=== PATIENT | female | born 1990 | race Caucasian/White ===

== ENCOUNTER 2017-01-06 08:20 | Day surgery (SDC) | payer BC, OTHER ==
[2017-01-02 10:58] VITALS: BMI 19.7
[~2017-01-06 08:20] MED LIST: LACTATED RINGERS 1,000 ML IV SCH
[2017-01-06] MEDS ORDERED: LACTATED RINGERS 1,000 ML IV ONE (08:42)
[2017-01-06 08:43] VITALS: TEMP 98
[2017-01-06 08:57] LABS: Glucose,Whole Blood 106 mg/dL (75-99)
[2017-01-06] MEDS ORDERED: LIDOCAINE 1% 20 ML VIAL (10MG/ML) FOR IV START INTRADERMA ONE (09:03)
[2017-01-06] MEDS ORDERED: LIDOCAINE 1% INJ 10MG/ML (20 ML MDV) ONE (09:39)
[2017-01-06] MEDS ORDERED: PROPOFOL 10 MG/ML 20 ML VIAL IV ONE (09:39)
--- NOTE | 2017-01-06 10:28 | P.PCN ---
Date of Procedure: 01/06/17 Procedure(s) Performed: Procedure: Colonoscopy and biopsy. Preoperative diagnosis: Diarrhea and suspected colitis. Postoperative diagnosis: 1. Nonspecific proctitis, otherwise, exam of the colon and terminal ileum within normal limits. 2. Biopsies obtained from the terminal ileum, random colon and rectum. Preparation: HalfLytely prep. Sedation: Was provided by anesthesia. Brief clinical history: The patient is a 26-year-old female who is referred for this evaluation for suspected colitis. The patient has been in her usual state of health until around 1 month ago when she was treated for pneumonia with antibiotics and started to have diarrhea. There is family history of irritable bowel syndrome and Crohn's disease on her father's side of the family. The patient herself may have had issues with stomach upset and bowel issues over the years but was not diagnosed with inflammatory bowel disease. She has been having some joint complaints but no other extraintestinal manifestations of IBD. Stool studies were negative for C. difficile. She has not responded to antibiotics for her diarrhea and is currently on steroids. This evaluation was requested to assess for inflammatory bowel disease or other pathology. Procedure: With the patient on her left lateral decubitus position and after informed consent and adequate sedation, the perianal area was inspected and it did not show any fissures or fistulas. There were no masses felt on digital rectal examination. The Olympus CFQ 160L videocolonoscope was used and was inserted in the rectum in the usual fashion and advanced to the cecum. I intubated the ileocecal valve and examined the terminal ileum. Terminal ileum appeared healthy with no obvious erosions or ulcers. The mucosa in the colon also appeared healthy with the occasional friability noted with areas of endoscope trauma. There was spontaneous erythema and few submucosal hemorrhages in the rectum noted upon first inserting the endoscope. There was no evidence of typical changes of inflammatory bowel disease or pseudomembranous colitis in any of the areas examined. I obtained biopsies from the terminal ileum, random colon and rectum before the endoscope was withdrawn. The patient tolerated the procedure well. Plan: The patient was reassured. Will await biopsy results and make additional recommendations based on her course and biopsy results.
[2017-01-06 10:41] VITALS: PULSE 100; RESP 16
[2017-01-06 11:04] VITALS: BP 124/83
== END 2017-01-06 11:22 | disposition home or self-care (01) ==
LOC: ORWHC2ENDO 08:20
DX: K62.89 Other specified diseases of anus and rectum (principal); K52.9 Noninfective gastroenteritis and colitis, unspecified; J45.909 Unspecified asthma, uncomplicated; Z79.52 Long term (current) use of systemic steroids; Z79.891 Long term (current) use of opiate analgesic; Z79.899 Other long term (current) drug therapy; Z88.1 Allergy status to other antibiotic agents; Z91.012 Allergy to eggs
CPT/HCPCS: 81025; 88305; 45380; J2001; J2704

== ENCOUNTER 2017-01-09 16:09 | Inpatient (IN) | payer BC, OTHER ==
[2017-01-09] MEDS ORDERED: SODIUM CHLORIDE 0.9% 1,000 ML IV STA ×2 (16:30)
[2017-01-09] MEDS ORDERED: SODIUM CHLORIDE 0.9% 500 ML IV STA ×2 (16:30→18:12)
[2017-01-09] MEDS ORDERED: PANTOPRAZOLE 40 MG/10 ML VIAL IVP STA (16:34)
[2017-01-09 16:41] LABS: Anisocytosis Slight; CH 30.8; CHCM 32.6; HCT 21.3 % (34.0-46.0); HDW 2.57; MCH 31.3 pg (25.0-35.0); MCHC 33.1 g/dL (31.0-37.0); MCV 94.7 fL (80.0-100.0); RBC 2.25 m/uL (3.80-5.40); RDW 16.2 % (11.5-15.5); WBC (Perox) 12.59
--- NOTE | 2017-01-09 16:42 | ED ---
General Adult HPI - General Source: patient, RN notes reviewed Mode of arrival: EMS Limitations: no limitations <Jonathon Gould - Last Filed: 01/09/17 19:25> <Doug Vaughn - Last Filed: 01/09/17 20:03> - General Chief complaint: Syncope Stated complaint: NEAR SYNCOPE, VOMITING BLOOD Time Seen by Provider: 01/09/17 16:25 - History of Present Illness Initial comments: Patient is a 26-year-old female with significant past medical history for ulcerative colitis, who presents emergency room today with chief complaint of lightheadedness dizziness with bloody stool. Patient does admit that she was at work. She states that she was walking down [place] she began to feel little lightheaded and dizzy. She states she felt she is going pass out. She states she made her way to the bathroom. She states she had a bowel movement that was bloody. Patient does admit that she is currently having a flareup of her colitis. Been on steroids which seems to be improving her symptoms. Does admit to abdominal pain in the abdomen that is been consistent with her colitis. She states she felt lightheaded earlier but EMS did start IV giving her IV fluids which has improved her symptoms. Patient denies any other complaints. Patient denies any recent fever, chills, shortness of breath, chest pain, back pain, nausea or vomiting, numbness or tingling, dysuria or hematuria , constipation, headaches or visual changes, or any other complaints. (Jonathon Gould) - Related Data Home Medications Medication Instructions Recorded Confirmed Albuterol Inhaler [Ventolin Hfa 1 puff INHALATION RT-Q6H PRN 01/02/17 01/09/17 Inhaler] Dextroamphetamine/Amphetamine 20 mg PO TID 01/02/17 01/09/17 [Adderall] Ergocalciferol (Vitamin D2) 50,000 unit PO Q30D 01/02/17 01/09/17 [Vitamin D2] HYDROcodone/APAP 5-325MG [[place] 1 tab PO Q8H PRN 01/02/17 01/09/17 5-325] Medroxyprogesterone Acetate 150 mg IM DIRECTED 01/02/17 01/09/17 [Depo-Provera] predniSONE 20 mg PO TID 01/02/17 01/09/17 Albuterol Nebulized [Ventolin 2.5 mg INHALATION RT-Q6H PRN 01/09/17 01/09/17 Nebulized] Beclomethasone Dipropionate [Qvar 1 puff INHALATION RT-BID 01/09/17 01/09/17 80 mcg] Clotrimazole Urmila [Mycelex 10 mg PO QID 01/09/17 01/09/17 Urmila] EPINEPHrine (Auto Inject) [Epipen] 0.3 mg IM ONCE PRN 01/09/17 01/09/17 Fluconazole [Diflucan] 150 mg PO Q3D 01/09/17 01/09/17 Furosemide [Lasix] 20 mg PO DAILY 01/09/17 01/09/17 Hydrocortisone Cream 1 applic TOPICAL QID PRN 01/09/17 01/09/17 [Hydrocortisone 2.5% Cream] Nystatin 100,000 Unit/ml Susp 1 ml PO QID PRN 01/09/17 01/09/17 [Mycostatin Oral Susp] Sennosides [Senna] 8.6 mg PO DAILY PRN 01/09/17 01/09/17 Tamsulosin HCl [Flomax] 0.4 mg PO DAILY 01/09/17 01/09/17 Allergies Allergy/AdvReac Type Severity Reaction Status Date / Time adhesive tape Allergy skin Verified 01/09/17 17:27 irritation animal dander Allergy Unknown Verified 01/09/17 17:27 ciprofloxacin [From Cipro] Allergy Itching Verified 01/09/17 17:27 clarithromycin [From Biaxin] Allergy Unknown Verified 01/09/17 17:27 Influenza Virus Vaccines Allergy Unknown Verified 01/09/17 17:27 metronidazole [From Flagyl] Allergy Itching Verified 01/09/17 17:27 wheat Allergy Unknown Verified 01/09/17 17:27 nuts,eggs, Allergy Unknown Uncoded 01/02/17 10:38 Review of Systems ROS Other: All systems not noted in ROS Statement are negative. <Jonathon Gould - Last Filed: 01/09/17 19:25> ROS Other: All systems not noted in ROS Statement are negative. <Doug Vaughn - Last Filed: 01/09/17 20:03> ROS Statement: Those systems with pertinent positive or pertinent negative responses have been documented in the HPI. Past Medical History Past Medical History: Asthma, Pneumonia Additional Past Medical History / Comment(s): insomnia, hernia, stomach problems with recent antibiotic use, has diarrhea and abdominal pain, had blood in stool and wt loss of 15 lbs, colitis, kidney stones History of Any Multi-Drug Resistant Organisms: None Reported Past Surgical History: Adenoidectomy, Hernia Repair, Tonsillectomy Additional Past Surgical History / Comment(s): left inguinal hernia Past Anesthesia/Blood Transfusion Reactions: Motion Sickness Additional Past Anesthesia/Blood Transfusion Reaction / Comment(s): "high tolerance, I sometimes need more" Past Psychological History: No Psychological Hx Reported Smoking Status: Never smoker Past Alcohol Use History: None Reported Past Drug Use History: None Reported - Past Family History Mother Family Medical History: No Reported History <Jonathon Gould - Last Filed: 01/09/17 19:25> General Exam Limitations: no limitations <Jonathon Gould - Last Filed: 01/09/17 19:25> <Doug Vaughn - Last Filed: 01/09/17 20:03> - General Exam Comments Initial Comments: General: The patient is awake and alert, in no distress, and does not appear acutely ill. Eye: Pupils are equal, round and reactive to light, extra-ocular movements are intact. No nystagmus. There is normal conjunctiva bilaterally. No signs of icterus. Ears, nose, mouth and throat: There are moist mucous membranes and no oral lesions. Neck: The neck is supple, there is no tenderness or JVD. Cardiovascular: Tachycardic. No murmur, rub or gallop is appreciated. Respiratory: Lungs are clear to auscultation, respirations are non-labored, breath sounds are equal. No wheezes, stridor, rales, or rhonchi. Gastrointestinal: Normal appearance abdomen. Normal bowel sounds. Abdomen soft on palpation. Patient does have tenderness diffusely throughout the abdomen. No rebound tenderness. No CVA tenderness. Musculoskeletal: Normal ROM, no tenderness. Strength 5/5. Sensation intact. Pulses equal bilaterally 2+. Neurological: A&O x 3. CN II-XII intact, There are no obvious motor or sensory deficits. Coordination appears grossly intact. Speech is normal. Skin: Skin is warm and dry and no rashes or lesions are noted. Pale. Psychiatric: Cooperative, appropriate mood & affect, normal judgment. (Jonathon Gould) Course <Jonathon Gould - Last Filed: 01/09/17 19:25> <Doug Vaughn - Last Filed: 01/09/17 20:03> Vital Signs 01/09/17 01/09/17 01/09/17 16:13 16:49 16:54 Temperature 99.1 F Pulse Rate 145 H 140 H 137 H Respiratory 16 16 20 Rate Blood Pressure 96/51 91/44 94/51 O2 Sat by Pulse 100 100 Oximetry 01/09/17 01/09/17 01/09/17 17:05 17:35 17:50 Temperature Pulse Rate 150 H 126 H 126 H Respiratory 18 Rate Blood Pressure 92/48 95/55 97/52 O2 Sat by Pulse 100 100 100 Oximetry 01/09/17 01/09/17 01/09/17 18:01 18:15 18:35 Temperature Pulse Rate 136 H 129 H 128 H Respiratory 16 18 Rate Blood Pressure 102/56 106/58 95/48 O2 Sat by Pulse 100 100 97 Oximetry 01/09/17 01/09/17 01/09/17 18:45 19:00 19:35 Temperature 99.2 F Pulse Rate 126 H 122 H 125 H Respiratory 16 16 16 Rate Blood Pressure 90/44 90/47 87/44 O2 Sat by Pulse 100 98 Oximetry 01/09/17 19:45 Temperature 99.5 F Pulse Rate 120 H Respiratory 18 Rate Blood Pressure 87/45 O2 Sat by Pulse 100 Oximetry - Reevaluation(s) Reevaluation #1: 01/09/17 17:15 Patient reexamined at this time shows no signs of distress resting comfortably in the stretcher. Heart rate consistently in the 130s patient's hemoglobin reviewed and does show hemoglobin 7.0. 2 units of packed red blood cells has been ordered. Patient's CT of the abdomen currently pending. She will be continued monitored closely. 01/09/17 18:09 Patient reexamined at this time did have a bloody bowel movement here the emergency room. Lewis is still resting comfortably in the stretcher. Heart rate down to 128 at this time. Patient admits to abdominal pain currently. Patient given over from of due to blood pressure being 90s over 50s. Patient currently on her way to CT for abdomen pelvis. 2 units of packed red blood cells has been ordered currently still pending. 01/09/17 18:16 Patient seen at this time by attending physician . Still awaiting crossmatch. Patient will be typed and crossed for 2 more units. 01/09/17 19:15 Patient developed increased chest pain. EKG was performed. Shows sinus tachycardia 123 bpm. Shows some EKG changes from previous. Cardiac enzymes have been added. Cardiology will also be consulted. Patient's CT is reviewed showing evidence of the right ear stone with inflammatory changes in the lower pelvis. Case been discussed and managed along with attending physician who has spoken to surgeon communication center coordinator Dr. Mendoza along with ICU Dr Pruitt at this time. We'll also discuss case with GI.Please use medication as discussed. Please follow-up with family doctor in the next 2 days of symptoms have not improved. Please return to emergency room if the symptoms increase or worsen or for any other concerns. Blood transfusion uncrossed was started here in the emergency room. (Jonathon Gould) EKG Findings - EKG Comments: EKG Findings:: Patient's EKG performed at 1622: Shows sinus tachycardia 140 beats per minute. UT interval 100. QRS and 74. QT/QTC 276/421. No acute ST changes. EKG performed at 1902: Shows sinus tachycardia 123 bpm. UT interval 126. QRS 82. QT/QTC 302/432. Does show EKG changes in leads V4, V5, V6. <Jonathon Gould - Last Filed: 01/09/17 19:25> Medical Decision Making - Lab Data Result diagrams: 01/09/17 16:15 01/09/17 16:15 <Jonathon Gould - Last Filed: 01/09/17 19:25> - Lab Data Result diagrams: 01/09/17 16:15 01/09/17 16:15 <Doug Vaughn - Last Filed: 01/09/17 20:03> - Medical Decision Making Patient's CT reviewed does show calculus in the proximal right ureter with obstruction of the right upper collecting system appears relatively acute. Colonic fluid levels consistent with nonspecific colitis. Mild left inguinal increased density measures approximately 2.5 cm could relate to edema or inflammatory adenopathy. Patient been admitted to the ICU for GI bleed. (Jonathon Gould) The patient was seen and examined. All diagnostics were reviewed. It is felt as though she does have a significant GI bleed. She is tachycardic and hypotensive. Blood was ordered but it is taking a very long time to crossmatch her. Is felt that she needs it emergently. 4 units were ordered of uncrossed matched blood to be given immediately as her heart rate was approximately 150 and her blood pressure systolic was approximately 90. The case is discussed with Dr. Chappell, Dr. Fuchs, Dr. Maynard, and Dr. Lopez. It is felt that she is critically ill currently. Patient and family are updated. She is admitted to the intensive care unit. The patient's repeat EKG did show some changes. This may be rate related. Cardiac enzymes are ordered. A cardiology consult will also be placed. In addition, she has a right ureteral stone with partial obstruction and a urology consult will be placed. Approximately 45 minutes critical care time was utilized and the treatment of the patient. The case also was discussed with the PA and agree with the findings as documented. ( Doug Vaughn) - Lab Data Lab Results 01/09/17 01/09/17 01/09/17 Range/Units 16:15 16:15 16:15 WBC 13.0 H (3.8-10.6) k/uL RBC 2.25 L (3.80-5.40) m/uL Hgb 7.0 L* (11.4-16.0) gm/dL Hct 21.3 L (34.0-46.0) % MCV 94.7 (80.0-100.0) fL MCH 31.3 (25.0-35.0) pg MCHC 33.1 (31.0-37.0) g/dL RDW 16.2 H (11.5-15.5) % Plt Count 41 L* (150-450) k/uL Neutrophils % (Manual) 79.5 % Band Neutrophils % 16.5 % Lymphocytes % (Manual) 1.5 % Monocytes % (Manual) 2.5 % Neutrophils # (Manual) 12.5 H (1.3-7.7) k/uL Lymphocytes # (Manual) 0.2 L (1.0-4.8) k/uL Monocytes # (Manual) 0.3 (0-1.0) k/uL Nucleated RBCs 0 (0-0) /100 WBC Manual Slide Review Performed Toxic Granulation Present Toxic Vacuolation Present Polychromasia Present Anisocytosis Slight PT 12.2 H (9.0-12.0) sec INR 1.2 (<1.1) APTT 23.3 (22.0-30.0) sec Sodium 133 L (137-145) mmol/L Potassium 3.7 (3.5-5.1) mmol/L Chloride 97 L (98-107) mmol/L Carbon Dioxide 26 (22-30) mmol/L Anion Gap 10 mmol/L BUN 25 H (7-17) mg/dL Creatinine 0.86 (0.52-1.04) mg/dL Est GFR (MDRD) Af Amer >60 (>60 ml/min/1.73 sqM) Est GFR (MDRD) Non-Af >60 (>60 ml/min/1.73 sqM) Glucose 119 H (74-99) mg/dL Calcium 7.4 L (8.4-10.2) mg/dL Total Bilirubin 0.8 (0.2-1.3) mg/dL AST 15 (14-36) U/L ALT 31 (9-52) U/L Alkaline Phosphatase 81 (38-126) U/L Total Creatine Kinase (30-135) U/L Total Protein 4.3 L (6.3-8.2) g/dL Albumin 1.9 L (3.5-5.0) g/dL Amylase <30 L (30-110) U/L Lipase 10 L (23-300) U/L Urine Color Urine Appearance (Clear) Urine pH (5.0-8.0) Ur Specific [place] (1.001-1.035) Urine Protein (Negative) Urine Glucose (UA) (Negative) Urine Ketones (Negative) Urine Blood (Negative) Urine Nitrite (Negative) Urine Bilirubin (Negative) Urine Urobilinogen (<2.0) mg/dL Ur Leukocyte Esterase (Negative) Urine RBC (0-5) /hpf Urine WBC (0-5) /hpf Urine Bacteria (None) /hpf Urine Mucus (None) /hpf Urine HCG, Qual (Not Detectd) Stool Occult Blood (Negative) 01/09/17 01/09/17 01/09/17 Range/Units 16:15 17:00 17:00 WBC (3.8-10.6) k/uL RBC (3.80-5.40) m/uL Hgb (11.4-16.0) gm/dL Hct (34.0-46.0) % MCV (80.0-100.0) fL MCH (25.0-35.0) pg MCHC (31.0-37.0) g/dL RDW (11.5-15.5) % Plt Count (150-450) k/uL Neutrophils % (Manual) % Band Neutrophils % % Lymphocytes % (Manual) % Monocytes % (Manual) % Neutrophils # (Manual) (1.3-7.7) k/uL Lymphocytes # (Manual) (1.0-4.8) k/uL Monocytes # (Manual) (0-1.0) k/uL Nucleated RBCs (0-0) /100 WBC Manual Slide Review Toxic Granulation Toxic Vacuolation Polychromasia Anisocytosis PT (9.0-12.0) sec INR (<1.1) APTT (22.0-30.0) sec Sodium (137-145) mmol/L Potassium (3.5-5.1) mmol/L Chloride (98-107) mmol/L Carbon Dioxide (22-30) mmol/L Anion Gap mmol/L BUN (7-17) mg/dL Creatinine (0.52-1.04) mg/dL Est GFR (MDRD) Af Amer (>60 ml/min/1.73 sqM) Est GFR (MDRD) Non-Af (>60 ml/min/1.73 sqM) Glucose (74-99) mg/dL Calcium (8.4-10.2) mg/dL Total Bilirubin (0.2-1.3) mg/dL AST (14-36) U/L ALT (9-52) U/L Alkaline Phosphatase (38-126) U/L Total Creatine Kinase 24 L (30-135) U/L Total Protein (6.3-8.2) g/dL Albumin (3.5-5.0) g/dL Amylase (30-110) U/L Lipase (23-300) U/L Urine Color Yellow Urine Appearance Clear (Clear) Urine pH 6.0 (5.0-8.0) Ur Specific [place] 1.012 (1.001-1.035) Urine Protein Trace H (Negative) Urine Glucose (UA) Negative (Negative) Urine Ketones Trace H (Negative) Urine Blood Trace H (Negative) Urine Nitrite Negative (Negative) Urine Bilirubin Negative (Negative) Urine Urobilinogen <2.0 (<2.0) mg/dL Ur Leukocyte Esterase Negative (Negative) Urine RBC 2 (0-5) /hpf Urine WBC 8 H (0-5) /hpf Urine Bacteria Occasional H (None) /hpf Urine Mucus Rare H (None) /hpf Urine HCG, Qual Not Detected (Not Detectd) Stool Occult Blood (Negative) 01/09/17 Range/Units 17:50 WBC (3.8-10.6) k/uL RBC (3.80-5.40) m/uL Hgb (11.4-16.0) gm/dL Hct (34.0-46.0) % MCV (80.0-100.0) fL MCH (25.0-35.0) pg MCHC (31.0-37.0) g/dL RDW (11.5-15.5) % Plt Count (150-450) k/uL Neutrophils % (Manual) % Band Neutrophils % % Lymphocytes % (Manual) % Monocytes % (Manual) % Neutrophils # (Manual) (1.3-7.7) k/uL Lymphocytes # (Manual) (1.0-4.8) k/uL Monocytes # (Manual) (0-1.0) k/uL Nucleated RBCs (0-0) /100 WBC Manual Slide Review Toxic Granulation Toxic Vacuolation Polychromasia Anisocytosis PT (9.0-12.0) sec INR (<1.1) APTT (22.0-30.0) sec Sodium (137-145) mmol/L Potassium (3.5-5.1) mmol/L Chloride (98-107) mmol/L Carbon Dioxide (22-30) mmol/L Anion Gap mmol/L BUN (7-17) mg/dL Creatinine (0.52-1.04) mg/dL Est GFR (MDRD) Af Amer (>60 ml/min/1.73 sqM) Est GFR (MDRD) Non-Af (>60 ml/min/1.73 sqM) Glucose (74-99) mg/dL Calcium (8.4-10.2) mg/dL Total Bilirubin (0.2-1.3) mg/dL AST (14-36) U/L ALT (9-52) U/L Alkaline Phosphatase (38-126) U/L Total Creatine Kinase (30-135) U/L Total Protein (6.3-8.2) g/dL Albumin (3.5-5.0) g/dL Amylase (30-110) U/L Lipase (23-300) U/L Urine Color Urine Appearance (Clear) Urine pH (5.0-8.0) Ur Specific [place] (1.001-1.035) Urine Protein (Negative) Urine Glucose (UA) (Negative) Urine Ketones (Negative) Urine Blood (Negative) Urine Nitrite (Negative) Urine Bilirubin (Negative) Urine Urobilinogen (<2.0) mg/dL Ur Leukocyte Esterase (Negative) Urine RBC (0-5) /hpf Urine WBC (0-5) /hpf Urine Bacteria (None) /hpf Urine Mucus (None) /hpf Urine HCG, Qual (Not Detectd) Stool Occult Blood Positive H (Negative) Disposition Time of Disposition: 19:03 <Jonathon Gould - Last Filed: 01/09/17 19:25> <Doug Vaughn - Last Filed: 01/09/17 20:03> Clinical Impression: GI bleed, Kidney stone Disposition: ADMITTED IP TO THIS HOSP Condition: Critical
[2017-01-09] MEDS ORDERED: RX INFO: IV CONTRAST WAS GIVEN 1 EACH MISC MISCELLANE PRN (16:51)
[2017-01-09 16:53] LABS: ALT 31 U/L (9-52); AST 15 U/L (14-36); Alkaline Phosphatase 81 U/L (38-126); Amylase <30 U/L (30-110); Anion Gap 10 mmol/L; Blood Urea Nitrogen 25 mg/dL (7-17); Calcium 7.4 mg/dL (8.4-10.2); Carbon Dioxide 26 mmol/L (22-30); Chloride 97 mmol/L (98-107); Glucose 119 mg/dL (74-99); Non-African American GFR(MDRD) >60 (>60 ml/min/1.73 sqM); Potassium 3.7 mmol/L (3.5-5.1); Sodium 133 mmol/L (137-145); Total Bilirubin 0.8 mg/dL (0.2-1.3); Total Protein 4.3 g/dL (6.3-8.2)
[2017-01-09 17:10] LABS: Add Differential Manual Differential
[2017-01-09 17:16] LABS: Band Neutrophils % 16.5 %; Manual Review Performed; Nucleated Red Blood Cells 0 /100 WBC (0-0); Polychromasia Present; Total Cells Counted 200; Toxic Granulation Present; Toxic Vacuolation Present
[2017-01-09 17:23] LABS: INR 1.2 (<1.1); Partial Thromboplastin Time 23.3 sec (22.0-30.0); Prothrombin Time 12.2 sec (9.0-12.0)
[2017-01-09 17:28] LABS: Appearance,Urine Clear (Clear); Bacteria,Urine Occasional /hpf; Bilirubin,Urine Negative (Negative); Glucose,Urine (UA) Negative (Negative); Ketones,Urine Trace (Negative); Leukocyte Esterase,Urine Negative (Negative); Mucus,Urine Rare /hpf; Nitrite,Urine Negative (Negative); Particle Count 10771; Protein,Urine Trace (Negative); RBC,Urine 2 /hpf (0-5); Specific Gravity,Urine 1.012 (1.001-1.035); UA Billing (MACRO vs. MICRO) MICRO; Urobilinogen,Urine <2.0 mg/dL (<2.0); WBC,Urine 8 /hpf (0-5)
[2017-01-09] MEDS ORDERED: ACETAMINOPHEN IV (For NPO) 1,000 MG in SALINE 100 100ML.BAG IVPB STA (17:28)
[2017-01-09] MEDS ORDERED: SODIUM CHLORIDE 0.9% 1,000 ML IV ONE (18:58)
[2017-01-09] MEDS ORDERED: NALOXONE 0.4 MG/ML 1 ML VIAL IV PRN (18:58)
--- NOTE | 2017-01-09 19:03 | CT ---
EXAMINATION TYPE: CT abdomen pelvis w con DATE OF EXAM: 01/09/2017 6:40 PM COMPARISON: NONE HISTORY: Colitis with rectal bleeding. CT DLP: 1041.00 mGycm Automated exposure control for dose reduction was used. TECHNIQUE: Helical acquisition of images was performed from the lung bases through the pelvis. CONTRAST: Performed without Oral Contrast and with IV Contrast, patient injected with 100 mL of Omnipaque 300. FINDINGS: Lung bases are clear. There is no pleural effusion. Liver spleen pancreas gallbladder appear normal. Bile ducts are not dilated. There is right-sided hydronephrosis. There appears to be a 5 mm obstructing calculus in the proximal right ureter. There is decreased cortical contrast opacification of the right kidney compared to the left. Left kidney shows no hydronephrosis. There is no retroperitoneal adenopathy. There is no ascites. I see no intestinal wall thickening. The re are no dilated loops. Appendix appears normal. I see no bony destructive process. Lumbar spine debbie ears normal. The bladder distends smoothly. There is no sign of a pelvic mass. There is mild subcutaneous density in the left inguinal region. No hernia sac is seen. There are colonic air-fluid levels. IMPRESSION: THERE IS A CALCULUS IN THE PROXIMAL RIGHT URETER WITH OBSTRUCTION OF THE RIGHT UPPER COLLECTING SYSTE M THAT APPEARS RELATIVELY ACUTE. COLONIC FLUID LEVELS CONSISTENT WITH NONSPECIFIC COLITIS. MILD LEFT INGUINAL INCREASED DENSITY MEASURES APPROXIMATELY 2.5 CM COULD RELATE TO EDEMA OR INFLAMMAT ORY ADENOPATHY. CLINICAL CORRELATION IS RECOMMENDED. NORMAL APPENDIX.
[2017-01-09 19:46] LABS: Creatine Kinase 24 U/L (30-135)
[2017-01-09 19:59] LABS: Creatine Kinase MB 0.4 ng/mL (0.0-2.4); Troponin I <0.012 ng/mL (0.000-0.034)
[2017-01-09 21:41] LABS: Glucose,Whole Blood 119 mg/dL (75-99)
[2017-01-09 22:36] LABS: CH 29.9; CHCM 32.6; HCT 22.6 % (34.0-46.0); HDW 2.81; HGB 7.8 gm/dL (11.4-16.0); MCH 31.7 pg (25.0-35.0); MCHC 34.4 g/dL (31.0-37.0); MCV 92.2 fL (80.0-100.0); RBC 2.45 m/uL (3.80-5.40); RDW 15.2 % (11.5-15.5); WBC 6.7 k/uL (3.8-10.6)
[2017-01-09 22:59] LABS: Magnesium 1.6 mg/dL (1.6-2.3)
[2017-01-09] MEDS ORDERED: Potassium Replacement Protocol 1 EACH MISC MISCELLANE PRN (23:05)
[2017-01-09 23:11] LABS: Creatine Kinase <20 U/L (30-135)
[2017-01-09] MEDS ORDERED: Magnesium Replacement Protocol 1 EACH MISC MISCELLANE PRN (23:19)
[2017-01-09 23:25] LABS: Creatine Kinase MB 0.4 ng/mL (0.0-2.4); Troponin I <0.012 ng/mL (0.000-0.034)
[2017-01-10] MEDS ORDERED: POTASSIUM CHLORIDE ER 20 MEQ TAB.ER PO SCH
[2017-01-10] MEDS: HYDROmorphone 1 MG/ML 1 ML SYRINGE IVP PRN ×3 (00:15→20:41)
[2017-01-10] MEDS: PIPERACILLIN-TAZOBACTAM 3.375 GM in DEXTROSE/WATER 1 50ML.BAG IVPB SCH ×3 (00:17→16:08)
[2017-01-10] MEDS: DEXAMETHASONE SOD PHOSPHATE 4 MG/ML 1 ML VIAL IV SCH ×2 (00:21→06:36)
[2017-01-10] MEDS: MAGNESIUM SULFATE-D5W PMX 1 GM in DEXTROSE/WATER 1 100ML.BAG IVPB SCH ×2 (01:18→02:16)
[2017-01-10 02:04] LABS: CH 30.8; CHCM 33.6; HCT 27.1 % (34.0-46.0); HDW 2.97; HGB 8.9 gm/dL (11.4-16.0); MCH 30.4 pg (25.0-35.0); MCV 92.2 fL (80.0-100.0); Mean Platelet Volume 9.3; RBC 2.94 m/uL (3.80-5.40); RDW 15.5 % (11.5-15.5)
[2017-01-10] MEDS ORDERED: ACETAMINOPHEN IV (For NPO) 1,000 MG in EMPTY BAG 1 BAG IVPB PRN (03:49)
[2017-01-10 04:44] LABS: Basophils % (A) 0 %; CHCM 33.9; Eosinophils % (A) 0 %; HCT 27.8 % (34.0-46.0); HDW 2.98; HGB 9.2 gm/dL (11.4-16.0); Luc # (Auto) 0.05; Luc % (Auto) 1; Lymphocytes # (A) 0.2 k/uL (1.0-4.8); Lymphocytes % (A) 4 %; MCH 30.6 pg (25.0-35.0); MCHC 33.2 g/dL (31.0-37.0); MCV 92.1 fL (80.0-100.0); Mean Platelet Volume 9.3; Monocytes # (A) 0.3 k/uL (0-1.0); Monocytes % (A) 5 %; Neutrophils # (A) 4.9 k/uL (1.3-7.7); Neutrophils % (A) 90 %; RBC 3.02 m/uL (3.80-5.40); RDW 15.6 % (11.5-15.5); WBC 5.4 k/uL (3.8-10.6); WBC (Perox) 6.29
[2017-01-10 04:55] LABS: ALT 31 U/L (9-52); AST 19 U/L (14-36); Alkaline Phosphatase 119 U/L (38-126); Anion Gap 8 mmol/L; Blood Urea Nitrogen 21 mg/dL (7-17); Carbon Dioxide 23 mmol/L (22-30); Chloride 102 mmol/L (98-107); Cholesterol <50 mg/dL (<200); Glucose 115 mg/dL (74-99); HDL Cholesterol 12 mg/dL (40-60); Non-African American GFR(MDRD) >60 (>60 ml/min/1.73 sqM); Potassium 3.6 mmol/L (3.5-5.1); Sodium 133 mmol/L (137-145); Total Bilirubin 3.4 mg/dL (0.2-1.3); Total Protein 3.9 g/dL (6.3-8.2); Triglycerides 99 mg/dL (<150)
[2017-01-10 05:01] LABS: Calcium 6.3 mg/dL (8.4-10.2)
[2017-01-10 05:24] LABS: Magnesium 2.5 mg/dL (1.6-2.3); Phosphorous 3.2 mg/dL (2.5-4.5)
[2017-01-10 05:36] LABS: Creatine Kinase MB 0.8 ng/mL (0.0-2.4)
[2017-01-10 06:19] LABS: Troponin I 0.148 ng/mL (0.000-0.034)
[2017-01-10] MEDS ORDERED: CALCIUM GLUCONATE 1,000 MG in SODIUM CHLORIDE 0.9% 100 ML IVPB ONE (07:00)
[2017-01-10] MEDS ORDERED: Potassium Replacement Protocol 1 EACH MISC MISCELLANE PRN (08:51)
--- NOTE | 2017-01-10 08:56 | P.CONS ---
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 Admitted with reports of lightheadedness, dizziness, near- syncope, fever T-max 101.8, with large voluminous bright red blood BM x 1 yesterday followed by 2 more last night. Recently evaluated for suspected inflammatory colitis possible infectious with fever diarrhea a few weeks ago at [facility]. She had previously received antibiotics a month prior for suspected pneumonia. She has a familial history of Crohn's disease and IBS. She underwent colonoscopy Friday01/06/2017 for evaluation of diarrhea suspected colitis. According to Dr. Harris endoscopic findings were not overly suggestive of obvious IBD; nonspecific proctitis otherwise examine of the colon and terminal ileum within normal limits. Random colon/rectal biopsies reported acute colitis/proctitis with features suggestive of chronicity. Based on these findings inflammatory bowel disease could not be excluded. She has been experiencing right sided abdominal pain for quite some time with exacerbation a few days that quickly resolved within 24 hours. Denies hematuria. Prior to admission she had been receiving oral steroids (Prednisone 20 mg daily ) which was helping her colitis type symptoms. Denies gross hematemesis or melena. Vital signs on admission reported a heart rate greater than 120, systolic blood pressures 70s-90s. White count 13 currently 5.4. Hemoglobin 7. MCV 94. Platelets 41. INR 1.2. 16% bandemia. Troponin 0.148. BUN 25. Creatinine 0.8. HCG not detected. Stool occult blood positive. Received 4 units of blood 3 units of platelets. Current hemoglobin 9.2. Platelet 30. CT abdomen and pelvis with IV contrast only; right-sided hydronephrosis with 5 mm obstructing calculus in the proximal right ureter. No ascites. No intestinal wall thickening. No dilated loops. Appendix normal. Colonic air- fluid levels consistent with nonspecific colitis. Mild subcutaneous density in the left inguinal region 2.5 cm could relate to edema or inflammatory adenopathy. Review of Systems Constitutional: Denies fever, chills, sweats, weight gain, or loss. HEENT: Negative for migraines, blurred vision or loss, earaches, drainage, tinnitus, oral mucosal lesions, dysphagia, or odynophagia. CARDIAC: Negative for chest pain, arrhythmias, or palpitation. RESPIRATORY: Asthma. Pneumonia. Marijuana usage. Negative for shortness of breath, hemoptysis, cough, or sputum production. GI: See HPI for pertinent findings. : Nephrolithiasis. Negative for hematuria, urgency, frequency, polyuria, or dysuria. GYNc: Denies possibility of . Negative vaginal discharge. MUSCULOSKELETAL: Negative for muscle aches, swelling, arthritis, and arthralgias. NEUROLOGIC: Negative for stroke or TIA. ENDOCRINE: Negative for thyroid problems. SKIN: Negative for rash or itching. PSYCHIATRIC: Negative history for depression and anxiety. ADHD. Past Medical History Past Medical History: Asthma, Pneumonia Additional Past Medical History / Comment(s): insomnia, hernia, pt mother states "she had bowel wipeout related to her antibiotics" colitis, kidney stones to right kidney History of Any Multi-Drug Resistant Organisms: None Reported Past Surgical History: Adenoidectomy, Hernia Repair, Tonsillectomy Additional Past Surgical History / Comment(s): left inguinal hernia Past Anesthesia/Blood Transfusion Reactions: Motion Sickness Additional Past Anesthesia/Blood Transfusion Reaction / Comm: "high tolerance, I sometimes need more" Past Psychological History: No Psychological Hx Reported Smoking Status: Never smoker Past Alcohol Use History: None Reported Past Drug Use History: Marijuana Additional Drug Use History / Comment(s): edible marijuana - Past Family History Mother Family Medical History: No Reported History Father Additional Family Medical History / Comment(s): Father has history of either Crohn's or irritable bowel syndrome. Medications and Allergies Home Medications Medication Instructions Recorded Confirmed Type Albuterol Inhaler [Ventolin Hfa 1 puff INHALATION RT-Q6H PRN 01/02/17 01/09/17 History Inhaler] Dextroamphetamine/Amphetamine 20 mg PO TID 01/02/17 01/09/17 History [Adderall] Ergocalciferol (Vitamin D2) 50,000 unit PO Q30D 01/02/17 01/09/17 History [Vitamin D2] HYDROcodone/APAP 5-325MG [[place] 1 tab PO Q8H PRN 01/02/17 01/09/17 History 5-325] Medroxyprogesterone Acetate 150 mg IM DIRECTED 01/02/17 01/09/17 History [Depo-Provera] predniSONE 20 mg PO TID 01/02/17 01/09/17 History Albuterol Nebulized [Ventolin 2.5 mg INHALATION RT-Q6H PRN 01/09/17 01/09/17 History Nebulized] Beclomethasone Dipropionate [Qvar 1 puff INHALATION RT-BID 01/09/17 01/09/17 History 80 mcg] Clotrimazole Urmila [Mycelex 10 mg PO QID 01/09/17 01/09/17 History Urmila] EPINEPHrine (Auto Inject) [Epipen] 0.3 mg IM ONCE PRN 01/09/17 01/09/17 History Fluconazole [Diflucan] 150 mg PO Q3D 01/09/17 01/09/17 History Furosemide [Lasix] 20 mg PO DAILY 01/09/17 01/09/17 History Hydrocortisone Cream 1 applic TOPICAL QID PRN 01/09/17 01/09/17 History [Hydrocortisone 2.5% Cream] Nystatin 100,000 Unit/ml Susp 1 ml PO QID PRN 01/09/17 01/09/17 History [Mycostatin Oral Susp] Sennosides [Senna] 8.6 mg PO DAILY PRN 01/09/17 01/09/17 History Tamsulosin HCl [Flomax] 0.4 mg PO DAILY 01/09/17 01/09/17 History Allergies Allergy/AdvReac Type Severity Reaction Status Date / Time adhesive tape Allergy skin Verified 01/09/17 17:27 irritation animal dander Allergy Unknown Verified 01/09/17 17:27 ciprofloxacin [From Cipro] Allergy Itching Verified 01/09/17 17:27 clarithromycin [From Biaxin] Allergy Unknown Verified 01/09/17 17:27 Influenza Virus Vaccines Allergy Unknown Verified 01/09/17 17:27 metronidazole [From Flagyl] Allergy Itching Verified 01/09/17 17:27 wheat Allergy Unknown Verified 01/09/17 17:27 Guthrie And Derivatives AdvReac Itching Verified 01/10/17 00:51 [Guthrie] nuts,eggs, Allergy Unknown Uncoded 01/02/17 10:38 Physical Exam Vitals: Vital Signs Temp Pulse Resp BP Pulse Ox 01/10/17 07:00 115 H 20 83/46 100 01/10/17 06:30 116 H 18 99/46 96 01/10/17 06:00 121 H 18 83/45 100 01/10/17 05:30 122 H 20 83/46 100 01/10/17 05:00 133 H 18 85/45 97 01/10/17 04:30 99.9 F H 130 H 23 105/56 98 01/10/17 04:00 100.8 F H 134 H 21 105/56 98 01/10/17 03:35 101.8 F H 01/10/17 03:00 125 H 22 93/44 97 01/10/17 02:30 131 H 23 95/43 99 01/10/17 02:00 134 H 22 94/48 97 01/10/17 01:30 136 H 22 107/59 94 L 01/10/17 01:16 98.2 F 124 H 20 105/60 01/10/17 01:00 144 H 19 91/40 89 L 01/10/17 00:51 98.4 F 140 H 18 91/56 98 01/10/17 00:30 130 H 17 92/51 94 L 01/10/17 00:21 98.6 F 136 H 18 91/40 01/10/17 00:11 99.8 F H 136 H 17 96/45 97 01/10/17 00:00 99.1 F 131 H 20 93/44 99 01/09/17 23:58 99.8 F H 135 H 18 93/44 98 01/09/17 23:41 99.2 F 132 H 20 81/37 01/09/17 23:40 99.1 F 129 H 19 79/40 01/09/17 23:34 98.9 F 129 H 18 78/43 01/09/17 23:31 99.3 F 138 H 20 81/39 97 01/09/17 23:30 131 H 18 81/39 97 01/09/17 23:24 99.4 F 127 H 19 80/39 98 01/09/17 23:00 135 H 18 81/46 96 01/09/17 22:51 99.3 F 135 H 20 81/45 98 01/09/17 22:30 132 H 20 81/32 98 01/09/17 22:21 99.3 F 133 H 18 81/34 100 01/09/17 22:11 100.3 F H 135 H 18 79/42 97 01/09/17 22:00 99.9 F H 131 H 25 H 93/39 97 01/09/17 21:38 99.5 F 136 H 20 85/46 98 01/09/17 21:15 98.8 F 119 H 18 89/42 100 01/09/17 20:50 99.0 F 124 H 18 88/46 100 01/09/17 20:35 98.9 F 121 H 18 89/46 100 01/09/17 20:15 99.3 F 121 H 18 91/50 01/09/17 19:45 99.5 F 120 H 18 87/45 100 01/09/17 19:35 99.2 F 125 H 16 87/44 Intake and Output 01/09/17 01/10/17 01/10/17 22:59 06:59 14:59 Intake Total 720 2800.0 150 Output Total 800 Balance 720 2000.0 150 Intake: Intake, IV Titration 100 1500.0 150 Amount ACETAMINOPHEN IV (For NPO 100 ) 1,000 mg In Saline 100 100ml.bag @ 400 mls/hr IVPB ONCE STA Rx#: [id number] Magnesium Sulfate-D5w Pmx 200 1 gm In Dextrose/Water 1 100ml.bag @ 100 mls/hr IVPB Q1H [facility] Rx#: [id number] Piperacillin-Tazobactam 3 50.0 .375 gm In Dextrose/Water 1 50ml.bag @ 12.5 mls/hr IVPB Q8HR [facility] Rx#: [id number] Sodium Chloride 0.9% 1, 100 1150 150 000 ml @ 150 mls/hr IV . Q6H40M [facility] Rx#:[id number] Blood Product 620 1300 Platelet Pheresis Acda 188 Unit [id number] Platelet Pheresis Acda1 203 Unit [id number] Platelet Pheresis Acda2 289 Unit [id number] Rc As-1 Unit 310 [id number] Rc As-1 Unit 310 [id number] Rc As-1 Unit 310 [id number] Rc As-3 Unit 0 310 [id number] Output: Urine 800 Other: Voiding Method Bedpan # Voids 1 # Bowel Movements 1 Weight 61.2 kg General appearance: The patient is alert, oriented, in no acute distress. HET: Head is normocephalic and atraumatic. Pupils are equal and reactive. Oropharynx is clear without lesions. Neck: Supple without lymphadenopathy. Trachea midline. Heart: S1 S2. Regular rate and rhythm. Lungs: No crackles or wheezes are heard. Abdomen: Soft, distended with bowel sounds. Diffuse abdominal tenderness across mid abdomen. No palpable organomegaly or masses. Extremities: Normal skin color and turgor. No cyanosis, rash, ulceration, clubbing, or edema. Radial and pedal pulses are 2/4 bilaterally. Neurological: No focal deficits. Strength and sensation are grossly intact. Results CBC & Chem 7: 01/10/17 04:24 01/10/17 04:24 Labs: Abnormal Lab Results - Last 24 Hours (Table) 01/09/17 01/09/17 01/09/17 Range/Units 21:39 22:00 22:31 RBC 2.45 L (3.80-5.40) m/uL Hgb 7.8 L (11.4-16.0) gm/dL Hct 22.6 L (34.0-46.0) % RDW (11.5-15.5) % Plt Count 24 L* (150-450) k/uL Lymphocytes # (1.0-4.8) k/uL Sodium (137-145) mmol/L BUN (7-17) mg/dL Glucose (74-99) mg/dL POC Glucose (mg/dL) 119 H (75-99) mg/dL Calcium (8.4-10.2) mg/dL Ionized Calcium [place] (4.5-5.3) mg/dL Magnesium (1.6-2.3) mg/dL Total Bilirubin (0.2-1.3) mg/dL Total Creatine Kinase <20 L (30-135) U/L Troponin I (0.000-0.034) ng/mL Total Protein (6.3-8.2) g/dL Albumin (3.5-5.0) g/dL HDL Cholesterol (40-60) mg/dL 01/10/17 01/10/17 01/10/17 Range/Units 01:49 04:24 04:24 RBC 2.94 L 3.02 L (3.80-5.40) m/uL Hgb 8.9 L 9.2 L (11.4-16.0) gm/dL Hct 27.1 L 27.8 L (34.0-46.0) % RDW 15.6 H (11.5-15.5) % Plt Count 35 L* 30 L* (150-450) k/uL Lymphocytes # 0.2 L (1.0-4.8) k/uL Sodium 133 L (137-145) mmol/L BUN 21 H (7-17) mg/dL Glucose 115 H (74-99) mg/dL POC Glucose (mg/dL) (75-99) mg/dL Calcium 6.3 L* (8.4-10.2) mg/dL Ionized Calcium [place] (4.5-5.3) mg/dL Magnesium (1.6-2.3) mg/dL Total Bilirubin 3.4 H (0.2-1.3) mg/dL Total Creatine Kinase (30-135) U/L Troponin I (0.000-0.034) ng/mL Total Protein 3.9 L (6.3-8.2) g/dL Albumin 1.8 L (3.5-5.0) g/dL HDL Cholesterol 12 L (40-60) mg/dL 01/10/17 01/10/17 01/10/17 Range/Units 04:24 04:24 04:24 RBC (3.80-5.40) m/uL Hgb (11.4-16.0) gm/dL Hct (34.0-46.0) % RDW (11.5-15.5) % Plt Count (150-450) k/uL Lymphocytes # (1.0-4.8) k/uL Sodium (137-145) mmol/L BUN (7-17) mg/dL Glucose (74-99) mg/dL POC Glucose (mg/dL) (75-99) mg/dL Calcium (8.4-10.2) mg/dL Ionized Calcium [place] 4.1 L (4.5-5.3) mg/dL Magnesium 2.5 H (1.6-2.3) mg/dL Total Bilirubin (0.2-1.3) mg/dL Total Creatine Kinase (30-135) U/L Troponin I 0.148 H* (0.000-0.034) ng/mL Total Protein (6.3-8.2) g/dL Albumin (3.5-5.0) g/dL HDL Cholesterol (40-60) mg/dL CT scan - abdomen: report reviewed (reviewed by Dr. Harris) CT scan - pelvis: report reviewed (reviewed by Dr. Harris) Assessment and Plan (1) Sepsis Narrative/Plan: Possible urologic source. Other considerations is DIC. Status: Acute (2) Colitis Narrative/Plan: acute on chronic colitis s/p colonoscopy 01/06/17 biopsies suggest chronicity IBD cannot be excluded. No evidence to suggest at this time presentation is a complication from recent colonoscopy. Status: Acute (3) Fever Status: Acute (4) GI bleed Status: Acute (5) Acute blood loss anemia Status: Acute (6) Thrombocytopenia Status: Acute (7) Hydronephrosis, right Status: Acute (8) Right nephrolithiasis Status: Acute (9) IgG deficiency Narrative/Plan: possible childhood history of IgG deficiency Status: Acute Plan: 1. Nothing by mouth except medications. Stool studies. Sed rate CRP. Blood cultures pending. Recommend high-dose steroids IV Solu-Medrol 60mg every 6 hours to cover for colitis type features as well as current stress conditions. 2. IV antibiotics. 2. Multiple consultations including general surgery, hematology, infectious disease, and urology. 4. Monitor CBC/platelet every 6 hours with transfusions accordingly. 5. GI prophylaxis Protonix 40 mg IV daily. Thank you for this kind referral and the opportunity to participate in the care of your patient. This consultation was discussed with Dr. Harris. The impression and plan of care have been directed as dictated.
--- NOTE | 2017-01-10 09:28 | XR ---
EXAMINATION TYPE: XR chest 1V portable DATE OF EXAM: 01/10/2017 9:21 AM CLINICAL HISTORY: Shortness of breath. TECHNIQUE: Single AP portable frontal upright view of the chest is obtained. COMPARISON: Chest x-ray January 12, 2015. FINDINGS: Diminished inspiration is seen on current study. There is faint right basilar opacity. Some interstitial markings are more prominent particularly in right lung. No large pleural effusion or pn eumothorax is seen bilaterally. The cardiac silhouette size is within normal limits. The osseous s tructures are intact. IMPRESSION: Diminished inspiration with possible developing right basilar atelectasis and/or infiltra te and mild interstitial edema noted. Consider progress two-view chest x-ray.
[2017-01-10] MEDS: POTASSIUM CHLORIDE 10 MEQ, LIDOCAINE 2% INJ 10 MG in SODIUM CHLORIDE 0.9% 100 ML IV SCH ×2 (09:56→12:50)
[2017-01-10] MEDS: PANTOPRAZOLE 40 MG/10 ML VIAL IV SCH (09:56)
[2017-01-10 11:18] LABS: INR 1.3 (<1.1); Partial Thromboplastin Time 25.6 sec (22.0-30.0); Prothrombin Time 12.6 sec (9.0-12.0)
[2017-01-10] MEDS: SODIUM CHLORIDE 0.9% 1,000 ML IV SCH ×2 (11:21→18:18)
--- NOTE | 2017-01-10 12:06 | CONS ---
DATE OF CONSULTATION: This is a 26-year-old lady with multiple medical problems. Apparently, she had some respiratory type infections, received antibiotics, developed severe colitis and lost a lot of weight and became quite malnourished. This is the background story. She came to the hospital yesterday and had a GI bleeding with a very low hemoglobin, received blood transfusion, platelet transfusion and then developed some fevers with chills through the night. I was asked to see her mainly for elevated troponin. She has a gram-negative bacillary growing in the blood. She also has renal stones. She has colitis, GI bleeding. However, the troponin elevation was the third set of 0.14. This is not considered anything significant or something that we should do any intervention with. This certainly does not represent acute myocardial ischemia or injury. There may be an issue of oxygen mismatch or a borderline abnormality. No intervention is necessary for this. PAST MEDICAL HISTORY: 1. This lady has developed ulcerative colitis and developed malnourishment, and is quite dehydrated. 2. Recent history of gastrointestinal bleed. 3. History of some weight loss of more than 15 pounds. 4. She has had history of pneumonia in the past requiring antibiotics. She is status post hernia repair and tonsillectomy. Medications at home include albuterol inhaler. She takes medroxyprogesterone. Lasix at 20 mg daily, Flomax, nystatin suspension and also Adderall. ALLERGIES: She is allergic to FLAGYL, BIAXIN, CIPRO. On examination, blood pressure is 108/60, pulse rate is about 96 per minute. HEENT: Unremarkable. Fundus was not examined by me. Neck is supple. No JVD. I do not hear a carotid bruit. Heart exam reveals S1 and S2 heard normally without any significant rub, murmur or gallop. Lungs reveal diminished air entry. Abdomen is soft. Lower extremities reveal trace edema. EKG revealed sinus tachycardia. No acute changes. Laboratory data reveals borderline troponin level of 0.14, which is a third value. The first 2 tropes were normal. IMPRESSION: 1. Ulcerative colitis with weight loss and some malnourishment with weight loss. 2. Recent pneumonia, status post usage of antibiotics details unclear. 3. History of gastrointestinal bleed, received blood transfusion. RECOMMENDATIONS: Patient's platelet count is low at 30. Her hemoglobin is back up to 9.2. Troponin elevation does not suggest any myocardial injury, no intervention necessary in this regard. I am recommending an echocardiogram to assess LV function. From a cardiac standpoint, I would not recommend any intervention. Her bacteremia issues and other critical care issues are being addressed by other physicians. If echo is normal, no further intervention will be necessary. I will see her as needed. Thank you very much for the consult.
--- NOTE | 2017-01-10 12:19 | P.HPIM ---
History of Present Illness H&P Date: 01/10/17 26-year-old male being seen in the intensive care unit with the attending. Patient's initial presentation to the emergency room on January 09 with a chief complaint of feeling dizzy lightheaded as if she was going to pass out. Patient stated that she had a bowel movement was noted to have blood in it. Patient has had a total of 2 moderate sized room Burgundy stools since being admitted to the intensive care unit. Patient states her abdominal bloating slightly improved Patient felt that she was having a flareup of her colitis. Patient reportedly had been on steroids oral. For treatment of her colitis 20 mg daily which cording to the patient she felt like it was helping colitis symptoms. Patient stated that she had had 2 bowel movements since being admitted. Additionally the patient reports that she has been seen at [facility] several weeks ago. Apparently the patient underwent a colonoscopy on Friday, January 06 for part of a workup for her loose stools suspect diverticulitis this was done by Dr. Dorsey. The findings were not overly suggestive of obvious irritable bowel disease, nonspecific proctitis otherwise the exam of the colon and terminal ileum were within normal limits per report currently the patient's being followed by GI service as well as pulmonary and infectious disease. It is noted hemoglobin on admission 7 stool for occult blood positive. Patient has received 4 units of blood 3 units of platelets . Current hemoglobin 9.2. The CAT scan of the abdomen pelvis with IV contrast did show right-sided hydronephrosis with 5 mm obstructing calculus in the proximal right ureter. No ascites. 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 Additionally patient was treated for pneumonia proximally a month ago and has a family history of Crohn's disease and irritable bowel disease currently being seen in the intensive care unit sitting up in bed pleasant appears in no acute distress Review of Systems Essentially unremarkable except as mentioned in the present illness Past Medical History Past Medical History: Asthma, Pneumonia Additional Past Medical History / Comment(s): insomnia, hernia, pt mother states "she had bowel wipeout related to her antibiotics" colitis, kidney stones to right kidney History of Any Multi-Drug Resistant Organisms: None Reported Past Surgical History: Adenoidectomy, Hernia Repair, Tonsillectomy Additional Past Surgical History / Comment(s): left inguinal hernia Past Anesthesia/Blood Transfusion Reactions: Motion Sickness Additional Past Anesthesia/Blood Transfusion Reaction / Comment(s): "high tolerance, I sometimes need more" Past Psychological History: No Psychological Hx Reported Smoking Status: Never smoker Past Alcohol Use History: None Reported Past Drug Use History: Marijuana Additional Drug Use History / Comment(s): edible marijuana - Past Family History Mother Family Medical History: No Reported History Medications and Allergies Home Medications Medication Instructions Recorded Confirmed Type Albuterol Inhaler [Ventolin Hfa 1 puff INHALATION RT-Q6H PRN 01/02/17 01/09/17 History Inhaler] Dextroamphetamine/Amphetamine 20 mg PO TID 01/02/17 01/09/17 History [Adderall] Ergocalciferol (Vitamin D2) 50,000 unit PO Q30D 01/02/17 01/09/17 History [Vitamin D2] HYDROcodone/APAP 5-325MG [[place] 1 tab PO Q8H PRN 01/02/17 01/09/17 History 5-325] Medroxyprogesterone Acetate 150 mg IM DIRECTED 01/02/17 01/09/17 History [Depo-Provera] predniSONE 20 mg PO TID 01/02/17 01/09/17 History Albuterol Nebulized [Ventolin 2.5 mg INHALATION RT-Q6H PRN 01/09/17 01/09/17 History Nebulized] Beclomethasone Dipropionate [Qvar 1 puff INHALATION RT-BID 01/09/17 01/09/17 History 80 mcg] Clotrimazole Urmila [Mycelex 10 mg PO QID 01/09/17 01/09/17 History Urmila] EPINEPHrine (Auto Inject) [Epipen] 0.3 mg IM ONCE PRN 01/09/17 01/09/17 History Fluconazole [Diflucan] 150 mg PO Q3D 01/09/17 01/09/17 History Furosemide [Lasix] 20 mg PO DAILY 01/09/17 01/09/17 History Hydrocortisone Cream 1 applic TOPICAL QID PRN 01/09/17 01/09/17 History [Hydrocortisone 2.5% Cream] Nystatin 100,000 Unit/ml Susp 1 ml PO QID PRN 01/09/17 01/09/17 History [Mycostatin Oral Susp] Sennosides [Senna] 8.6 mg PO DAILY PRN 01/09/17 01/09/17 History Tamsulosin HCl [Flomax] 0.4 mg PO DAILY 01/09/17 01/09/17 History Allergies Allergy/AdvReac Type Severity Reaction Status Date / Time adhesive tape Allergy skin Verified 01/09/17 17:27 irritation animal dander Allergy Unknown Verified 01/09/17 17:27 ciprofloxacin [From Cipro] Allergy Itching Verified 01/09/17 17:27 clarithromycin [From Biaxin] Allergy Unknown Verified 01/09/17 17:27 Influenza Virus Vaccines Allergy Unknown Verified 01/09/17 17:27 metronidazole [From Flagyl] Allergy Itching Verified 01/09/17 17:27 wheat Allergy Unknown Verified 01/09/17 17:27 Cameron And Derivatives AdvReac Itching Verified 01/10/17 00:51 [Cameron] nuts,eggs, Allergy Unknown Uncoded 01/02/17 10:38 Physical Exam Vitals: Vital Signs Temp Pulse Resp BP Pulse Ox 01/10/17 10:23 98.1 F 116 H 20 108/61 94 L 01/10/17 10:13 98.1 F 120 H 20 98/58 95 01/10/17 10:00 115 H 24 96/59 97 01/10/17 09:30 111 H 28 H 99/60 100 01/10/17 09:00 122 H 32 H 97/59 92 L 01/10/17 08:30 112 H 15 86/53 94 L 01/10/17 08:00 98.1 F 127 H 22 91/55 91 L 01/10/17 07:30 117 H 29 H 99/48 98 01/10/17 07:00 115 H 20 83/46 100 01/10/17 06:30 116 H 18 99/46 96 01/10/17 06:00 121 H 18 83/45 100 01/10/17 05:30 122 H 20 83/46 100 01/10/17 05:00 133 H 18 85/45 97 01/10/17 04:30 99.9 F H 130 H 23 105/56 98 01/10/17 04:00 100.8 F H 134 H 21 105/56 98 01/10/17 03:35 101.8 F H 01/10/17 03:00 125 H 22 93/44 97 01/10/17 02:30 131 H 23 95/43 99 01/10/17 02:00 134 H 22 94/48 97 01/10/17 01:30 136 H 22 107/59 94 L 01/10/17 01:16 98.2 F 124 H 20 105/60 01/10/17 01:00 144 H 19 91/40 89 L 01/10/17 00:51 98.4 F 140 H 18 91/56 98 01/10/17 00:30 130 H 17 92/51 94 L 01/10/17 00:21 98.6 F 136 H 18 91/40 01/10/17 00:11 99.8 F H 136 H 17 96/45 97 01/10/17 00:00 99.1 F 131 H 20 93/44 99 01/09/17 23:58 99.8 F H 135 H 18 93/44 98 01/09/17 23:41 99.2 F 132 H 20 81/37 01/09/17 23:40 99.1 F 129 H 19 79/40 01/09/17 23:34 98.9 F 129 H 18 78/43 01/09/17 23:31 99.3 F 138 H 20 81/39 97 01/09/17 23:30 131 H 18 81/39 97 01/09/17 23:24 99.4 F 127 H 19 80/39 98 01/09/17 23:00 135 H 18 81/46 96 01/09/17 22:51 99.3 F 135 H 20 81/45 98 01/09/17 22:30 132 H 20 81/32 98 01/09/17 22:21 99.3 F 133 H 18 81/34 100 01/09/17 22:11 100.3 F H 135 H 18 79/42 97 01/09/17 22:00 99.9 F H 131 H 25 H 93/39 97 01/09/17 21:38 99.5 F 136 H 20 85/46 98 01/09/17 21:15 98.8 F 119 H 18 89/42 100 01/09/17 20:50 99.0 F 124 H 18 88/46 100 01/09/17 20:35 98.9 F 121 H 18 89/46 100 01/09/17 20:15 99.3 F 121 H 18 91/50 04/06/17 19:45 99.5 F 120 H 18 87/45 100 01/09/17 19:35 99.2 F 125 H 16 87/44 Intake and Output 01/09/17 01/10/17 01/10/17 22:59 06:59 14:59 Intake Total 720 2800.0 1006 Output Total 800 475 Balance 720 2000.0 531 Intake: IV 450 0.9 NACL 450 Intake, IV Titration 100 1500.0 350 Amount ACETAMINOPHEN IV (For NPO 100 ) 1,000 mg In Saline 100 100ml.bag @ 400 mls/hr IVPB ONCE STA Rx#: [id number] Calcium Gluconate 1,000 100 mg In Sodium Chloride 0.9 % 100 ml @ 100 mls/hr IVPB ONCE ONE Rx#: [id number] Magnesium Sulfate-D5w Pmx 200 1 gm In Dextrose/Water 1 100ml.bag @ 100 mls/hr IVPB Q1H [facility] Rx#: [id number] Piperacillin-Tazobactam 3 50.0 .375 gm In Dextrose/Water 1 50ml.bag @ 12.5 mls/hr IVPB Q8HR [facility] Rx#: [id number] Potassium Chloride 10 meq 100 Lidocaine 2% Inj 10 mg In Sodium Chloride 0.9% 100 ml @ 100 mls/hr IV Q1HR [facility] Rx#:[id number] Sodium Chloride 0.9% 1, 100 1150 150 000 ml @ 150 mls/hr IV . Q6H40M ONE Rx#:[id number] Blood Product 620 1300 206 Platelet Pheresis Acda 188 Unit [id number] Platelet Pheresis Acda1 203 Unit [id number] Platelet Pheresis Acda2 289 Unit [id number] Platelet Pheresis Acda2 0 Unit [id number] Rc As-1 Unit 310 [id number] Rc As-1 Unit 310 [id number] Rc As-1 Unit 310 [id number] Rc As-3 Unit 0 310 [id number] Output: Urine 800 475 Other: Voiding Method Bedpan Indwelling Catheter # Voids 1 # Bowel Movements 1 Weight 61.2 kg GENERAL APPEARANCE: 26-year-old female patient is alert, oriented, 3 in no acute distress. Currently denying any dizziness lightheadedness chest pain shortness of breath VITAL SIGNS: Reviewed HEENT: Head is normocephalic and atraumatic. Pupils are equal and reactive. The nares are patent. Oropharynx is clear without lesions. NECK: Supple without lymphadenopathy. Traches midline. HEART: S1, S2. Regular rate and rhythm. Sinus rhythm noted on the monitor no murmur noted LUNGS: No crackles or wheezes are heard. Adequate air movement bilaterally on room air ABDOMEN: Soft, diffuse tenderness, slight distended with good bowel sounds. No peritoneal signs. No palpable organomegaly or masses. Patient reportedly has had 2 maroon-colored stools since admission EXTREMITIES: Normal skin color and turgor. No cyanosis, rash, ulceration, clubbing or edema. Radial pedal pulses are 2/4 bilaterally. NEUROLOGICAL: No focal deficits. Strength and sensation are grossly intact. Results CBC & Chem 7: 01/10/17 04:24 01/10/17 04:24 Labs: Abnormal Lab Results - Last 24 Hours (Table) 01/09/17 01/09/17 01/09/17 Range/Units 21:39 22:00 22:31 RBC 2.45 L (3.80-5.40) m/uL Hgb 7.8 L (11.4-16.0) gm/dL Hct 22.6 L (34.0-46.0) % RDW (11.5-15.5) % Plt Count 24 L* (150-450) k/uL Lymphocytes # (1.0-4.8) k/uL Sodium (137-145) mmol/L BUN (7-17) mg/dL Glucose (74-99) mg/dL POC Glucose (mg/dL) 119 H (75-99) mg/dL Calcium (8.4-10.2) mg/dL Ionized Calcium Ronan (4.5-5.3) mg/dL Magnesium (1.6-2.3) mg/dL Total Bilirubin (0.2-1.3) mg/dL Total Creatine Kinase <20 L (30-135) U/L Troponin I (0.000-0.034) ng/mL Total Protein (6.3-8.2) g/dL Albumin (3.5-5.0) g/dL HDL Cholesterol (40-60) mg/dL 01/10/17 01/10/1717 Range/Units 01:49 04:24 04:24 RBC 2.94 L 3.02 L (3.80-5.40) m/uL Hgb 8.9 L 9.2 L (11.4-16.0) gm/dL Hct 27.1 L 27.8 L (34.0-46.0) % RDW 15.6 H (11.5-15.5) % Plt Count 35 L* 30 L* (150-450) k/uL Lymphocytes # 0.2 L (1.0-4.8) k/uL Sodium 133 L (137-145) mmol/L BUN 21 H (7-17) mg/dL Glucose 115 H (74-99) mg/dL POC Glucose (mg/dL) (75-99) mg/dL Calcium 6.3 L* (8.4-10.2) mg/dL Ionized Calcium Ronan (4.5-5.3) mg/dL Magnesium (1.6-2.3) mg/dL Total Bilirubin 3.4 H (0.2-1.3) mg/dL Total Creatine Kinase (30-135) U/L Troponin I (0.000-0.034) ng/mL Total Protein 3.9 L (6.3-8.2) g/dL Albumin 1.8 L (3.5-5.0) g/dL HDL Cholesterol 12 L (40-60) mg/dL 01/10/17 01/10/17 01/10/17 Range/Units 04:24 04:24 04:24 RBC (3.80-5.40) m/uL Hgb (11.4-16.0) gm/dL Hct (34.0-46.0) % RDW (11.5-15.5) % Plt Count (150-450) k/uL Lymphocytes # (1.0-4.8) k/uL Sodium (137-145) mmol/L BUN (7-17) mg/dL Glucose (74-99) mg/dL POC Glucose (mg/dL) (75-99) mg/dL Calcium (8.4-10.2) mg/dL Ionized Calcium Ronan 4.1 L (4.5-5.3) mg/dL Magnesium 2.5 H (1.6-2.3) mg/dL Total Bilirubin (0.2-1.3) mg/dL Total Creatine Kinase (30-135) U/L Troponin I 0.148 H* (0.000-0.034) ng/mL Total Protein (6.3-8.2) g/dL Albumin (3.5-5.0) g/dL HDL Cholesterol (40-60) mg/dL Thrombosis Risk Factor Assmnt - Choose All That Apply Any of the Below Risk Factors Present?: Yes Each Factor Represents 1 point: Swollen legs (current) Other Risk Factors: No Thrombosis Risk Factor Assessment Total Risk Factor Score: 1 Thrombosis Risk Factor Assessment Level: Low Risk Assessment and Plan Plan: Impression Present on admission tachycardic febrile hypotensive secondary to sepsis unclear etiology Present on admission acute blood loss anemia suspect due to GI bleed Thrombocytopenia acute on chronic colitis s/p colonoscopy 01/06/17 biopsies suggest chronicity. No evidence to suggest at this time presentation is a complication from recent colonoscopy. Present on admission right sided abdominal pain unclear etiology possible inflammatory bowel disease Plan Multiple consulting physicians participating in the plan of care recommendations noted appreciated and reviewed Continue with recommendations by consultants Monitor hemoglobin attempt keep greater than 7.5 IV Solu-Medrol 60 IV every 8 as ordered Zosyn as ordered await infectious diseases recommendations DVT and GI prophylaxis The above dictated assessment and findings were discussed with Dr. Chappell Impression and the plan of care have been dictated as directed. Shari Cabrera nurse practitioner acting as a scribe for Dr. Chappell
--- NOTE | 2017-01-10 12:34 | US ---
EXAMINATION TYPE: US venous doppler duplex LE DATE OF EXAM: 01/10/2017 11:26 AM COMPARISON: NONE CLINICAL HISTORY: possible DVT. septic bilateral leg swelling. SIDE PERFORMED: bilateral TECHNIQUE: The bilateral lower extremity deep venous system is examined utilizing real time linear a rray sonography with graded compression, doppler sonography and color-flow sonography. VESSELS IMAGED: External Iliac Vein (EIV) Common Femoral Vein Deep Femoral Vein Greater Saphenous Vein * Femoral Vein Popliteal Vein Small Saphenous Vein * Proximal Calf Veins (* superficial vessels) Right Leg: Appears negative for DVT Left Leg: Appears negative for DVT Grayscale, color doppler, spectral doppler imaging performed of the deep veins of the lower extremiti es. There is normal flow, compressibility, vascular waveforms bilaterally. IMPRESSION: No ultrasound evidence for acute DVT in either lower extremity.
--- NOTE | 2017-01-10 12:43 | P.CONS ---
History of Present Illness - Reason for Consult Consult date: 01/10/17 anemia, thrombocytopenia Requesting physician: Parminder Chappell - Chief Complaint GI bleed - History of Present Illness Pt is a very pleasant 26 year old female who is admitted for GI bleeding, she states she was at work at [employer] when she felt dizzy and weak, she had a large loose BM that was maroon/bloody. She denies that she vomited at any time. Pt denies nose bleeding, hemoptysis, blood blisters in the mouth, hemoptysis, her chest hurts, mid chest, denies radiation, diaphoresis or nausea , no SOB, her chest makes it hard for her to take a deep breath, her abd is tender, bloated, this has been going on since she was treated for pneumonia about 1-2 months ago, her mother states that the abx ordered made her daughter lose all of her bacteria in her gut. Pt denies dysuria, menorrhaiga or hematuria. Her legs have been swollen for over a week. Pt has thrush and sore mouth, joint pains and swellings occasionally. Pt states some difficulty concentration but she has ADD. Review of Systems All systems: negative Constitutional: Reports as per HPI Past Medical History Past Medical History: Asthma, Pneumonia Additional Past Medical History / Comment(s): insomnia, hernia, pt mother states "she had bowel wipeout related to her antibiotics" colitis, kidney stones to right kidney History of Any Multi-Drug Resistant Organisms: None Reported Past Surgical History: Adenoidectomy, Hernia Repair, Tonsillectomy Additional Past Surgical History / Comment(s): left inguinal hernia Past Anesthesia/Blood Transfusion Reactions: Motion Sickness Additional Past Anesthesia/Blood Transfusion Reaction / Comm: "high tolerance, I sometimes need more" Past Psychological History: No Psychological Hx Reported Smoking Status: Never smoker Past Alcohol Use History: None Reported Past Drug Use History: Marijuana Additional Drug Use History / Comment(s): edible marijuana - Past Family History Mother Family Medical History: No Reported History Father Additional Family Medical History / Comment(s): Father has history of either Crohn's or irritable bowel syndrome. Medications and Allergies Home Medications Medication Instructions Recorded Confirmed Type Albuterol Inhaler [Ventolin Hfa 1 puff INHALATION RT-Q6H PRN 01/02/17 01/09/17 History Inhaler] Dextroamphetamine/Amphetamine 20 mg PO TID 01/02/17 01/09/17 History [Adderall] Ergocalciferol (Vitamin D2) 50,000 unit PO Q30D 01/02/17 01/09/17 History [Vitamin D2] HYDROcodone/APAP 5-325MG [[place] 1 tab PO Q8H PRN 01/02/17 01/09/17 History 5-325] Medroxyprogesterone Acetate 150 mg IM DIRECTED 01/02/17 01/09/17 History [Depo-Provera] predniSONE 20 mg PO TID 01/02/17 01/09/17 History Albuterol Nebulized [Ventolin 2.5 mg INHALATION RT-Q6H PRN 01/09/17 01/09/17 History Nebulized] Beclomethasone Dipropionate [Qvar 1 puff INHALATION RT-BID 01/09/17 01/09/17 History 80 mcg] Clotrimazole Urmila [Mycelex 10 mg PO QID 01/09/17 01/09/17 History Urmila] EPINEPHrine (Auto Inject) [Epipen] 0.3 mg IM ONCE PRN 01/09/17 01/09/17 History Fluconazole [Diflucan] 150 mg PO Q3D 01/09/17 01/09/17 History Furosemide [Lasix] 20 mg PO DAILY 01/09/17 01/09/17 History Hydrocortisone Cream 1 applic TOPICAL QID PRN 01/09/17 01/09/17 History [Hydrocortisone 2.5% Cream] Nystatin 100,000 Unit/ml Susp 1 ml PO QID PRN 01/09/17 01/09/17 History [Mycostatin Oral Susp] Sennosides [Senna] 8.6 mg PO DAILY PRN 01/09/17 01/09/17 History Tamsulosin HCl [Flomax] 0.4 mg PO DAILY 01/09/17 01/09/17 History Allergies Allergy/AdvReac Type Severity Reaction Status Date / Time adhesive tape Allergy skin Verified 01/09/17 17:27 irritation animal dander Allergy Unknown Verified 01/09/17 17:27 ciprofloxacin [From Cipro] Allergy Itching Verified 01/09/17 17:27 clarithromycin [From Biaxin] Allergy Unknown Verified 01/09/17 17:27 Influenza Virus Vaccines Allergy Unknown Verified 01/09/17 17:27 metronidazole [From Flagyl] Allergy Itching Verified 01/09/17 17:27 wheat Allergy Unknown Verified 01/09/17 17:27 [place] And Derivatives AdvReac Itching Verified 01/10/17 00:51 [[place]] nuts,eggs, Allergy Unknown Uncoded 01/02/17 10:38 Physical Exam Vitals: Vital Signs Temp Pulse Resp BP Pulse Ox 01/10/17 11:57 98.3 F 99 20 101/61 94 L 01/10/17 11:00 106 H 20 91/71 95 01/10/17 10:53 98.0 F 108 H 20 91/71 95 01/10/17 10:30 116 H 24 108/61 85 L 01/10/17 10:23 98.1 F 116 H 20 108/61 94 L 01/10/17 10:13 98.1 F 120 H 20 98/58 95 01/10/17 10:00 115 H 24 96/59 97 01/10/17 09:30 111 H 28 H 99/60 100 01/10/17 09:00 122 H 32 H 97/59 92 L 01/10/17 08:30 112 H 15 86/53 94 L 01/10/17 08:00 98.1 F 127 H 22 91/55 91 L 01/10/17 07:30 117 H 29 H 99/48 98 01/10/17 07:00 115 H 20 83/46 100 01/10/17 06:30 116 H 18 99/46 96 01/10/17 06:00 121 H 18 83/45 100 01/10/17 05:30 122 H 20 83/46 100 01/10/17 05:00 133 H 18 85/45 97 01/10/17 04:30 99.9 F H 130 H 23 105/56 98 01/10/17 04:00 100.8 F H 134 H 21 105/56 98 01/10/17 03:35 101.8 F H 01/10/17 03:00 125 H 22 93/44 97 01/10/17 02:30 131 H 23 95/43 99 01/10/17 02:00 134 H 22 94/48 97 01/10/17 01:30 136 H 22 107/59 94 L 01/10/17 01:16 98.2 F 124 H 20 105/60 01/10/17 01:00 144 H 19 91/40 89 L 01/10/17 00:51 98.4 F 140 H 18 91/56 98 01/10/17 00:30 130 H 17 92/51 94 L 01/10/17 00:21 98.6 F 136 H 18 91/40 01/10/17 00:11 99.8 F H 136 H 17 96/45 97 01/10/17 00:00 99.1 F 131 H 20 93/44 99 01/09/17 23:58 99.8 F H 135 H 18 93/44 98 01/09/17 23:41 99.2 F 132 H 20 81/37 01/09/17 23:40 99.1 F 129 H 19 79/40 01/09/17 23:34 98.9 F 129 H 18 78/43 01/09/17 23:31 99.3 F 138 H 20 81/39 97 01/09/17 23:30 131 H 18 81/39 97 01/09/17 23:24 99.4 F 127 H 19 80/39 98 01/09/17 23:00 135 H 18 81/46 96 01/09/17 22:51 99.3 F 135 H 20 81/45 98 01/09/17 22:30 132 H 20 81/32 98 01/09/17 22:21 99.3 F 133 H 18 81/34 100 01/09/17 22:11 100.3 F H 135 H 18 79/42 97 01/09/17 22:00 99.9 F H 131 H 25 H 93/39 97 01/09/17 21:38 99.5 F 136 H 20 85/46 98 01/09/17 21:15 98.8 F 119 H 18 89/42 100 01/09/17 20:50 99.0 F 124 H 18 88/46 100 01/09/17 20:35 98.9 F 121 H 18 89/46 100 01/09/17 20:15 99.3 F 121 H 18 91/50 01/09/17 19:45 99.5 F 120 H 18 87/45 100 01/09/17 19:35 99.2 F 125 H 16 87/44 Intake and Output 01/09/17 01/10/17 01/10/17 22:59 06:59 14:59 Intake Total 720 2800.0 1362 Output Total 800 550 Balance 720 2000.0 812 Intake: IV 600 0.9 NACL 600 Intake, IV Titration 100 1500.0 350 Amount ACETAMINOPHEN IV (For NPO 100 ) 1,000 mg In Saline 100 100ml.bag @ 400 mls/hr IVPB ONCE STA Rx#: [id number] Calcium Gluconate 1,000 100 mg In Sodium Chloride 0.9 % 100 ml @ 100 mls/hr IVPB ONCE ONE Rx#: [id number] Magnesium Sulfate-D5w Pmx 200 1 gm In Dextrose/Water 1 100ml.bag @ 100 mls/hr IVPB Q1H [facility] Rx#: [id number] Piperacillin-Tazobactam 3 50.0 .375 gm In Dextrose/Water 1 50ml.bag @ 12.5 mls/hr IVPB Q8HR [facility] Rx#: [id number] Potassium Chloride 10 meq 100 Lidocaine 2% Inj 10 mg In Sodium Chloride 0.9% 100 ml @ 100 mls/hr IV Q1HR [facility] Rx#:[id number] Sodium Chloride 0.9% 1, 100 1150 150 000 ml @ 150 mls/hr IV . Q6H40M ONE Rx#:[id number] Blood Product 620 1300 412 Platelet Pheresis Acda 188 Unit [id number] Platelet Pheresis Acda1 203 Unit [id number] Platelet Pheresis Acda2 289 Unit [id number] Platelet Pheresis Acda2 206 Unit [id number] Rc As-1 Unit 310 [id number] Rc As-1 Unit 310 [id number] Rc As-1 Unit 310 [id number] Rc As-3 Unit 0 310 [id number] Output: Urine 800 550 Other: Voiding Method Bedpan Indwelling Catheter # Voids 1 # Bowel Movements 1 Weight 61.2 kg - Constitutional General appearance: average body habitus, cooperative, mild distress - EENT no wet purpura or blood blisters in mouth, left lateral tongue ulcer notes, scant thrush Eyes: anicteric sclerae, EOMI, PERRLA, normal appearance ENT: other, thrush - Neck Neck: no lymphadenopathy - Respiratory Respiratory: bilateral: CTA - Cardiovascular Heart sounds: normal: S1, S2 leg Peripheral Edema: right: 1+, left: Trace - Gastrointestinal General gastrointestinal: no absent bowel sounds, no decreased bowel sounds, distended, no hepatomegaly, no hyperactive bowel sounds, normal bowel sounds, no organomegaly, no rigid, no scaphoid, no soft, no splenomegaly, tenderness, no umbilical hernia, no ventral hernia - Integumentary scattered bruises on upper extremities, no oozing from invasive lines, no petechiae Integumentary: pale - Neurologic Neurologic: CNII-XII intact - Musculoskeletal Musculoskeletal: generalized weakness, strength equal bilaterally - Psychiatric Psychiatric: A&O x's 3, appropriate affect, intact judgment & insight Results CBC & Chem 7: 01/10/17 04:24 01/10/17 04:24 Labs: Abnormal Lab Results - Last 24 Hours (Table) 01/09/17 01/09/17 01/09/17 Range/Units 21:39 22:00 22:31 RBC 2.45 L (3.80-5.40) m/uL Hgb 7.8 L (11.4-16.0) gm/dL Hct 22.6 L (34.0-46.0) % RDW (11.5-15.5) % Plt Count 24 L* (150-450) k/uL Lymphocytes # (1.0-4.8) k/uL ESR (0-20) mm/hr PT (9.0-12.0) sec Fibrinogen (200-500) mg/dL D-Dimer (<0.60) mg/L FEU Sodium (137-145) mmol/L BUN (7-17) mg/dL Glucose (74-99) mg/dL POC Glucose (mg/dL) 119 H (75-99) mg/dL Calcium (8.4-10.2) mg/dL Ionized Calcium [place] (4.5-5.3) mg/dL Magnesium (1.6-2.3) mg/dL Total Bilirubin (0.2-1.3) mg/dL Total Creatine Kinase <20 L (30-135) U/L Troponin I (0.000-0.034) ng/mL C-Reactive Protein (<10.0) mg/L Total Protein (6.3-8.2) g/dL Albumin (3.5-5.0) g/dL HDL Cholesterol (40-60) mg/dL 01/10/17 01/10/17 01/10/17 Range/Units 01:49 04:24 04:24 RBC 2.94 L 3.02 L (3.80-5.40) m/uL Hgb 8.9 L 9.2 L (11.4-16.0) gm/dL Hct 27.1 L 27.8 L (34.0-46.0) % RDW 15.6 H (11.5-15.5) % Plt Count 35 L* 30 L* (150-450) k/uL Lymphocytes # 0.2 L (1.0-4.8) k/uL ESR (0-20) mm/hr PT (9.0-12.0) sec Fibrinogen (200-500) mg/dL D-Dimer (<0.60) mg/L FEU Sodium 133 L (137-145) mmol/L BUN 21 H (7-17) mg/dL Glucose 115 H (74-99) mg/dL POC Glucose (mg/dL) (75-99) mg/dL Calcium 6.3 L* (8.4-10.2) mg/dL Ionized Calcium [place] (4.5-5.3) mg/dL Magnesium (1.6-2.3) mg/dL Total Bilirubin 3.4 H (0.2-1.3) mg/dL Total Creatine Kinase (30-135) U/L Troponin I (0.000-0.034) ng/mL C-Reactive Protein (<10.0) mg/L Total Protein 3.9 L (6.3-8.2) g/dL Albumin 1.8 L (3.5-5.0) g/dL HDL Cholesterol 12 L (40-60) mg/dL 01/10/17 01/10/17 01/10/17 Range/Units 04:24 04:24 04:24 RBC (3.80-5.40) m/uL Hgb (11.4-16.0) gm/dL Hct (34.0-46.0) % RDW (11.5-15.5) % Plt Count (150-450) k/uL Lymphocytes # (1.0-4.8) k/uL ESR (0-20) mm/hr PT (9.0-12.0) sec Fibrinogen (200-500) mg/dL D-Dimer (<0.60) mg/L FEU Sodium (137-145) mmol/L BUN (7-17) mg/dL Glucose (74-99) mg/dL POC Glucose (mg/dL) (75-99) mg/dL Calcium (8.4-10.2) mg/dL Ionized Calcium [place] 4.1 L (4.5-5.3) mg/dL Magnesium 2.5 H (1.6-2.3) mg/dL Total Bilirubin (0.2-1.3) mg/dL Total Creatine Kinase (30-135) U/L Troponin I 0.148 H* (0.000-0.034) ng/mL C-Reactive Protein (<10.0) mg/L Total Protein (6.3-8.2) g/dL Albumin (3.5-5.0) g/dL HDL Cholesterol (40-60) mg/dL 01/10/17 01/10/17 01/10/17 Range/Units 04:24 04:24 10:36 RBC (3.80-5.40) m/uL Hgb (11.4-16.0) gm/dL Hct (34.0-46.0) % RDW (11.5-15.5) % Plt Count (150-450) k/uL Lymphocytes # (1.0-4.8) k/uL ESR 31 H (0-20) mm/hr PT 12.6 H (9.0-12.0) sec Fibrinogen 552 H (200-500) mg/dL D-Dimer 1.59 H (<0.60) mg/L FEU Sodium (137-145) mmol/L BUN (7-17) mg/dL Glucose (74-99) mg/dL POC Glucose (mg/dL) (75-99) mg/dL Calcium (8.4-10.2) mg/dL Ionized Calcium [place] (4.5-5.3) mg/dL Magnesium (1.6-2.3) mg/dL Total Bilirubin (0.2-1.3) mg/dL Total Creatine Kinase (30-135) U/L Troponin I (0.000-0.034) ng/mL C-Reactive Protein 301.4 H (<10.0) mg/L Total Protein (6.3-8.2) g/dL Albumin (3.5-5.0) g/dL HDL Cholesterol (40-60) mg/dL Microbiology - Last 24 Hours (Table) 01/09/17 22:00 Blood Culture Gram Stain - Preliminary Blood Chest x-ray: report reviewed CT scan - abdomen: report reviewed CT scan - pelvis: report reviewed Assessment and Plan (1) Acute blood loss anemia Narrative/Plan: GI consulted, pt has not had a BM since admission. Hgb was 7 on admit, she has been transfused with 4 units of PRBCs, most recent Hgb is 9.2, hold any further transfusions closely monitor CBC. Status: Acute (2) Sepsis Narrative/Plan: Blood cultures returned positive for gram negative bacilli. Pt is on abx, ID consulted. Status: Acute (3) Thrombocytopenia Narrative/Plan: Pt platelet counts have not changed despite 3 units of platelets transfused. Hold transfusions for now, close monitoring for bleeding, CBC daily and PRN Case was discussed extensively with Dr. Espino. Differential includes DIC, HUS or consumption or destruction related to sepsis. Peripheral blood smear reviewed with lab, no schistocytes seen Multiple labs ordered stat Close monitoring of patient Treatment of underlying cause, pt is being followed by Critical Care team and multiple specialties We will follow closely and recommendations will be communicated directly to Critical care team Status: Acute
[2017-01-10] MEDS: methylPREDNISolone SOD SUCCI 125 MG/2 ML VIAL IV SCH ×2 (12:51→18:19)
--- NOTE | 2017-01-10 12:57 | HP ---
DATE OF ADMISSION: CHIEF COMPLAINT: Hematochezia and near syncope. HISTORY OF PRESENT ILLNESS: This is another recent admission for this 26-year-old white female who likely has a history of ulcerative colitis. She has a strong family history. She was recently in the hospital with abdominal pain and it was determined that this was due to inflammatory bowel disease. She started on steroids and immediately she improved. She went home and was doing reasonably well on prednisone 20 mg 4 times a day. She has developed some other problems such as varied locations of dermatitis, joint pains in the ankles and knees as well as resistant problems with abdominal pain. She was in the office several days ago and got prednisone down to twice a day. She had been slated to see Rheumatology in a few days. She was at work when she suddenly became lightheaded, dizzy and started to pass a lot of bright red blood and was brought to the emergency room. In the emergency room, her vital signs were stable until she developed tachycardia and her blood pressure started to drop. She has had no fever, chills, hematemesis, jaundice, urinary complaints, etc. The last CBC in the office revealed a low white count, platelet count as well as hemoglobin. There is a strong family history of inflammatory bowel disease. REVIEW OF SYSTEMS: She has had no headaches, neurologic deficits, confusion, difficulty in vision or hearing, shortness of breath, cough, hemoptysis, pleuritic chest pain, hypertension, murmurs, rheumatic fever, orthopnea, PND, irregular rate or rhythm, ulcer disease, dysphagia, hematemesis, melena, jaundice, hepatitis, etc. She has had no urinary complaints, including vaginal discharge or bleeding, etc. She is not diabetic. Past medical history, family history and personal and social histories are all essentially unremarkable and unchanged otherwise. She is allergic to FLAGYL, BIAXIN, CIPRO and EGGS. She has been on prednisone 20 mg twice a day for the last 24 hours. She was also on clotrimazole for stomatitis. She is using 10 mg 4 times a day. It is felt that the stomatitis and glossitis are related to disease, not the steroid. She has also been on Adderall 20 mg t.i.d. vitamin D 50,000 units a month, Depo-Provera and Vicodin. She has never smoked and she drinks only rarely. PHYSICAL EXAMINATION: 81/35 with a pulse of 145 regular, respirations 38 and she is afebrile. GENERAL: She appeared to be pale. Head, ears, eyes, nose, mouth, and throat were normal except for some acne-like lesions on the forehead. NECK: Supple. Neck veins not distended. Carotids are normal. CHEST: Clear. There are no rubs. Cardiac exam demonstrates normal sinus rhythm with tachycardia. The abdomen is slightly protuberant and bowel sounds are diminished. She has generalized abdominal pain and tenderness. She had no definite masses. Flanks are nontender. EXTREMITIES: Normal. Neurologically, she is intact. She is admitted to the hospital with diagnoses: 1. Acute exacerbation of inflammatory bowel disease, probably ulcerative colitis. 2. Secondary arthritis of the knees and ankles. 3. Secondary pancytopenia. 4. Rule out sepsis. 5. Attention deficit disorder/attention deficit hyperactivity disorder. 6. Rule out impending toxic megacolon. PLAN: 1. Bed rest. 2. IV fluids. 3. N.p.o. 4. IV steroids 5. Blood cultures. 6. Consults with Intensive Medicine, Rheumatology, GI, Hematology and Infectious Disease.
--- NOTE | 2017-01-10 14:03 | P.CNPUL ---
History of Present Illness Consult date: 01/10/17 Chief complaint: Hypotension History of present illness: This is a pleasant 26-year-old female patient who came into the emergency department yesterday with GI bleeding, diarrhea, hypotension, tachycardia, profound anemia and thrombocytopenia. The patient has been sick for the past 3 months. 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 This is also present in her twin sister. Nevertheless, the patient has not had any major septic complications and as such she has not received any hemoglobin replacement therapy over the years. The patient was in a good state of health until around November 2016 when she developed symptoms of pneumonia. At that point she presented to her primary care physician and she was diagnosed having a pneumonia. She was initially given a course of Biaxin for a total of 10 days and following that Cipro was added to the regimen. The patient ultimately recovered from the breathing difficulty however she developed significant gastrointestinal upset that manifest itself as bloody diarrhea and it's been going on on and off for the past 1-1/2-2 months. She was suspected to have colitis/antibiotic induced and the patient had stool for C. diff checked on several occasions including a recent evaluation that was done at [facility] and the results were apparently negative. At one point the patient was given oral vancomycin however she did not end up taking the medication. During this course of treatment, the patient developed oropharyngeal thrush and ulceration and she was given nystatin and Mycelex and a course of Diflucan which she did not take. She was seen by gastroenterology on outpatient basis and the patient had a colonoscopy done on 01/06/2017 that showed nonspecific proctitis otherwise the rest of the colon and the terminal ileum was within normal limits. Biopsies of the terminal ileum and random biopsies of the colon and the rectum was done and the pathology showed mature small bowel mucosa, acute colitis with some underlying features to suggest chronicity and acute proctitis on top of chronic changes. The patient was still started on systemic steroids and at one point she was taken prednisone 20 mg 4 times a day. The dose was subsequently tapered them prior to this current hospitalization the patient was taken 20 mg twice a day. Despite some limited improvement, the patient was not having full recovered and she was still having diarrhea and bloody mucoid bowel movement that continue to occur on a daily basis. She lost weight and order of 10-12 pounds. No reported fever or chills. There is development of arthritis and some swelling in ankles bilaterally. The patient has also developed some lower extremity edema. No changes consistent with erythema nodosum or pyoderma gangrenosum yet there is some no other lesions/papules over the face and upper and lower extremities bilaterally. No open wounds or sores or ulcerations. Over the past 24 hours, the patient's condition deteriorated. The patient started developing crampy abdominal pain along with her diarrhea and for that reason she presented to the hospital. In the ED, the patient a CAT scan of the abdomen that showed evidence of colitis. At the same time there was a calculus in the proximal right ureter with obstruction of the right collecting system and the right-sided hydronephrosis. No free air within the abdomen. The urinalysis showed no evidence of pyuria. There was some minimal bacteria seen. The patient is not known to have nephrolithiasis although breath sounds in her family and has twin sisters has kidney stones. Over the past 12 hours, the patient was suspected aggressively knowing that she was quite tachycardic and hypotensive. She was given more than 3 L of IV fluid. She received a total of 3 units of packed RBC. This was a nonmatched blood transfusion and she developed a low-grade fever which ultimately resolved with IV Tylenol. She also received 2 units of platelets knowing that the patient is considerably low and the patient was bleeding. Her hemoglobin was 7.0 on admission and subsequently improved and came up to 9.2. Platelet counts were low as 24,000. PT PT/INR was within normal limits. Lactic acid level was not elevated. No metabolic acidosis. She had mild hypo-calcemic which got replaced. The LDH and bilirubin are both elevated yet the peripheral smear did not show any evidence of schistocytes. Blood cultures were sent and later on during the day we learned the patient has gram-negative bacilli in his blood. I've already started the patient on IV Zosyn as an empiric antibiotic coverage and this was given to her yesterday. No pressors was utilized during this current ICU stay. Mental status is preserved and the patient is awake and alert and following commands and answering questions. Chest x-ray from today shows no evidence of any pneumonia. The patient is requiring oxygen somewhere between 3-5 L nasal cannula. No cough. No sputum production. No chest tightness. No wheezing. Review of Systems Full review of system was done and the positive findings are almost above in history of present illness Past Medical History Past Medical History: Asthma Additional Past Medical History / Comment(s): Immunoglobulin deficiency, selective congenital IgG deficiency, chronic insomnia, kidney stones History of Any Multi-Drug Resistant Organisms: None Reported Past Surgical History: Adenoidectomy, Hernia Repair, Tonsillectomy Additional Past Surgical History / Comment(s): left inguinal hernia Past Anesthesia/Blood Transfusion Reactions: Motion Sickness Additional Past Anesthesia/Blood Transfusion Reaction / Comment(s): "high tolerance, I sometimes need more" Past Psychological History: No Psychological Hx Reported Smoking Status: Never smoker Past Alcohol Use History: None Reported Past Drug Use History: Marijuana Additional Drug Use History / Comment(s): edible marijuana - Past Family History Mother Family Medical History: No Reported History Medications and Allergies Home Medications and Allergies Comment(s): Head exam was generally normal. There was no scleral icterus or corneal arcus. Mucous membranes were moist.Neck was supple and without jugular venous distension, thyromegaly, or carotid bruits. Carotids were easily palpable bilaterally. There was no adenopathy. Lung sounds are diminished bilaterally otherwise clear. There is no wheezes or rhonchi or any crackles.Cardiac exam revealed the PMI to be normally situated and sized. The rhythm was regular and no extrasystoles were noted during several minutes of auscultation. The first and second heart sounds were normal and physiologic splitting of the second heart sound was noted. There were no murmurs, rubs, clicks, or gallops. Abdomen is slightly distended. There is some direct tenderness that is diffuse throughout the abdomen. No rebound tenderness. No guarding. Bowel sounds are hypoactive at the present. No CVA angle tenderness.Examination of the extremities revealed easily palpable radial, femoral and pedal pulses. There was no cyanosis, clubbing or edema. Neurologically the patient's exam is nonfocal. Skin there are some very tiny, less than 1 cm lesions scattered throughout the forehead and face and upper and lower extremities without any ulceration or open wounds or sores. Home Medications Medication Instructions Recorded Confirmed Type Albuterol Inhaler [Ventolin Hfa 1 puff INHALATION RT-Q6H PRN 01/02/17 01/09/17 History Inhaler] Dextroamphetamine/Amphetamine 20 mg PO TID 01/02/17 01/09/17 History [Adderall] Ergocalciferol (Vitamin D2) 50,000 unit PO Q30D 01/02/17 01/09/17 History [Vitamin D2] HYDROcodone/APAP 5-325MG [[place] 1 tab PO Q8H PRN 01/02/17 01/09/17 History 5-325] Medroxyprogesterone Acetate 150 mg IM DIRECTED 01/02/17 01/09/17 History [Depo-Provera] predniSONE 20 mg PO TID 01/02/17 01/09/17 History Albuterol Nebulized [Ventolin 2.5 mg INHALATION RT-Q6H PRN 01/09/17 01/09/17 History Nebulized] Beclomethasone Dipropionate [Qvar 1 puff INHALATION RT-BID 01/09/17 01/09/17 History 80 mcg] Clotrimazole Urmila [Mycelex 10 mg PO QID 01/09/17 01/09/17 History Urmila] EPINEPHrine (Auto Inject) [Epipen] 0.3 mg IM ONCE PRN 01/09/17 01/09/17 History Fluconazole [Diflucan] 150 mg PO Q3D 01/09/17 01/09/17 History Furosemide [Lasix] 20 mg PO DAILY 01/09/17 01/09/17 History Hydrocortisone Cream 1 applic TOPICAL QID PRN 01/09/17 01/09/17 History [Hydrocortisone 2.5% Cream] Nystatin 100,000 Unit/ml Susp 1 ml PO QID PRN 01/09/17 01/09/17 History [Mycostatin Oral Susp] Sennosides [Senna] 8.6 mg PO DAILY PRN 01/09/17 01/09/17 History Tamsulosin HCl [Flomax] 0.4 mg PO DAILY 01/09/17 01/09/17 History Allergies Allergy/AdvReac Type Severity Reaction Status Date / Time adhesive tape Allergy skin Verified 01/09/17 17:27 irritation animal dander Allergy Unknown Verified 01/09/17 17:27 ciprofloxacin [From Cipro] Allergy Itching Verified 01/09/17 17:27 clarithromycin [From Biaxin] Allergy Unknown Verified 01/09/17 17:27 Influenza Virus Vaccines Allergy Unknown Verified 01/09/17 17:27 metronidazole [From Flagyl] Allergy Itching Verified 01/09/17 17:27 wheat Allergy Unknown Verified 01/09/17 17:27 Mckean And Derivatives AdvReac Itching Verified 01/10/17 00:51 [Mckean] nuts,eggs, Allergy Unknown Uncoded 01/02/17 10:38 Physical Exam Vitals: Vital Signs Temp Pulse Resp BP Pulse Ox 01/10/17 13:33 97.7 F 100 20 110/60 95 01/10/17 13:24 97.5 F L 97 20 112/62 94 L 01/10/17 13:00 97.4 F L 114 H 20 107/64 94 L 01/10/17 12:30 108 H 27 H 103/67 95 01/10/17 12:00 98.4 F 99 20 101/61 95 01/10/17 11:57 98.3 F 99 20 101/61 94 L 01/10/17 11:30 101 H 18 103/68 92 L 01/10/17 11:00 106 H 20 91/71 95 01/10/17 10:53 98.0 F 108 H 20 91/71 95 01/10/17 10:30 116 H 24 108/61 85 L 01/10/17 10:23 98.1 F 116 H 20 108/61 94 L 01/10/17 10:13 98.1 F 120 H 20 98/58 95 01/10/17 10:00 115 H 24 96/59 97 01/10/17 09:30 111 H 28 H 99/60 100 01/10/17 09:00 122 H 32 H 97/59 92 L 01/10/17 08:30 112 H 15 86/53 94 L 01/10/17 08:00 98.1 F 127 H 22 91/55 91 L 01/10/17 07:30 117 H 29 H 99/48 98 01/10/17 07:00 115 H 20 83/46 100 01/10/17 06:30 116 H 18 99/46 96 01/10/17 06:00 121 H 18 83/45 100 01/10/17 05:30 122 H 20 83/46 100 01/10/17 05:00 133 H 18 85/45 97 01/10/17 04:30 99.9 F H 130 H 23 105/56 98 01/10/17 04:00 100.8 F H 134 H 21 105/56 98 01/10/17 03:35 101.8 F H 01/10/17 03:00 125 H 22 93/44 97 01/10/17 02:30 131 H 23 95/43 99 01/10/17 02:00 134 H 22 94/48 97 01/10/17 01:30 136 H 22 107/59 94 L 01/10/17 01:16 98.2 F 124 H 20 105/60 01/10/17 01:00 144 H 19 91/40 89 L 01/10/17 00:51 98.4 F 140 H 18 91/56 98 01/10/17 00:30 130 H 17 92/51 94 L 01/10/17 00:21 98.6 F 136 H 18 91/40 01/10/17 00:11 99.8 F H 136 H 17 96/45 97 01/10/17 00:00 99.1 F 131 H 20 93/44 99 01/09/17 23:58 99.8 F H 135 H 18 93/44 98 01/09/17 23:41 99.2 F 132 H 20 81/37 01/09/17 23:40 99.1 F 129 H 19 79/40 01/09/17 23:34 98.9 F 129 H 18 78/43 01/09/17 23:31 99.3 F 138 H 20 81/39 97 01/09/17 23:30 131 H 18 81/39 97 01/09/17 23:24 99.4 F 127 H 19 80/39 98 01/09/17 23:00 135 H 18 81/46 96 01/09/17 22:51 99.3 F 135 H 20 81/45 98 01/09/17 22:30 132 H 20 81/32 98 01/09/17 22:21 99.3 F 133 H 18 81/34 100 01/09/17 22:11 100.3 F H 135 H 18 79/42 97 01/09/17 22:00 99.9 F H 131 H 25 H 93/39 97 01/09/17 21:38 99.5 F 136 H 20 85/46 98 01/09/17 21:15 98.8 F 119 H 18 89/42 100 01/09/17 20:50 99.0 F 124 H 18 88/46 100 01/09/17 20:35 98.9 F 121 H 18 89/46 100 01/09/17 20:15 99.3 F 121 H 18 91/50 01/09/17 19:45 99.5 F 120 H 18 87/45 100 01/09/17 19:35 99.2 F 125 H 16 87/44 Intake and Output 01/09/17 01/10/17 01/10/17 22:59 06:59 14:59 Intake Total 720 2800.0 1762 Output Total 800 875 Balance 720 2000.0 887 Intake: IV 900 0.9 NACL 900 Intake, IV Titration 100 1500.0 450 Amount ACETAMINOPHEN IV (For NPO 100 ) 1,000 mg In Saline 100 100ml.bag @ 400 mls/hr IVPB ONCE STA Rx#: [id number] Calcium Gluconate 1,000 100 mg In Sodium Chloride 0.9 % 100 ml @ 100 mls/hr IVPB ONCE ONE Rx#: [id number] Magnesium Sulfate-D5w Pmx 200 1 gm In Dextrose/Water 1 100ml.bag @ 100 mls/hr IVPB Q1H [facility] Rx#: [id number] Piperacillin-Tazobactam 3 50.0 .375 gm In Dextrose/Water 1 50ml.bag @ 12.5 mls/hr IVPB Q8HR [facility] Rx#: [id number] Potassium Chloride 10 meq 200 Lidocaine 2% Inj 10 mg In Sodium Chloride 0.9% 100 ml @ 100 mls/hr IV Q1HR [facility] Rx#:[id number] Sodium Chloride 0.9% 1, 100 1150 150 000 ml @ 150 mls/hr IV . Q6H40M [facility] Rx#:[id number] Blood Product 620 1300 412 Platelet Pheresis Acda 188 Unit [id number] Platelet Pheresis Acda1 203 Unit [id number] Platelet Pheresis Acda2 0 Unit [id number] Platelet Pheresis Acda2 289 Unit [id number] Platelet Pheresis Acda2 206 Unit [id number] Rc As-1 Unit 310 [id number] Rc As-1 Unit 310 [id number] Rc As-1 Unit 310 [id number] Rc As-3 Unit 0 310 [id number] Output: Urine 800 875 Other: Voiding Method Bedpan Indwelling Catheter # Voids 1 # Bowel Movements 1 Weight 61.2 kg Head exam was generally normal. There was no scleral icterus or corneal arcus. Mucous membranes were moist.Neck was supple and without jugular venous distension, thyromegaly, or carotid bruits. Carotids were easily palpable bilaterally. There was no adenopathy. Lung sounds are diminished bilaterally. No wheezes or rhonchi early crackles.Cardiac exam revealed the PMI to be normally situated and sized. The rhythm was regular and no extrasystoles were noted during several minutes of auscultation. The first and second heart sounds were normal and physiologic splitting of the second heart sound was noted. There were no murmurs, rubs, clicks, or gallops. Abdomen is slightly distended and there is direct tenderness throughout the anterior abdominal wall. No rebound tenderness. No guarding. Bowel sounds are hypoactive at the present.Examination of the extremities revealed easily palpable radial, femoral and pedal pulses. There was no cyanosis, clubbing or edema. Examination of the skin sows very tiny approximately 5 mm a 6 mm lesion scattered throughout the forehead upper and lower extremities. Minimally erythematous. No ulceration. No drainage. Neurologically the patient is awake and alert. Results - Laboratory Findings CBC and BMP: 01/10/17 04:24 01/10/17 04:24 PT/INR, D-dimer PT 12.6 sec (9.0-12.0) H 01/10/17 10:36 INR 1.3 (<1.1) 01/10/17 10:36 D-Dimer 1.59 mg/L FEU (<0.60) H 01/10/17 10:36 Abnormal lab findings: Abnormal Labs 01/09/17 01/09/17 01/09/17 19:30 21:39 22:00 RBC 2.45 L Hgb 7.8 L Hct 22.6 L RDW Plt Count 24 L* Lymphocytes # ESR PT Fibrinogen D-Dimer Sodium BUN Glucose POC Glucose (mg/dL) 119 H Calcium Ionized Calcium Ronan Magnesium Total Bilirubin Total Creatine Kinase Troponin I C-Reactive Protein Total Protein Albumin HDL Cholesterol Crossmatch See Detail 01/09/17 01/10/17 01/10/17 22:31 01:49 04:24 RBC 2.94 L 3.02 L Hgb 8.9 L 9.2 L Hct 27.1 L 27.8 L RDW 15.6 H Plt Count 35 L* 30 L* Lymphocytes # 0.2 L ESR PT Fibrinogen D-Dimer Sodium BUN Glucose POC Glucose (mg/dL) Calcium Ionized Calcium Ronan Magnesium Total Bilirubin Total Creatine Kinase <20 L Troponin I C-Reactive Protein Total Protein Albumin HDL Cholesterol Crossmatch 01/10/17 01/10/17 01/10/17 04:24 04:24 04:24 RBC Hgb Hct RDW Plt Count Lymphocytes # ESR PT Fibrinogen D-Dimer Sodium 133 L BUN 21 H Glucose 115 H POC Glucose (mg/dL) Calcium 6.3 L* Ionized Calcium Ronan Magnesium 2.5 H Total Bilirubin 3.4 H Total Creatine Kinase Troponin I 0.148 H* C-Reactive Protein Total Protein 3.9 L Albumin 1.8 L HDL Cholesterol 12 L Crossmatch 01/10/17 01/10/17 01/10/17 04:24 04:24 04:24 RBC Hgb Hct RDW Plt Count Lymphocytes # ESR 31 H PT Fibrinogen D-Dimer Sodium BUN Glucose POC Glucose (mg/dL) Calcium Ionized Calcium Ronan 4.1 L Magnesium Total Bilirubin Total Creatine Kinase Troponin I C-Reactive Protein 301.4 H Total Protein Albumin HDL Cholesterol Crossmatch 01/10/17 10:36 RBC Hgb Hct RDW Plt Count Lymphocytes # ESR PT 12.6 H Fibrinogen 552 H D-Dimer 1.59 H Sodium BUN Glucose POC Glucose (mg/dL) Calcium Ionized Calcium Ronan Magnesium Total Bilirubin Total Creatine Kinase Troponin I C-Reactive Protein Total Protein Albumin HDL Cholesterol Crossmatch - Diagnostic Findings Chest x-ray: image reviewed Assessment and Plan Plan: Assessment 1 acute gram-negative septicemia. Rule out a gastrointestinal source knowing that the patient has proctitis/colitis and she could've easily translocated bacteria into her bloodstream. Other alternative source of infection include urinary tract system nontender the patient has an obstructive calculus in the right ureter and significant hydronephrosis. The patient is currently on IV Zosyn. Hemodynamically improved. On no pressors. 2 acute/subacute proctocolitis, rule out inflammatory bowel disease, rule out enterohemorrhagic E. coli infection with subsequent manifestations of thrombocytopenia and possible intravascular hemolysis. Note that no schistocytes were seen in the bloodstream and the patient is being further investigated by hematology oncology and the final serotype on the gram-negative infection and the blood is pending. Meanwhile the stool be sent for E. coli and Shigella infections. This will be also sent for C. diff evaluation. Possibility of inflammatory bowel disease cannot be completely excluded. I do favor however that this may be a post antibiotic colitis knowing that the patient was completely asymptomatic prior to this antibiotic treatment was given to approximately 2-3 months ago. 3 right hydronephrosis with an obstructive calculus involving the ureter 4 thrombocytopenia, currently under investigation. Rule out consumptive thrombocytopenia secondary to sepsis and bacteremia. Rule out hemolytic uremic syndrome although this is a less likely possibility 5 anemia, status post transfusion with 3 units of packed RBCs 6 acute hypoxemia, sepsis induced and the patient has a normal chest x-ray. 7 IgG deficiency, congenital, currently on replacement 8 oral ulcers/thrush, recovering 9 reactive arthralgias Plan Continue with fluid resuscitation. Continue with IV Zosyn. Discussed the case with urology and is a priority to relieve the obstruction from the right ureter and for that reason the patient will be undergoing a ureteral stent insertion today to relieve the right-sided hydronephrosis. Meanwhile, we'll treat the septicemia with antibiotics. Would offer this IV Solu-Medrol although there is no clear-cut indication for an underlying inflammatory bowel disease. We'll check the stool for Shigella, E. coli, and C. diff. We'll consult GI. Will consult general surgery. In terms of hematologic profile, we'll monitor the platelet counts and we'll look for any peripheral smear cystoscopy sites. We' ll check LDH, haptoglobin and look for any signs of any intravascular hemolysis. The patient's hemoglobin is nicely responded to packed RBC transfusion. No need for platelet transfusion for now and initially placed on hold. The patient will be kept in ICU. We'll continue to follow make further recommendations based on her progress. Time with Patient: Greater than 30
--- NOTE | 2017-01-10 14:23 | P.GSCN ---
History of Present Illness Consult date: 01/10/17 Reason for Consult: Hydronephrosis Requesting physician: Serina Lopez History of present illness: The patient is a 26-year-old white female with recently diagnosed colitis. She was admitted yesterday with bloody stool. She was hypotensive at that time, and found to have anemia and thrombocytopenia. A computed tomography scan showed evidence of moderate right hydronephrosis due to a 5 mm right proximal ureteral calculus. She denies any prior history of urolithiasis, though she has a twin sister with recurrent urolithiasis. The patient does report a several month history of right flank discomfort. Review of Systems - Constitutional Reports fever - Gastrointestinal Reports diarrhea, Reports melena - Genitourinary Genitourinary: Reports flank pain, Denies hematuria Past Medical History Past Medical History: Asthma, Pneumonia Additional Past Medical History / Comment(s): insomnia, hernia, pt mother states "she had bowel wipeout related to her antibiotics" colitis, kidney stones to right kidney History of Any Multi-Drug Resistant Organisms: None Reported Past Surgical History: Adenoidectomy, Hernia Repair, Tonsillectomy Additional Past Surgical History / Comment(s): left inguinal hernia Past Anesthesia/Blood Transfusion Reactions: Motion Sickness Additional Past Anesthesia/Blood Transfusion Reaction / Comm: "high tolerance, I sometimes need more" Past Psychological History: No Psychological Hx Reported Smoking Status: Never smoker Past Alcohol Use History: None Reported Past Drug Use History: Marijuana Additional Drug Use History / Comment(s): edible marijuana - Past Family History Mother Family Medical History: No Reported History Medications and Allergies Home Medications Medication Instructions Recorded Confirmed Type Albuterol Inhaler [Ventolin Hfa 1 puff INHALATION RT-Q6H PRN 01/02/17 01/09/17 History Inhaler] Dextroamphetamine/Amphetamine 20 mg PO TID 01/02/17 01/09/17 History [Adderall] Ergocalciferol (Vitamin D2) 50,000 unit PO Q30D 01/02/17 01/09/17 History [Vitamin D2] HYDROcodone/APAP 5-325MG [[place] 1 tab PO Q8H PRN 01/02/17 01/09/17 History 5-325] Medroxyprogesterone Acetate 150 mg IM DIRECTED 01/02/17 01/09/17 History [Depo-Provera] predniSONE 20 mg PO TID 01/02/17 01/09/17 History Albuterol Nebulized [Ventolin 2.5 mg INHALATION RT-Q6H PRN 01/09/17 01/09/17 History Nebulized] Beclomethasone Dipropionate [Qvar 1 puff INHALATION RT-BID 01/09/17 01/09/17 History 80 mcg] Clotrimazole Urmila [Mycelex 10 mg PO QID 01/09/17 01/09/17 History Urmila] EPINEPHrine (Auto Inject) [Epipen] 0.3 mg IM ONCE PRN 01/09/17 01/09/17 History Fluconazole [Diflucan] 150 mg PO Q3D 01/09/17 01/09/17 History Furosemide [Lasix] 20 mg PO DAILY 01/09/17 01/09/17 History Hydrocortisone Cream 1 applic TOPICAL QID PRN 01/09/17 01/09/17 History [Hydrocortisone 2.5% Cream] Nystatin 100,000 Unit/ml Susp 1 ml PO QID PRN 01/09/17 01/09/17 History [Mycostatin Oral Susp] Sennosides [Senna] 8.6 mg PO DAILY PRN 01/09/17 01/09/17 History Tamsulosin HCl [Flomax] 0.4 mg PO DAILY 01/09/17 01/09/17 History Allergies Allergy/AdvReac Type Severity Reaction Status Date / Time adhesive tape Allergy skin Verified 01/09/17 17:27 irritation animal dander Allergy Unknown Verified 01/09/17 17:27 ciprofloxacin [From Cipro] Allergy Itching Verified 01/09/17 17:27 clarithromycin [From Biaxin] Allergy Unknown Verified 01/09/17 17:27 Influenza Virus Vaccines Allergy Unknown Verified 01/09/17 17:27 metronidazole [From Flagyl] Allergy Itching Verified 01/09/17 17:27 wheat Allergy Unknown Verified 01/09/17 17:27 Gonzales And Derivatives AdvReac Itching Verified 01/10/17 00:51 [Gonzales] nuts,eggs, Allergy Unknown Uncoded 01/02/17 10:38 Surgical - Exam Vital Signs Temp Pulse Resp BP Pulse Ox 99.1 F 145 H 16 96/51 100 01/09/17 16:13 01/09/17 16:13 01/09/17 16:13 01/09/17 16:13 01/09/17 16:13 - General well developed, well nourished, no distress - Respiratory normal respiratory effort - Abdomen Abdomen: soft, tender (Diffuse tenderness, predominantly right sided), no guarding, no rebound, distended Results - Labs 01/10/17 04:24 01/10/17 04:24 Abnormal Lab Results - Last 24 Hours (Table) 01/09/17 01/09/17 01/09/17 Range/Units 21:39 22:00 22:31 RBC 2.45 L (3.80-5.40) m/uL Hgb 7.8 L (11.4-16.0) gm/dL Hct 22.6 L (34.0-46.0) % RDW (11.5-15.5) % Plt Count 24 L* (150-450) k/uL Lymphocytes # (1.0-4.8) k/uL ESR (0-20) mm/hr PT (9.0-12.0) sec Fibrinogen (200-500) mg/dL D-Dimer (<0.60) mg/L FEU Sodium (137-145) mmol/L BUN (7-17) mg/dL Glucose (74-99) mg/dL POC Glucose (mg/dL) 119 H (75-99) mg/dL Calcium (8.4-10.2) mg/dL Ionized Calcium [place] (4.5-5.3) mg/dL Magnesium (1.6-2.3) mg/dL Total Bilirubin (0.2-1.3) mg/dL Total Creatine Kinase <20 L (30-135) U/L Troponin I (0.000-0.034) ng/mL C-Reactive Protein (<10.0) mg/L Total Protein (6.3-8.2) g/dL Albumin (3.5-5.0) g/dL HDL Cholesterol (40-60) mg/dL 01/10/17 01/10/17 01/10/17 Range/Units 01:49 04:24 04:24 RBC 2.94 L 3.02 L (3.80-5.40) m/uL Hgb 8.9 L 9.2 L (11.4-16.0) gm/dL Hct 27.1 L 27.8 L (34.0-46.0) % RDW 15.6 H (11.5-15.5) % Plt Count 35 L* 30 L* (150-450) k/uL Lymphocytes # 0.2 L (1.0-4.8) k/uL ESR (0-20) mm/hr PT (9.0-12.0) sec Fibrinogen (200-500) mg/dL D-Dimer (<0.60) mg/L FEU Sodium 133 L (137-145) mmol/L BUN 21 H (7-17) mg/dL Glucose 115 H (74-99) mg/dL POC Glucose (mg/dL) (75-99) mg/dL Calcium 6.3 L* (8.4-10.2) mg/dL Ionized Calcium [place] (4.5-5.3) mg/dL Magnesium (1.6-2.3) mg/dL Total Bilirubin 3.4 H (0.2-1.3) mg/dL Total Creatine Kinase (30-135) U/L Troponin I (0.000-0.034) ng/mL C-Reactive Protein (<10.0) mg/L Total Protein 3.9 L (6.3-8.2) g/dL Albumin 1.8 L (3.5-5.0) g/dL HDL Cholesterol 12 L (40-60) mg/dL 01/10/17 01/10/17 01/10/17 Range/Units 04:24 04:24 04:24 RBC (3.80-5.40) m/uL Hgb (11.4-16.0) gm/dL Hct (34.0-46.0) % RDW (11.5-15.5) % Plt Count (150-450) k/uL Lymphocytes # (1.0-4.8) k/uL ESR (0-20) mm/hr PT (9.0-12.0) sec Fibrinogen (200-500) mg/dL D-Dimer (<0.60) mg/L FEU Sodium (137-145) mmol/L BUN (7-17) mg/dL Glucose (74-99) mg/dL POC Glucose (mg/dL) (75-99) mg/dL Calcium (8.4-10.2) mg/dL Ionized Calcium [place] 4.1 L (4.5-5.3) mg/dL Magnesium 2.5 H (1.6-2.3) mg/dL Total Bilirubin (0.2-1.3) mg/dL Total Creatine Kinase (30-135) U/L Troponin I 0.148 H* (0.000-0.034) ng/mL C-Reactive Protein (<10.0) mg/L Total Protein (6.3-8.2) g/dL Albumin (3.5-5.0) g/dL HDL Cholesterol (40-60) mg/dL 01/10/17 01/10/17 01/10/17 Range/Units 04:24 04:24 10:36 RBC (3.80-5.40) m/uL Hgb (11.4-16.0) gm/dL Hct (34.0-46.0) % RDW (11.5-15.5) % Plt Count (150-450) k/uL Lymphocytes # (1.0-4.8) k/uL ESR 31 H (0-20) mm/hr PT 12.6 H (9.0-12.0) sec Fibrinogen 552 H (200-500) mg/dL D-Dimer 1.59 H (<0.60) mg/L FEU Sodium (137-145) mmol/L BUN (7-17) mg/dL Glucose (74-99) mg/dL POC Glucose (mg/dL) (75-99) mg/dL Calcium (8.4-10.2) mg/dL Ionized Calcium [place] (4.5-5.3) mg/dL Magnesium (1.6-2.3) mg/dL Total Bilirubin (0.2-1.3) mg/dL Total Creatine Kinase (30-135) U/L Troponin I (0.000-0.034) ng/mL C-Reactive Protein 301.4 H (<10.0) mg/L Total Protein (6.3-8.2) g/dL Albumin (3.5-5.0) g/dL HDL Cholesterol (40-60) mg/dL Microbiology - Last 24 Hours (Table) 01/09/17 22:00 Blood Culture Gram Stain - Preliminary Blood Diabetes panel 01/10/17 Range/Units 04:24 Sodium 133 L (137-145) mmol/L Potassium 3.6 (3.5-5.1) mmol/L Chloride 102 (98-107) mmol/L Carbon Dioxide 23 (22-30) mmol/L BUN 21 H (7-17) mg/dL Creatinine 0.80 (0.52-1.04) mg/dL Glucose 115 H (74-99) mg/dL Calcium 6.3 L* (8.4-10.2) mg/dL AST 19 (14-36) U/L ALT 31 (9-52) U/L Alkaline Phosphatase 119 (38-126) U/L Total Protein 3.9 L (6.3-8.2) g/dL Albumin 1.8 L (3.5-5.0) g/dL Triglycerides 99 (<150) mg/dL HDL Cholesterol 12 L (40-60) mg/dL Calcium panel 01/10/17 01/10/17 01/10/17 Range/Units 04:24 04:24 04:24 Calcium 6.3 L* (8.4-10.2) mg/dL Ionized Calcium [place] 4.1 L (4.5-5.3) mg/dL Phosphorus 3.2 (2.5-4.5) mg/dL Albumin 1.8 L (3.5-5.0) g/dL Pituitary panel 01/10/17 Range/Units 04:24 Sodium 133 L (137-145) mmol/L Potassium 3.6 (3.5-5.1) mmol/L Chloride 102 (98-107) mmol/L Carbon Dioxide 23 (22-30) mmol/L BUN 21 H (7-17) mg/dL Creatinine 0.80 (0.52-1.04) mg/dL Glucose 115 H (74-99) mg/dL Calcium 6.3 L* (8.4-10.2) mg/dL Adrenal panel 01/10/17 Range/Units 04:24 Sodium 133 L (137-145) mmol/L Potassium 3.6 (3.5-5.1) mmol/L Chloride 102 (98-107) mmol/L Carbon Dioxide 23 (22-30) mmol/L BUN 21 H (7-17) mg/dL Creatinine 0.80 (0.52-1.04) mg/dL Glucose 115 H (74-99) mg/dL Calcium 6.3 L* (8.4-10.2) mg/dL Total Bilirubin 3.4 H (0.2-1.3) mg/dL AST 19 (14-36) U/L ALT 31 (9-52) U/L Alkaline Phosphatase 119 (38-126) U/L Total Protein 3.9 L (6.3-8.2) g/dL Albumin 1.8 L (3.5-5.0) g/dL - Imaging CT scan - abdomen: report reviewed, image reviewed Assessment and Plan (1) Calculus of ureter Status: Acute (2) Hydronephrosis with urinary obstruction due to ureteral calculus Status: Acute Plan: The patient is a 26-year-old white female with right hydronephrosis due to a 5 mm right proximal ureteral calculus. She is symptomatic, and there is also concern of underlying sepsis of unknown origin. Blood cultures have shown gram- negative bacilli. In view of this, she will undergo cystoscopy with right ureteral stent insertion. The procedure was reviewed in detail with the patient and her family. They are familiar with stent placement, as the patient' s father also has a history of urolithiasis. Potential risks associated with stent insertion include anesthesia, inability to place the stent, and ureteral injury. I intend to perform this procedure later today. Time with Patient: Greater than 30
--- NOTE | 2017-01-10 14:49 | P.CONS ---
History of Present Illness - Reason for Consult Consult date: 01/10/17 Possible infection, low platelet count - History of Present Illness This is a 26-year-old female that gives a history of 3 months ago having a cold symptoms that lasted for 2 weeks. Her twin sister was diagnosed with pneumonia by Dr. Chappell and the patient went to Dr. Chappell and was also diagnosed with pneumonia. She completed 2 courses of antibiotics. She then developed diarrhea which was liquid, mucousy and bloody. She was having large amounts 10 times per day. She states that she lost 13 pounds over 2 weeks. She also has pain with defecation. She then was seen by Dr. Maynard and underwent colonoscopy on January 06. Pathology reports terminal ileum biopsy reveals mature small bowel mucosa without histopathologic changes.: Random biopsy shows acute colitis with features suggestive chronicity. Rectum biopsy shows acute proctitis with the stretcher suggestive of chronicity. Possibility of inflammatory bowel disease cannot be excluded. Prior to the endoscopy, patient was started on prednisone which she states helped her diarrhea. She was on 20 mg 4 times daily and yesterday was decreased to 20 mg 3 times daily. She also relates that she has been at [facility] for ER visits and admissions and has had multipl stool samples tested for C. difficile toxin which is been negative but she did complete a course of Flagyl at some point. Yesterday patient had a near syncopal episode. She was feeling lightheaded and dizzy and like she was going to pass out. She went to the bathroom and had a bloody bowel movement. She then came into [facility] emergency center. CAT scan of the abdomen and pelvis shows a calculus in the right ureter with obstruction appears to be acute. Nonspecific colitis. Mild left inguinal density 2.5 cm representing possible edema or adenopathy. Her white count was initially 1303 p.m. 5. Her platelet count was 24 currently at 30. She was febrile at 101.8, tachycardic, hypotensive. Initial to troponins were negative with the third one being at 0.148. Urinalysis was clear, nitrite trace, leukocytes negative. Occasional bacteria. Urine culture is in progress. Blood culture is showing gram-negative bacilli. Patient was started on Zosyn and admitted into intensive care unit. She has multiple consults in place including cardiology, pulmonary medicine, Gen. surgery, gastroenterology, urology, oncology, rheumatology. She has undergone transfusion of packed RBCs and platelets. 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 She also is complaining of a skin issues particularly on her face and ankles and feet. She complains of joint pain most severe in the ankles and knees. She has not required vasopressors. Review of Systems All systems: negative Constitutional: Reports anorexia, Reports fatigue, Reports fever, Reports poor appetite, Reports weakness, Reports weight loss, Denies chills Eyes: denies blurred vision, denies pain Ears, nose, mouth and throat: Reports mouth pain, Denies headache, Denies sore throat Cardiovascular: Reports lightheadedness, Reports syncope, Denies chest pain, Denies shortness of breath Respiratory: Reports cough Gastrointestinal: Reports bloating, Reports change in bowel habits, Reports diarrhea, Reports loss of appetite, Reports melena, Reports nausea, Reports vomiting, Denies abdominal pain Genitourinary: Denies dysuria, Denies hematuria Musculoskeletal: Denies myalgias Integumentary: Denies pruritus, Denies rash Neurological: Denies numbness, Denies weakness Psychiatric: Denies anxiety, Denies depression Endocrine: Denies fatigue, Denies weight change Past Medical History Past Medical History: Asthma, Pneumonia Additional Past Medical History / Comment(s): insomnia, hernia, colitis, kidney stones to right kidney History of Any Multi-Drug Resistant Organisms: None Reported Past Surgical History: Adenoidectomy, Hernia Repair, Tonsillectomy Additional Past Surgical History / Comment(s): left inguinal hernia, colonoscopy Past Anesthesia/Blood Transfusion Reactions: Motion Sickness Additional Past Anesthesia/Blood Transfusion Reaction / Comm: "high tolerance, I sometimes need more" Past Psychological History: No Psychological Hx Reported Smoking Status: Never smoker Past Alcohol Use History: None Reported Additional Past Alcohol Use History / Comment(s): Patient has been a lifelong nonsmoker. She uses alcohol occasionally. She denies any medical marijuana, marijuana, street drug use. She works at [employer]. Past Drug Use History: Marijuana Additional Drug Use History / Comment(s): edible marijuana - Past Family History Mother Family Medical History: No Reported History Additional Family Medical History / Comment(s): Mom is healthy with no major medical problems. Father Additional Family Medical History / Comment(s): Father has history of either Crohn's or irritable bowel syndrome. Medications and Allergies Home Medications Medication Instructions Recorded Confirmed Type Albuterol Inhaler [Ventolin Hfa 1 puff INHALATION RT-Q6H PRN 01/02/17 01/09/17 History Inhaler] Dextroamphetamine/Amphetamine 20 mg PO TID 01/02/17 01/09/17 History [Adderall] Ergocalciferol (Vitamin D2) 50,000 unit PO Q30D 01/02/17 01/09/17 History [Vitamin D2] HYDROcodone/APAP 5-325MG [[place] 1 tab PO Q8H PRN 01/02/17 01/09/17 History 5-325] Medroxyprogesterone Acetate 150 mg IM DIRECTED 01/02/17 01/09/17 History [Depo-Provera] predniSONE 20 mg PO TID 01/02/17 01/09/17 History Albuterol Nebulized [Ventolin 2.5 mg INHALATION RT-Q6H PRN 01/09/17 01/09/17 History Nebulized] Beclomethasone Dipropionate [Qvar 1 puff INHALATION RT-BID 01/09/17 01/09/17 History 80 mcg] Clotrimazole Urmila [Mycelex 10 mg PO QID 01/09/17 01/09/17 History Urmila] EPINEPHrine (Auto Inject) [Epipen] 0.3 mg IM ONCE PRN 01/09/17 01/09/17 History Fluconazole [Diflucan] 150 mg PO Q3D 01/09/17 01/09/17 History Furosemide [Lasix] 20 mg PO DAILY 01/09/17 01/09/17 History Hydrocortisone Cream 1 applic TOPICAL QID PRN 01/09/17 01/09/17 History [Hydrocortisone 2.5% Cream] Nystatin 100,000 Unit/ml Susp 1 ml PO QID PRN 01/09/17 01/09/17 History [Mycostatin Oral Susp] Sennosides [Senna] 8.6 mg PO DAILY PRN 01/09/17 01/09/17 History Tamsulosin HCl [Flomax] 0.4 mg PO DAILY 01/09/17 01/09/17 History Allergies Allergy/AdvReac Type Severity Reaction Status Date / Time adhesive tape Allergy skin Verified 01/09/17 17:27 irritation animal dander Allergy Unknown Verified 01/09/17 17:27 ciprofloxacin [From Cipro] Allergy Itching Verified 01/09/17 17:27 clarithromycin [From Biaxin] Allergy Unknown Verified 01/09/17 17:27 Influenza Virus Vaccines Allergy Unknown Verified 01/09/17 17:27 metronidazole [From Flagyl] Allergy Itching Verified 01/09/17 17:27 wheat Allergy Unknown Verified 01/09/17 17:27 [place] And Derivatives AdvReac Itching Verified 01/10/17 00:51 [[place]] nuts,eggs, Allergy Unknown Uncoded 01/02/17 10:38 Physical Exam Vitals: Vital Signs Temp Pulse Resp BP Pulse Ox 01/10/17 09:00 122 H 32 H 97/59 92 L 01/10/17 08:30 112 H 15 86/53 94 L 01/10/17 08:00 98.1 F 127 H 22 91/55 91 L 01/10/17 07:30 117 H 29 H 99/48 98 01/10/17 07:00 115 H 20 83/46 100 01/10/17 06:30 116 H 18 99/46 96 01/10/17 06:00 121 H 18 83/45 100 01/10/17 05:30 122 H 20 83/46 100 01/10/17 05:00 133 H 18 85/45 97 01/10/17 04:30 99.9 F H 130 H 23 105/56 98 01/10/17 04:00 100.8 F H 134 H 21 105/56 98 01/10/17 03:35 101.8 F H 01/10/17 03:00 125 H 22 93/44 97 01/10/17 02:30 131 H 23 95/43 99 01/10/17 02:00 134 H 22 94/48 97 01/10/17 01:30 136 H 22 107/59 94 L 01/10/17 01:16 98.2 F 124 H 20 105/60 01/10/17 01:00 144 H 19 91/40 89 L 01/10/17 00:51 98.4 F 140 H 18 91/56 98 01/10/17 00:30 130 H 17 92/51 94 L 01/10/17 00:21 98.6 F 136 H 18 91/40 01/10/17 00:11 99.8 F H 136 H 17 96/45 97 01/10/17 00:00 99.1 F 131 H 20 93/44 99 01/09/17 23:58 99.8 F H 135 H 18 93/44 98 01/09/17 23:41 99.2 F 132 H 20 81/37 01/09/17 23:40 99.1 F 129 H 19 79/40 01/09/17 23:34 98.9 F 129 H 18 78/43 01/09/17 23:31 99.3 F 138 H 20 81/39 97 01/09/17 23:30 131 H 18 81/39 97 01/09/17 23:24 99.4 F 127 H 19 80/39 98 01/09/17 23:00 135 H 18 81/46 96 01/09/17 22:51 99.3 F 135 H 20 81/45 98 01/09/17 22:30 132 H 20 81/32 98 01/09/17 22:21 99.3 F 133 H 18 81/34 100 01/09/17 22:11 100.3 F H 135 H 18 79/42 97 01/09/17 22:00 99.9 F H 131 H 25 H 93/39 97 01/09/17 21:38 99.5 F 136 H 20 85/46 98 01/09/17 21:15 98.8 F 119 H 18 89/42 100 01/09/17 20:50 99.0 F 124 H 18 88/46 100 01/09/17 20:35 98.9 F 121 H 18 89/46 100 01/09/17 20:15 99.3 F 121 H 18 91/50 01/09/17 19:45 99.5 F 120 H 18 87/45 100 01/09/17 19:35 99.2 F 125 H 16 87/44 Intake and Output 01/09/17 01/10/17 01/10/17 22:59 06:59 14:59 Intake Total 720 2800.0 550 Output Total 800 350 Balance 720 2000.0 200 Intake: IV 300 0.9 NACL 300 Intake, IV Titration 100 1500.0 250 Amount ACETAMINOPHEN IV (For NPO 100 ) 1,000 mg In Saline 100 100ml.bag @ 400 mls/hr IVPB ONCE STA Rx#: [id number] Calcium Gluconate 1,000 100 mg In Sodium Chloride 0.9 % 100 ml @ 100 mls/hr IVPB ONCE ONE Rx#: [id number] Magnesium Sulfate-D5w Pmx 200 1 gm In Dextrose/Water 1 100ml.bag @ 100 mls/hr IVPB Q1H [facility] Rx#: [id number] Piperacillin-Tazobactam 3 50.0 .375 gm In Dextrose/Water 1 50ml.bag @ 12.5 mls/hr IVPB Q8HR [facility] Rx#: [id number] Sodium Chloride 0.9% 1, 100 1150 150 000 ml @ 150 mls/hr IV . Q6H40M ONE Rx#:[id number] Blood Product 620 1300 Platelet Pheresis Acda 188 Unit [id number] Platelet Pheresis Acda1 203 Unit [id number] Platelet Pheresis Acda2 289 Unit [id number] Rc As-1 Unit 310 [id number] Rc As-1 Unit 310 [id number] Rc As-1 Unit 310 [id number] Rc As-3 Unit 0 310 [id number] Output: Urine 800 350 Other: Voiding Method Bedpan Indwelling Catheter # Voids 1 # Bowel Movements 1 Weight 61.2 kg Gen: This is a thin 26-year-old female. HEENT: Head is atraumatic, normocephalic. Pupils equal, round. Sclerae is anicteric. NECK: Supple. No JVD. No lymphadenopathy. No thyromegaly. LUNGS: Clear to auscultation. No wheezes or rhonchi. No intercostal retractions. HEART: Regular rate and rhythm. No murmur. ABDOMEN: Slightly distended. Bowel sounds are present. No masses. Generalized tenderness. EXTREMITIES: No pedal edema. No calf tenderness. Dorsalis pedis +2 bilaterally. Small lesions scattered on the forehead and face as well as upper and lower extremities around the ankles. NEUROLOGICAL: Patient is awake, alert and oriented x3. Cranial nerves 2 through 12 are grossly intact. Results Results: Laboratory Results WBC 5.4 k/uL (3.8-10.6) 01/10/17 04:24 RBC 3.02 m/uL (3.80-5.40) L 01/10/17 04:24 Hgb 9.2 gm/dL (11.4-16.0) L 01/10/17 04:24 Hct 27.8 % (34.0-46.0) L 01/10/17 04:24 MCV 92.1 fL (80.0-100.0) 01/10/17 04:24 MCH 30.6 pg (25.0-35.0) 01/10/17 04:24 MCHC 33.2 g/dL (31.0-37.0) 01/10/17 04:24 RDW 15.6 % (11.5-15.5) H 01/10/17 04:24 Plt Count 30 k/uL (150-450) L* 01/10/17 04:24 Neutrophils % 90 % 01/10/17 04:24 Neutrophils % (Manual) 79.5 % 01/09/17 16:15 Band Neutrophils % 16.5 % 01/09/17 16:15 Lymphocytes % 4 % 01/10/17 04:24 Lymphocytes % (Manual) 1.5 % 01/09/17 16:15 Monocytes % 5 % 01/10/17 04:24 Monocytes % (Manual) 2.5 % 01/09/17 16:15 Eosinophils % 0 % 01/10/17 04:24 Basophils % 0 % 01/10/17 04:24 Neutrophils # 4.9 k/uL (1.3-7.7) 01/10/17 04:24 Neutrophils # (Manual) 12.5 k/uL (1.3-7.7) H 01/09/17 16:15 Lymphocytes # 0.2 k/uL (1.0-4.8) L 01/10/17 04:24 Lymphocytes # (Manual) 0.2 k/uL (1.0-4.8) L 01/09/17 16:15 Monocytes # 0.3 k/uL (0-1.0) 01/10/17 04:24 Monocytes # (Manual) 0.3 k/uL (0-1.0) 01/09/17 16:15 Eosinophils # 0.0 k/uL (0-0.7) 01/10/17 04:24 Basophils # 0.0 k/uL (0-0.2) 01/10/17 04:24 Nucleated RBCs 0 /100 WBC (0-0) 01/09/17 16:15 Manual Slide Review Performed 01/09/17 16:15 Toxic Granulation Present 01/09/17 16:15 Toxic Vacuolation Present 01/09/17 16:15 Polychromasia Present 01/09/17 16:15 Anisocytosis Slight 01/09/17 16:15 ESR 31 mm/hr (0-20) H 01/10/17 04:24 PT 12.6 sec (9.0-12.0) H 01/10/17 10:36 INR 1.3 (<1.1) 01/10/17 10:36 APTT 25.6 sec (22.0-30.0) 01/10/17 10:36 Fibrinogen 552 mg/dL (200-500) H 01/10/17 10:36 D-Dimer 1.59 mg/L FEU (<0.60) H 01/10/17 10:36 Sodium 133 mmol/L (137-145) L 01/10/17 04:24 Potassium 3.6 mmol/L (3.5-5.1) 01/10/17 04:24 Chloride 102 mmol/L (98-107) 01/10/17 04:24 Carbon Dioxide 23 mmol/L (22-30) 01/10/17 04:24 Anion Gap 8 mmol/L 01/10/17 04:24 BUN 21 mg/dL (7-17) H 01/10/17 04:24 Creatinine 0.80 mg/dL (0.52-1.04) 01/10/17 04:24 Est GFR (MDRD) Af Amer >60 (>60 ml/min/1.73 sqM) 01/10/17 04:24 Est GFR (MDRD) Non-Af >60 (>60 ml/min/1.73 sqM) 01/10/17 04:24 Glucose 115 mg/dL (74-99) H 01/10/17 04:24 POC Glucose (mg/dL) 119 mg/dL (75-99) H 01/09/17 21:39 POC Glu [employer] ID Dyan Preciado 01/09/17 21:39 Plasma Lactic Acid [place] 1.6 mmol/L (0.7-2.0) 01/09/17 22:00 Calcium 6.3 mg/dL (8.4-10.2) L* 01/10/17 04:24 Ionized Calcium [place] 4.1 mg/dL (4.5-5.3) L 01/10/17 04:24 Phosphorus 3.2 mg/dL (2.5-4.5) 01/10/17 04:24 Magnesium 2.5 mg/dL (1.6-2.3) H 01/10/17 04:24 Total Bilirubin 3.4 mg/dL (0.2-1.3) H 01/10/17 04:24 AST 19 U/L (14-36) 01/10/17 04:24 ALT 31 U/L (9-52) 01/10/17 04:24 Alkaline Phosphatase 119 U/L (38-126) 01/10/17 04:24 Lactate Dehydrogenase 556 U/L (313-618) 01/10/17 04:24 Total Creatine Kinase 31 U/L (30-135) 01/10/17 04:24 CK-MB (CK-2) 0.8 ng/mL (0.0-2.4) 01/10/17 04:24 CK-MB (CK-2) Rel Index 2.6 01/10/17 04:24 Troponin I 0.148 ng/mL (0.000-0.034) H* 01/10/17 04:24 C-Reactive Protein 301.4 mg/L (<10.0) H 01/10/17 04:24 Total Protein 3.9 g/dL (6.3-8.2) L 01/10/17 04:24 Albumin 1.8 g/dL (3.5-5.0) L 01/10/17 04:24 Triglycerides 99 mg/dL (<150) 01/10/17 04:24 Cholesterol <50 mg/dL (<200) 01/10/17 04:24 LDL Cholesterol, Calc 18 mg/dL (0-99) 01/10/17 04:24 HDL Cholesterol 12 mg/dL (40-60) L 01/10/17 04:24 Amylase <30 U/L (30-110) L 01/09/17 16:15 Lipase 10 U/L (23-300) L 01/09/17 16:15 Urine Color Yellow 01/09/17 17:00 Urine Appearance Clear (Clear) 01/09/17 17:00 Urine pH 6.0 (5.0-8.0) 01/09/17 17:00 Ur Specific [place] 1.012 (1.001-1.035) 01/09/17 17:00 Urine Protein Trace (Negative) H 01/09/17 17:00 Urine Glucose (UA) Negative (Negative) 01/09/17 17:00 Urine Ketones Trace (Negative) H 01/09/17 17:00 Urine Blood Trace (Negative) H 01/09/17 17:00 Urine Nitrite Negative (Negative) 01/09/17 17:00 Urine Bilirubin Negative (Negative) 01/09/17 17:00 Urine Urobilinogen <2.0 mg/dL (<2.0) 01/09/17 17:00 Ur Leukocyte Esterase Negative (Negative) 01/09/17 17:00 Urine RBC 2 /hpf (0-5) 01/09/17 17:00 Urine WBC 8 /hpf (0-5) H 01/09/17 17:00 Urine Bacteria Occasional /hpf (None) H 01/09/17 17:00 Urine Mucus Rare /hpf (None) H 01/09/17 17:00 Urine HCG, Qual Not Detected (Not Detectd) 01/09/17 17:00 Stool Occult Blood Positive (Negative) H 01/09/17 17:50 Blood Type B Positive 01/09/17 16:15 Blood Type Confirm B Positive 01/09/17 18:30 Blood Type Recheck B Pos 01/10/17 04:24 Antibody Screen POSITIVE 01/09/17 16:15 Antibody Identification Non-Specific Reaction 01/09/17 16:15 Direct Antiglob Test Negative 01/09/17 16:15 Crossmatch See Detail 01/09/17 19:30 Transfuse Platelets 01/09/2017 01/09/17 23:15 Tx Rx Implicated Unit 1 [id number] 01/10/17 04:24 Reaction Clerical Check Pass 01/10/17 04:24 Pre-Trans Blood Type B Positive 01/10/17 04:24 Pre-Trans Spec Appearnc Negative 01/10/17 04:24 Pre-Trans VIV IgG Negative 01/10/17 04:24 Pre-Trans VIV Poly Negative 01/10/17 04:24 Post-Trans Blood Type B Positive 01/10/17 04:24 Post-Trans Spec Appear Negative 01/10/17 04:24 Post-Trans VIV IgG Negative 01/10/17 04:24 Post-Trans VIV Poly Negative 01/10/17 04:24 Spec Expiration Date 01/12/2017232901/09/17 19:30 CBC & Chem 7: 01/10/17 04:24 01/10/17 04:24 Labs: Abnormal Lab Results - Last 24 Hours (Table) 01/09/17 01/09/17 01/09/17 Range/Units 21:39 22:00 22:31 RBC 2.45 L (3.80-5.40) m/uL Hgb 7.8 L (11.4-16.0) gm/dL Hct 22.6 L (34.0-46.0) % RDW (11.5-15.5) % Plt Count 24 L* (150-450) k/uL Lymphocytes # (1.0-4.8) k/uL Sodium (137-145) mmol/L BUN (7-17) mg/dL Glucose (74-99) mg/dL POC Glucose (mg/dL) 119 H (75-99) mg/dL Calcium (8.4-10.2) mg/dL Ionized Calcium [place] (4.5-5.3) mg/dL Magnesium (1.6-2.3) mg/dL Total Bilirubin (0.2-1.3) mg/dL Total Creatine Kinase <20 L (30-135) U/L Troponin I (0.000-0.034) ng/mL Total Protein (6.3-8.2) g/dL Albumin (3.5-5.0) g/dL HDL Cholesterol (40-60) mg/dL 01/10/17 01/10/17 01/10/17 Range/Units 01:49 04:24 04:24 RBC 2.94 L 3.02 L (3.80-5.40) m/uL Hgb 8.9 L 9.2 L (11.4-16.0) gm/dL Hct 27.1 L 27.8 L (34.0-46.0) % RDW 15.6 H (11.5-15.5) % Plt Count 35 L* 30 L* (150-450) k/uL Lymphocytes # 0.2 L (1.0-4.8) k/uL Sodium 133 L (137-145) mmol/L BUN 21 H (7-17) mg/dL Glucose 115 H (74-99) mg/dL POC Glucose (mg/dL) (75-99) mg/dL Calcium 6.3 L* (8.4-10.2) mg/dL Ionized Calcium [place] (4.5-5.3) mg/dL Magnesium (1.6-2.3) mg/dL Total Bilirubin 3.4 H (0.2-1.3) mg/dL Total Creatine Kinase (30-135) U/L Troponin I (0.000-0.034) ng/mL Total Protein 3.9 L (6.3-8.2) g/dL Albumin 1.8 L (3.5-5.0) g/dL HDL Cholesterol 12 L (40-60) mg/dL 01/10/17 01/10/17 01/10/17 Range/Units 04:24 04:24 04:24 RBC (3.80-5.40) m/uL Hgb (11.4-16.0) gm/dL Hct (34.0-46.0) % RDW (11.5-15.5) % Plt Count (150-450) k/uL Lymphocytes # (1.0-4.8) k/uL Sodium (137-145) mmol/L BUN (7-17) mg/dL Glucose (74-99) mg/dL POC Glucose (mg/dL) (75-99) mg/dL Calcium (8.4-10.2) mg/dL Ionized Calcium [place] 4.1 L (4.5-5.3) mg/dL Magnesium 2.5 H (1.6-2.3) mg/dL Total Bilirubin (0.2-1.3) mg/dL Total Creatine Kinase (30-135) U/L Troponin I 0.148 H* (0.000-0.034) ng/mL Total Protein (6.3-8.2) g/dL Albumin (3.5-5.0) g/dL HDL Cholesterol (40-60) mg/dL Assessment and Plan Plan: This is a 26-year-old female who presented to the hospital with gram- negative septicemia and bacteremia most likely 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 Stool studies are in process. She is currently on Zosyn which will be continued. Continue supportive care. Multiple consultants in place. Further recommendations as patient progresses. The above dictated assessment and findings were discussed with Dr. Gaspar. The impression and plan of care have been directed as dictated. Gina Carey nurse practitioner acting as scribe for Dr. Gaspar. Time with Patient: Greater than 30
--- NOTE | 2017-01-10 15:49 | P.CONS ---
History of Present Illness - Reason for Consult Consult date: 01/10/17 "GI bleed in patient with RA" Requesting physician: oJnathon Gould - Chief Complaint Multiple joint pain, rash, colitis - History of Present Illness Patient is a pleasant 26-year-old female with a past medical history significant for IgG deficiency, ADHD, colitis, and asthma who presented to the ER on 01/09 with the chief complaint of lightheadedness, dizziness, and bloody stool. Rheumatology services were consulted this morning for "GI bleed in a patient with RA." Patient's mother is present in the room with her today (in the ICU) and she does tell most of the history. After speaking with the patient and her mother this afternoon, they did clarify that the patient does not have a prior history of RA or additional autoimmune/connective tissue disease. Patient's mother mentions that the patient was extremely healthy up until 3 months ago. Patient's mother states that the patient was diagnosed with pneumonia at that time and she was tried on multiple antibiotics, a couple of which pt. does have allergies to. Patient's mother does state that the patient has multiple allergies and she does have to stay away from wheat and certain types of foods because of this. Patient does have a family history of Crohn's/colitis. She recently had a colonoscopy that revealed proctitis and acute colitis, with no findings that were extremely suggestive of obvious IBD. Patient has been treated with prednisone through her PCP due to her GI upset that began with ABX therapy for her pneumonia, and she mentions that after the prednisone was increased to 20 Milligrams four times a day, she started to experience diffuse joint pains, the worst of which were located in her knees and ankles. Patient also mentions that she started to experience swelling in her bilateral ankles this past Friday after work. In addition to this, patient admits that a rash did appear on her face and lower extremities approximately 3 days ago. She denies any history of psoriasis. Patient was also recently seen at [facility] a few weeks ago and was evaluated for suspected inflammatory colitis. Patient mentions that during imaging studies, she was found to have hydronephrosis and nephrolithiasis for which she will be receiving a stent at 4 PM today. Pt.'s mother adds that the pt. had a CT scan done with a citric acid base in the dye, which worsened pt.'s GI symptoms. Patient was also found to have thrombocytopenia and her blood culture revealed gram-negative bacilli. Patient has undergone blood transfusion of packed RBCs and platelets and she also has multiple consults and place. Upon speaking with patient today, the majority of her current symptoms are generalized arthralgias , right-sided flank pain, fatigue, and GI symptoms. Review of Systems All systems: negative Constitutional: Reports fatigue, Denies chills, Denies fever Eyes: denies blurred vision, denies pain Ears, nose, mouth and throat: Denies headache, Denies sore throat Cardiovascular: Denies chest pain, Denies shortness of breath Respiratory: Denies cough Gastrointestinal: Reports abdominal pain, Reports diarrhea, Denies nausea, Denies vomiting Genitourinary: Reports flank pain (Right-sided), Denies dysuria, Denies hematuria Musculoskeletal: Reports myalgias (Most prominent in bilateral knees and bilateral ankles) Musculoskeletal: bilateral: ankle stiffness, ankle swelling, knee pain Integumentary: Reports rash (On face and bilateral lower extremities), Denies pruritus Neurological: Reports weakness, Denies numbness Psychiatric: Denies anxiety, Denies depression Endocrine: Denies weight change Hematologic/Lymphatic: Reports easy bruising Allergic/Immunologic: Reports gluten intolerance Past Medical History Past Medical History: Asthma, Pneumonia Additional Past Medical History / Comment(s): insomnia, hernia, pt mother states "she had bowel wipeout related to her antibiotics" colitis, kidney stones to right kidney History of Any Multi-Drug Resistant Organisms: None Reported Past Surgical History: Adenoidectomy, Hernia Repair, Tonsillectomy Additional Past Surgical History / Comment(s): left inguinal hernia Past Anesthesia/Blood Transfusion Reactions: Motion Sickness Additional Past Anesthesia/Blood Transfusion Reaction / Comm: "high tolerance, I sometimes need more" Past Psychological History: No Psychological Hx Reported Smoking Status: Never smoker Past Alcohol Use History: None Reported Past Drug Use History: Marijuana Additional Drug Use History / Comment(s): edible marijuana - Past Family History Mother Family Medical History: No Reported History Medications and Allergies Home Medications Medication Instructions Recorded Confirmed Type Albuterol Inhaler [Ventolin Hfa 1 puff INHALATION RT-Q6H PRN 01/02/17 01/09/17 History Inhaler] Dextroamphetamine/Amphetamine 20 mg PO TID 01/02/17 01/09/17 History [Adderall] Ergocalciferol (Vitamin D2) 50,000 unit PO Q30D 01/02/17 01/09/17 History [Vitamin D2] HYDROcodone/APAP 5-325MG [[place] 1 tab PO Q8H PRN 01/02/17 01/09/17 History 5-325] Medroxyprogesterone Acetate 150 mg IM DIRECTED 01/02/17 01/09/17 History [Depo-Provera] predniSONE 20 mg PO TID 01/02/17 01/09/17 History Albuterol Nebulized [Ventolin 2.5 mg INHALATION RT-Q6H PRN 01/09/17 01/09/17 History Nebulized] Beclomethasone Dipropionate [Qvar 1 puff INHALATION RT-BID 01/09/17 01/09/17 History 80 mcg] Clotrimazole Urmila [Mycelex 10 mg PO QID 01/09/17 01/09/17 History Urmila] EPINEPHrine (Auto Inject) [Epipen] 0.3 mg IM ONCE PRN 01/09/17 01/09/17 History Fluconazole [Diflucan] 150 mg PO Q3D 01/09/17 01/09/17 History Furosemide [Lasix] 20 mg PO DAILY 01/09/17 01/09/17 History Hydrocortisone Cream 1 applic TOPICAL QID PRN 01/09/17 01/09/17 History [Hydrocortisone 2.5% Cream] Nystatin 100,000 Unit/ml Susp 1 ml PO QID PRN 01/09/17 01/09/17 History [Mycostatin Oral Susp] Sennosides [Senna] 8.6 mg PO DAILY PRN 01/09/17 01/09/17 History Tamsulosin HCl [Flomax] 0.4 mg PO DAILY 01/09/17 01/09/17 History Allergies Allergy/AdvReac Type Severity Reaction Status Date / Time adhesive tape Allergy skin Verified 01/09/17 17:27 irritation animal dander Allergy Unknown Verified 01/09/17 17:27 ciprofloxacin [From Cipro] Allergy Itching Verified 01/09/17 17:27 clarithromycin [From Biaxin] Allergy Unknown Verified 01/09/17 17:27 Influenza Virus Vaccines Allergy Unknown Verified 01/09/17 17:27 metronidazole [From Flagyl] Allergy Itching Verified 04/06/17 17:27 wheat Allergy Unknown Verified 01/09/17 17:27 Oblong And Derivatives AdvReac Itching Verified 01/10/17 00:51 [Oblong] nuts,eggs, Allergy Unknown Uncoded 01/02/17 10:38 Physical Exam Vitals: Vital Signs Temp Pulse Resp BP Pulse Ox 01/10/17 14:00 114 H 20 103/64 95 01/10/17 13:55 98.3 F 104 H 22 103/64 97 01/10/17 13:33 97.7 F 100 20 110/60 95 01/10/17 13:30 109 H 20 112/62 95 01/10/17 13:24 97.5 F L 97 20 112/62 94 L 01/10/17 13:00 97.4 F L 114 H 20 107/64 94 L 01/10/17 12:30 108 H 27 H 103/67 95 01/10/17 12:00 98.4 F 99 20 101/61 95 01/10/17 11:57 98.3 F 99 20 101/61 94 L 01/10/17 11:30 101 H 18 103/68 92 L 01/10/17 11:00 106 H 20 91/71 95 01/10/17 10:53 98.0 F 108 H 20 91/71 95 01/10/17 10:30 116 H 24 108/61 85 L 01/10/17 10:23 98.1 F 116 H 20 108/61 94 L 01/10/17 10:13 98.1 F 120 H 20 98/58 95 01/10/17 10:00 115 H 24 96/59 97 01/10/17 09:30 111 H 28 H 99/60 100 01/10/17 09:00 122 H 32 H 97/59 92 L 01/10/17 08:30 112 H 15 86/53 94 L 01/10/17 08:00 98.1 F 127 H 22 91/55 91 L 01/10/17 07:30 117 H 29 H 99/48 98 01/10/17 07:00 115 H 20 83/46 100 01/10/17 06:30 116 H 18 99/46 96 01/10/17 06:00 121 H 18 83/45 100 01/10/17 05:30 122 H 20 83/46 100 01/10/17 05:00 133 H 18 85/45 97 04/07/17 04:30 99.9 F H 130 H 23 105/56 98 01/10/17 04:00 100.8 F H 134 H 21 105/56 98 01/10/17 03:35 101.8 F H 01/10/17 03:00 125 H 22 93/44 97 01/10/17 02:30 131 H 23 95/43 99 01/10/17 02:00 134 H 22 94/48 97 01/10/17 01:30 136 H 22 107/59 94 L 01/10/17 01:16 98.2 F 124 H 20 105/60 01/10/17 01:00 144 H 19 91/40 89 L 01/10/17 00:51 98.4 F 140 H 18 91/56 98 01/10/17 00:30 130 H 17 92/51 94 L 01/10/17 00:21 98.6 F 136 H 18 91/40 01/10/17 00:11 99.8 F H 136 H 17 96/45 97 01/10/17 00:00 99.1 F 131 H 20 93/44 99 01/09/17 23:58 99.8 F H 135 H 18 93/44 98 01/09/17 23:41 99.2 F 132 H 20 81/37 01/09/17 23:40 99.1 F 129 H 19 79/40 01/09/17 23:34 98.9 F 129 H 18 78/43 01/09/17 23:31 99.3 F 138 H 20 81/39 97 01/09/17 23:30 131 H 18 81/39 97 01/09/17 23:24 99.4 F 127 H 19 80/39 98 01/09/17 23:00 135 H 18 81/46 96 01/09/17 22:51 99.3 F 135 H 20 81/45 98 01/09/17 22:30 132 H 20 81/32 98 01/09/17 22:21 99.3 F 133 H 18 81/34 100 01/09/17 22:11 100.3 F H 135 H 18 79/42 97 01/09/17 22:00 99.9 F H 131 H 25 H 93/39 97 01/09/17 21:38 99.5 F 136 H 20 85/46 98 01/09/17 21:15 98.8 F 119 H 18 89/42 100 01/09/17 20:50 99.0 F 124 H 18 88/46 100 01/09/17 20:35 98.9 F 121 H 18 89/46 100 01/09/17 20:15 99.3 F 121 H 18 91/50 01/09/17 19:45 99.5 F 120 H 18 87/45 100 01/09/17 19:35 99.2 F 125 H 16 44 Intake and Output 01/09/17 01/10/17 01/10/17 22:59 06:59 14:59 Intake Total 720 2800.0 2125 Output Total 800 1000 Balance 720 2000.0 1125 Intake: IV 1050 0.9 NACL 1050 Intake, IV Titration 100 1500.0 450 Amount ACETAMINOPHEN IV (For NPO 100 ) 1,000 mg In Saline 100 100ml.bag @ 400 mls/hr IVPB ONCE STA Rx#: [id number] Calcium Gluconate 1,000 100 mg In Sodium Chloride 0.9 % 100 ml @ 100 mls/hr IVPB ONCE ONE Rx#: [id number] Magnesium Sulfate-D5w Pmx 200 1 gm In Dextrose/Water 1 100ml.bag @ 100 mls/hr IVPB Q1H [facility] Rx#: [id number] Piperacillin-Tazobactam 3 50.0 .375 gm In Dextrose/Water 1 50ml.bag @ 12.5 mls/hr IVPB Q8HR [facility] Rx#: [id number] Potassium Chloride 10 meq 200 Lidocaine 2% Inj 10 mg In Sodium Chloride 0.9% 100 ml @ 100 mls/hr IV Q1HR [facility] Rx#:[id number] Sodium Chloride 0.9% 1, 100 1150 150 000 ml @ 150 mls/hr IV . Q6H40M ONE Rx#:[id number] Blood Product 620 1300 625 Platelet Pheresis Acda 188 Unit [id number] Platelet Pheresis Acda1 203 Unit [id number] Platelet Pheresis Acda2 0 Unit [id number] Platelet Pheresis Acda2 289 Unit [id number] Platelet Pheresis Acda2 206 Unit [id number] Rc As-1 Unit 310 [id number] Rc As-1 Unit 310 [id number] Rc As-1 Unit 310 [id number] As-3 Unit 0 310 [id number] Output: Urine 800 1000 Other: Voiding Method Bedpan Indwelling Catheter # Voids 1 # Bowel Movements 1 Weight 61.2 kg - Constitutional General appearance: no acute distress - EENT Eyes: EOMI - Neck Neck: no lymphadenopathy - Respiratory Respiratory: bilateral: diminished - Gastrointestinal General gastrointestinal: no organomegaly, soft, tenderness - Integumentary Integumentary: rash (Pinpoint erythematous lesions noted on patient's face and bilateral restrepo regions seemingly consistent with allergic dermatitis) - Neurologic Neurologic: CNII-XII intact - Musculoskeletal Edema noted in B/L ankles and pt. was tender to palpation of B/L ankles. No pain to palpation of B/L knees and pt. exhibited full ROM in B/L knees. No albertina evidence of synovitis was noted. - Psychiatric Psychiatric: A&O x's 3, appropriate affect, intact judgment & insight Results CBC & Chem 7: 01/10/17 04:24 01/10/17 04:24 Labs: Abnormal Lab Results - Last 24 Hours (Table) 01/09/17 01/09/17 01/09/17 Range/Units 19:30 21:39 22:00 RBC 2.45 L (3.80-5.40) m/uL Hgb 7.8 L (11.4-16.0) gm/dL Hct 22.6 L (34.0-46.0) % RDW (11.5-15.5) % Plt Count 24 L* (150-450) k/uL Lymphocytes # (1.0-4.8) k/uL ESR (0-20) mm/hr PT (9.0-12.0) sec Fibrinogen (200-500) mg/dL D-Dimer (<0.60) mg/L FEU Sodium (137-145) mmol/L BUN (7-17) mg/dL Glucose (74-99) mg/dL POC Glucose (mg/dL) 119 H (75-99) mg/dL Calcium (8.4-10.2) mg/dL Ionized Calcium Ronan (4.5-5.3) mg/dL Magnesium (1.6-2.3) mg/dL Total Bilirubin (0.2-1.3) mg/dL Total Creatine Kinase (30-135) U/L Troponin I (0.000-0.034) ng/mL C-Reactive Protein (<10.0) mg/L Total Protein (6.3-8.2) g/dL Albumin (3.5-5.0) g/dL HDL Cholesterol (40-60) mg/dL Crossmatch See Detail 01/09/17 01/10/17 01/10/17 Range/Units 22:31 01:49 04:24 RBC 2.94 L 3.02 L (3.80-5.40) m/uL Hgb 8.9 L 9.2 L (11.4-16.0) gm/dL Hct 27.1 L 27.8 L (34.0-46.0) % RDW 15.6 H (11.5-15.5) % Plt Count 35 L* 30 L* (150-450) k/uL Lymphocytes # 0.2 L (1.0-4.8) k/uL ESR (0-20) mm/hr PT (9.0-12.0) sec Fibrinogen (200-500) mg/dL D-Dimer (<0.60) mg/L FEU Sodium (137-145) mmol/L BUN (7-17) mg/dL Glucose (74-99) mg/dL POC Glucose (mg/dL) (75-99) mg/dL Calcium (8.4-10.2) mg/dL Ionized Calcium Ronan (4.5-5.3) mg/dL Magnesium (1.6-2.3) mg/dL Total Bilirubin (0.2-1.3) mg/dL Total Creatine Kinase <20 L (30-135) U/L Troponin I (0.000-0.034) ng/mL C-Reactive Protein (<10.0) mg/L Total Protein (6.3-8.2) g/dL Albumin (3.5-5.0) g/dL HDL Cholesterol (40-60) mg/dL Crossmatch 01/10/17 01/10/17 01/10/17 Range/Units 04:24 04:24 04:24 RBC (3.80-5.40) m/uL Hgb (11.4-16.0) gm/dL Hct (34.0-46.0) % RDW (11.5-15.5) % Plt Count (150-450) k/uL Lymphocytes # (1.0-4.8) k/uL ESR (0-20) mm/hr PT (9.0-12.0) sec Fibrinogen (200-500) mg/dL D-Dimer (<0.60) mg/L FEU Sodium 133 L (137-145) mmol/L BUN 21 H (7-17) mg/dL Glucose 115 H (74-99) mg/dL POC Glucose (mg/dL) (75-99) mg/dL Calcium 6.3 L* (8.4-10.2) mg/dL Ionized Calcium Ronan (4.5-5.3) mg/dL Magnesium 2.5 H (1.6-2.3) mg/dL Total Bilirubin 3.4 H (0.2-1.3) mg/dL Total Creatine Kinase (30-135) U/L Troponin I 0.148 H* (0.000-0.034) ng/mL C-Reactive Protein (<10.0) mg/L Total Protein 3.9 L (6.3-8.2) g/dL Albumin 1.8 L (3.5-5.0) g/dL HDL Cholesterol 12 L (40-60) mg/dL Crossmatch 01/10/17 01/10/17 01/10/17 Range/Units 04:24 04:24 04:24 RBC (3.80-5.40) m/uL Hgb (11.4-16.0) gm/dL Hct (34.0-46.0) % RDW (11.5-15.5) % Plt Count (150-450) k/uL Lymphocytes # (1.0-4.8) k/uL ESR 31 H (0-20) mm/hr PT (9.0-12.0) sec Fibrinogen (200-500) mg/dL D-Dimer (<0.60) mg/L FEU Sodium (137-145) mmol/L BUN (7-17) mg/dL Glucose (74-99) mg/dL POC Glucose (mg/dL) (75-99) mg/dL Calcium (8.4-10.2) mg/dL Ionized Calcium Ronan 4.1 L (4.5-5.3) mg/dL Magnesium (1.6-2.3) mg/dL Total Bilirubin (0.2-1.3) mg/dL Total Creatine Kinase (30-135) U/L Troponin I (0.000-0.034) ng/mL C-Reactive Protein 301.4 H (<10.0) mg/L Total Protein (6.3-8.2) g/dL Albumin (3.5-5.0) g/dL HDL Cholesterol (40-60) mg/dL Crossmatch 01/10/17 Range/Units 10:36 RBC (3.80-5.40) m/uL Hgb (11.4-16.0) gm/dL Hct (34.0-46.0) % RDW (11.5-15.5) % Plt Count (150-450) k/uL Lymphocytes # (1.0-4.8) k/uL ESR (0-20) mm/hr PT 12.6 H (9.0-12.0) sec Fibrinogen 552 H (200-500) mg/dL D-Dimer 1.59 H (<0.60) mg/L FEU Sodium (137-145) mmol/L BUN (7-17) mg/dL Glucose (74-99) mg/dL POC Glucose (mg/dL) (75-99) mg/dL Calcium (8.4-10.2) mg/dL Ionized Calcium Ronan (4.5-5.3) mg/dL Magnesium (1.6-2.3) mg/dL Total Bilirubin (0.2-1.3) mg/dL Total Creatine Kinase (30-135) U/L Troponin I (0.000-0.034) ng/mL C-Reactive Protein (<10.0) mg/L Total Protein (6.3-8.2) g/dL Albumin (3.5-5.0) g/dL HDL Cholesterol (40-60) mg/dL Crossmatch Microbiology - Last 24 Hours (Table) 01/09/17 22:00 Blood Culture Gram Stain - Preliminary Blood Assessment and Plan Plan: Based on patient's history and physical examination, it seems quite likely that her symptoms of arthralgias and nonspecific rash are most likely prednisone and/ or antibiotic induced and it also seems as though her additional symptoms are most likely due to infectious etiology. Although she does not have a confirmed diagnosis of IBD, autoimmune spondyloarthropathy is a possible differential. I did speak with Dr. Ga regarding patient's case since she is out of town this week. Patient originally had a new patient appointment scheduled with our office for this coming Friday, however Dr. Ga would like her to follow-up in the office 3 weeks after she is discharged to review lab results and to discuss further plan of care. At that time, a pelvis x-ray will most likely be done to rule out sacroiliitis. Patient did recently have a rheumatoid factor and MAKENZIE screening done which were both found to be negative, however a complete set of autoimmune serologies were ordered. Dr. Ga did recommend for patient to gradually taper off of the prednisone. 1. Sepsis: Currently on IV antibiotics for this and patient has improved hemodynamically 2. Anemia/thrombocytopenia: Patient has had hematology consult and is status post transfusion 3. Arthralgias: Autoimmune serologies were ordered and pt. will follow up in our office 3 weeks post-hospital discharge or sooner if serologies are found to be positive. A pelvis x-ray will be ordered at her follow up visit to rule out any sacroiliitis. 4. Nonspecific skin rash: Most likely due to prednisone. Recommend gradually tapering off of prednisone. 5. Hydronephrosis/nephrolithiasis: Patient has stent scheduled for 4 PM today This patient's case was reviewed with and agreed upon by Dr. Ga. Time with Patient: Greater than 30
--- NOTE | 2017-01-10 16:14 | P.GSCN ---
History of Present Illness Consult date: 01/10/17 Reason for Consult: GI bleed History of present illness: This a 18-year-old female admitted Dr. Chappell service. Patient was admitted through the emergency room with complaints of rectal bleeding. Apparently she is undergoing workup for rectal bleeding by Dr. Dorsey. She has a nonspecific proctitis. The patient also had a CAT scan performed which showed evidence of right hydronephrosis due to ureteral stone. Review of Systems - Constitutional Reports as per HPI Past Medical History Past Medical History: Asthma, Pneumonia Additional Past Medical History / Comment(s): insomnia, hernia, pt mother states "she had bowel wipeout related to her antibiotics" colitis, kidney stones to right kidney History of Any Multi-Drug Resistant Organisms: None Reported Past Surgical History: Adenoidectomy, Hernia Repair, Tonsillectomy Additional Past Surgical History / Comment(s): left inguinal hernia Past Anesthesia/Blood Transfusion Reactions: Motion Sickness Additional Past Anesthesia/Blood Transfusion Reaction / Comm: "high tolerance, I sometimes need more" Past Psychological History: No Psychological Hx Reported Smoking Status: Never smoker Past Alcohol Use History: None Reported Additional Past Alcohol Use History / Comment(s): Patient has been a lifelong nonsmoker. She uses alcohol occasionally. She denies any medical marijuana, marijuana, street drug use. She works at [employer]. Past Drug Use History: Marijuana Additional Drug Use History / Comment(s): edible marijuana - Past Family History Mother Family Medical History: No Reported History Additional Family Medical History / Comment(s): Mom is healthy with no major medical problems. Father Additional Family Medical History / Comment(s): Father has history of either Crohn's or irritable bowel syndrome. Medications and Allergies Home Medications Medication Instructions Recorded Confirmed Type Albuterol Inhaler [Ventolin Hfa 1 puff INHALATION RT-Q6H PRN 01/02/17 01/09/17 History Inhaler] Dextroamphetamine/Amphetamine 20 mg PO TID 01/02/17 01/09/17 History [Adderall] Ergocalciferol (Vitamin D2) 50,000 unit PO Q30D 01/02/17 01/09/17 History [Vitamin D2] HYDROcodone/APAP 5-325MG [Echo 1 tab PO Q8H PRN 01/02/17 01/09/17 History 5-325] Medroxyprogesterone Acetate 150 mg IM DIRECTED 01/02/17 01/09/17 History [Depo-Provera] predniSONE 20 mg PO TID 01/02/17 01/09/17 History Albuterol Nebulized [Ventolin 2.5 mg INHALATION RT-Q6H PRN 01/09/17 01/09/17 History Nebulized] Beclomethasone Dipropionate [Qvar 1 puff INHALATION RT-BID 01/09/17 01/09/17 History 80 mcg] Clotrimazole Urmila [Mycelex 10 mg PO QID 01/09/17 01/09/17 History Urmila] EPINEPHrine (Auto Inject) [Epipen] 0.3 mg IM ONCE PRN 01/09/17 01/09/17 History Fluconazole [Diflucan] 150 mg PO Q3D 01/09/17 01/09/17 History Furosemide [Lasix] 20 mg PO DAILY 01/09/17 01/09/17 History Hydrocortisone Cream 1 applic TOPICAL QID PRN 01/09/17 01/09/17 History [Hydrocortisone 2.5% Cream] Nystatin 100,000 Unit/ml Susp 1 ml PO QID PRN 01/09/17 01/09/17 History [Mycostatin Oral Susp] Sennosides [Senna] 8.6 mg PO DAILY PRN 01/09/17 01/09/17 History Tamsulosin HCl [Flomax] 0.4 mg PO DAILY 01/09/17 01/09/17 History Allergies Allergy/AdvReac Type Severity Reaction Status Date / Time adhesive tape Allergy skin Verified 01/09/17 17:27 irritation animal dander Allergy Unknown Verified 01/09/17 17:27 ciprofloxacin [From Cipro] Allergy Itching Verified 01/09/17 17:27 clarithromycin [From Biaxin] Allergy Unknown Verified 01/09/17 17:27 Influenza Virus Vaccines Allergy Unknown Verified 01/09/17 17:27 metronidazole [From Flagyl] Allergy Itching Verified 01/09/17 17:27 wheat Allergy Unknown Verified 01/09/17 17:27 [place] And Derivatives AdvReac Itching Verified 01/10/17 00:51 [[place]] nuts,eggs, Allergy Unknown Uncoded 01/02/17 10:38 Surgical - Exam Vital Signs Temp Pulse Resp BP Pulse Ox 99.1 F 145 H 16 96/51 100 01/09/17 16:13 01/09/17 16:13 01/09/17 16:13 01/09/17 16:13 01/09/17 16:13 - General well developed, no distress - Eyes PERRL - ENT normal pinna - Neck no masses - Respiratory normal expansion - Cardiovascular Rhythm: regular - Abdomen Abdomen soft, there is distention. She is mildly tender throughout. There is no rebound or guarding. Results - Labs 01/10/17 04:24 01/10/17 04:24 Abnormal Lab Results - Last 24 Hours (Table) 01/09/17 01/09/17 01/09/17 Range/Units 19:30 21:39 22:00 RBC 2.45 L (3.80-5.40) m/uL Hgb 7.8 L (11.4-16.0) gm/dL Hct 22.6 L (34.0-46.0) % RDW (11.5-15.5) % Plt Count 24 L* (150-450) k/uL Lymphocytes # (1.0-4.8) k/uL ESR (0-20) mm/hr PT (9.0-12.0) sec Fibrinogen (200-500) mg/dL D-Dimer (<0.60) mg/L FEU Sodium (137-145) mmol/L BUN (7-17) mg/dL Glucose (74-99) mg/dL POC Glucose (mg/dL) 119 H (75-99) mg/dL Calcium (8.4-10.2) mg/dL Ionized Calcium Ronan (4.5-5.3) mg/dL Magnesium (1.6-2.3) mg/dL Total Bilirubin (0.2-1.3) mg/dL Total Creatine Kinase (30-135) U/L Troponin I (0.000-0.034) ng/mL C-Reactive Protein (<10.0) mg/L Total Protein (6.3-8.2) g/dL Albumin (3.5-5.0) g/dL HDL Cholesterol (40-60) mg/dL Crossmatch See Detail 01/09/17 01/10/17 01/10/17 Range/Units 22:31 01:49 04:24 RBC 2.94 L 3.02 L (3.80-5.40) m/uL Hgb 8.9 L 9.2 L (11.4-16.0) gm/dL Hct 27.1 L 27.8 L (34.0-46.0) % RDW 15.6 H (11.5-15.5) % Plt Count 35 L* 30 L* (150-450) k/uL Lymphocytes # 0.2 L (1.0-4.8) k/uL ESR (0-20) mm/hr PT (9.0-12.0) sec Fibrinogen (200-500) mg/dL D-Dimer (<0.60) mg/L FEU Sodium (137-145) mmol/L BUN (7-17) mg/dL Glucose (74-99) mg/dL POC Glucose (mg/dL) (75-99) mg/dL Calcium (8.4-10.2) mg/dL Ionized Calcium Ronan (4.5-5.3) mg/dL Magnesium (1.6-2.3) mg/dL Total Bilirubin (0.2-1.3) mg/dL Total Creatine Kinase <20 L (30-135) U/L Troponin I (0.000-0.034) ng/mL C-Reactive Protein (<10.0) mg/L Total Protein (6.3-8.2) g/dL Albumin (3.5-5.0) g/dL HDL Cholesterol (40-60) mg/dL Crossmatch 01/10/17 01/10/17 01/10/17 Range/Units 04:24 04:24 04:24 RBC (3.80-5.40) m/uL Hgb (11.4-16.0) gm/dL Hct (34.0-46.0) % RDW (11.5-15.5) % Plt Count (150-450) k/uL Lymphocytes # (1.0-4.8) k/uL ESR (0-20) mm/hr PT (9.0-12.0) sec Fibrinogen (200-500) mg/dL D-Dimer (<0.60) mg/L FEU Sodium 133 L (137-145) mmol/L BUN 21 H (7-17) mg/dL Glucose 115 H (74-99) mg/dL POC Glucose (mg/dL) (75-99) mg/dL Calcium 6.3 L* (8.4-10.2) mg/dL Ionized Calcium Ronan (4.5-5.3) mg/dL Magnesium 2.5 H (1.6-2.3) mg/dL Total Bilirubin 3.4 H (0.2-1.3) mg/dL Total Creatine Kinase (30-135) U/L Troponin I 0.148 H* (0.000-0.034) ng/mL C-Reactive Protein (<10.0) mg/L Total Protein 3.9 L (6.3-8.2) g/dL Albumin 1.8 L (3.5-5.0) g/dL HDL Cholesterol 12 L (40-60) mg/dL Crossmatch 01/10/17 01/10/17 01/10/17 Range/Units 04:24 04:24 04:24 RBC (3.80-5.40) m/uL Hgb (11.4-16.0) gm/dL Hct (34.0-46.0) % RDW (11.5-15.5) % Plt Count (150-450) k/uL Lymphocytes # (1.0-4.8) k/uL ESR 31 H (0-20) mm/hr PT (9.0-12.0) sec Fibrinogen (200-500) mg/dL D-Dimer (<0.60) mg/L FEU Sodium (137-145) mmol/L BUN (7-17) mg/dL Glucose (74-99) mg/dL POC Glucose (mg/dL) (75-99) mg/dL Calcium (8.4-10.2) mg/dL Ionized Calcium Ronan 4.1 L (4.5-5.3) mg/dL Magnesium (1.6-2.3) mg/dL Total Bilirubin (0.2-1.3) mg/dL Total Creatine Kinase (30-135) U/L Troponin I (0.000-0.034) ng/mL C-Reactive Protein 301.4 H (<10.0) mg/L Total Protein (6.3-8.2) g/dL Albumin (3.5-5.0) g/dL HDL Cholesterol (40-60) mg/dL Crossmatch 01/10/17 Range/Units 10:36 RBC (3.80-5.40) m/uL Hgb (11.4-16.0) gm/dL Hct (34.0-46.0) % RDW (11.5-15.5) % Plt Count (150-450) k/uL Lymphocytes # (1.0-4.8) k/uL ESR (0-20) mm/hr PT 12.6 H (9.0-12.0) sec Fibrinogen 552 H (200-500) mg/dL D-Dimer 1.59 H (<0.60) mg/L FEU Sodium (137-145) mmol/L BUN (7-17) mg/dL Glucose (74-99) mg/dL POC Glucose (mg/dL) (75-99) mg/dL Calcium (8.4-10.2) mg/dL Ionized Calcium Ronan (4.5-5.3) mg/dL Magnesium (1.6-2.3) mg/dL Total Bilirubin (0.2-1.3) mg/dL Total Creatine Kinase (30-135) U/L Troponin I (0.000-0.034) ng/mL C-Reactive Protein (<10.0) mg/L Total Protein (6.3-8.2) g/dL Albumin (3.5-5.0) g/dL HDL Cholesterol (40-60) mg/dL Crossmatch Microbiology - Last 24 Hours (Table) 01/09/17 22:00 Blood Culture Gram Stain - Preliminary Blood 01/09/17 22:31 Blood Culture Gram Stain - Preliminary Blood Diabetes panel 01/10/17 Range/Units 04:24 Sodium 133 L (137-145) mmol/L Potassium 3.6 (3.5-5.1) mmol/L Chloride 102 (98-107) mmol/L Carbon Dioxide 23 (22-30) mmol/L BUN 21 H (7-17) mg/dL Creatinine 0.80 (0.52-1.04) mg/dL Glucose 115 H (74-99) mg/dL Calcium 6.3 L* (8.4-10.2) mg/dL AST 19 (14-36) U/L ALT 31 (9-52) U/L Alkaline Phosphatase 119 (38-126) U/L Total Protein 3.9 L (6.3-8.2) g/dL Albumin 1.8 L (3.5-5.0) g/dL Triglycerides 99 (<150) mg/dL HDL Cholesterol 12 L (40-60) mg/dL Calcium panel 01/10/17 01/10/17 01/10/17 Range/Units 04:24 04:24 04:24 Calcium 6.3 L* (8.4-10.2) mg/dL Ionized Calcium Ronan 4.1 L (4.5-5.3) mg/dL Phosphorus 3.2 (2.5-4.5) mg/dL Albumin 1.8 L (3.5-5.0) g/dL Pituitary panel 01/10/17 Range/Units 04:24 Sodium 133 L (137-145) mmol/L Potassium 3.6 (3.5-5.1) mmol/L Chloride 102 (98-107) mmol/L Carbon Dioxide 23 (22-30) mmol/L BUN 21 H (7-17) mg/dL Creatinine 0.80 (0.52-1.04) mg/dL Glucose 115 H (74-99) mg/dL Calcium 6.3 L* (8.4-10.2) mg/dL Adrenal panel 01/10/17 Range/Units 04:24 Sodium 133 L (137-145) mmol/L Potassium 3.6 (3.5-5.1) mmol/L Chloride 102 (98-107) mmol/L Carbon Dioxide 23 (22-30) mmol/L BUN 21 H (7-17) mg/dL Creatinine 0.80 (0.52-1.04) mg/dL Glucose 115 H (74-99) mg/dL Calcium 6.3 L* (8.4-10.2) mg/dL Total Bilirubin 3.4 H (0.2-1.3) mg/dL AST 19 (14-36) U/L ALT 31 (9-52) U/L Alkaline Phosphatase 119 (38-126) U/L Total Protein 3.9 L (6.3-8.2) g/dL Albumin 1.8 L (3.5-5.0) g/dL - Imaging CT scan - abdomen: report reviewed (Evidence of nonspecific colitis. There is a right ureteral stone.) Assessment and Plan Plan: Proctitis with GI bleed. Patient will be conservatively managed. She is receiving blood products. She is also receiving platelets. We will remain on surgical standby.
[2017-01-10] MEDS ORDERED: PROPOFOL 10 MG/ML 20 ML VIAL IV ONE (16:38)
[2017-01-10] MEDS ORDERED: KETAMINE 10 MG/ML 20 ML VIAL ONE (16:38)
[2017-01-10] MEDS ORDERED: MIDAZOLAM 2 MG/2 ML VIAL ONE (16:38)
[2017-01-10] MEDS ORDERED: SODIUM CHLORIDE 0.9% 400 ML IV ONE (16:38)
--- NOTE | 2017-01-10 17:19 | P.OP ---
Date of Procedure: 01/10/17 Preoperative Diagnosis: Right hydronephrosis secondary to right ureteral calculus Postoperative Diagnosis: Same Procedure(s) Performed: Cystoscopy, right ureteral stent insertion Anesthesia: MAC Surgeon: Landon Leblanc Estimated Blood Loss (ml): 0 IV fluids (ml): 250 Pathology: other Condition: stable Disposition: PACU Indications for Procedure: The patient is a 26-year-old white female with sepsis of indeterminate origin. A computed tomography scan shows evidence of moderate right hydronephrosis due to a 5 mm right proximal ureteral calculus. Urinalysis obtained at the time of admission showed no evidence of infection, but blood cultures have shown gram- negative bacilli. She reports right flank discomfort and now comes for stent insertion. Operative Findings: Cloudy urine drained from right renal pelvis. Description of Procedure: The patient was taken to the operating room and placed in the dorsolithotomy position, with legs supported in Salvador stirrups. The external genitalia was prepped and draped sterilely. The 30 lens was used to introduce the 19-Upper Sorbian Stortz cystoscopic sheath through the urethra and into the bladder under direct vision. The bladder was examined in its entirety. Both ureteral orifices were of normal anatomic location and configuration. There was evidence of catheter cystitis, but no tumors or foreign bodies were seen. A 0.035 inch Glidewire was passed through the cystoscope. The right ureteral orifice was cannulated, and the Glidewire was slowly advanced up to the calculus within the right proximal ureter. With minimal manipulation, the Glidewire passed beyond the calculus and coiled within the right renal pelvis. A 24 cm, 6-Upper Sorbian double-J ureteral stent was placed over the wire. Proper stent positioning was verified fluoroscopically and endoscopically. Cloudy urine drained through the stent, and there was evidence of a "hydronephrotic montgomery". With the beak of the cystoscope immediately adjacent to the distal end of the stent, a urine specimen was collected and sent for culture and sensitivity. The cystoscope was removed, and a Pelayo catheter was placed. The patient tolerated the procedure well was taken to the recovery room in stable condition.
[2017-01-10] MEDS ORDERED: HYDROmorphone 1 MG/ML 1 ML SYRINGE IVP ONE (17:38)
--- NOTE | 2017-01-10 18:20 | P.CON ---
Consult Note - . Consult date: 01/10/17 Assessment/Plan:: This is a 26-year-old female that gives a history of 3 months ago having a cold symptoms that lasted for 2 weeks. Her twin sister was diagnosed with pneumonia by Dr. Chappell and the patient went to Dr. Chappell and was also diagnosed with pneumonia. She completed 2 courses of antibiotics. She then developed diarrhea which was liquid, mucousy and bloody. She was having large amounts 10 times per day. She states that she lost 13 pounds over 2 weeks. She also has pain with defecation. She then was seen by Dr. Maynard and underwent colonoscopy on January 06. Pathology reports terminal ileum biopsy reveals mature small bowel mucosa without histopathologic changes.: Random biopsy shows acute colitis with features suggestive chronicity. Rectum biopsy shows acute proctitis with the stretcher suggestive of chronicity. Possibility of inflammatory bowel disease cannot be excluded. Prior to the endoscopy, patient was started on prednisone which she states helped her diarrhea. She was on 20 mg 4 times daily and yesterday was decreased to 20 mg 3 times daily. She also relates that she has been at [facility] for ER visits and admissions and has had multipl stool samples tested for C. difficile toxin which is been negative but she did complete a course of Flagyl at some point. Yesterday patient had a near syncopal episode. She was feeling lightheaded and dizzy and like she was going to pass out. She went to the bathroom and had a bloody bowel movement. She then came into [facility] emergency center. CAT scan of the abdomen and pelvis shows a calculus in the right ureter with obstruction appears to be acute. Nonspecific colitis. Mild left inguinal density 2.5 cm representing possible edema or adenopathy. Her white count was initially 1303 p.m. 5. Her platelet count was 24 currently at 30. She was febrile at 101.8, tachycardic, hypotensive. Initial to troponins were negative with the third one being at 0.148. Urinalysis was clear, nitrite trace, leukocytes negative. Occasional bacteria. Urine culture is in progress. Blood culture is showing gram-negative bacilli. Patient was started on Zosyn and admitted into intensive care unit. She has multiple consults in place including cardiology, pulmonary medicine, Gen. surgery, gastroenterology, urology, oncology, rheumatology. She has undergone transfusion of packed RBCs and platelets. 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 She also is complaining of a skin issues particularly on her face and ankles and feet. She complains of joint pain most severe in the ankles and knees. She has not required vasopressors. Please see the consult note is dictated by nurse practitioner Mrs. Gina Carey. Patient's mother is present. She relates that it was her insistence a blood transfusion last evening that allowed her daughter to recover. She relates that the: Toxic antibiotics erythromycin the cause of her colitis. Although there is a family history of Crohn's disease. 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 Upon questioning if this could be a selective IgA deficiency which is much more common she did not think this was the case and so far was an IgG deficiency. The patient over is not gone on to further difficulties with meningitis, pneumonia or other recurrent infections. However she is having difficulty with colitis. Was treated with high doses of steroids. She did agree to this therapy. The patient now has significant immunocompromise. 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 We will did not bring up today for the stenting. She is evidence of multiple possible causes gram-negative bacilli. This is likely coming from the urinary system from the obstructive uropathy. She's had some gastrointestinal symptoms. However E. coli 057:h7 is confined to the colon it does not cause bacteremia. Concern is that with the patient's significant thrombocytopenia that she could be having a significant hemolytic uremic syndrome. Patient however does not have acute renal failure. Stool studies have been requested. Antimicrobial therapy is in process for her gram-negative sepsis, concerns to E. coli and Pseudomonas and constantly Zosyn is being utilized. This is reasonable for now however she continues to have significant thrombocytopenia and ulceration of this to a carbapenem may be indicated unless we have further culture results patient is being monitored in the intensive care unit. Follow blood cultures are been requested for the morning. Ongoing supportive care. I agree with evaluation, assessment and plan as dictated by nurse practitioner Mrs. Gina Carey.
[2017-01-10 20:01] LABS: Uric Acid 2.4 mg/dL (3.7-7.4)
[2017-01-10 20:06] LABS: Rheumatoid Factor, Qnt 18 IU/mL (<12)
--- NOTE | 2017-01-10 20:32 | PN ---
CHIEF COMPLAINT: Lower GI bleed. HISTORY OF PRESENT ILLNESS: This lady is stabilized somewhat. She still has tachycardia. Her bleeding seems to have ceased or slowed down. She is afebrile. Urinary output has been adequate. PHYSICAL EXAMINATION: She is awake and alert. Blood pressure is 100 and her pulse is 140. Her chest is clear. CARDIAC: Tachycardia exam demonstrates tachycardia and the abdomen is soft protuberant and generally tender. Bowel sounds are not heard at this time. EXTREMITIES: Unremarkable. IMPRESSION: 1. Lower gastrointestinal bleed. 2. Ulcerative colitis. 3. Arthralgias of the knees and ankles. 4. Pancytopenia. 5. Rule out sepsis. PLAN: Continue with IV fluids, steroids, antibiotics and await further studies. She is also going to be seen by infectious disease, hematology and rheumatology.
[2017-01-10 22:16] LABS: C Reactive Protein 405.9 mg/L (<10.0)
[2017-01-10] MEDS: NYSTATIN 100,000 UNIT/ML SUSP 500,000 UNIT/5 ML CUP PO SCH (23:28)
[2017-01-11] MEDS: PIPERACILLIN-TAZOBACTAM 3.375 GM in DEXTROSE/WATER 1 50ML.BAG IVPB SCH ×3 (00:11→16:49)
[2017-01-11] MEDS: methylPREDNISolone SOD SUCCI 125 MG/2 ML VIAL IV SCH ×4 (00:11→18:58)
[2017-01-11 04:30] LABS: Hepatitis C Virus IgG Index 0.02
[2017-01-11 04:43] LABS: Hepatitis C Virus IgG Ab Negative (Negative)
[2017-01-11] MEDS: SODIUM CHLORIDE 0.9% 1,000 ML IV SCH ×4 (05:00→19:43)
[2017-01-11 05:02] LABS: Anisocytosis Slight; Basophils # (A) 0.1 k/uL (0-0.2); Basophils % (A) 0 %; CH 30.6; CHCM 32.1; Eosinophils % (A) 0 %; HCT 29.1 % (34.0-46.0); HDW 3.01; HGB 9.2 gm/dL (11.4-16.0); Luc # (Auto) 0.29; Luc % (Auto) 1; Lymphocytes # (A) 1.3 k/uL (1.0-4.8); Lymphocytes % (A) 6 %; MCH 30.4 pg (25.0-35.0); MCHC 31.7 g/dL (31.0-37.0); Macrocytosis Slight; Mean Platelet Volume 10.1; Monocytes # (A) 0.4 k/uL (0-1.0); Monocytes % (A) 2 %; Neutrophils # (A) 18.5 k/uL (1.3-7.7); Neutrophils % (A) 90 %; RBC 3.03 m/uL (3.80-5.40); RDW 16.2 % (11.5-15.5); WBC 20.4 k/uL (3.8-10.6); WBC (Perox) 21.15
[2017-01-11 05:08] LABS: Anion Gap 12 mmol/L; Blood Urea Nitrogen 34 mg/dL (7-17); Carbon Dioxide 21 mmol/L (22-30); Chloride 105 mmol/L (98-107); Glucose 119 mg/dL (74-99); Magnesium 2.9 mg/dL (1.6-2.3); Non-African American GFR(MDRD) >60 (>60 ml/min/1.73 sqM); Phosphorous 3.5 mg/dL (2.5-4.5); Potassium 3.8 mmol/L (3.5-5.1); Sodium 138 mmol/L (137-145)
--- NOTE | 2017-01-11 07:27 | FL ---
EXAMINATION TYPE: FL guidance operating room DATE OF EXAM: 01/10/2017 5:30 PM FLUOROSCOPY Fluoroscopy time of 13 seconds was used during urologic intervention, ureteral stent placement. 1 im age/s document/s the procedure.
--- NOTE | 2017-01-11 07:42 | P.PN ---
Progress Note - Text The patient has been admitted with GI bleeding due to colitis with proctitis. We will be available if anything changes with her condition that would require surgery.
[2017-01-11] MEDS: NYSTATIN 100,000 UNIT/ML SUSP 500,000 UNIT/5 ML CUP PO SCH ×4 (08:07→22:30)
[2017-01-11] MEDS: HYDROmorphone 1 MG/ML 1 ML SYRINGE IVP PRN ×2 (08:09→18:55)
[2017-01-11] MEDS: PANTOPRAZOLE 40 MG/10 ML VIAL IV SCH (08:10)
--- NOTE | 2017-01-11 09:43 | ECHOF ---
Referral Reason:tachycardia MEASUREMENTS -------- HEIGHT: 162.6 cm WEIGHT: 60.8 kg BP: 103/68 RVIDd: 2.1 cm (< 3.3) IVSd: 0.9 cm (0.6 - 1.1) LVIDd: 4.1 cm (3.9 - 5.3) LVPWd: 1.0 cm (0.6 - 1.1) IVSs: 1.3 cm LVIDs: 3.2 cm LVPWs: 1.3 cm LA Diam: 2.9 cm (2.7 - 3.8) Ao Diam: 2.5 cm (2.0 - 3.7) AV Cusp: 1.7 cm (1.5 - 2.6) LA Diam: 3.1 cm (2.7 - 3.8) MV EXCURSION: 21.866 mm (> 18.000) MV EF SLOPE: 110 mm/s (70 - 150) EPSS: 0.4 cm MV E Denis: 0.73 m/s MV DecT: 195 ms MV A Denis: 0.48 m/s MV E/A Ratio: 1.53 RAP: 5.00 mmHg RVSP: 32.41 mmHg FINDINGS -------- Sinus rhythm. This was a technically good study. LV size, wall thickness and systolic function are normal, with an EF greater than 55%. The right ventricle is normal in size. The left atrial size is normal. The right atrial size is normal. The aortic valve is trileaflet, and appears structurally normal. No aortic stenosis or regurgitation. Mild mitral regurgitation is present. Mild tricuspid regurgitation present. There is no evidence of pulmonary hypertension. The right ventricular systolic pressure, as measured by Doppler, is 32.41mmHg. There is no pulmonic regurgitation present. The aortic root size is normal. There is no pericardial effusion. CONCLUSIONS -------- 1. LV size, wall thickness and systolic function are normal, with an EF greater than 55%. 2. Mild mitral regurgitation is present. 3. Mild tricuspid regurgitation present. 4. There is no evidence of pulmonary hypertension. 5. The right ventricular systolic pressure, as measured by Doppler, is 32.41mmHg. OFFICIAL COURT REPORTER: Navya Neves RDCS
--- NOTE | 2017-01-11 10:31 | P.PN ---
Subjective This is a pleasant 26-year-old female patient who came into the emergency department yesterday with GI bleeding, diarrhea, hypotension, tachycardia, profound anemia and thrombocytopenia. The patient has been sick for the past 3 months. 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 This is also present in her twin sister. Nevertheless, the patient has not had any major septic complications and as such she has not received any hemoglobin replacement therapy over the years. The patient was in a good state of health until around November 2016 when she developed symptoms of pneumonia. At that point she presented to her primary care physician and she was diagnosed having a pneumonia. She was initially given a course of Biaxin for a total of 10 days and following that Cipro was added to the regimen. The patient ultimately recovered from the breathing difficulty however she developed significant gastrointestinal upset that manifest itself as bloody diarrhea and it's been going on on and off for the past 1-1/2-2 months. She was suspected to have colitis/antibiotic induced and the patient had stool for C. diff checked on several occasions including a recent evaluation that was done at [facility] and the results were apparently negative. At one point the patient was given oral vancomycin however she did not end up taking the medication. During this course of treatment, the patient developed oropharyngeal thrush and ulceration and she was given nystatin and Mycelex and a course of Diflucan which she did not take. She was seen by gastroenterology on outpatient basis and the patient had a colonoscopy done on 01/06/2017 that showed nonspecific proctitis otherwise the rest of the colon and the terminal ileum was within normal limits. Biopsies of the terminal ileum and random biopsies of the colon and the rectum was done and the pathology showed mature small bowel mucosa, acute colitis with some underlying features to suggest chronicity and acute proctitis on top of chronic changes. The patient was still started on systemic steroids and at one point she was taken prednisone 20 mg 4 times a day. The dose was subsequently tapered them prior to this current hospitalization the patient was taken 20 mg twice a day. Despite some limited improvement, the patient was not having full recovered and she was still having diarrhea and bloody mucoid bowel movement that continue to occur on a daily basis. She lost weight and order of 10-12 pounds. No reported fever or chills. There is development of arthritis and some swelling in ankles bilaterally. The patient has also developed some lower extremity edema. No changes consistent with erythema nodosum or pyoderma gangrenosum yet there is some no other lesions/papules over the face and upper and lower extremities bilaterally. No open wounds or sores or ulcerations. Over the past 24 hours, the patient's condition deteriorated. The patient started developing crampy abdominal pain along with her diarrhea and for that reason she presented to the hospital. In the ED, the patient a CAT scan of the abdomen that showed evidence of colitis. At the same time there was a calculus in the proximal right ureter with obstruction of the right collecting system and the right-sided hydronephrosis. No free air within the abdomen. The urinalysis showed no evidence of pyuria. There was some minimal bacteria seen. The patient is not known to have nephrolithiasis although breath sounds in her family and has twin sisters has kidney stones. Over the past 12 hours, the patient was suspected aggressively knowing that she was quite tachycardic and hypotensive. She was given more than 3 L of IV fluid. She received a total of 3 units of packed RBC. This was a nonmatched blood transfusion and she developed a low-grade fever which ultimately resolved with IV Tylenol. She also received 2 units of platelets knowing that the patient is considerably low and the patient was bleeding. Her hemoglobin was 7.0 on admission and subsequently improved and came up to 9.2. Platelet counts were low as 24,000. PT PT/INR was within normal limits. Lactic acid level was not elevated. No metabolic acidosis. She had mild hypo-calcemic which got replaced. The LDH and bilirubin are both elevated yet the peripheral smear did not show any evidence of schistocytes. Blood cultures were sent and later on during the day we learned the patient has gram-negative bacilli in his blood. I've already started the patient on IV Zosyn as an empiric antibiotic coverage and this was given to her yesterday. No pressors was utilized during this current ICU stay. Mental status is preserved and the patient is awake and alert and following commands and answering questions. Chest x-ray from today shows no evidence of any pneumonia. The patient is requiring oxygen somewhere between 3-5 L nasal cannula. No cough. No sputum production. No chest tightness. No wheezing. On 01/11/2017, the patient is being seen in follow-up. It has been significant improvement in her overall condition. She is less tachycardic. Blood pressure is normalized. She is producing adequate amount of urine output. She was taken to the operating room with a J stent was inserted into the right urinary system and the right hydronephrosis was released. The urine that was taken intraoperatively was cloudy and seemed to be infected. The samples were sent for cultures and results are still pending. Meanwhile the initial urine culture to be collected on this patient to not to be gram-negative bacilli positive and furthermore 3 sets of blood cultures were positive for gram- negative bacilli. The patient is on IV Zosyn. She is doing very well. She has no fever. Infectious disease saw the patient and the IV Zosyn was continued and no further antibiotic adjustments were done. Platelet counts are improving and it up to 39,000. The white cell count is up to 20,000 which is a appropriate reaction for sepsis. The patient's rest of the workup is still pending including the hemoglobin levels. Rheumatology also saw the patient and they've ordered a bunch of blood work as part of the routine. No change in mental status. The joint aches and pains are also improved. No active diarrhea at this point and the hemoglobin is stable. The abdominal discomfort has improved significantly with minimal amount of tenderness upon examination today. Objective - Vital Signs Vital signs: Vital Signs Temp 98.2 F 01/11/17 08:00 Pulse 92 01/11/17 08:00 Resp 23 01/11/17 08:00 BP 114/70 01/11/17 08:00 Pulse Ox 99 01/11/17 08:00 Intake & Output 01/10/17 01/11/17 01/11/17 18:59 06:59 18:59 Intake Total 3038 1400.0 350 Output Total 1360 805 110 Balance 1678 595.0 240 Weight 58.8 kg 58.8 kg Intake: IV 1750 1400.0 300 0.9 NACL 1500 150 Piperacillin-Tazobactam 3 50.0 .375 gm In Dextrose/Water 1 50ml.bag @ 12.5 mls/hr IVPB Q8HR [facility] Rx#: [id number] Sodium Chloride 0.9% 1, 600 000 ml @ 150 mls/hr IV . Q6H40M ONE Rx#:[id number] Sodium Chloride 0.9% 1, 600 300 000 ml @ 150 mls/hr IV . Q6H40M [facility] Rx#:[id number] Intake, IV Titration 450 50 Amount Calcium Gluconate 1,000 100 mg In Sodium Chloride 0.9 % 100 ml @ 100 mls/hr IVPB ONCE ONE Rx#: [id number] Piperacillin-Tazobactam 3 50 .375 gm In Dextrose/Water 1 50ml.bag @ 12.5 mls/hr IVPB Q8HR [facility] Rx#: [id number] Potassium Chloride 10 meq 200 Lidocaine 2% Inj 10 mg In Sodium Chloride 0.9% 100 ml @ 100 mls/hr IV Q1HR [facility] Rx#:[id number] Sodium Chloride 0.9% 1, 150 000 ml @ 150 mls/hr IV . Q6H40M ONE Rx#:[id number] Blood Product 838 Platelet Pheresis Acda2 213 Unit [id number] Platelet Pheresis Acda2 206 Unit [id number] Output: Urine 1360 805 110 Estimated Blood Loss 0 Other: Voiding Method Indwelling Catheter Indwelling Catheter Indwelling Catheter # Bowel Movements 1 - Exam Head exam was generally normal. There was no scleral icterus or corneal arcus. Mucous membranes were moist.Neck was supple and without jugular venous distension, thyromegaly, or carotid bruits. Carotids were easily palpable bilaterally. There was no adenopathy. Lung sounds are diminished bilaterally. No wheezes or rhonchi early crackles.Cardiac exam revealed the PMI to be normally situated and sized. The rhythm was regular and no extrasystoles were noted during several minutes of auscultation. The first and second heart sounds were normal and physiologic splitting of the second heart sound was noted. There were no murmurs, rubs, clicks, or gallops. Abdomen is less tender compared to yesterday. There is minimal direct tenderness. No rebound tenderness or guarding.. No rebound tenderness. No guarding. Bowel sounds are hypoactive at the present.Examination of the extremities revealed easily palpable radial, femoral and pedal pulses. There was no cyanosis, clubbing or edema. Examination of the skin sows very tiny approximately 5 mm a 6 mm lesion scattered throughout the forehead upper and lower extremities. Minimally erythematous. No ulceration. No drainage. Neurologically the patient is awake and alert. - Labs CBC & Chem 7: 01/11/17 04:11 04/08/17 04:11 Labs: Abnormal Lab Results - Last 24 Hours (Table) 01/09/17 01/10/17 01/10/17 Range/Units 19:30 04:24 04:24 WBC (3.8-10.6) k/uL RBC (3.80-5.40) m/uL Hgb (11.4-16.0) gm/dL Hct (34.0-46.0) % RDW (11.5-15.5) % Plt Count (150-450) k/uL Neutrophils # (1.3-7.7) k/uL ESR 31 H (0-20) mm/hr PT (9.0-12.0) sec Fibrinogen (200-500) mg/dL D-Dimer (<0.60) mg/L FEU Carbon Dioxide (22-30) mmol/L BUN (7-17) mg/dL Glucose (74-99) mg/dL Uric Acid (3.7-7.4) mg/dL Calcium (8.4-10.2) mg/dL Magnesium (1.6-2.3) mg/dL C-Reactive Protein 301.4 H (<10.0) mg/L Rheumatoid Factor (<12) IU/mL Complement C3 (88-165) mg/dL Complement C4 (14-44) mg/dL Crossmatch See Detail 01/10/17 01/10/17 01/10/17 Range/Units 10:36 19:26 19:26 WBC (3.8-10.6) k/uL RBC (3.80-5.40) m/uL Hgb (11.4-16.0) gm/dL Hct (34.0-46.0) % RDW (11.5-15.5) % Plt Count (150-450) k/uL Neutrophils # (1.3-7.7) k/uL ESR 71 H (0-20) mm/hr PT 12.6 H (9.0-12.0) sec Fibrinogen 552 H (200-500) mg/dL D-Dimer 1.59 H (<0.60) mg/L FEU Carbon Dioxide (22-30) mmol/L BUN (7-17) mg/dL Glucose (74-99) mg/dL Uric Acid 2.4 L (3.7-7.4) mg/dL Calcium (8.4-10.2) mg/dL Magnesium (1.6-2.3) mg/dL C-Reactive Protein 405.9 H (<10.0) mg/L Rheumatoid Factor 18 H (<12) IU/mL Complement C3 61 L (88-165) mg/dL Complement C4 10 L (14-44) mg/dL Crossmatch 01/11/17 01/11/17 Range/Units 04:11 04:11 WBC 20.4 H (3.8-10.6) k/uL RBC 3.03 L (3.80-5.40) m/uL Hgb 9.2 L (11.4-16.0) gm/dL Hct 29.1 L (34.0-46.0) % RDW 16.2 H (11.5-15.5) % Plt Count 39 L* (150-450) k/uL Neutrophils # 18.5 H (1.3-7.7) k/uL ESR (0-20) mm/hr PT (9.0-12.0) sec Fibrinogen (200-500) mg/dL D-Dimer (<0.60) mg/L FEU Carbon Dioxide 21 L (22-30) mmol/L BUN 34 H (7-17) mg/dL Glucose 119 H (74-99) mg/dL Uric Acid (3.7-7.4) mg/dL Calcium 7.0 L (8.4-10.2) mg/dL Magnesium 2.9 H (1.6-2.3) mg/dL C-Reactive Protein (<10.0) mg/L Rheumatoid Factor (<12) IU/mL Complement C3 (88-165) mg/dL Complement C4 (14-44) mg/dL Crossmatch Microbiology - Last 24 Hours (Table) 01/10/17 12:29 Stool for WBCs - Final Stool 01/09/17 22:31 Blood Culture - Preliminary Blood No Growth after 24 hours 01/09/17 22:00 Blood Culture - Preliminary Blood No Growth after 24 hours 01/10/17 17:15 Urine Culture - Preliminary Urine,Voided 01/09/17 22:31 Blood Culture Gram Stain - Preliminary Blood Blood Culture - Preliminary Gram Neg Bacilli 01/09/17 22:00 Blood Culture Gram Stain - Preliminary Blood Blood Culture - Preliminary Gram Neg Bacilli 01/10/17 12:29 Stool Culture - Preliminary Stool Assessment and Plan Plan: Assessment 1 acute gram-negative septicemia. The patient has gram-negative bacilli growing in her urine and the blood. The source of sepsis is most likely urinary in nature and the patient had a J stent inserted and the right-sided hydronephrosis was released. The patient remains on IV Zosyn. Hemodynamically stable. Afebrile. Tachycardia has recovered. 2 acute/subacute proctocolitis, rule out inflammatory bowel disease 3 right hydronephrosis with an obstructive calculus involving the ureter, status post J stent insertion with relieving of the hydronephrosis. 4 thrombocytopenia, currently under investigation, it is most likely secondary to consumptive thrombocytopenia secondary to sepsis and the platelet counts are improving. 5 anemia, status post transfusion with 3 units of packed RBCs 6 acute hypoxemia, sepsis induced and the patient has a normal chest x-ray, improving and the patient is currently down to 2 L 7 IgG deficiency, congenital, currently on replacement 8 oral ulcers/thrush, recovering 9 reactive arthralgias, improving Plan Continue with fluid resuscitation. Continue with IV Zosyn. Her vital patient soft diet. Monitor the cultures. Monitor the platelet count. Monitor hemoglobin. Continue Solu Medrol for another 24 hours. We'll continue to follow make further recommendations based on her progress. The input from the various other consultants was noted. No other intervention from my standpoint and the patient will be staying in ICU from the 24 hours for further monitoring.
[2017-01-11] MEDS: POTASSIUM CHLORIDE 10 MEQ, LIDOCAINE 2% INJ 10 MG in SODIUM CHLORIDE 0.9% 100 ML IV SCH ×2 (12:46→13:52)
--- NOTE | 2017-01-11 15:11 | P.PN ---
Progress Note - Text Sahra underwent insertion of a right ureteral stent yesterday. Cloudy urine draining from the right renal pelvis, and this was sent for urine culture. She remains afebrile. Her WBC count has increased to 20.4 this morning. She states that her right flank pain is much improved. Preliminary urine and blood cultures have shown gram-negative bacilli. She will continue to receive IV antibiotics, pending the final culture results. I do not anticipate any further urologic intervention during this hospitalization. I intend to perform elective right ureteroscopy with laser lithotripsy in several weeks to remove the obstructing ureteral calculus, and the stent will be removed at that time.
--- NOTE | 2017-01-11 15:12 | PN ---
Ms. Sidhu actually had a renal stent placed for hydronephrosis and renal stones. I was asked to see her because of a troponin elevation. Her troponin elevation does not represent a myocardial injury. Echo revealed normal LV systolic function. Vital signs are stable. Physical exam, there are new significant findings. I will see her as needed from a cardiac standpoint.
--- NOTE | 2017-01-11 18:18 | P.PN ---
Subjective Principal diagnosis: Gram-negative sepsis This is a 26-year-old female that gives a history of 3 months ago having a cold symptoms that lasted for 2 weeks. Her twin sister was diagnosed with pneumonia by Dr. Chappell and the patient went to Dr. Chappell and was also diagnosed with pneumonia. She completed 2 courses of antibiotics. She then developed diarrhea which was liquid, mucousy and bloody. She was having large amounts 10 times per day. She states that she lost 13 pounds over 2 weeks. She also has pain with defecation. She then was seen by Dr. Maynard and underwent colonoscopy on January 06. Pathology reports terminal ileum biopsy reveals mature small bowel mucosa without histopathologic changes.: Random biopsy shows acute colitis with features suggestive chronicity. Rectum biopsy shows acute proctitis with the stretcher suggestive of chronicity. Possibility of inflammatory bowel disease cannot be excluded. Prior to the endoscopy, patient was started on prednisone which she states helped her diarrhea. She was on 20 mg 4 times daily and yesterday was decreased to 20 mg 3 times daily. She also relates that she has been at [facility] for ER visits and admissions and has had multipl stool samples tested for C. difficile toxin which is been negative but she did complete a course of Flagyl at some point. Yesterday patient had a near syncopal episode. She was feeling lightheaded and dizzy and like she was going to pass out. She went to the bathroom and had a bloody bowel movement. She then came into [facility] emergency [facility]. CAT scan of the abdomen and pelvis shows a calculus in the right ureter with obstruction appears to be acute. Nonspecific colitis. Mild left inguinal density 2.5 cm representing possible edema or adenopathy. Her white count was initially 1303 p.m. 5. Her platelet count was 24 currently at 30. She was febrile at 101.8, tachycardic, hypotensive. Initial to troponins were negative with the third one being at 0.148. Urinalysis was clear, nitrite trace, leukocytes negative. Occasional bacteria. Urine culture is in progress. Blood culture is showing gram-negative bacilli. Patient was started on Zosyn and admitted into intensive care unit. She has multiple consults in place including cardiology, pulmonary medicine, Gen. surgery, gastroenterology, urology, oncology, rheumatology. She has undergone transfusion of packed RBCs and platelets. 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 His undergone the urologic procedure with double-J catheter placement. Surgical reveals evidence of a large amount of grossly purulent urine then evacuated the kidney has been cultured. Gram-negative bacilli have been found in the blood. Responding well to current antibiotic therapy. Objective - Vital Signs Vital signs: Vital Signs Temp 97.9 F 01/11/17 12:00 Pulse 84 01/11/17 17:00 Resp 23 01/11/17 17:00 BP 125/59 01/11/17 17:00 Pulse Ox 97 01/11/17 17:00 Intake & Output 01/10/17 01/11/17 01/11/17 18:59 06:59 18:59 Intake Total 3038 1400.0 1500 Output Total 1360 805 495 Balance 1678 595.0 1005 Weight 58.8 kg 58.8 kg Intake: IV 1750 1400.0 1450 0.9 NACL 1500 150 Piperacillin-Tazobactam 3 50.0 50 .375 gm In Dextrose/Water 1 50ml.bag @ 12.5 mls/hr IVPB Q8HR [facility] Rx#: [id number] Potassium Chloride 10 meq 200 Lidocaine 2% Inj 10 mg In Sodium Chloride 0.9% 100 ml @ 100 mls/hr IV Q1HR [facility] Rx#:[id number] Sodium Chloride 0.9% 1, 600 1200 000 ml @ 100 mls/hr IV . Q10H [facility] Rx#:[id number] Sodium Chloride 0.9% 1, 600 000 ml @ 150 mls/hr IV . Q6H40M [facility] Rx#:[id number] Intake, IV Titration 450 50 Amount Calcium Gluconate 1,000 100 mg In Sodium Chloride 0.9 % 100 ml @ 100 mls/hr IVPB [facility] Rx#: [id number] Piperacillin-Tazobactam 3 50 .375 gm In Dextrose/Water 1 50ml.bag @ 12.5 mls/hr IVPB Q8HR [facility] Rx#: [id number] Potassium Chloride 10 meq 200 Lidocaine 2% Inj 10 mg In Sodium Chloride 0.9% 100 ml @ 100 mls/hr IV Q1HR [facility] Rx#:[id number] Sodium Chloride 0.9% 1, 150 000 ml @ 150 mls/hr IV . Q6H40M [facility] Rx#:[id number] Blood Product 838 Platelet Pheresis Acda2 213 Unit [id number] Platelet Pheresis Acda2 206 Unit [id number] Output: Urine 1360 805 495 Estimated Blood Loss 0 Other: Voiding Method Indwelling Catheter Indwelling Catheter Toilet # Bowel Movements 1 1 - Exam Gen: This is a thin 26-year-old female. HEENT: Head is atraumatic, normocephalic. Pupils equal, round. Sclerae is anicteric. NECK: Supple. No JVD. No lymphadenopathy. No thyromegaly. LUNGS: Clear to auscultation. No wheezes or rhonchi. No intercostal retractions. HEART: Regular rate and rhythm. No murmur. ABDOMEN: Slightly distended. Bowel sounds are present. No masses. Generalized tenderness. EXTREMITIES: No pedal edema. No calf tenderness. Dorsalis pedis +2 bilaterally. Small lesions scattered on the forehead and face as well as upper and lower extremities around the ankles. Has some lower extremity edema WILDA hose and requested NEUROLOGICAL: Patient is awake, alert and oriented x3 - Labs CBC & Chem 7: 01/11/17 04:11 01/11/17 04:11 Labs: Abnormal Lab Results - Last 24 Hours (Table) 01/10/17 01/10/17 01/11/17 Range/Units 19:26 19:26 04:11 WBC (3.8-10.6) k/uL RBC (3.80-5.40) m/uL Hgb (11.4-16.0) gm/dL Hct (34.0-46.0) % RDW (11.5-15.5) % Plt Count (150-450) k/uL Neutrophils # (1.3-7.7) k/uL ESR 71 H (0-20) mm/hr Carbon Dioxide 21 L (22-30) mmol/L BUN 34 H (7-17) mg/dL Glucose 119 H (74-99) mg/dL Uric Acid 2.4 L (3.7-7.4) mg/dL Calcium 7.0 L (8.4-10.2) mg/dL Magnesium 2.9 H (1.6-2.3) mg/dL C-Reactive Protein 405.9 H (<10.0) mg/L Rheumatoid Factor 18 H (<12) IU/mL Complement C3 61 L (88-165) mg/dL Complement C4 10 L (14-44) mg/dL 01/11/17 Range/Units 04:11 WBC 20.4 H (3.8-10.6) k/uL RBC 3.03 L (3.80-5.40) m/uL Hgb 9.2 L (11.4-16.0) gm/dL Hct 29.1 L (34.0-46.0) % RDW 16.2 H (11.5-15.5) % Plt Count 39 L* (150-450) k/uL Neutrophils # 18.5 H (1.3-7.7) k/uL ESR (0-20) mm/hr Carbon Dioxide (22-30) mmol/L BUN (7-17) mg/dL Glucose (74-99) mg/dL Uric Acid (3.7-7.4) mg/dL Calcium (8.4-10.2) mg/dL Magnesium (1.6-2.3) mg/dL C-Reactive Protein (<10.0) mg/L Rheumatoid Factor (<12) IU/mL Complement C3 (88-165) mg/dL Complement C4 (14-44) mg/dL Microbiology - Last 24 Hours (Table) 01/11/17 04:11 Blood Culture Gram Stain - Preliminary Blood 01/11/17 05:00 Blood Culture Gram Stain - Preliminary Blood 01/11/17 05:00 Blood Culture - Preliminary Blood 01/11/17 04:11 Blood Culture - Preliminary Blood 01/10/17 12:29 Stool for WBCs - Final Stool 01/09/17 22:31 Blood Culture - Preliminary Blood No Growth after 24 hours 01/09/17 22:00 Blood Culture - Preliminary Blood No Growth after 24 hours 01/10/17 17:15 Urine Culture - Preliminary Urine,Voided 01/09/17 22:31 Blood Culture Gram Stain - Preliminary Blood Blood Culture - Preliminary Gram Neg Bacilli 01/09/17 22:00 Blood Culture Gram Stain - Preliminary Blood Blood Culture - Preliminary Gram Neg Bacilli 01/10/17 12:29 Stool Culture - Preliminary Stool Laboratory Results WBC 20.4 k/uL (3.8-10.6) H 01/11/17 04:11 RBC 3.03 m/uL (3.80-5.40) L 01/11/17 04:11 Hgb 9.2 gm/dL (11.4-16.0) L 01/11/17 04:11 Hct 29.1 % (34.0-46.0) L 01/11/17 04:11 MCV 96.0 fL (80.0-100.0) 01/11/17 04:11 MCH 30.4 pg (25.0-35.0) 01/11/17 04:11 MCHC 31.7 g/dL (31.0-37.0) 01/11/17 04:11 RDW 16.2 % (11.5-15.5) H 01/11/17 04:11 Plt Count 39 k/uL (150-450) L* 01/11/17 04:11 Neutrophils % 90 % 01/11/17 04:11 Neutrophils % (Manual) 79.5 % 01/09/17 16:15 Band Neutrophils % 16.5 % 01/09/17 16:15 Lymphocytes % 6 % 01/11/17 04:11 Lymphocytes % (Manual) 1.5 % 01/09/17 16:15 Monocytes % 2 % 01/11/17 04:11 Monocytes % (Manual) 2.5 % 01/09/17 16:15 Eosinophils % 0 % 01/11/17 04:11 Basophils % 0 % 01/11/17 04:11 Neutrophils # 18.5 k/uL (1.3-7.7) H 01/11/17 04:11 Neutrophils # (Manual) 12.5 k/uL (1.3-7.7) H 01/09/17 16:15 Lymphocytes # 1.3 k/uL (1.0-4.8) 01/11/17 04:11 Lymphocytes # (Manual) 0.2 k/uL (1.0-4.8) L 01/09/17 16:15 Monocytes # 0.4 k/uL (0-1.0) 01/11/17 04:11 Monocytes # (Manual) 0.3 k/uL (0-1.0) 01/09/17 16:15 Eosinophils # 0.0 k/uL (0-0.7) 01/11/17 04:11 Basophils # 0.1 k/uL (0-0.2) 01/11/17 04:11 Nucleated RBCs 0 /100 WBC (0-0) 01/09/17 16:15 Manual Slide Review Performed 01/09/17 16:15 Toxic Granulation Present 01/09/17 16:15 Toxic Vacuolation Present 01/09/17 16:15 Polychromasia Present 01/09/17 16:15 Anisocytosis Slight 01/11/17 04:11 Macrocytosis Slight 01/11/17 04:11 ESR 71 mm/hr (0-20) H 01/10/17 19:26 PT 12.6 sec (9.0-12.0) H 01/10/17 10:36 INR 1.3 (<1.1) 01/10/17 10:36 APTT 25.6 sec (22.0-30.0) 01/10/17 10:36 Fibrinogen 552 mg/dL (200-500) H 01/10/17 10:36 D-Dimer 1.59 mg/L FEU (<0.60) H 01/10/17 10:36 Sodium 138 mmol/L (137-145) 01/11/17 04:11 Potassium 3.8 mmol/L (3.5-5.1) 01/11/17 04:11 Chloride 105 mmol/L (98-107) 01/11/17 04:11 Carbon Dioxide 21 mmol/L (22-30) L 01/11/17 04:11 Anion Gap 12 mmol/L 01/11/17 04:11 BUN 34 mg/dL (7-17) H 01/11/17 04:11 Creatinine 0.60 mg/dL (0.52-1.04) 01/11/17 04:11 Est GFR (MDRD) Af Amer >60 (>60 ml/min/1.73 sqM) 01/11/17 04:11 Est GFR (MDRD) Non-Af >60 (>60 ml/min/1.73 sqM) 01/11/17 04:11 Glucose 119 mg/dL (74-99) H 01/11/17 04:11 POC Glucose (mg/dL) 119 mg/dL (75-99) H 01/09/17 21:39 POC Glu Concrete Boom Operator ID [email or web address], Dyan 01/09/17 21:39 Plasma Lactic Acid Gregg 1.6 mmol/L (0.7-2.0) 01/09/17 22:00 Uric Acid 2.4 mg/dL (3.7-7.4) L 01/10/17 19:26 Calcium 7.0 mg/dL (8.4-10.2) L 01/11/17 04:11 Ionized Calcium Ronan 4.1 mg/dL (4.5-5.3) L 01/10/17 04:24 Phosphorus 3.5 mg/dL (2.5-4.5) 01/11/17 04:11 Magnesium 2.9 mg/dL (1.6-2.3) H 01/11/17 04:11 Total Bilirubin 3.4 mg/dL (0.2-1.3) H 01/10/17 04:24 AST 19 U/L (14-36) 01/10/17 04:24 ALT 31 U/L (9-52) 01/10/17 04:24 Alkaline Phosphatase 119 U/L (38-126) 01/10/17 04:24 Lactate Dehydrogenase 556 U/L (313-618) 01/10/17 04:24 Total Creatine Kinase 31 U/L (30-135) 01/10/17 04:24 CK-MB (CK-2) 0.8 ng/mL (0.0-2.4) 01/10/17 04:24 CK-MB (CK-2) Rel Index 2.6 01/10/17 04:24 Troponin I 0.148 ng/mL (0.000-0.034) H* 01/10/17 04:24 C-Reactive Protein 405.9 mg/L (<10.0) H 01/10/17 19:26 Total Protein 3.9 g/dL (6.3-8.2) L 01/10/17 04:24 Albumin 1.8 g/dL (3.5-5.0) L 01/10/17 04:24 Triglycerides 99 mg/dL (<150) 01/10/17 04:24 Cholesterol <50 mg/dL (<200) 01/10/17 04:24 LDL Cholesterol, Calc 18 mg/dL (0-99) 01/10/17 04:24 HDL Cholesterol 12 mg/dL (40-60) L 01/10/17 04:24 Amylase <30 U/L (30-110) L 01/09/17 16:15 Lipase 10 U/L (23-300) L 01/09/17 16:15 Urine Color Yellow 01/09/17 17:00 Urine Appearance Clear (Clear) 01/09/17 17:00 Urine pH 6.0 (5.0-8.0) 01/09/17 17:00 Ur Specific [place] 1.012 (1.001-1.035) 01/09/17 17:00 Urine Protein Trace (Negative) H 01/09/17 17:00 Urine Glucose (UA) Negative (Negative) 01/09/17 17:00 Urine Ketones Trace (Negative) H 01/09/17 17:00 Urine Blood Trace (Negative) H 01/09/17 17:00 Urine Nitrite Negative (Negative) 01/09/17 17:00 Urine Bilirubin Negative (Negative) 01/09/17 17:00 Urine Urobilinogen <2.0 mg/dL (<2.0) 01/09/17 17:00 Ur Leukocyte Esterase Negative (Negative) 01/09/17 17:00 Urine RBC 2 /hpf (0-5) 01/09/17 17:00 Urine WBC 8 /hpf (0-5) H 01/09/17 17:00 Urine Bacteria Occasional /hpf (None) H 01/09/17 17:00 Urine Mucus Rare /hpf (None) H 01/09/17 17:00 Urine HCG, Qual Not Detected (Not Detectd) 01/09/17 17:00 Stool Occult Blood Positive (Negative) H 01/09/17 17:50 Rheumatoid Factor 18 IU/mL (<12) H 01/10/17 19:26 Complement C3 61 mg/dL (88-165) L 01/10/17 19:26 Complement C4 10 mg/dL (14-44) L 01/10/17 19:26 Hep Bs Antigen Negative 01/10/17 19:26 Hep C IgG Ab Negative (Negative) 01/10/17 19:26 Blood Type B Positive 01/09/17 16:15 Blood Type Confirm B Positive 01/09/17 18:30 Blood Type Recheck B Pos 01/10/17 04:24 Antibody Screen POSITIVE 01/09/17 16:15 Antibody Identification Non-Specific Reaction 01/09/17 16:15 Direct Antiglob Test Negative 01/09/17 16:15 Crossmatch See Detail 01/09/17 19:30 Transfuse Platelets 01/09/2017 01/09/17 23:15 Tx Rx Implicated Unit 1 [id number] 01/10/17 04:24 Reaction Clerical Check Pass 01/10/17 04:24 Pre-Trans Blood Type B Positive 01/10/17 04:24 Pre-Trans Spec Appearnc Negative 01/10/17 04:24 Pre-Trans VIV IgG Negative 01/10/17 04:24 Pre-Trans VIV Poly Negative 01/10/17 04:24 Post-Trans Blood Type B Positive 01/10/17 04:24 Post-Trans Spec Appear Negative 01/10/17 04:24 Post-Trans VIV IgG Negative 01/10/17 04:24 Post-Trans VIV Poly Negative 01/10/17 04:24 Reaction Pathol Review See result comment 01/10/17 04:24 Spec Expiration Date 01/12/2017 - 2330 01/09/17 19:30 Microbiology 01/11/17 04:11 Blood Blood Culture Gram Stain - Preliminary 01/11/17 05:00 Blood Blood Culture Gram Stain - Preliminary 01/11/17 05:00 Blood Blood Culture - Preliminary 01/11/17 04:11 Blood Blood Culture - Preliminary 01/10/17 12:29 Stool Stool for WBCs - Final 01/09/17 22:31 Blood Blood Culture - Preliminary No Growth after 24 hours 01/09/17 22:00 Blood Blood Culture - Preliminary No Growth after 24 hours 01/09/17 17:00 Urine,Voided Urine Culture - Preliminary Gram Neg Bacilli 01/10/17 17:15 Urine,Voided Urine Culture - Preliminary 01/09/17 22:31 Blood Blood Culture Gram Stain - Preliminary 01/09/17 22:31 Blood Blood Culture - Preliminary Gram Neg Bacilli 01/09/17 22:00 Blood Blood Culture Gram Stain - Preliminary 01/09/17 22:00 Blood Blood Culture - Preliminary Gram Neg Bacilli 01/10/17 12:29 Stool Stool Culture - Preliminary Assessment and Plan (1) Gram negative sepsis Narrative/Plan: 26-year-old female presents to Hospital from home with concerns over blood per rectum and clots. Recently has had endoscopy with evidence of some chronic colitis. Patient became quite ill and developed some generalized pain. Developed significant hypotension. Was concerns to gastric intestinal bleed and received packed red cells as well as platelets. Has now been found to have evidence of the gram-negative sepsis from the obstructive uropathy. She has had intervention and double-J catheters been placed the patient is now considerably improved. She however still is having some bacteremia at this time. Follow up blood culture requested. Hemoglobin is stable at 9.2. The intensive improved to 39. At this time the thrombocytopenia appears to be due to her underlying sepsis and should start to further improve as her sepsis is being treated. She is not hypotensive and not requiring vasopressors. Status: Acute (2) Hydronephrosis with urinary obstruction due to ureteral calculus Status: Acute (3) Thrombocytopenia Status: Acute
[2017-01-12] MEDS: PIPERACILLIN-TAZOBACTAM 3.375 GM in DEXTROSE/WATER 1 50ML.BAG IVPB SCH ×2 (00:12→08:03)
[2017-01-12] MEDS: methylPREDNISolone SOD SUCCI 125 MG/2 ML VIAL IV SCH ×4 (00:12→18:32)
[2017-01-12] MEDS: HYDROmorphone 1 MG/ML 1 ML SYRINGE IVP PRN ×3 (01:01→17:09)
[2017-01-12] MEDS: SODIUM CHLORIDE 0.9% 1,000 ML IV SCH ×4 (04:10→17:09)
[2017-01-12 05:15] LABS: ALT 28 U/L (9-52); AST 15 U/L (14-36); Alkaline Phosphatase 115 U/L (38-126); Anion Gap 9 mmol/L; Blood Urea Nitrogen 30 mg/dL (7-17); Calcium 7.5 mg/dL (8.4-10.2); Carbon Dioxide 18 mmol/L (22-30); Chloride 103 mmol/L (98-107); Glucose 174 mg/dL (74-99); Magnesium 2.5 mg/dL (1.6-2.3); Non-African American GFR(MDRD) >60 (>60 ml/min/1.73 sqM); Phosphorous 2.5 mg/dL (2.5-4.5); Potassium 4.5 mmol/L (3.5-5.1); Sodium 130 mmol/L (137-145); Total Bilirubin 0.7 mg/dL (0.2-1.3); Total Protein 4.7 g/dL (6.3-8.2)
[2017-01-12 05:37] LABS: Anisocytosis Slight; Basophils % (A) 0 %; CH 30.1; Eosinophils % (A) 0 %; HCT 31.2 % (34.0-46.0); HDW 2.83; HGB 9.8 gm/dL (11.4-16.0); Hypochromasia Slight; Luc # (Auto) 0.15; Luc % (Auto) 1; Lymphocytes % (A) 6 %; MCH 30.9 pg (25.0-35.0); MCHC 31.6 g/dL (31.0-37.0); MCV 97.8 fL (80.0-100.0); Macrocytosis Slight; Mean Platelet Volume 10.9; Monocytes # (A) 0.3 k/uL (0-1.0); Monocytes % (A) 2 %; Neutrophils # (A) 16.2 k/uL (1.3-7.7); Neutrophils % (A) 91 %; RBC 3.19 m/uL (3.80-5.40); RDW 16.1 % (11.5-15.5); WBC 17.7 k/uL (3.8-10.6); WBC (Perox) 16.84
[2017-01-12] MEDS: PANTOPRAZOLE 40 MG/10 ML VIAL IV SCH (08:02)
[2017-01-12] MEDS: NYSTATIN 100,000 UNIT/ML SUSP 500,000 UNIT/5 ML CUP PO SCH ×4 (08:02→21:31)
[2017-01-12 08:10] LABS: Glucose,Whole Blood 154 mg/dL (75-99)
[2017-01-12] MEDS: INSULIN LISPRO (humaLOG) 300 UNIT/3 ML VIAL SQ SCH ×4 (08:14→21:32)
[2017-01-12] MEDS ORDERED: FUROSEMIDE 10 MG/ML 4 ML VIAL IV STA (09:25)
[2017-01-12 12:18] LABS: Glucose,Whole Blood 149 mg/dL (75-99)
--- NOTE | 2017-01-12 12:45 | P.PN ---
Progress Note - Text Sahra continues to feel better. Her rectal bleeding has resolved. She remains afebrile. Her WBC count has decreased to 17.7. Urine and blood cultures show Klebsiella pneumoniae, sensitive to all antibiotics other than ampicillin. I do not anticipate the need for any further urologic intervention during this hospitalization. She will continue to receive antibiotics, and follow-up with me as an outpatient in 2 weeks. Once she has completely recovered, arrangements will be made for her to undergo cystoscopy, right ureteral stent removal, and ureteroscopic removal of the right ureteral calculus. Please notify me if I can be of any further assistance during this hospitalization.
--- NOTE | 2017-01-12 15:36 | P.PN ---
Subjective This is a pleasant 26-year-old female patient who came into the emergency department yesterday with GI bleeding, diarrhea, hypotension, tachycardia, profound anemia and thrombocytopenia. The patient has been sick for the past 3 months. 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 This is also present in her twin sister. Nevertheless, the patient has not had any major septic complications and as such she has not received any hemoglobin replacement therapy over the years. The patient was in a good state of health until around November 2016 when she developed symptoms of pneumonia. At that point she presented to her primary care physician and she was diagnosed having a pneumonia. She was initially given a course of Biaxin for a total of 10 days and following that Cipro was added to the regimen. The patient ultimately recovered from the breathing difficulty however she developed significant gastrointestinal upset that manifest itself as bloody diarrhea and it's been going on on and off for the past 1-1/2-2 months. She was suspected to have colitis/antibiotic induced and the patient had stool for C. diff checked on several occasions including a recent evaluation that was done at [facility] and the results were apparently negative. At one point the patient was given oral vancomycin however she did not end up taking the medication. During this course of treatment, the patient developed oropharyngeal thrush and ulceration and she was given nystatin and Mycelex and a course of Diflucan which she did not take. She was seen by gastroenterology on outpatient basis and the patient had a colonoscopy done on 01/06/2017 that showed nonspecific proctitis otherwise the rest of the colon and the terminal ileum was within normal limits. Biopsies of the terminal ileum and random biopsies of the colon and the rectum was done and the pathology showed mature small bowel mucosa, acute colitis with some underlying features to suggest chronicity and acute proctitis on top of chronic changes. The patient was still started on systemic steroids and at one point she was taken prednisone 20 mg 4 times a day. The dose was subsequently tapered them prior to this current hospitalization the patient was taken 20 mg twice a day. Despite some limited improvement, the patient was not having full recovered and she was still having diarrhea and bloody mucoid bowel movement that continue to occur on a daily basis. She lost weight and order of 10-12 pounds. No reported fever or chills. There is development of arthritis and some swelling in ankles bilaterally. The patient has also developed some lower extremity edema. No changes consistent with erythema nodosum or pyoderma gangrenosum yet there is some no other lesions/papules over the face and upper and lower extremities bilaterally. No open wounds or sores or ulcerations. Over the past 24 hours, the patient's condition deteriorated. The patient started developing crampy abdominal pain along with her diarrhea and for that reason she presented to the hospital. In the ED, the patient a CAT scan of the abdomen that showed evidence of colitis. At the same time there was a calculus in the proximal right ureter with obstruction of the right collecting system and the right-sided hydronephrosis. No free air within the abdomen. The urinalysis showed no evidence of pyuria. There was some minimal bacteria seen. The patient is not known to have nephrolithiasis although breath sounds in her family and has twin sisters has kidney stones. Over the past 12 hours, the patient was suspected aggressively knowing that she was quite tachycardic and hypotensive. She was given more than 3 L of IV fluid. She received a total of 3 units of packed RBC. This was a nonmatched blood transfusion and she developed a low-grade fever which ultimately resolved with IV Tylenol. She also received 2 units of platelets knowing that the patient is considerably low and the patient was bleeding. Her hemoglobin was 7.0 on admission and subsequently improved and came up to 9.2. Platelet counts were low as 24,000. PT PT/INR was within normal limits. Lactic acid level was not elevated. No metabolic acidosis. She had mild hypo-calcemic which got replaced. The LDH and bilirubin are both elevated yet the peripheral smear did not show any evidence of schistocytes. Blood cultures were sent and later on during the day we learned the patient has gram-negative bacilli in his blood. I've already started the patient on IV Zosyn as an empiric antibiotic coverage and this was given to her yesterday. No pressors was utilized during this current ICU stay. Mental status is preserved and the patient is awake and alert and following commands and answering questions. Chest x-ray from today shows no evidence of any pneumonia. The patient is requiring oxygen somewhere between 3-5 L nasal cannula. No cough. No sputum production. No chest tightness. No wheezing. On 01/11/2017, the patient is being seen in follow-up. It has been significant improvement in her overall condition. She is less tachycardic. Blood pressure is normalized. She is producing adequate amount of urine output. She was taken to the operating room with a J stent was inserted into the right urinary system and the right hydronephrosis was released. The urine that was taken intraoperatively was cloudy and seemed to be infected. The samples were sent for cultures and results are still pending. Meanwhile the initial urine culture to be collected on this patient to not to be gram-negative bacilli positive and furthermore 3 sets of blood cultures were positive for gram- negative bacilli. The patient is on IV Zosyn. She is doing very well. She has no fever. Infectious disease saw the patient and the IV Zosyn was continued and no further antibiotic adjustments were done. Platelet counts are improving and it up to 39,000. The white cell count is up to 20,000 which is a appropriate reaction for sepsis. The patient's rest of the workup is still pending including the hemoglobin levels. Rheumatology also saw the patient and they've ordered a bunch of blood work as part of the routine. No change in mental status. The joint aches and pains are also improved. No active diarrhea at this point and the hemoglobin is stable. The abdominal discomfort has improved significantly with minimal amount of tenderness upon examination today. On 01/12/2017, the patient is doing well. No hypotension. No tachycardia. No signs of septicemia. No fever. The blood cultures still showing gram-negative bacilli from 01/11/2017 and I discussed this with infectious disease specialist and this is quite expected. The anticipate the patient clearing of bacteremia over the next day or so. Meanwhile the antibiotic has been switched IV Rocephin. The urine or blood culture was positive for Klebsiella pneumoniae that was sensitive to various antibiotics. The patient is not having much of lower GI bleed. The patient had a loose watery bowel movement yesterday that was nonbloody. Abdominal tenderness is improving slowly. No nausea. No vomiting. She is getting some increased edema in lower extremities bilaterally and for that reason I kept on IV fluids to 20 mL an hour and give her a dose of Lasix. This will be a good start to keep this patient and negative fluid balance. Objective - Vital Signs Vital signs: Vital Signs Temp 97.5 F L 01/12/17 15:00 Pulse 88 04/09/17 15:00 Resp 16 01/12/17 15:00 BP 128/89 01/12/17 15:00 Pulse Ox 99 01/12/17 15:00 Intake & Output 01/11/17 01/12/17 01/12/17 18:59 06:59 18:59 Intake Total 1600 1862.5 510 Output Total 994 910 2042 Balance 1105 1262.5 -1890 Weight 58.8 kg 64.8 kg 64.8 kg Intake: IV 1550 1262.5 310 Piperacillin-Tazobactam 3 50 62.5 50 .375 gm In Dextrose/Water 1 50ml.bag @ 12.5 mls/hr IVPB Q8HR [facility] Rx#: [id number] Potassium Chloride 10 meq 200 Lidocaine 2% Inj 10 mg In Sodium Chloride 0.9% 100 ml @ 100 mls/hr IV Q1HR [facility] Rx#:[id number] Sodium Chloride 0.9% 1, 1300 1200 260 000 ml @ 20 mls/hr IV . Q24H [facility] Rx#:[id number] Intake, IV Titration 50 Amount Piperacillin-Tazobactam 3 50 .375 gm In Dextrose/Water 1 50ml.bag @ 12.5 mls/hr IVPB Q8HR [facility] Rx#: [id number] Oral 600 200 Output: Urine 159 [id number] Other: Voiding Method Toilet Toilet Toilet # Voids 1 # Bowel Movements 1 1 1 - Exam Head exam was generally normal. There was no scleral icterus or corneal arcus. Mucous membranes were moist.Neck was supple and without jugular venous distension, thyromegaly, or carotid bruits. Carotids were easily palpable bilaterally. There was no adenopathy. Lung sounds are diminished bilaterally. No wheezes or rhonchi early crackles.Cardiac exam revealed the PMI to be normally situated and sized. The rhythm was regular and no extrasystoles were noted during several minutes of auscultation. The first and second heart sounds were normal and physiologic splitting of the second heart sound was noted. There were no murmurs, rubs, clicks, or gallops. Abdomen is less tender compared to yesterday. There is minimal direct tenderness. No rebound tenderness or guarding.. No rebound tenderness. No guarding. Bowel sounds are hypoactive at the present.Examination of the extremities revealed easily palpable radial, femoral and pedal pulses. There was no cyanosis, clubbing or edema. Examination of the skin sows very tiny approximately 5 mm a 6 mm lesion scattered throughout the forehead upper and lower extremities. Minimally erythematous. No ulceration. No drainage. Neurologically the patient is awake and alert. - Labs CBC & Chem 7: 01/12/17 04:14 01/12/17 04:14 Labs: Abnormal Lab Results - Last 24 Hours (Table) 01/10/17 01/10/17 01/12/17 Range/Units 04:24 04:24 04:14 WBC (3.8-10.6) k/uL RBC (3.80-5.40) m/uL Hgb (11.4-16.0) gm/dL Hct (34.0-46.0) % RDW (11.5-15.5) % Plt Count (150-450) k/uL Neutrophils # (1.3-7.7) k/uL Haptoglobin 239.0 H (31.2-198.0) mg/dL Sodium 130 L (137-145) mmol/L Carbon Dioxide 18 L (22-30) mmol/L BUN 30 H (7-17) mg/dL Glucose 174 H (74-99) mg/dL POC Glucose (mg/dL) (75-99) mg/dL Calcium 7.5 L (8.4-10.2) mg/dL Magnesium 2.5 H (1.6-2.3) mg/dL Total Protein 4.7 L (6.3-8.2) g/dL Albumin 2.1 L (3.5-5.0) g/dL IgG 522.0 L (700.0-1600.0) mg/dL 01/12/17 01/12/17 01/12/17 Range/Units 04:14 08:08 12:16 WBC 17.7 H (3.8-10.6) k/uL RBC 3.19 L (3.80-5.40) m/uL Hgb 9.8 L (11.4-16.0) gm/dL Hct 31.2 L (34.0-46.0) % RDW 16.1 H (11.5-15.5) % Plt Count 38 L* (150-450) k/uL Neutrophils # 16.2 H (1.3-7.7) k/uL Haptoglobin (31.2-198.0) mg/dL Sodium (137-145) mmol/L Carbon Dioxide (22-30) mmol/L BUN (7-17) mg/dL Glucose (74-99) mg/dL POC Glucose (mg/dL) 154 H 149 H (75-99) mg/dL Calcium (8.4-10.2) mg/dL Magnesium (1.6-2.3) mg/dL Total Protein (6.3-8.2) g/dL Albumin (3.5-5.0) g/dL IgG (700.0-1600.0) mg/dL Microbiology - Last 24 Hours (Table) 01/11/17 05:00 Blood Culture Gram Stain - Preliminary Blood Blood Culture - Preliminary Gram Neg Bacilli 01/11/17 04:11 Blood Culture Gram Stain - Preliminary Blood Blood Culture - Preliminary Gram Neg Bacilli 01/09/17 22:31 Blood Culture - Preliminary Blood No Growth after 48 hours 01/09/17 22:00 Blood Culture - Preliminary Blood No Growth after 48 hours 01/09/17 22:31 Blood Culture Gram Stain - Final Blood Blood Culture - Final Klebsiella pneumoniae 01/09/17 22:00 Blood Culture Gram Stain - Final Blood Blood Culture - Final Klebsiella pneumoniae 01/10/17 17:15 Urine Culture - Preliminary Urine,Voided Gram Neg Bacilli 01/11/17 05:00 Blood Culture - Preliminary Blood 01/11/17 04:11 Blood Culture - Preliminary Blood Assessment and Plan Plan: Assessment 1 acute gram-negative septicemia. The patient has Klebsiella pneumoniae growing in her urine and the blood. The source of sepsis is most likely urinary in nature and the patient had a J stent inserted and the right-sided hydronephrosis was released. The patient remains on IV Rocephin. Hemodynamically stable. Afebrile. Tachycardia has recovered. 2 acute/subacute proctocolitis, rule out inflammatory bowel disease 3 right hydronephrosis with an obstructive calculus involving the ureter, status post J stent insertion with relieving of the hydronephrosis. 4 thrombocytopenia, currently under investigation, it is most likely secondary to consumptive thrombocytopenia secondary to sepsis and the platelet counts are improving. 5 anemia, status post transfusion with 3 units of packed RBCs 6 acute hypoxemia, sepsis induced and the patient has a normal chest x-ray, improving and the patient is currently down to 2 L 7 IgG deficiency, her most recent IgG level is at 522 which is essentially acceptable is not underlying septic status. No IgE M or IgA deficiency. 8 oral ulcers/thrush, recovering 9 reactive arthralgias, improving 10 Lower extremities edema due to aggressive fluid resuscitation and hypoproteinemia 11 hypoproteinemia secondary to sepsis. Plan Cut down the IV fluids to KVO. Give the patient dose of Lasix 40 mg IV push. Gradually advance diet as tolerated. Switch the patient's antibiotics with Rocephin. Continue the steroids. Monitor the electrolytes. We'll continue to follow. The patient will be moved out of the intensive care unit to a medical surgical floor with telemetry privileges.
[2017-01-12] MEDS: cefTRIAXone 2,000 MG in SODIUM CHLORIDE 0.9% 100 ML IVPB SCH (17:11)
--- NOTE | 2017-01-12 17:20 | P.PN ---
Subjective Principal diagnosis: Gram-negative sepsis This is a 26-year-old female that gives a history of 3 months ago having a cold symptoms that lasted for 2 weeks. Her twin sister was diagnosed with pneumonia by Dr. Chappell and the patient went to Dr. Chappell and was also diagnosed with pneumonia. She completed 2 courses of antibiotics. She then developed diarrhea which was liquid, mucousy and bloody. She was having large amounts 10 times per day. She states that she lost 13 pounds over 2 weeks. She also has pain with defecation. She then was seen by Dr. Maynard and underwent colonoscopy on January 06. Pathology reports terminal ileum biopsy reveals mature small bowel mucosa without histopathologic changes.: Random biopsy shows acute colitis with features suggestive chronicity. Rectum biopsy shows acute proctitis with the stretcher suggestive of chronicity. Possibility of inflammatory bowel disease cannot be excluded. Prior to the endoscopy, patient was started on prednisone which she states helped her diarrhea. She was on 20 mg 4 times daily and yesterday was decreased to 20 mg 3 times daily. She also relates that she has been at [facility] for ER visits and admissions and has had multipl stool samples tested for C. difficile toxin which is been negative but she did complete a course of Flagyl at some point. Yesterday patient had a near syncopal episode. She was feeling lightheaded and dizzy and like she was going to pass out. She went to the bathroom and had a bloody bowel movement. She then came into [facility] emergency center. CAT scan of the abdomen and pelvis shows a calculus in the right ureter with obstruction appears to be acute. Nonspecific colitis. Mild left inguinal density 2.5 cm representing possible edema or adenopathy. Her white count was initially 1303 p.m. 5. Her platelet count was 24 currently at 30. She was febrile at 101.8, tachycardic, hypotensive. Initial to troponins were negative with the third one being at 0.148. Urinalysis was clear, nitrite trace, leukocytes negative. Occasional bacteria. Urine culture is in progress. Blood culture is showing gram-negative bacilli. Patient was started on Zosyn and admitted into intensive care unit. She has multiple consults in place including cardiology, pulmonary medicine, Gen. surgery, gastroenterology, urology, oncology, rheumatology. She has undergone transfusion of packed RBCs and platelets. 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 His undergone the urologic procedure with double-J catheter placement. Surgical reveals evidence of a large amount of grossly purulent urine then evacuated the kidney has been cultured. Gram-negative bacilli have been found in the blood. Has now been isolated as Klebsiella pneumoniae. Same pathogen was isolated from her urine. She has been seen by urology and they will plan on seeing her in the outpatient setting for the removal of her double-J catheter and laser lithotripsy. Objective - Vital Signs Vital signs: Vital Signs Temp 97.5 F L 01/12/17 15:00 Pulse 88 01/12/17 15:00 Resp 16 01/12/17 15:00 BP 128/89 01/12/17 15:00 Pulse Ox 99 01/12/17 15:00 Intake & Output 01/11/17 01/12/17 01/12/17 18:59 06:59 18:59 Intake Total 1600 1862.5 510 Output Total 314 122 3199 Balance 1105 1262.5 -2065 Weight 58.8 kg 64.8 kg 64.8 kg Intake: IV 1550 1262.5 310 Piperacillin-Tazobactam 3 50 62.5 50 .375 gm In Dextrose/Water 1 50ml.bag @ 12.5 mls/hr IVPB Q8HR [facility] Rx#: [id number] Potassium Chloride 10 meq 200 Lidocaine 2% Inj 10 mg In Sodium Chloride 0.9% 100 ml @ 100 mls/hr IV Q1HR [facility] Rx#:[id number] Sodium Chloride 0.9% 1, 1300 1200 260 000 ml @ 20 mls/hr IV . Q24H [facility] Rx#:[id number] Intake, IV Titration 50 Amount Piperacillin-Tazobactam 3 50 .375 gm In Dextrose/Water 1 50ml.bag @ 12.5 mls/hr IVPB Q8HR [facility] Rx#: [id number] Oral 600 200 Output: Urine 853 343 4083 Other: Voiding Method Toilet Toilet Toilet # Voids 1 # Bowel Movements 1 1 1 - Exam Gen: This is a thin 26-year-old female. HEENT: Head is atraumatic, normocephalic. Pupils equal, round. Sclerae is anicteric. NECK: Supple. No JVD. No lymphadenopathy. No thyromegaly. LUNGS: Clear to auscultation. No wheezes or rhonchi. No intercostal retractions. HEART: Regular rate and rhythm. No murmur. ABDOMEN: Slightly distended. Bowel sounds are present. No masses. Generalized tenderness. EXTREMITIES: No pedal edema. No calf tenderness. Dorsalis pedis +2 bilaterally. Small lesions scattered on the forehead and face as well as upper and lower extremities around the ankles. Has some lower extremity edema WILDA hose and requested NEUROLOGICAL: Patient is awake, alert and oriented x3 - Labs CBC & Chem 7: 01/12/17 04:14 01/12/17 04:14 Labs: Abnormal Lab Results - Last 24 Hours (Table) 01/10/17 01/10/17 01/12/17 Range/Units 04:24 04:24 04:14 WBC (3.8-10.6) k/uL RBC (3.80-5.40) m/uL Hgb (11.4-16.0) gm/dL Hct (34.0-46.0) % RDW (11.5-15.5) % Plt Count (150-450) k/uL Neutrophils # (1.3-7.7) k/uL Haptoglobin 239.0 H (31.2-198.0) mg/dL Sodium 130 L (137-145) mmol/L Carbon Dioxide 18 L (22-30) mmol/L BUN 30 H (7-17) mg/dL Glucose 174 H (74-99) mg/dL POC Glucose (mg/dL) (75-99) mg/dL Calcium 7.5 L (8.4-10.2) mg/dL Magnesium 2.5 H (1.6-2.3) mg/dL Total Protein 4.7 L (6.3-8.2) g/dL Albumin 2.1 L (3.5-5.0) g/dL IgG 522.0 L (700.0-1600.0) mg/dL 01/12/17 01/12/17 01/12/17 Range/Units 04:14 08:08 12:16 WBC 17.7 H (3.8-10.6) k/uL RBC 3.19 L (3.80-5.40) m/uL Hgb 9.8 L (11.4-16.0) gm/dL Hct 31.2 L (34.0-46.0) % RDW 16.1 H (11.5-15.5) % Plt Count 38 L* (150-450) k/uL Neutrophils # 16.2 H (1.3-7.7) k/uL Haptoglobin (31.2-198.0) mg/dL Sodium (137-145) mmol/L Carbon Dioxide (22-30) mmol/L BUN (7-17) mg/dL Glucose (74-99) mg/dL POC Glucose (mg/dL) 154 H 149 H (75-99) mg/dL Calcium (8.4-10.2) mg/dL Magnesium (1.6-2.3) mg/dL Total Protein (6.3-8.2) g/dL Albumin (3.5-5.0) g/dL IgG (700.0-1600.0) mg/dL Microbiology - Last 24 Hours (Table) 01/11/17 05:00 Blood Culture Gram Stain - Preliminary Blood Blood Culture - Preliminary Gram Neg Bacilli 01/11/17 04:11 Blood Culture Gram Stain - Preliminary Blood Blood Culture - Preliminary Gram Neg Bacilli 01/09/17 22:31 Blood Culture - Preliminary Blood No Growth after 48 hours 01/09/17 22:00 Blood Culture - Preliminary Blood No Growth after 48 hours 01/09/17 22:31 Blood Culture Gram Stain - Final Blood Blood Culture - Final Klebsiella pneumoniae 01/09/17 22:00 Blood Culture Gram Stain - Final Blood Blood Culture - Final Klebsiella pneumoniae 01/10/17 17:15 Urine Culture - Preliminary Urine,Voided Gram Neg Bacilli 01/11/17 05:00 Blood Culture - Preliminary Blood 01/11/17 04:11 Blood Culture - Preliminary Blood Laboratory Results WBC 17.7 k/uL (3.8-10.6) H 01/12/17 04:14 RBC 3.19 m/uL (3.80-5.40) L 01/12/17 04:14 Hgb 9.8 gm/dL (11.4-16.0) L 01/12/17 04:14 Hct 31.2 % (34.0-46.0) L 01/12/17 04:14 MCV 97.8 fL (80.0-100.0) 01/12/17 04:14 MCH 30.9 pg (25.0-35.0) 01/12/17 04:14 MCHC 31.6 g/dL (31.0-37.0) 01/12/17 04:14 RDW 16.1 % (11.5-15.5) H 01/12/17 04:14 Plt Count 38 k/uL (150-450) L* 01/12/17 04:14 Neutrophils % 91 % 01/12/17 04:14 Neutrophils % (Manual) 79.5 % 01/09/17 16:15 Band Neutrophils % 16.5 % 01/09/17 16:15 Lymphocytes % 6 % 01/12/17 04:14 Lymphocytes % (Manual) 1.5 % 01/09/17 16:15 Monocytes % 2 % 01/12/17 04:14 Monocytes % (Manual) 2.5 % 01/09/17 16:15 Eosinophils % 0 % 01/12/17 04:14 Basophils % 0 % 01/12/17 04:14 Neutrophils # 16.2 k/uL (1.3-7.7) H 01/12/17 04:14 Neutrophils # (Manual) 12.5 k/uL (1.3-7.7) H 01/09/17 16:15 Lymphocytes # 1.0 k/uL (1.0-4.8) 01/12/17 04:14 Lymphocytes # (Manual) 0.2 k/uL (1.0-4.8) L 01/09/17 16:15 Monocytes # 0.3 k/uL (0-1.0) 01/12/17 04:14 Monocytes # (Manual) 0.3 k/uL (0-1.0) 01/09/17 16:15 Eosinophils # 0.0 k/uL (0-0.7) 01/12/17 04:14 Basophils # 0.0 k/uL (0-0.2) 01/12/17 04:14 Nucleated RBCs 0 /100 WBC (0-0) 01/09/17 16:15 Manual Slide Review Performed 01/09/17 16:15 Toxic Granulation Present 01/09/17 16:15 Toxic Vacuolation Present 01/09/17 16:15 Polychromasia Present 01/09/17 16:15 Hypochromasia Slight 01/12/17 04:14 Anisocytosis Slight 01/12/17 04:14 Macrocytosis Slight 01/12/17 04:14 ESR 71 mm/hr (0-20) H 01/10/17 19:26 Haptoglobin 239.0 mg/dL (31.2-198.0) H 01/10/17 04:24 PT 12.6 sec (9.0-12.0) H 01/10/17 10:36 INR 1.3 (<1.1) 01/10/17 10:36 APTT 25.6 sec (22.0-30.0) 01/10/17 10:36 Fibrinogen 552 mg/dL (200-500) H 01/10/17 10:36 D-Dimer 1.59 mg/L FEU (<0.60) H 01/10/17 10:36 Sodium 130 mmol/L (137-145) L 01/12/17 04:14 Potassium 4.5 mmol/L (3.5-5.1) 01/12/17 04:14 Chloride 103 mmol/L (98-107) 01/12/17 04:14 Carbon Dioxide 18 mmol/L (22-30) L 01/12/17 04:14 Anion Gap 9 mmol/L 01/12/17 04:14 BUN 30 mg/dL (7-17) H 01/12/17 04:14 Creatinine 0.60 mg/dL (0.52-1.04) 01/12/17 04:14 Est GFR (MDRD) Af Amer >60 (>60 ml/min/1.73 sqM) 01/12/17 04:14 Est GFR (MDRD) Non-Af >60 (>60 ml/min/1.73 sqM) 01/12/17 04:14 Glucose 174 mg/dL (74-99) H 01/12/17 04:14 POC Glucose (mg/dL) 149 mg/dL (75-99) H 01/12/17 12:16 POC [employer] Manager ID Alyssa Yee 01/12/17 12:16 Plasma Lactic Acid Gregg 1.6 mmol/L (0.7-2.0) 01/09/17 22:00 Uric Acid 2.4 mg/dL (3.7-7.4) L 01/10/17 19:26 Calcium 7.5 mg/dL (8.4-10.2) L 01/12/17 04:14 Ionized Calcium Ronan 4.1 mg/dL (4.5-5.3) L 01/10/17 04:24 Phosphorus 2.5 mg/dL (2.5-4.5) 01/12/17 04:14 Magnesium 2.5 mg/dL (1.6-2.3) H 01/12/17 04:14 Total Bilirubin 0.7 mg/dL (0.2-1.3) 01/12/17 04:14 AST 15 U/L (14-36) 01/12/17 04:14 ALT 28 U/L (9-52) 01/12/17 04:14 Alkaline Phosphatase 115 U/L (38-126) 01/12/17 04:14 Lactate Dehydrogenase 556 U/L (313-618) 01/10/17 04:24 Total Creatine Kinase 31 U/L (30-135) 01/10/17 04:24 CK-MB (CK-2) 0.8 ng/mL (0.0-2.4) 01/10/17 04:24 CK-MB (CK-2) Rel Index 2.6 01/10/17 04:24 Troponin I 0.148 ng/mL (0.000-0.034) H* 01/10/17 04:24 C-Reactive Protein 405.9 mg/L (<10.0) H 01/10/17 19:26 Total Protein 4.7 g/dL (6.3-8.2) L 01/12/17 04:14 Albumin 2.1 g/dL (3.5-5.0) L 01/12/17 04:14 Triglycerides 99 mg/dL (<150) 01/10/17 04:24 Cholesterol <50 mg/dL (<200) 01/10/17 04:24 LDL Cholesterol, Calc 18 mg/dL (0-99) 01/10/17 04:24 HDL Cholesterol 12 mg/dL (40-60) L 01/10/17 04:24 Amylase <30 U/L (30-110) L 01/09/17 16:15 Lipase 10 U/L (23-300) L 01/09/17 16:15 Urine Color Yellow 01/09/17 17:00 Urine Appearance Clear (Clear) 01/09/17 17:00 Urine pH 6.0 (5.0-8.0) 01/09/17 17:00 Ur Specific Rena Lara 1.012 (1.001-1.035) 01/09/17 17:00 Urine Protein Trace (Negative) H 01/09/17 17:00 Urine Glucose (UA) Negative (Negative) 01/09/17 17:00 Urine Ketones Trace (Negative) H 01/09/17 17:00 Urine Blood Trace (Negative) H 01/09/17 17:00 Urine Nitrite Negative (Negative) 01/09/17 17:00 Urine Bilirubin Negative (Negative) 01/09/17 17:00 Urine Urobilinogen <2.0 mg/dL (<2.0) 01/09/17 17:00 Ur Leukocyte Esterase Negative (Negative) 01/09/17 17:00 Urine RBC 2 /hpf (0-5) 01/09/17 17:00 Urine WBC 8 /hpf (0-5) H 01/09/17 17:00 Urine Bacteria Occasional /hpf (None) H 01/09/17 17:00 Urine Mucus Rare /hpf (None) H 01/09/17 17:00 Urine HCG, Qual Not Detected (Not Detectd) 01/09/17 17:00 Stool Occult Blood Positive (Negative) H 01/09/17 17:50 IgG 522.0 mg/dL (700.0-1600.0) L 01/10/17 04:24 IgA 130.0 mg/dL (60.0-350.0) 01/10/17 04:24 IgM 151.0 mg/dL (40.0-280.0) 01/10/17 04:24 IgE 76.70 IU/mL (0.00-114.00) 01/10/17 04:24 Rheumatoid Factor 18 IU/mL (<12) H 01/10/17 19:26 Complement C3 61 mg/dL (88-165) L 01/10/17 19:26 Complement C4 10 mg/dL (14-44) L 01/10/17 19:26 Hep Bs Antigen Negative 01/10/17 19:26 Hep C IgG Ab Negative (Negative) 01/10/17 19:26 Blood Type B Positive 01/09/17 16:15 Blood Type Confirm B Positive 01/09/17 18:30 Blood Type Recheck B Pos 01/10/17 04:24 Antibody Screen POSITIVE 01/09/17 16:15 Antibody Identification Non-Specific Reaction 01/09/17 16:15 Direct Antiglob Test Negative 01/09/17 16:15 Crossmatch See Detail 01/09/17 19:30 Transfuse Platelets 01/09/2017 01/09/17 23:15 Tx Rx Implicated Unit 1 [id number] 01/10/17 04:24 Reaction Clerical Check Pass 01/10/17 04:24 Pre-Trans Blood Type B Positive 01/10/17 04:24 Pre-Trans Spec Appearnc Negative 01/10/17 04:24 Pre-Trans VIV IgG Negative 01/10/17 04:24 Pre-Trans VIV Poly Negative 01/10/17 04:24 Post-Trans Blood Type B Positive 01/10/17 04:24 Post-Trans Spec Appear Negative 01/10/17 04:24 Post-Trans VIV IgG Negative 01/10/17 04:24 Post-Trans VIV Poly Negative 01/10/17 04:24 Reaction Pathol Review See result comment 01/10/17 04:24 Spec Expiration Date 01/12/2017 - 2330 01/09/17 19:30 Microbiology 01/11/17 05:00 Blood Blood Culture Gram Stain - Preliminary 01/11/17 05:00 Blood Blood Culture - Preliminary Gram Neg Bacilli 01/11/17 04:11 Blood Blood Culture Gram Stain - Preliminary 01/11/17 04:11 Blood Blood Culture - Preliminary Gram Neg Bacilli 01/09/17 17:00 Urine,Voided Urine Culture - Final Klebsiella pneumoniae 01/09/17 22:31 Blood Blood Culture - Preliminary No Growth after 48 hours 01/09/17 22:00 Blood Blood Culture - Preliminary No Growth after 48 hours 01/09/17 22:31 Blood Blood Culture Gram Stain - Final 01/09/17 22:31 Blood Blood Culture - Final Klebsiella pneumoniae 01/09/17 22:00 Blood Blood Culture Gram Stain - Final 01/09/17 22:00 Blood Blood Culture - Final Klebsiella pneumoniae 01/10/17 17:15 Urine,Voided Urine Culture - Preliminary Gram Neg Bacilli 01/11/17 05:00 Blood Blood Culture - Preliminary 01/11/17 04:11 Blood Blood Culture - Preliminary 01/10/17 12:29 Stool Stool for WBCs - Final 01/10/17 12:29 Stool Stool Culture - Preliminary Assessment and Plan (1) Gram negative sepsis Narrative/Plan: 26-year-old female presents to Hospital from home with concerns over blood per rectum and clots. Recently has had endoscopy with evidence of some chronic colitis. Patient became quite ill and developed some generalized pain. Developed significant hypotension. Was concerns to gastric intestinal bleed and received packed red cells as well as platelets. Has now been found to have evidence of the gram-negative sepsis from the obstructive uropathy. She has had intervention and double-J catheters been placed the patient is now considerably improved. She however still is having some bacteremia at this time. Follow up blood culture requested, because the secondary blood cultures were still positive. Laboratories no verified the klebsiella pneumoniae is a gram-negative bacilli from both the blood in the urine. With marked clinical improvement would expect that her bacteremia is cleared. Fortunately there will be several options for her at the time of discharge Go this point in time will be to decrease her steroid dose will be changed every 12 hours at this time. Hemoglobin is stable at 9.2. The leukocytosis is improving, and thrombocytopenia is also improving. At this time the thrombocytopenia appears to be due to her underlying sepsis and should start to further improve as her sepsis is being treated. She is not hypotensive and not requiring vasopressors. She has developed no other acute complications. No evidence of any renal failure. And her gastrointestinal bleeding has completely resolved. Status: Acute (2) Hydronephrosis with urinary obstruction due to ureteral calculus Status: Acute (3) Thrombocytopenia Status: Acute
[2017-01-12 17:24] LABS: Glucose,Whole Blood 138 mg/dL (75-99)
--- NOTE | 2017-01-12 18:37 | PN ---
CHIEF COMPLAINT: Ulcerative colitis with pancytopenia. HISTORY OF PRESENT ILLNESS: This lady is doing reasonably well. She is a little bit more alert and she has had some dark bloody stools, but they are much less frequent. Pain is under good control. Stent was placed in the right ureter. PHYSICAL EXAMINATION: She remains pale. Chest is clear. The cardiac is normal. Abdomen is soft and little bit protuberant, but she is slightly tender throughout. IMPRESSION: 1. Ulcerative colitis. 2. Obstructive right ureteropathy. 3. Pancytopenia. 4. Septicemia (Escherichia coli). PLAN: 1. Continue with IV fluids. 2. Continue drain to the right kidney. 3. IV antibiotics. 4. Steroids in hopes of controlling her colitis.
[2017-01-12 21:34] LABS: Glucose,Whole Blood 188 mg/dL (75-99)
[2017-01-13] MEDS: HYDROmorphone 1 MG/ML 1 ML SYRINGE IVP PRN ×4 (00:03→20:54)
[2017-01-13 04:33] LABS: Complement Total (CH50) 92 CAE (54-144)
[2017-01-13 04:41] LABS: Cardiolipin Ab IgG <9.0 GPL (<15); Cardiolipin Ab IgM 11.9 MPL (<12.5)
--- NOTE | 2017-01-13 05:41 | P.PN ---
Subjective The patient is a 26-year old female who was admitted with picture of sepsis and GI bleeding. Was found to have Gram negative bacilli in her blood and has underwent cystoscopy with double J catheter placement for relief of right sided obstruction with a renal calculus and hydronephrosis. Purulent urine proximal to obstruction is growing Gram negative bacilli as well. Patient is on antibiotics and has made significant progress over last 24 hours. I have seen the patient in the office for diarrhea of 1 month duration that started after receiving antibiotics for pneumonia. Her C. difficile was negative and by the time I saw her she has not responded to additional antibiotic course and to prednisone. I performed a colonoscopy with biopsies January 06 and that showed non-specific proctitis with normal colon and TI endoscopically. Biopsies showed microscopic chronic active colitis. The patient had rectal bleeding this admission with profound anemia and thrombocytopenia. Patient is not having significant abdominal pains, diarrhea or bleeding. Objective - Vital Signs Vital signs: Vital Signs Temp 97.9 F 01/11/17 12:00 Pulse 90 01/11/17 19:00 Resp 19 01/11/17 19:00 BP 116/72 01/11/17 19:00 Pulse Ox 96 01/11/17 19:00 Intake & Output 01/11/17 01/11/17 01/12/17 06:59 18:59 06:59 Intake Total 1400.0 1600 100 Output Total 805 495 Balance 595.0 1105 100 Weight 58.8 kg 58.8 kg Intake: IV 1400.0 1550 100 0.9 NACL 150 Piperacillin-Tazobactam 3 50.0 50 .375 gm In Dextrose/Water 1 50ml.bag @ 12.5 mls/hr IVPB Q8HR [facility] Rx#: [id number] Potassium Chloride 10 meq 200 Lidocaine 2% Inj 10 mg In Sodium Chloride 0.9% 100 ml @ 100 mls/hr IV Q1HR [facility] Rx#:[id number] Sodium Chloride 0.9% 1, 600 1300 100 000 ml @ 100 mls/hr IV . Q10H [facility] Rx#:[id number] Sodium Chloride 0.9% 1, 600 000 ml @ 150 mls/hr IV . Q6H40M [facility] Rx#:[id number] Intake, IV Titration 50 Amount Piperacillin-Tazobactam 3 50 .375 gm In Dextrose/Water 1 50ml.bag @ 12.5 mls/hr IVPB Q8HR [facility] Rx#: [id number] Output: Urine 805 495 Other: Voiding Method Indwelling Catheter Toilet # Voids 1 # Bowel Movements 1 1 1 - Exam General: Appeared stated age, sitting by the bedside in NAD Head and neck: Normocephalic and atraumatic, conjunctivae pink and sclerae not icteric. No masses in the neck or tracheal shifts. No adenopathy or thyroimegaly Lungs: Clear to auscultation with no dullness to percussion Heart: Regular with no abnormal sounds, murmurs, gallops or friction rubs Abdomen: Soft, no masses, organomegalies or tenderness, BS positive Extremities: No clubbing, cyanosis or edema Neurologic: Alert and oriented X3. Cranial nerves grossly intact. No gross sensory or motor abnormalities - Labs CBC & Chem 7: 01/12/17 04:14 01/12/17 04:14 Labs: Abnormal Lab Results - Last 24 Hours (Table) 01/10/17 01/10/17 01/10/17 Range/Units 04:24 04:24 19:26 WBC (3.8-10.6) k/uL RBC (3.80-5.40) m/uL Hgb (11.4-16.0) gm/dL Hct (34.0-46.0) % RDW (11.5-15.5) % Plt Count (150-450) k/uL Neutrophils # (1.3-7.7) k/uL Haptoglobin 239.0 H (31.2-198.0) mg/dL Carbon Dioxide (22-30) mmol/L BUN (7-17) mg/dL Glucose (74-99) mg/dL Uric Acid 2.4 L (3.7-7.4) mg/dL Calcium (8.4-10.2) mg/dL Magnesium (1.6-2.3) mg/dL C-Reactive Protein 405.9 H (<10.0) mg/L IgG 522.0 L (700.0-1600.0) mg/dL Rheumatoid Factor 18 H (<12) IU/mL Complement C3 61 L (88-165) mg/dL Complement C4 10 L (14-44) mg/dL 01/11/17 01/11/17 Range/Units 04:11 04:11 WBC 20.4 H (3.8-10.6) k/uL RBC 3.03 L (3.80-5.40) m/uL Hgb 9.2 L (11.4-16.0) gm/dL Hct 29.1 L (34.0-46.0) % RDW 16.2 H (11.5-15.5) % Plt Count 39 L* (150-450) k/uL Neutrophils # 18.5 H (1.3-7.7) k/uL Haptoglobin (31.2-198.0) mg/dL Carbon Dioxide 21 L (22-30) mmol/L BUN 34 H (7-17) mg/dL Glucose 119 H (74-99) mg/dL Uric Acid (3.7-7.4) mg/dL Calcium 7.0 L (8.4-10.2) mg/dL Magnesium 2.9 H (1.6-2.3) mg/dL C-Reactive Protein (<10.0) mg/L IgG (700.0-1600.0) mg/dL Rheumatoid Factor (<12) IU/mL Complement C3 (88-165) mg/dL Complement C4 (14-44) mg/dL Microbiology - Last 24 Hours (Table) 01/09/17 22:31 Blood Culture Gram Stain - Final Blood Blood Culture - Final Klebsiella pneumoniae 01/09/17 22:00 Blood Culture Gram Stain - Final Blood Blood Culture - Final Klebsiella pneumoniae 01/10/17 17:15 Urine Culture - Preliminary Urine,Voided Gram Neg Bacilli 01/11/17 04:11 Blood Culture Gram Stain - Preliminary Blood 01/11/17 05:00 Blood Culture Gram Stain - Preliminary Blood 01/11/17 05:00 Blood Culture - Preliminary Blood 01/11/17 04:11 Blood Culture - Preliminary Blood 01/10/17 12:29 Stool for WBCs - Final Stool 01/09/17 22:31 Blood Culture - Preliminary Blood No Growth after 24 hours 01/09/17 22:00 Blood Culture - Preliminary Blood No Growth after 24 hours Assessment and Plan Plan: 26-year old female with urosepsis responding to current therapy. Recent colonoscopy did not show significant findings to suggest UC or Crohn's disease. Steroids will not be required for long-term treatment of any bowel issues she may have . I will discuss with you and continue to follow.
[2017-01-13 06:02] LABS: Basophils % (A) 0 %; CH 29.9; CHCM 31.9; Eosinophils % (A) 0 %; HCT 30.1 % (34.0-46.0); HDW 2.67; HGB 9.8 gm/dL (11.4-16.0); Luc # (Auto) 0.15; Luc % (Auto) 1; Lymphocytes # (A) 1.1 k/uL (1.0-4.8); Lymphocytes % (A) 7 %; MCH 30.6 pg (25.0-35.0); MCHC 32.4 g/dL (31.0-37.0); MCV 94.4 fL (80.0-100.0); Mean Platelet Volume 10.3; Monocytes # (A) 0.6 k/uL (0-1.0); Monocytes % (A) 4 %; Neutrophils # (A) 13.5 k/uL (1.3-7.7); Neutrophils % (A) 88 %; RBC 3.19 m/uL (3.80-5.40); RDW 15.2 % (11.5-15.5); WBC 15.4 k/uL (3.8-10.6)
[2017-01-13] MEDS: methylPREDNISolone SOD SUCCI 125 MG/2 ML VIAL IV SCH (06:03)
[2017-01-13 06:16] LABS: Anion Gap 8 mmol/L; Blood Urea Nitrogen 29 mg/dL (7-17); Calcium 7.6 mg/dL (8.4-10.2); Carbon Dioxide 24 mmol/L (22-30); Chloride 102 mmol/L (98-107); Glucose 118 mg/dL (74-99); Magnesium 1.9 mg/dL (1.6-2.3); Non-African American GFR(MDRD) >60 (>60 ml/min/1.73 sqM); Phosphorous 3.3 mg/dL (2.5-4.5); Potassium 3.7 mmol/L (3.5-5.1); Sodium 134 mmol/L (137-145)
[2017-01-13 07:22] LABS: Glucose,Whole Blood 104 mg/dL (75-99)
--- NOTE | 2017-01-13 08:35 | P.PN ---
Subjective Principal diagnosis: Sepsis history of colitis 26-year-old female admitted with sepsis secondary to obstructive uropathy status post cystoscopy with double-J catheter insertion. Positive gram- negative bacilli blood cultures receiving intravenous antibiotics. She has a history of colitis status post colonoscopy 1 week ago; biopsies consistent with features of chronic colitis. Passing loose brown bowel movements. IV steroids tapered yesterday. Afebrile. Minimal abdominal discomfort. Tolerating advance diet. Objective - Vital Signs Vital signs: Vital Signs Temp 97.3 F L 01/13/17 04:00 Pulse 72 01/13/17 04:00 Resp 18 01/13/17 04:00 BP 118/64 01/13/17 04:00 Pulse Ox 97 01/13/17 04:00 Intake & Output 01/12/17 01/13/17 01/13/17 18:59 06:59 18:59 Intake Total 710 1200 Output Total 2575 1300 Balance -1865 -100 Weight 64.8 kg 64.8 kg Intake: IV 310 Piperacillin-Tazobactam 3 50 .375 gm In Dextrose/Water 1 50ml.bag @ 12.5 mls/hr IVPB Q8HR [facility] Rx#: [id number] Sodium Chloride 0.9% 1, 260 000 ml @ 20 mls/hr IV . Q24H [facility] Rx#:[id number] Oral 400 1200 Output: Urine 2575 800 Stool 500 Other: Voiding Method Toilet Toilet # Voids 1 # Bowel Movements 1 - Exam General appearance: The patient is alert, oriented, in no acute distress. HET: Head is normocephalic and atraumatic. Pupils are equal and reactive. Oropharynx is clear without lesions. Neck: Supple without lymphadenopathy. Trachea midline. Heart: S1 S2. Regular rate and rhythm. Lungs: No crackles or wheezes are heard. Abdomen: Soft, mild midabdominal tenderness, nondistended with bowel sounds. No peritoneal signs. No palpable organomegaly or masses. Extremities: Normal skin color and turgor. No cyanosis, rash, ulceration, clubbing, or edema. Radial and pedal pulses are 2/4 bilaterally. Neurological: No focal deficits. Strength and sensation are grossly intact. - Labs CBC & Chem 7: 01/13/17 05:39 01/13/17 05:39 Labs: Abnormal Lab Results - Last 24 Hours (Table) 01/12/17 01/12/17 01/12/17 Range/Units 12:16 17:21 21:24 WBC (3.8-10.6) k/uL RBC (3.80-5.40) m/uL Hgb (11.4-16.0) gm/dL Hct (34.0-46.0) % Plt Count (150-450) k/uL Neutrophils # (1.3-7.7) k/uL Sodium (137-145) mmol/L BUN (7-17) mg/dL Glucose (74-99) mg/dL POC Glucose (mg/dL) 149 H 138 H 188 H (75-99) mg/dL Calcium (8.4-10.2) mg/dL 01/13/17 01/13/17 01/13/17 Range/Units 05:39 05:39 07:15 WBC 15.4 H (3.8-10.6) k/uL RBC 3.19 L (3.80-5.40) m/uL Hgb 9.8 L (11.4-16.0) gm/dL Hct 30.1 L (34.0-46.0) % Plt Count 46 L* (150-450) k/uL Neutrophils # 13.5 H (1.3-7.7) k/uL Sodium 134 L (137-145) mmol/L BUN 29 H (7-17) mg/dL Glucose 118 H (74-99) mg/dL POC Glucose (mg/dL) 104 H (75-99) mg/dL Calcium 7.6 L (8.4-10.2) mg/dL Microbiology - Last 24 Hours (Table) 01/12/17 04:35 Blood Culture Gram Stain - Preliminary Blood Blood Culture - Preliminary Gram Neg Bacilli 01/11/17 04:11 Blood Culture Gram Stain - Final Blood Blood Culture - Final Klebsiella pneumoniae 01/09/17 22:31 Blood Culture - Preliminary Blood No Growth after 72 hours 01/09/17 22:00 Blood Culture - Preliminary Blood No Growth after 72 hours 01/12/17 04:14 Blood Culture Gram Stain - Preliminary Blood 01/12/17 04:14 Blood Culture - Preliminary Blood 01/11/17 05:00 Blood Culture Gram Stain - Final Blood Blood Culture - Final Klebsiella pneumoniae 01/10/17 17:15 Urine Culture - Final Urine,Voided Klebsiella pneumoniae 01/12/17 04:35 Blood Culture - Preliminary Blood Assessment and Plan (1) Sepsis Narrative/Plan: Secondary to obstructive uropathy Status: Acute (2) Colitis Narrative/Plan: acute on chronic colitis s/p colonoscopy 01/06/17 biopsies suggest chronicity IBD cannot be excluded. No evidence to suggest at this time presentation is a complication from recent colonoscopy. 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 Discontinue IV steroids start tomorrow oral prednisone 30 mg daily 7 days followed by 20 mg daily 7 days and 10 mg daily 7 days. Return to GI office in 1-2 weeks for reevaluation. 2. Diet as tolerated. Multiple consultants including Infectious disease following patient closely. 3. We'll follow as needed. Assessment and plan of care discussed with Dr. Antonio.
[2017-01-13] MEDS: INSULIN LISPRO (humaLOG) 300 UNIT/3 ML VIAL SQ SCH ×4 (09:01→22:04)
[2017-01-13] MEDS: PANTOPRAZOLE 40 MG/10 ML VIAL IV SCH (09:03)
[2017-01-13] MEDS: NYSTATIN 100,000 UNIT/ML SUSP 500,000 UNIT/5 ML CUP PO SCH ×4 (09:03→21:40)
[2017-01-13] MEDS: SODIUM CHLORIDE 0.9% 1,000 ML IV SCH (09:13)
[2017-01-13 11:35] LABS: Glucose,Whole Blood 202 mg/dL (75-99)
--- NOTE | 2017-01-13 12:29 | P.PN ---
Subjective 26-year-old female being seen on rounds this morning currently sitting up taking a diet. Patient reports the abdominal discomfort has significantly improved. Patient states has had a bowel movement brown color. Patients being followed by multiple consulting physicians recommendations noted appreciated and reviewed Patient reports less edema to the lower extremities after the IV Lasix given yesterday Did note the patient has been seen by Dr. Smith urology. Patient did undergo an insertion of a right ureteral stent placed on January 08. Cloudy urine drained from the right renal pelvis and was sent for urine culture. They indicated that they do not anticipate any further urologic intervention during this hospitalization. Neurology indicates a intent to perform elective right ureteroscopy with laser lithotripsy and several weeks to remove the obstructing ureteral calculus in the stent will be removed at that time. GI service Are currently tapering the steroids. Patient does have a history of colitis status post colonoscopy one week prior biopsies consistent with features of chronic colitis they're recommending discontinuing the IV steroids to start for 11 and switch to oral prednisone taper as directed follow-up in the outpatient setting in 1-2 weeks for re-eval Dr. Gaspar infectious disease participating in the plan of care blood and urine cultures are being followed antibiotics per infectious disease to be determined at the time of discharge. The white count is down to 15.4 on January 13 no other acute palpitations no evidence of renal failure and gastrointestinal bleeding has completely resolved Objective - Vital Signs Vital signs: Vital Signs Temp 97.8 F 01/13/17 08:05 Pulse 65 01/13/17 08:05 Resp 16 01/13/17 08:05 BP 118/65 01/13/17 08:05 Pulse Ox 97 01/13/17 08:05 Intake & Output 01/12/17 01/13/17 01/13/17 18:59 06:59 18:59 Intake Total 710 1200 Output Total 2575 1300 100 Balance -1865 -100 -100 Weight 64.8 kg 65.4 kg Intake: IV 310 Piperacillin-Tazobactam 3 50 .375 gm In Dextrose/Water 1 50ml.bag @ 12.5 mls/hr IVPB Q8HR [facility] Rx#: [id number] Sodium Chloride 0.9% 1, 260 000 ml @ 20 mls/hr IV . Q24H [facility] Rx#:[id number] Oral 400 1200 Output: Urine 2575 800 100 Stool 500 Other: Voiding Method Toilet Toilet # Voids 1 # Bowel Movements 1 1 - Exam Physical exam 26-year-old female sitting up taking a diet this morning tolerating it no nausea no vomiting Lungs essentially clear with adequate air movement on room air Heart S1-S2 audible and regular no murmur Abdomen flat nontender bowel tones present states had a brown stool urinating no difficulty Extremities below-knee WILDA hose on nonpitting bilateral lower extremity edema - Labs CBC & Chem 7: 01/13/17 05:39 01/13/17 05:39 Labs: Abnormal Lab Results - Last 24 Hours (Table) 01/12/17 01/12/17 01/12/17 Range/Units 12:16 17:21 21:24 WBC (3.8-10.6) k/uL RBC (3.80-5.40) m/uL Hgb (11.4-16.0) gm/dL Hct (34.0-46.0) % Plt Count (150-450) k/uL Neutrophils # (1.3-7.7) k/uL Sodium (137-145) mmol/L BUN (7-17) mg/dL Glucose (74-99) mg/dL POC Glucose (mg/dL) 149 H 138 H 188 H (75-99) mg/dL Calcium (8.4-10.2) mg/dL 01/13/17 01/13/17 01/13/17 Range/Units 05:39 05:39 07:15 WBC 15.4 H (3.8-10.6) k/uL RBC 3.19 L (3.80-5.40) m/uL Hgb 9.8 L (11.4-16.0) gm/dL Hct 30.1 L (34.0-46.0) % Plt Count 46 L* (150-450) k/uL Neutrophils # 13.5 H (1.3-7.7) k/uL Sodium 134 L (137-145) mmol/L BUN 29 H (7-17) mg/dL Glucose 118 H (74-99) mg/dL POC Glucose (mg/dL) 104 H (75-99) mg/dL Calcium 7.6 L (8.4-10.2) mg/dL 01/13/17 Range/Units 11:21 WBC (3.8-10.6) k/uL RBC (3.80-5.40) m/uL Hgb (11.4-16.0) gm/dL Hct (34.0-46.0) % Plt Count (150-450) k/uL Neutrophils # (1.3-7.7) k/uL Sodium (137-145) mmol/L BUN (7-17) mg/dL Glucose (74-99) mg/dL POC Glucose (mg/dL) 202 H (75-99) mg/dL Calcium (8.4-10.2) mg/dL Microbiology - Last 24 Hours (Table) 01/12/17 04:14 Blood Culture Gram Stain - Preliminary Blood 01/12/17 04:35 Blood Culture Gram Stain - Preliminary Blood Blood Culture - Preliminary Gram Neg Bacilli 01/11/17 04:11 Blood Culture Gram Stain - Final Blood Blood Culture - Final Klebsiella pneumoniae 01/09/17 22:31 Blood Culture - Preliminary Blood No Growth after 72 hours 01/09/17 22:00 Blood Culture - Preliminary Blood No Growth after 72 hours 01/12/17 04:14 Blood Culture - Preliminary Blood 01/11/17 05:00 Blood Culture Gram Stain - Final Blood Blood Culture - Final Klebsiella pneumoniae 01/10/17 17:15 Urine Culture - Final Urine,Voided Klebsiella pneumoniae 01/12/17 04:35 Blood Culture - Preliminary Blood Assessment and Plan Plan: Impression Present on admission sepsis tachycardic febrile hypotensive secondary to obstructive uropathy Present on admission acute blood loss anemia suspect due to GI bleed Thrombocytopenia likely secondary to consumptive thrombocytopenia secondary to sepsis acute on chronic colitis s/p colonoscopy 01/06/17 biopsies suggest chronicity. No evidence to suggest at this time presentation is a complication from recent colonoscopy. 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 Lower extremities edema due to aggressive fluid resuscitation and hypoproteinemia Plan Multiple consulting physicians participating in the plan of care recommendations noted appreciated and reviewed Continue with recommendations by consultants Monitor hemoglobin attempt keep greater than 7.5 IV Solu-Medrol 60 IV every 8 as ordered Zosyn as ordered await infectious diseases recommendations DVT and GI prophylaxis The above dictated assessment and findings were discussed with Dr. Chappell Impression and the plan of care have been dictated as directed. Shari Cabrera nurse practitioner acting as a scribe for Dr. Chappell Time with Patient: Greater than 30
[2017-01-13 13:22] LABS: Hexagonal Phase Neutralization Positive (Negative)
--- NOTE | 2017-01-13 13:52 | P.PN ---
Subjective Principal diagnosis: Acute gram-negative sepsis secondary to Klebsiella pneumonia secondary to obstructive uropathy This is a pleasant 26-year-old female patient who came into the emergency department yesterday with GI bleeding, diarrhea, hypotension, tachycardia, profound anemia and thrombocytopenia. The patient has been sick for the past 3 months. 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 This is also present in her twin sister. Nevertheless, the patient has not had any major septic complications and as such she has not received any hemoglobin replacement therapy over the years. The patient was in a good state of health until around November 2016 when she developed symptoms of pneumonia. At that point she presented to her primary care physician and she was diagnosed having a pneumonia. She was initially given a course of Biaxin for a total of 10 days and following that Cipro was added to the regimen. The patient ultimately recovered from the breathing difficulty however she developed significant gastrointestinal upset that manifest itself as bloody diarrhea and it's been going on on and off for the past 1-1/2-2 months. She was suspected to have colitis/antibiotic induced and the patient had stool for C. diff checked on several occasions including a recent evaluation that was done at [facility] and the results were apparently negative. At one point the patient was given oral vancomycin however she did not end up taking the medication. During this course of treatment, the patient developed oropharyngeal thrush and ulceration and she was given nystatin and Mycelex and a course of Diflucan which she did not take. She was seen by gastroenterology on outpatient basis and the patient had a colonoscopy done on 01/06/2017 that showed nonspecific proctitis otherwise the rest of the colon and the terminal ileum was within normal limits. Biopsies of the terminal ileum and random biopsies of the colon and the rectum was done and the pathology showed mature small bowel mucosa, acute colitis with some underlying features to suggest chronicity and acute proctitis on top of chronic changes. The patient was still started on systemic steroids and at one point she was taken prednisone 20 mg 4 times a day. The dose was subsequently tapered them prior to this current hospitalization the patient was taken 20 mg twice a day. Despite some limited improvement, the patient was not having full recovered and she was still having diarrhea and bloody mucoid bowel movement that continue to occur on a daily basis. She lost weight and order of 10-12 pounds. No reported fever or chills. There is development of arthritis and some swelling in ankles bilaterally. The patient has also developed some lower extremity edema. No changes consistent with erythema nodosum or pyoderma gangrenosum yet there is some no other lesions/papules over the face and upper and lower extremities bilaterally. No open wounds or sores or ulcerations. Over the past 24 hours, the patient's condition deteriorated. The patient started developing crampy abdominal pain along with her diarrhea and for that reason she presented to the hospital. In the ED, the patient a CAT scan of the abdomen that showed evidence of colitis. At the same time there was a calculus in the proximal right ureter with obstruction of the right collecting system and the right-sided hydronephrosis. No free air within the abdomen. The urinalysis showed no evidence of pyuria. There was some minimal bacteria seen. The patient is not known to have nephrolithiasis although breath sounds in her family and has twin sisters has kidney stones. Over the past 12 hours, the patient was suspected aggressively knowing that she was quite tachycardic and hypotensive. She was given more than 3 L of IV fluid. She received a total of 3 units of packed RBC. This was a nonmatched blood transfusion and she developed a low-grade fever which ultimately resolved with IV Tylenol. She also received 2 units of platelets knowing that the patient is considerably low and the patient was bleeding. Her hemoglobin was 7.0 on admission and subsequently improved and came up to 9.2. Platelet counts were low as 24,000. PT PT/INR was within normal limits. Lactic acid level was not elevated. No metabolic acidosis. She had mild hypo-calcemic which got replaced. The LDH and bilirubin are both elevated yet the peripheral smear did not show any evidence of schistocytes. Blood cultures were sent and later on during the day we learned the patient has gram-negative bacilli in his blood. I've already started the patient on IV Zosyn as an empiric antibiotic coverage and this was given to her yesterday. No pressors was utilized during this current ICU stay. Mental status is preserved and the patient is awake and alert and following commands and answering questions. Chest x-ray from today shows no evidence of any pneumonia. The patient is requiring oxygen somewhere between 3-5 L nasal cannula. No cough. No sputum production. No chest tightness. No wheezing. On 01/11/2017, the patient is being seen in follow-up. It has been significant improvement in her overall condition. She is less tachycardic. Blood pressure is normalized. She is producing adequate amount of urine output. She was taken to the operating room with a J stent was inserted into the right urinary system and the right hydronephrosis was released. The urine that was taken intraoperatively was cloudy and seemed to be infected. The samples were sent for cultures and results are still pending. Meanwhile the initial urine culture to be collected on this patient to not to be gram-negative bacilli positive and furthermore 3 sets of blood cultures were positive for gram- negative bacilli. The patient is on IV Zosyn. She is doing very well. She has no fever. Infectious disease saw the patient and the IV Zosyn was continued and no further antibiotic adjustments were done. Platelet counts are improving and it up to 39,000. The white cell count is up to 20,000 which is a appropriate reaction for sepsis. The patient's rest of the workup is still pending including the hemoglobin levels. Rheumatology also saw the patient and they've ordered a bunch of blood work as part of the routine. No change in mental status. The joint aches and pains are also improved. No active diarrhea at this point and the hemoglobin is stable. The abdominal discomfort has improved significantly with minimal amount of tenderness upon examination today. On 01/12/2017, the patient is doing well. No hypotension. No tachycardia. No signs of septicemia. No fever. The blood cultures still showing gram-negative bacilli from 01/11/2017 and I discussed this with infectious disease specialist and this is quite expected. The anticipate the patient clearing of bacteremia over the next day or so. Meanwhile the antibiotic has been switched IV Rocephin. The urine or blood culture was positive for Klebsiella pneumoniae that was sensitive to various antibiotics. The patient is not having much of lower GI bleed. The patient had a loose watery bowel movement yesterday that was nonbloody. Abdominal tenderness is improving slowly. No nausea. No vomiting. She is getting some increased edema in lower extremities bilaterally and for that reason I kept on IV fluids to 20 mL an hour and give her a dose of Lasix. This will be a good start to keep this patient and negative fluid balance. On 01/13/2017, patient is doing quite well, relatively asymptomatic, she is hemodynamically stable, no fever, no chills, remains on antibiotics as per infectious disease for her Klebsiella pneumonia urinary tract infection and bacteremia. CBC continues to show leukocytosis, platelets are down to 46,000, basic metabolic profile is normal. WBC count is 15.4. Clinically the patient is doing quite well. Objective - Vital Signs Vital signs: Vital Signs Temp 98.1 F 01/13/17 12:40 Pulse 89 01/13/17 12:40 Resp 18 01/13/17 12:40 BP 112/73 01/13/17 12:40 Pulse Ox 97 01/13/17 12:40 Intake & Output 01/12/17 01/13/17 01/13/17 18:59 06:59 18:59 Intake Total 710 1200 600 Output Total 2575 1300 300 Balance -1865 -100 300 Weight 64.8 kg 65.4 kg Intake: IV 310 Piperacillin-Tazobactam 3 50 .375 gm In Dextrose/Water 1 50ml.bag @ 12.5 mls/hr IVPB Q8HR [facility] Rx#: [id number] Sodium Chloride 0.9% 1, 260 000 ml @ 20 mls/hr IV . Q24H [facility] Rx#:[id number] Oral 400 1200 600 Output: Urine 2575 800 300 Stool 500 Other: Voiding Method Toilet Toilet # Voids 1 # Bowel Movements 1 1 - Exam Head exam was generally normal. There was no scleral icterus or corneal arcus. Mucous membranes were moist.Neck was supple and without jugular venous distension, thyromegaly, or carotid bruits. Carotids were easily palpable bilaterally. There was no adenopathy. Lung sounds are diminished bilaterally. No wheezes or rhonchi early crackles.Cardiac exam revealed the PMI to be normally situated and sized. The rhythm was regular and no extrasystoles were noted during several minutes of auscultation. The first and second heart sounds were normal and physiologic splitting of the second heart sound was noted. There were no murmurs, rubs, clicks, or gallops. Abdomen is less tender compared to yesterday. There is minimal direct tenderness. No rebound tenderness or guarding.. No rebound tenderness. No guarding. Bowel sounds are hypoactive at the present.Examination of the extremities revealed easily palpable radial, femoral and pedal pulses. There was no cyanosis, clubbing or edema. Examination of the skin sows very tiny approximately 5 mm a 6 mm lesion scattered throughout the forehead upper and lower extremities. Minimally erythematous. No ulceration. No drainage. Neurologically the patient is awake and alert. - Labs CBC & Chem 7: 01/13/17 05:39 01/13/17 05:39 Labs: Abnormal Lab Results - Last 24 Hours (Table) 01/12/17 01/12/17 01/13/17 Range/Units 17:21 21:24 05:39 WBC (3.8-10.6) k/uL RBC (3.80-5.40) m/uL Hgb (11.4-16.0) gm/dL Hct (34.0-46.0) % Plt Count (150-450) k/uL Neutrophils # (1.3-7.7) k/uL Sodium 134 L (137-145) mmol/L BUN 29 H (7-17) mg/dL Glucose 118 H (74-99) mg/dL POC Glucose (mg/dL) 138 H 188 H (75-99) mg/dL Calcium 7.6 L (8.4-10.2) mg/dL 01/13/17 01/13/17 01/13/17 Range/Units 05:39 07:15 11:21 WBC 15.4 H (3.8-10.6) k/uL RBC 3.19 L (3.80-5.40) m/uL Hgb 9.8 L (11.4-16.0) gm/dL Hct 30.1 L (34.0-46.0) % Plt Count 46 L* (150-450) k/uL Neutrophils # 13.5 H (1.3-7.7) k/uL Sodium (137-145) mmol/L BUN (7-17) mg/dL Glucose (74-99) mg/dL POC Glucose (mg/dL) 104 H 202 H (75-99) mg/dL Calcium (8.4-10.2) mg/dL Microbiology - Last 24 Hours (Table) 01/09/17 22:31 Blood Culture - Final Blood 01/09/17 22:00 Blood Culture - Final Blood 01/12/17 04:14 Blood Culture - Final Blood 01/12/17 04:35 Blood Culture - Final Blood 01/11/17 04:11 Blood Culture - Final Blood 01/12/17 04:14 Blood Culture Gram Stain - Preliminary Blood 01/12/17 04:35 Blood Culture Gram Stain - Preliminary Blood Blood Culture - Preliminary Gram Neg Bacilli 01/11/17 04:11 Blood Culture Gram Stain - Final Blood Blood Culture - Final Klebsiella pneumoniae 01/11/17 05:00 Blood Culture Gram Stain - Final Blood Blood Culture - Final Klebsiella pneumoniae 01/10/17 17:15 Urine Culture - Final Urine,Voided Klebsiella pneumoniae Assessment and Plan Plan: 1 acute gram-negative septicemia. The patient has Klebsiella pneumoniae growing in her urine and the blood. The source of sepsis is most likely urinary in nature and the patient had a J stent inserted and the right-sided hydronephrosis was released. The patient remains on IV Rocephin. Hemodynamically stable. Afebrile. Tachycardia has recovered. 2 acute/subacute proctocolitis, possible subacute inflammatory bowel disease 3 right hydronephrosis with an obstructive calculus involving the ureter, status post J stent insertion with relieving of the hydronephrosis. 4 thrombocytopenia, currently under investigation, it is most likely secondary to consumptive thrombocytopenia secondary to sepsis and the platelet counts are improving. 5 anemia, status post transfusion with 3 units of packed RBCs 6 acute hypoxemia, sepsis induced and the patient has a normal chest x-ray, improving and the patient is currently down to 2 L 7 IgG deficiency, her most recent IgG level is at 522 which is essentially acceptable is not underlying septic status. No IgE M or IgA deficiency. 8 oral ulcers/thrush, recovering 9 reactive arthralgias, improving 10 Lower extremities edema due to aggressive fluid resuscitation and hypoproteinemia 11 hypoproteinemia secondary to sepsis. Recommendation: Continue present treatment plan, patient is doing well clinically, antibiotics and length of treatment as per infectious disease on the case, will follow on when necessary basis. Time with Patient: Less than 30
[2017-01-13 14:35] LABS: Free Kappa Lt Chain Qnt, Serum 3.28 mg/dL (0.33 - 1.94); Kappa/Lambda Light Chain Ratio 1.14 (0.26 - 1.65)
[2017-01-13 14:56] LABS: Scleroderma 70 Antibody 3 UNITS (<20)
[2017-01-13 15:01] LABS: C-ANCA <1:20 Titer (<1:20); P-ANCA <1:20 Titer (<1:20)
[2017-01-13 15:04] LABS: Hemoglobin A1C 5.8 % (4.2-6.1)
--- NOTE | 2017-01-13 16:46 | P.PN ---
Subjective Principal diagnosis: GI bleed The patient states that her abdominal pain has improved. She is also had no further rectal bleeding. Objective - Vital Signs Vital signs: Vital Signs Temp 98.7 F 01/13/17 15:37 Pulse 79 01/13/17 15:37 Resp 20 01/13/17 15:37 BP 119/67 01/13/17 15:37 Pulse Ox 97 01/13/17 15:37 Intake & Output 01/12/17 01/13/17 01/13/17 18:59 06:59 18:59 Intake Total 710 1200 600 Output Total 2575 1300 950 Balance -1865 -100 -350 Weight 64.8 kg 65.4 kg Intake: IV 310 Piperacillin-Tazobactam 3 50 .375 gm In Dextrose/Water 1 50ml.bag @ 12.5 mls/hr IVPB Q8HR [facility] Rx#: [id number] Sodium Chloride 0.9% 1, 260 000 ml @ 20 mls/hr IV . Q24H [facility] Rx#:[id number] Oral 400 1200 600 Output: Urine 2575 800 450 Stool 500 500 Other: Voiding Method Toilet Toilet Toilet # Voids 1 # Bowel Movements 1 1 - Constitutional General appearance: Present: average body habitus, cooperative - Cardiovascular Rhythm: regular - Gastrointestinal Gastrointestinal Comment(s): Abdomen soft. There is no significant tenderness. There is no rebound or guarding. - Labs CBC & Chem 7: 01/13/17 05:39 01/13/17 05:39 Labs: Abnormal Lab Results - Last 24 Hours (Table) 01/10/17 01/12/17 01/12/17 Range/Units 19:26 17:21 21:24 WBC (3.8-10.6) k/uL RBC (3.80-5.40) m/uL Hgb (11.4-16.0) gm/dL Hct (34.0-46.0) % Plt Count (150-450) k/uL Neutrophils # (1.3-7.7) k/uL Lupus Anticoag aPTT 49 H (<43) Sec(s) Lupus Anticoag PTT Mix 49 H (<43) Sec(s) Dil [place] Viper Venom 60 H (<44) Sec(s) dRVVT 50:50 48 H (<44) Sec(s) Lupus Hexagonal Phase Positive H (Negative) Sodium (137-145) mmol/L BUN (7-17) mg/dL Glucose (74-99) mg/dL POC Glucose (mg/dL) 138 H 188 H (75-99) mg/dL Calcium (8.4-10.2) mg/dL Free [place] LC, Quant 3.28 H (0.33 - 1.94) mg/dL Free [place] LC, Quant 2.87 H (0.57 - 2.63) mg/dL 01/13/17 01/13/17 01/13/17 Range/Units 05:39 05:39 07:15 WBC 15.4 H (3.8-10.6) k/uL RBC 3.19 L (3.80-5.40) m/uL Hgb 9.8 L (11.4-16.0) gm/dL Hct 30.1 L (34.0-46.0) % Plt Count 46 L* (150-450) k/uL Neutrophils # 13.5 H (1.3-7.7) k/uL Lupus Anticoag aPTT (<43) Sec(s) Lupus Anticoag PTT Mix (<43) Sec(s) Dil Dominick Viper Venom (<44) Sec(s) dRVVT 50:50 (<44) Sec(s) Lupus Hexagonal Phase (Negative) Sodium 134 L (137-145) mmol/L BUN 29 H (7-17) mg/dL Glucose 118 H (74-99) mg/dL POC Glucose (mg/dL) 104 H (75-99) mg/dL Calcium 7.6 L (8.4-10.2) mg/dL Free [place] LC, Quant (0.33 - 1.94) mg/dL Free [place] LC, Quant (0.57 - 2.63) mg/dL 01/13/17 Range/Units 11:21 WBC (3.8-10.6) k/uL RBC (3.80-5.40) m/uL Hgb (11.4-16.0) gm/dL Hct (34.0-46.0) % Plt Count (150-450) k/uL Neutrophils # (1.3-7.7) k/uL Lupus Anticoag aPTT (<43) Sec(s) Lupus Anticoag PTT Mix (<43) Sec(s) Dil Dominick Viper Venom (<44) Sec(s) dRVVT 50:50 (<44) Sec(s) Lupus Hexagonal Phase (Negative) Sodium (137-145) mmol/L BUN (7-17) mg/dL Glucose (74-99) mg/dL POC Glucose (mg/dL) 202 H (75-99) mg/dL Calcium (8.4-10.2) mg/dL Free [place] LC, Quant (0.33 - 1.94) mg/dL Free [place]ambda LC, Quant (0.57 - 2.63) mg/dL Microbiology - Last 24 Hours (Table) 01/09/17 22:31 Blood Culture - Final Blood 01/09/17 22:00 Blood Culture - Final Blood 01/12/17 04:14 Blood Culture - Final Blood 01/12/17 04:35 Blood Culture - Final Blood 01/11/17 04:11 Blood Culture - Final Blood 01/12/17 04:14 Blood Culture Gram Stain - Preliminary Blood 01/12/17 04:35 Blood Culture Gram Stain - Preliminary Blood Blood Culture - Preliminary Gram Neg Bacilli 01/11/17 04:11 Blood Culture Gram Stain - Final Blood Blood Culture - Final Klebsiella pneumoniae 01/11/17 05:00 Blood Culture Gram Stain - Final Blood Blood Culture - Final Klebsiella pneumoniae 01/10/17 17:15 Urine Culture - Final Urine,Voided Klebsiella pneumoniae Assessment and Plan Plan: 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 Patient is being managed conservatively. We' ll remain on surgical standby.
[2017-01-13 17:44] LABS: Glucose,Whole Blood 135 mg/dL (75-99)
[2017-01-13] MEDS ORDERED: LIDOCAINE 1% INJ 10MG/ML (20 ML MDV) ONE (19:44)
[2017-01-13] MEDS: cefTRIAXone 2,000 MG in SODIUM CHLORIDE 0.9% 100 ML IVPB SCH (20:25)
[2017-01-13] MEDS: FUROSEMIDE 10 MG/ML 4 ML VIAL IV SCH (20:25)
[2017-01-13 20:59] LABS: Glucose,Whole Blood 75 mg/dL (75-99)
--- NOTE | 2017-01-13 21:30 | PN ---
DATE OF SERVICE: 01/12/2017 CHIEF COMPLAINT: Ulcerative colitis with sepsis. HISTORY OF PRESENT ILLNESS: This lady continues to improve. She is feeling much better. Abdomen is less uncomfortable and she is not passing any blood to speak of. PHYSICAL EXAM: Vital signs are normal. CHEST: Clear. CARDIAC: Normal. Abdomen soft and slightly protuberant. She is much less tender. IMPRESSION: 1. Ulcerative colitis. 2. Septicemia. 3. Urinary tract infection. 4. Obstructive uropathy on the right. PLAN: Continue to progress with increased activity and diet and probably home soon.
[2017-01-14] MEDS: HYDROmorphone 1 MG/ML 1 ML SYRINGE IVP PRN (01:00)
[2017-01-14 05:25] LABS: Cyclic Citrullinated Pep IgG 13 UNITS (<20)
[2017-01-14 07:26] LABS: Basophils % (A) 0 %; CH 29.7; CHCM 32.5; Eosinophils % (A) 0 %; HCT 29.9 % (34.0-46.0); HDW 2.58; HGB 10.1 gm/dL (11.4-16.0); Luc # (Auto) 0.09; Luc % (Auto) 1; Lymphocytes # (A) 1.1 k/uL (1.0-4.8); Lymphocytes % (A) 13 %; MCH 31.1 pg (25.0-35.0); MCV 91.6 fL (80.0-100.0); Mean Platelet Volume 8.6; Monocytes # (A) 0.3 k/uL (0-1.0); Monocytes % (A) 3 %; Neutrophils # (A) 7.5 k/uL (1.3-7.7); Neutrophils % (A) 83 %; RBC 3.26 m/uL (3.80-5.40); RDW 14.5 % (11.5-15.5); WBC (Perox) 9.92
[2017-01-14 07:47] LABS: Glucose,Whole Blood 77 mg/dL (75-99)
[2017-01-14] MEDS: FUROSEMIDE 10 MG/ML 4 ML VIAL IV SCH (08:09)
[2017-01-14] MEDS: NYSTATIN 100,000 UNIT/ML SUSP 500,000 UNIT/5 ML CUP PO SCH ×4 (08:13→21:33)
[2017-01-14] MEDS: predniSONE 10 MG TAB PO SCH (08:15)
[2017-01-14] MEDS: PANTOPRAZOLE 40 MG/10 ML VIAL IV SCH (08:15)
--- NOTE | 2017-01-14 08:47 | P.PN ---
Subjective 26-year-old female being seen up ambulating to the bathroom. Did note the weight is down 5 pounds this morning did note patient has new onset right side labia swelling. Patient's chief complaint is "I can't sit because of the swelling . There is less edema to the feet less edema noted to the bilateral flank area patient is urinating with no difficulty no stooling the white count is 9 hemoglobin stable at 10 platelets are up to 85 the steroids have been tapered to oral there's been no fever no chills patient's on antibiotics per infectious disease for her Klebsiella pneumonia. Patient updated on the plan of care. Questions answered Objective - Vital Signs Vital signs: Vital Signs Temp 97.9 F 01/14/17 07:00 Pulse 91 01/14/17 07:00 Resp 18 01/14/17 07:00 BP 117/72 01/14/17 07:00 Pulse Ox 97 01/14/17 07:00 Intake & Output 01/13/17 01/14/17 01/14/17 18:59 06:59 18:59 Intake Total 600 Output Total 950 4375 400 Balance -350 -4375 -400 Weight 65.4 kg 63.1 kg Intake: Oral 600 Output: Urine 450 4375 400 Stool 500 Other: Voiding Method Toilet # Voids 1 # Bowel Movements 1 1 - Exam Physical exam 26-year-old female pleasant cooperative oriented 3 chief complaint swelling in the labia uncomfortable Lungs essentially clear adequate air movement on room air no cough noted no shortness of breath Heart S1-S2 audible and regular heart rate in the 80s Abdomen soft nontender bowel tones present no nausea no vomiting increased swelling to the labia on the right no vaginal drainage Extremities decrease edema to the bilateral lower extremities - Labs CBC & Chem 7: 01/14/17 07:02 01/13/17 05:39 Labs: Abnormal Lab Results - Last 24 Hours (Table) 01/10/17 01/13/17 01/13/17 Range/Units 19:26 11:21 17:31 RBC (3.80-5.40) m/uL Hgb (11.4-16.0) gm/dL Hct (34.0-46.0) % Plt Count (150-450) k/uL Lupus Anticoag aPTT 49 H (<43) Sec(s) Lupus Anticoag PTT Mix 49 H (<43) Sec(s) Dil Dominick Viper Venom 60 H (<44) Sec(s) dRVVT 50:50 48 H (<44) Sec(s) Lupus Hexagonal Phase Positive H (Negative) POC Glucose (mg/dL) 202 H 135 H (75-99) mg/dL Aldolase 10.0 H (1.2-7.6) U/L Free [place] LC, Quant 3.28 H (0.33 - 1.94) mg/dL Free [place] LC, Quant 2.87 H (0.57 - 2.63) mg/dL 01/14/17 Range/Units 07:02 RBC 3.26 L (3.80-5.40) m/uL Hgb 10.1 L (11.4-16.0) gm/dL Hct 29.9 L (34.0-46.0) % Plt Count 85 L D (150-450) k/uL Lupus Anticoag aPTT (<43) Sec(s) Lupus Anticoag PTT Mix (<43) Sec(s) Dil Dominick Viper Venom (<44) Sec(s) dRVVT 50:50 (<44) Sec(s) Lupus Hexagonal Phase (Negative) POC Glucose (mg/dL) (75-99) mg/dL Aldolase (1.2-7.6) U/L Free [place] LC, Quant (0.33 - 1.94) mg/dL Free Lambda LC, Quant (0.57 - 2.63) mg/dL Microbiology - Last 24 Hours (Table) 01/13/17 05:39 Blood Culture - Preliminary Blood No Growth after 24 hours 01/12/17 04:14 Blood Culture Gram Stain - Final Blood Blood Culture - Final Klebsiella pneumoniae 01/12/17 04:35 Blood Culture Gram Stain - Final Blood Blood Culture - Final Klebsiella pneumoniae 01/10/17 12:29 Stool Culture - Final Stool 01/09/17 22:31 Blood Culture - Final Blood 01/09/17 22:00 Blood Culture - Final Blood 01/12/17 04:14 Blood Culture - Final Blood 01/12/17 04:35 Blood Culture - Final Blood 01/11/17 04:11 Blood Culture - Final Blood Assessment and Plan Plan: Impression Present on admission sepsis tachycardic febrile hypotensive secondary to obstructive uropathy Present on admission acute blood loss anemia suspect due to GI bleed Thrombocytopenia likely secondary to consumptive thrombocytopenia secondary to sepsis acute on chronic colitis s/p colonoscopy 01/06/17 biopsies suggest chronicity. No evidence to suggest at this time presentation is a complication from recent colonoscopy. 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 Lower extremities edema due to aggressive fluid resuscitation and hypoproteinemia Plan Multiple consulting physicians participating in the plan of care recommendations noted appreciated and reviewed Continue with recommendations by consultants Monitor hemoglobin attempt keep greater than 7.5 Lasix 40 IV twice a day and monitor electrolytes keep in a therapeutic range as ordered await infectious diseases recommendations for antibiotics DVT and GI prophylaxis The above dictated assessment and findings were discussed with Dr. Chappell Impression and the plan of care have been dictated as directed. Shari Cabrera nurse practitioner acting as a scribe for Dr. Chappell
[2017-01-14] MEDS: INSULIN LISPRO (humaLOG) 300 UNIT/3 ML VIAL SQ SCH ×4 (08:57→21:31)
[2017-01-14] MEDS ORDERED: FUROSEMIDE 10 MG/ML 4 ML VIAL IV SCH (09:00)
[2017-01-14] MEDS: HYDROcodone/APAP 5-325MG 1 EACH TAB PO PRN ×2 (09:01→19:54)
[2017-01-14] MEDS: PANTOPRAZOLE 40 MG TABLET PO SCH (09:01)
--- NOTE | 2017-01-14 09:16 | PN ---
This is a 26-year-old woman who presented to the hospital 4 days ago with bright red blood per rectum and evidence of tachycardia and hypotension. She had been treated for significant colitis with large doses of steroids. At admission there was evidence of significant sepsis and with some evidence of an obstructive uropathy to the right renal collecting system. She was seen urgently by Urology and was taken to the operating room and the right renal system stent was applied. The obstructive montgomery was seen and culture showing evidence of Klebsiella pneumonia as all of her positive blood cultures have shown up until now. Patient is feeling considerably better today. She is sitting upright, she has eaten a full dinner. Her energy level is better. She is not having pain. She relates this is the best she has felt in months. She is denying further fever, chill, rigors, or sweats and again she is having no gastrointestinal bleeding and has had a somewhat normal stool today. The exam reveals her to be afebrile, hemodynamically stable and please see the nursing notes for the vital signs and exam. She is nonicteric. Conjunctivae are still pale but moist. Nasal mucosa are grossly intact. She does not have thrush. The neck is supple. The lungs have good bilateral air entry without significant crackles or wheezing. The heart is irregular. Soft S4. No distinct murmur, click or rub. Abdomen is with positive bowel sounds and soft. She has only minimal tenderness in the left lower quadrant and she has only scant tenderness to the right flank. This is all markedly improved from prior. The laboratories show that every blood culture drawn so far which is 7 of them all have the Klebsiella pneumoniae, the same bacteria from her urine culture. She is an adequate antibiotic therapy at this point in time, but is still having positive blood cultures. Further blood cultures have been performed this morning. If these blood cultures remain positive, the case has already been discussed with Urology and we would do further imaging of her kidney with concerns to possibility of an actual renal abscess versus a perirenal abscess and the need for further intervention. She had been on significant amounts of steroids with significant immunosuppressed and consequently she is at risk of a more complicated infectious process in the renal system. Fortunately, clinically she is much improved and hopefully blood cultures will be negative and that we would have the option to utilize oral quinolone to complete her many week course of therapy as an outpatient in the near future, especially since she is feeling so much better.
[2017-01-14 09:17] LABS: Anion Gap 6 mmol/L; Blood Urea Nitrogen 19 mg/dL (7-17); Calcium 7.4 mg/dL (8.4-10.2); Carbon Dioxide 29 mmol/L (22-30); Chloride 99 mmol/L (98-107); Glucose 83 mg/dL (74-99); Magnesium 1.6 mg/dL (1.6-2.3); Non-African American GFR(MDRD) >60 (>60 ml/min/1.73 sqM); Phosphorous 2.7 mg/dL (2.5-4.5); Potassium 3.5 mmol/L (3.5-5.1); Sodium 134 mmol/L (137-145)
[2017-01-14 10:17] VITALS: BMI 23.8
[2017-01-14 10:42] LABS: HLA B27 NEGATIVE; HLA B27 Comment SEEBELOW
[2017-01-14 12:36] LABS: Glucose,Whole Blood 172 mg/dL (75-99)
[2017-01-14] MEDS ORDERED: FUROSEMIDE 10 MG/ML 4 ML VIAL IV ONE (16:00)
[2017-01-14] MEDS: SODIUM CHLORIDE 0.9% 1,000 ML IV SCH (17:20)
[2017-01-14 17:38] LABS: Glucose,Whole Blood 136 mg/dL (75-99)
[2017-01-14] MEDS: cefTRIAXone 2,000 MG in SODIUM CHLORIDE 0.9% 100 ML IVPB SCH (18:44)
[2017-01-14 18:52] VITALS: RESP 16
[2017-01-14] MEDS: CALCIUM CARBONATE LIQUID 500 MG/5 ML CUP PO SCH (20:42)
[2017-01-14 21:23] LABS: Glucose,Whole Blood 132 mg/dL (75-99)
--- NOTE | 2017-01-14 22:45 | P.PN ---
Subjective Principal diagnosis: Gram-negative sepsis This is a 26-year-old female that gives a history of 3 months ago having a cold symptoms that lasted for 2 weeks. Her twin sister was diagnosed with pneumonia by Dr. Chappell and the patient went to Dr. Chappell and was also diagnosed with pneumonia. She completed 2 courses of antibiotics. She then developed diarrhea which was liquid, mucousy and bloody. She was having large amounts 10 times per day. She states that she lost 13 pounds over 2 weeks. She also has pain with defecation. She then was seen by Dr. Maynard and underwent colonoscopy on January 06. Pathology reports terminal ileum biopsy reveals mature small bowel mucosa without histopathologic changes.: Random biopsy shows acute colitis with features suggestive chronicity. Rectum biopsy shows acute proctitis with the stretcher suggestive of chronicity. Possibility of inflammatory bowel disease cannot be excluded. Prior to the endoscopy, patient was started on prednisone which she states helped her diarrhea. She was on 20 mg 4 times daily and yesterday was decreased to 20 mg 3 times daily. She also relates that she has been at [facility] for ER visits and admissions and has had multipl stool samples tested for C. difficile toxin which is been negative but she did complete a course of Flagyl at some point. Yesterday patient had a near syncopal episode. She was feeling lightheaded and dizzy and like she was going to pass out. She went to the bathroom and had a bloody bowel movement. She then came into [facility] emergency center. CAT scan of the abdomen and pelvis shows a calculus in the right ureter with obstruction appears to be acute. Nonspecific colitis. Mild left inguinal density 2.5 cm representing possible edema or adenopathy. Her white count was initially 1303 p.m. 5. Her platelet count was 24 currently at 30. She was febrile at 101.8, tachycardic, hypotensive. Initial to troponins were negative with the third one being at 0.148. Urinalysis was clear, nitrite trace, leukocytes negative. Occasional bacteria. Urine culture is in progress. Blood culture is showing gram-negative bacilli. Patient was started on Zosyn and admitted into intensive care unit. She has multiple consults in place including cardiology, pulmonary medicine, Gen. surgery, gastroenterology, urology, oncology, rheumatology. She has undergone transfusion of packed RBCs and platelets. 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 His undergone the urologic procedure with double-J catheter placement. Surgical reveals evidence of a large amount of grossly purulent urine then evacuated the kidney has been cultured. Gram-negative bacilli have been found in the blood. Has now been isolated as Klebsiella pneumoniae. Same pathogen was isolated from her urine. She has been seen by urology and they will plan on seeing her in the outpatient setting for the removal of her double-J catheter and laser lithotripsy. Objective - Vital Signs Vital signs: Vital Signs Temp 99.3 F 01/14/17 21:20 Pulse 89 01/14/17 21:20 Resp 16 01/14/17 21:20 BP 119/67 01/14/17 21:20 Pulse Ox 100 01/14/17 21:20 Intake & Output 01/14/17 01/14/17 01/15/17 06:59 18:59 06:59 Output Total 4375 4481 1400 Balance -4375 -4481 -1400 Weight 63.1 kg Output: Urine 4375 4480 1400 Stool 1 Other: Voiding Method Toilet # Voids 1 2 # Bowel Movements 1 - Exam Gen: This is a thin 26-year-old female. She is sitting upright. Eating dinner. Has makeup on and is feeling considerably better. HEENT: Head is atraumatic, normocephalic. Pupils equal, round. Sclerae is anicteric. NECK: Supple. No JVD. No lymphadenopathy. No thyromegaly. LUNGS: Clear to auscultation. No wheezes or rhonchi. No intercostal retractions. HEART: Regular rate and rhythm. No murmur. ABDOMEN: Slightly distended. Bowel sounds are present. No masses. Generalized tenderness. EXTREMITIES: No pedal edema. No calf tenderness. Dorsalis pedis +2 bilaterally. Small lesions scattered on the forehead and face as well as upper and lower extremities around the ankles. Has some lower extremity edema WILDA hose and requested NEUROLOGICAL: Patient is awake, alert and oriented x3 - Labs CBC & Chem 7: 01/14/17 07:02 01/14/17 07:02 Labs: Abnormal Lab Results - Last 24 Hours (Table) 01/10/17 01/14/17 01/14/17 Range/Units 19:26 07:02 07:02 RBC 3.26 L (3.80-5.40) m/uL Hgb 10.1 L (11.4-16.0) gm/dL Hct 29.9 L (34.0-46.0) % Plt Count 85 L D (150-450) k/uL Lupus Anticoag aPTT 49 H (<43) Sec(s) Lupus Anticoag PTT Mix 49 H (<43) Sec(s) Dil Dominick Viper Venom 60 H (<44) Sec(s) dRVVT 50:50 48 H (<44) Sec(s) Lupus Hexagonal Phase Positive H (Negative) Sodium 134 L (137-145) mmol/L BUN 19 H (7-17) mg/dL POC Glucose (mg/dL) (75-99) mg/dL Calcium 7.4 L (8.4-10.2) mg/dL Aldolase 10.0 H (1.2-7.6) U/L Free [place] LC, Quant 3.28 H (0.33 - 1.94) mg/dL Free Lambda LC, Quant 2.87 H (0.57 - 2.63) mg/dL 01/14/17 01/14/17 01/14/17 Range/Units 12:34 17:36 21:21 RBC (3.80-5.40) m/uL Hgb (11.4-16.0) gm/dL Hct (34.0-46.0) % Plt Count (150-450) k/uL Lupus Anticoag aPTT (<43) Sec(s) Lupus Anticoag PTT Mix (<43) Sec(s) Dil Dominick Viper Venom (<44) Sec(s) dRVVT 50:50 (<44) Sec(s) Lupus Hexagonal Phase (Negative) Sodium (137-145) mmol/L BUN (7-17) mg/dL POC Glucose (mg/dL) 172 H 136 H 132 H (75-99) mg/dL Calcium (8.4-10.2) mg/dL Aldolase (1.2-7.6) U/L Free [place] LC, Quant (0.33 - 1.94) mg/dL Free Lambda LC, Quant (0.57 - 2.63) mg/dL Microbiology - Last 24 Hours (Table) 01/10/17 12:29 Stool Culture - Final Stool 01/13/17 06:43 Blood Culture - Preliminary Blood No Growth after 24 hours 01/13/17 05:39 Blood Culture - Preliminary Blood No Growth after 24 hours 01/12/17 04:14 Blood Culture Gram Stain - Final Blood Blood Culture - Final Klebsiella pneumoniae 01/12/17 04:35 Blood Culture Gram Stain - Final Blood Blood Culture - Final Klebsiella pneumoniae Laboratory Results WBC 9.0 k/uL (3.8-10.6) 01/14/17 07:02 RBC 3.26 m/uL (3.80-5.40) L 01/14/17 07:02 Hgb 10.1 gm/dL (11.4-16.0) L 01/14/17 07:02 Hct 29.9 % (34.0-46.0) L 01/14/17 07:02 MCV 91.6 fL (80.0-100.0) 01/14/17 07:02 MCH 31.1 pg (25.0-35.0) 01/14/17 07:02 MCHC 34.0 g/dL (31.0-37.0) 01/14/17 07:02 RDW 14.5 % (11.5-15.5) 01/14/17 07:02 Plt Count 85 k/uL (150-450) L D 01/14/17 07:02 Neutrophils % 83 % 01/14/17 07:02 Neutrophils % (Manual) 79.5 % 01/09/17 16:15 Band Neutrophils % 16.5 % 01/09/17 16:15 Lymphocytes % 13 % 01/14/17 07:02 Lymphocytes % (Manual) 1.5 % 01/09/17 16:15 Monocytes % 3 % 01/14/17 07:02 Monocytes % (Manual) 2.5 % 01/09/17 16:15 Eosinophils % 0 % 01/14/17 07:02 Basophils % 0 % 01/14/17 07:02 Neutrophils # 7.5 k/uL (1.3-7.7) 01/14/17 07:02 Neutrophils # (Manual) 12.5 k/uL (1.3-7.7) H 01/09/17 16:15 Lymphocytes # 1.1 k/uL (1.0-4.8) 01/14/17 07:02 Lymphocytes # (Manual) 0.2 k/uL (1.0-4.8) L 01/09/17 16:15 Monocytes # 0.3 k/uL (0-1.0) 01/14/17 07:02 Monocytes # (Manual) 0.3 k/uL (0-1.0) 01/09/17 16:15 Eosinophils # 0.0 k/uL (0-0.7) 01/14/17 07:02 Basophils # 0.0 k/uL (0-0.2) 01/14/17 07:02 Nucleated RBCs 0 /100 WBC (0-0) 01/09/17 16:15 Manual Slide Review Performed 01/09/17 16:15 Toxic Granulation Present 01/09/17 16:15 Toxic Vacuolation Present 01/09/17 16:15 Polychromasia Present 01/09/17 16:15 Hypochromasia Slight 01/12/17 04:14 Anisocytosis Slight 01/12/17 04:14 Macrocytosis Slight 01/12/17 04:14 ESR 71 mm/hr (0-20) H 01/10/17 19:26 Haptoglobin 239.0 mg/dL (31.2-198.0) H 01/10/17 04:24 PT 12.6 sec (9.0-12.0) H 01/10/17 10:36 INR 1.3 (<1.1) 01/10/17 10:36 APTT 25.6 sec (22.0-30.0) 01/10/17 10:36 Fibrinogen 552 mg/dL (200-500) H 01/10/17 10:36 D-Dimer 1.59 mg/L FEU (<0.60) H 01/10/17 10:36 Lupus Anticoag aPTT 49 Sec(s) (<43) H 01/10/17 19:26 Lupus Anticoag PTT Mix 49 Sec(s) (<43) H 01/10/17 19:26 Dil Dominick Viper Venom 60 Sec(s) (<44) H 01/10/17 19:26 LA dRVVT Confirm Negative (Negative) 01/10/17 19:26 dRVVT 50:50 48 Sec(s) (<44) H 01/10/17 19:26 Lupus Hexagonal Phase Positive (Negative) H 01/10/17 19:26 Lupus Anticoag Interp SEE BELOW 01/10/17 19:26 Sodium 134 mmol/L (137-145) L 01/14/17 07:02 Potassium 3.5 mmol/L (3.5-5.1) 01/14/17 07:02 Chloride 99 mmol/L (98-107) 01/14/17 07:02 Carbon Dioxide 29 mmol/L (22-30) 01/14/17 07:02 Anion Gap 6 mmol/L 01/14/17 07:02 BUN 19 mg/dL (7-17) H 01/14/17 07:02 Creatinine 0.58 mg/dL (0.52-1.04) 01/14/17 07:02 Est GFR (MDRD) Af Amer >60 (>60 ml/min/1.73 sqM) 01/14/17 07:02 Est GFR (MDRD) Non-Af >60 (>60 ml/min/1.73 sqM) 01/14/17 07:02 Glucose 83 mg/dL (74-99) 01/14/17 07:02 POC Glucose (mg/dL) 132 mg/dL (75-99) H 01/14/17 21:21 POC Glu Telephonic Nurse ID Lulu Hewitt 01/14/17 21:[address] Glu mg/dL 120 mg/dL 01/12/17 04:14 Hemoglobin A1c 5.8 % (4.2-6.1) 01/12/17 04:14 Plasma Lactic Acid Gregg 1.6 mmol/L (0.7-2.0) 01/09/17 22:00 Uric Acid 2.4 mg/dL (3.7-7.4) L 01/10/17 19:26 Calcium 7.4 mg/dL (8.4-10.2) L 01/14/17 07:02 Ionized Calcium Ronan 4.1 mg/dL (4.5-5.3) L 01/10/17 04:24 Phosphorus 2.7 mg/dL (2.5-4.5) 01/14/17 07:02 Magnesium 1.6 mg/dL (1.6-2.3) 01/14/17 07:02 Total Bilirubin 0.7 mg/dL (0.2-1.3) 01/12/17 04:14 AST 15 U/L (14-36) 01/12/17 04:14 ALT 28 U/L (9-52) 01/12/17 04:14 Alkaline Phosphatase 115 U/L (38-126) 01/12/17 04:14 Lactate Dehydrogenase 556 U/L (313-618) 01/10/17 04:24 Total Creatine Kinase 31 U/L (30-135) 01/10/17 04:24 CK-MB (CK-2) 0.8 ng/mL (0.0-2.4) 01/10/17 04:24 CK-MB (CK-2) Rel Index 2.6 01/10/17 04:24 Troponin I 0.148 ng/mL (0.000-0.034) H* 01/10/17 04:24 C-Reactive Protein 405.9 mg/L (<10.0) H 01/10/17 19:26 Total Protein 4.7 g/dL (6.3-8.2) L 01/12/17 04:14 Albumin 2.1 g/dL (3.5-5.0) L 01/12/17 04:14 Triglycerides 99 mg/dL (<150) 01/10/17 04:24 Cholesterol <50 mg/dL (<200) 01/10/17 04:24 LDL Cholesterol, Calc 18 mg/dL (0-99) 01/10/17 04:24 HDL Cholesterol 12 mg/dL (40-60) L 01/10/17 04:24 Amylase <30 U/L (30-110) L 01/09/17 16:15 Lipase 10 U/L (23-300) L 01/09/17 16:15 Aldolase 10.0 U/L (1.2-7.6) H 01/10/17 19:26 Angiotensin Convert Enz 27 U/L (8-52) 01/10/17 19:26 Urine Color Yellow 01/09/17 17:00 Urine Appearance Clear (Clear) 01/09/17 17:00 Urine pH 6.0 (5.0-8.0) 01/09/17 17:00 Ur Specific Dorr 1.012 (1.001-1.035) 01/09/17 17:00 Urine Protein Trace (Negative) H 01/09/17 17:00 Urine Glucose (UA) Negative (Negative) 01/09/17 17:00 Urine Ketones Trace (Negative) H 01/09/17 17:00 Urine Blood Trace (Negative) H 01/09/17 17:00 Urine Nitrite Negative (Negative) 01/09/17 17:00 Urine Bilirubin Negative (Negative) 01/09/17 17:00 Urine Urobilinogen <2.0 mg/dL (<2.0) 01/09/17 17:00 Ur Leukocyte Esterase Negative (Negative) 01/09/17 17:00 Urine RBC 2 /hpf (0-5) 01/09/17 17:00 Urine WBC 8 /hpf (0-5) H 01/09/17 17:00 Urine Bacteria Occasional /hpf (None) H 01/09/17 17:00 Urine Mucus Rare /hpf (None) H 01/09/17 17:00 Urine HCG, Qual Not Detected (Not Detectd) 01/09/17 17:00 Stool Occult Blood Positive (Negative) H 01/09/17 17:50 IgG 522.0 mg/dL (700.0-1600.0) L 01/10/17 04:24 IgA 130.0 mg/dL (60.0-350.0) 01/10/17 04:24 IgM 151.0 mg/dL (40.0-280.0) 01/10/17 04:24 IgE 76.70 IU/mL (0.00-114.00) 01/10/17 04:24 Rheumatoid Factor 18 IU/mL (<12) H 01/10/17 19:26 Cycl Citrul Peptide IgG 13 UNITS (<20) 01/10/17 19:26 MAKENZIE Screen NEGATIVE (NEGATIVE) 01/13/17 05:39 c-ANCA <1:20 Titer (<1:20) 01/10/17 04:24 p-ANCA <1:20 Titer (<1:20) 01/10/17 04:24 SS-A Antibody 4 UNITS (<20) 01/10/17 19:26 SS-B Antibody 4 UNITS (<20) 01/10/17 19:26 Sm (Sandoval) Antibody 4 UNITS (<20) 01/10/17 19:26 SECURITY AUDITOR Antibody 4 UNITS (<20) 01/10/17 19:26 Scl-70 Scleroderma Ab 3 UNITS (<20) 01/10/17 19:26 Anti-Cardiolipin IgG Ab <9.0 GPL (<15) 01/10/17 19:26 Anti-Cardiolipin IgM Ab 11.9 MPL (<12.5) 01/10/17 19:26 Complement C3 61 mg/dL (88-165) L 01/10/17 19:26 Complement C4 10 mg/dL (14-44) L 01/10/17 19:26 Tot Complement (CH50) 92 (54-144) 01/10/17 19:26 HLA-B27 NEGATIVE 01/13/17 06:43 HLA-B27 Comment SEEBELOW 01/13/17 06:43 Free [place] LC, Quant 3.28 mg/dL (0.33 - 1.94) H 01/10/17 19:26 Free Lambda LC, Quant 2.87 mg/dL (0.57 - 2.63) H 01/10/17 19:26 Free [place]/Lambda Ratio 1.14 (0.26 - 1.65) 01/10/17 19:26 Hep Bs Antigen Negative 01/10/17 19:26 Hep C IgG Ab Negative (Negative) 01/10/17 19:26 Blood Type B Positive 01/09/17 16:15 Blood Type Confirm B Positive 01/09/17 18:30 Blood Type Recheck B Pos 01/10/17 04:24 Antibody Screen POSITIVE 01/09/17 16:15 Antibody Identification Non-Specific Reaction 01/09/17 16:15 Direct Antiglob Test Negative 01/09/17 16:15 Crossmatch See Detail 01/09/17 19:30 Transfuse Platelets 01/09/2017 01/09/17 23:15 Tx Rx Implicated Unit 1 [id number] 01/10/17 04:24 Reaction Clerical Check Pass 01/10/17 04:24 Pre-Trans Blood Type B Positive 01/10/17 04:24 Pre-Trans Spec Appearnc Negative 01/10/17 04:24 Pre-Trans VIV IgG Negative 01/10/17 04:24 Pre-Trans VIV Poly Negative 01/10/17 04:24 Post-Trans Blood Type B Positive 01/10/17 04:24 Post-Trans Spec Appear Negative 01/10/17 04:24 Post-Trans VIV IgG Negative 01/10/17 04:24 Post-Trans VIV Poly Negative 01/10/17 04:24 Reaction Pathol Review See result comment 01/10/17 04:24 Spec Expiration Date 01/12/2017 - 1830 01/09/17 19:30 Microbiology 01/10/17 12:29 Stool Stool Culture - Final 01/13/17 06:43 Blood Blood Culture - Preliminary No Growth after 24 hours 01/13/17 05:39 Blood Blood Culture - Preliminary No Growth after 24 hours 01/12/17 04:14 Blood Blood Culture Gram Stain - Final 01/12/17 04:14 Blood Blood Culture - Final Klebsiella pneumoniae 01/12/17 04:35 Blood Blood Culture Gram Stain - Final 01/12/17 04:35 Blood Blood Culture - Final Klebsiella pneumoniae 01/09/17 22:31 Blood Blood Culture - Final 01/09/17 22:00 Blood Blood Culture - Final 01/12/17 04:14 Blood Blood Culture - Final 01/12/17 04:35 Blood Blood Culture - Final 01/11/17 04:11 Blood Blood Culture - Final 01/11/17 04:11 Blood Blood Culture Gram Stain - Final 01/11/17 04:11 Blood Blood Culture - Final Klebsiella pneumoniae 01/11/17 05:00 Blood Blood Culture Gram Stain - Final 01/11/17 05:00 Blood Blood Culture - Final Klebsiella pneumoniae 01/10/17 17:15 Urine,Voided Urine Culture - Final Klebsiella pneumoniae 01/09/17 17:00 Urine,Voided Urine Culture - Final Klebsiella pneumoniae 01/09/17 22:31 Blood Blood Culture Gram Stain - Final 01/09/17 22:31 Blood Blood Culture - Final Klebsiella pneumoniae 01/09/17 22:00 Blood Blood Culture Gram Stain - Final 01/09/17 22:00 Blood Blood Culture - Final Klebsiella pneumoniae 01/11/17 05:00 Blood Blood Culture - Preliminary 01/10/17 12:29 Stool Stool for WBCs - Final Assessment and Plan (1) Gram negative sepsis Narrative/Plan: 26-year-old female presents to Hospital from home with concerns over blood per rectum and clots. Recently has had endoscopy with evidence of some chronic colitis. Patient became quite ill and developed some generalized pain. Developed significant hypotension. Was concerns to gastric intestinal bleed and received packed red cells as well as platelets. Has now been found to have evidence of the gram-negative sepsis from the obstructive uropathy. She has had intervention and double-J catheters been placed the patient is now considerably improved. She however still is having some bacteremia at this time. Follow up blood culture requested, because the secondary blood cultures were still positive. Laboratories now verified the klebsiella pneumoniae is a gram-negative bacilli from both the blood in the urine. With marked clinical improvement would expect that her bacteremia is cleared. Fortunately there will be several options for her at the time of discharge As noted per bacteremia and now seems to have cleared. If blood cultures remain negative in the morning with transition her from ceftriaxone to oral Bactrim double strength twice per day. This would be planned for at least 21 days. Given her complex infection from her renal system. Discussion occurs with her mother and there is no sulfa ALLERGY. Go this point in time will be to decrease her steroid dose will be changed every 12 hours at this time. Hemoglobin is stable at 10.1 The leukocytosis is improving, and thrombocytopenia is also much improved. At this time the thrombocytopenia appears to be due to her underlying sepsis and should start to further improve as her sepsis is being treated. She is not hypotensive and not requiring vasopressors. She has developed no other acute complications. No evidence of any renal failure. And her gastrointestinal bleeding has completely resolved. Status: Acute (2) Hydronephrosis with urinary obstruction due to ureteral calculus Status: Acute (3) Thrombocytopenia Status: Acute
[2017-01-15] MEDS: HYDROcodone/APAP 5-325MG 1 EACH TAB PO PRN ×2 (01:43→10:16)
--- NOTE | 2017-01-15 06:05 | PN ---
DATE OF SERVICE: 01/13/2017 CHIEF COMPLAINT: Ulcerative colitis and obstructive right ureteropathy. HISTORY OF PRESENT ILLNESS: This lady continues to improve. Pain is improving. PHYSICAL EXAM: She remains pale. She still has lesions on the face. Chest is clear. Cardiac exam is normal. The abdomen is slightly protuberant, soft and mildly tender. Bowel sounds are present. IMPRESSION: 1. Ulcerative colitis with systemic manifestations. 2. Obstructive right ureter. 3. Pancytopenia. 4. Sepsis. PLAN: Continue on current program at home in a day or two.
--- NOTE | 2017-01-15 06:26 | PN ---
DATE OF SERVICE: 01/14/2017 CHIEF COMPLAINT: Ulcerative colitis with stomatitis, dermatitis and arthritis. HISTORY OF PRESENT ILLNESS: This lady developed some swelling or edema of the introitus. She had no itching, bleeding, fever, chills, etc. She is otherwise doing fairly well. PHYSICAL EXAM: Chest is clear. Cardiac exam is normal. The abdomen is flat and less tender each day. IMPRESSION: 1. Ulcerative colitis. 2. Perineal swelling. PLAN: 1. SENIOR PRODUCTION SUPERVISOR consult. 2. No change in program otherwise. Work on a discharge plan.
[2017-01-15 07:26] LABS: Basophils # (A) 0.1 k/uL (0-0.2); Basophils % (A) 1 %; CH 29.6; CHCM 32.4; Eosinophils # (A) 0.1 k/uL (0-0.7); Eosinophils % (A) 1 %; HCT 29.7 % (34.0-46.0); HDW 2.59; HGB 10.1 gm/dL (11.4-16.0); Luc % (Auto) 1; Lymphocytes # (A) 1.6 k/uL (1.0-4.8); Lymphocytes % (A) 14 %; MCH 30.9 pg (25.0-35.0); MCHC 33.8 g/dL (31.0-37.0); MCV 91.4 fL (80.0-100.0); Mean Platelet Volume 8.3; Monocytes # (A) 0.2 k/uL (0-1.0); Monocytes % (A) 2 %; Neutrophils # (A) 9.6 k/uL (1.3-7.7); Neutrophils % (A) 82 %; RBC 3.25 m/uL (3.80-5.40); RDW 14.5 % (11.5-15.5); WBC 11.6 k/uL (3.8-10.6); WBC (Perox) 11.68
[2017-01-15 07:33] LABS: Anion Gap 5 mmol/L; Blood Urea Nitrogen 14 mg/dL (7-17); Calcium 7.5 mg/dL (8.4-10.2); Carbon Dioxide 31 mmol/L (22-30); Chloride 97 mmol/L (98-107); Glucose 77 mg/dL (74-99); Magnesium 1.5 mg/dL (1.6-2.3); Non-African American GFR(MDRD) >60 (>60 ml/min/1.73 sqM); Potassium 3.1 mmol/L (3.5-5.1); Sodium 133 mmol/L (137-145)
[2017-01-15] MEDS: INSULIN LISPRO (humaLOG) 300 UNIT/3 ML VIAL SQ SCH (08:25)
[2017-01-15] MEDS: PANTOPRAZOLE 40 MG TABLET PO SCH (08:38)
[2017-01-15] MEDS: predniSONE 10 MG TAB PO SCH (08:38)
[2017-01-15] MEDS: CALCIUM CARBONATE LIQUID 500 MG/5 ML CUP PO SCH (08:46)
[2017-01-15] MEDS ORDERED: SULFAMETHOX-TMP 200-40MG/5ML 20 ML CUP PO SCH (09:00)
[2017-01-15] MEDS ORDERED: SULFAMETHOX-TMP 800-160MG 1 EACH TAB PO SCH (09:00)
[2017-01-15 09:12] VITALS: BP 126/74; PULSE 79; TEMP 98.8
--- NOTE | 2017-01-15 09:19 | CDI ---
In responding to this query, please exercise your independent professional judgment. The [facility] Coding Staff and Clinical Documentation Specialists appreciate your assistance in clarifying documentation, maintaining compliance with coding guidelines, accurately documenting patients condition and capturing severity of illness. The fact that a question is asked does not imply that any particular answer is desired or expected. Communication forms are a method of clarifying documentation and are not made part of the Legal Health Record. Thank you in advance for your clarification. Last Revision, December 2015 Roverto Davis [address] [facility] [place] [address] Documentation Clarification Form Date: 01/14/2017 2:51:00 PM From: Vaishali Chowdary, CCS, CCDS Admit Date: 01/09/2017 7:11:00 PM Patient Name: Sahra Sidhu Visit Number: [id number] Discharge Date: Dr. Parminder Chappell: 26 yo female, presented with symptoms of near syncope, lightheadedness, dizzy with blood stool. Recent hospitalization for pneumonia on antibiotics and steroids for Crohn's disease. Diagnosed with possible ulcerative colitis, Sepsis, Gm neg pos blood cx, UTI: E Coli, Hypoxemia. Patient history/risk factors: Possible Ulcerative colitis, Hx of IgG deficiency , kidney stones. Clinical Indicators: Vitals: T 99.1, P 145, R 16, BP 96/51, PO 100 ra LAB: WBC 13.0, RBC 2.25, Hgb 7.0*, Hct 21.3, Pl Ct 41. Positive stool occult blood Treatment: Transfusions: PRBCs 4, Platelets 5; IV fluid boluses x3, IV fluids 100-150, IV protonix, IV MagSulfate Consults: Pulmonary, Cardiology, Rheumatology, Hematology, Infectious Disease, Urology In your professional opinion, can you please specify the type of shock if known ? Septic Shock o Suspected or known causative organism o Any associated organ failure o Cause Hypovolemic Shock o Cause Other, please specify Unable to determine Please document in your progress notes and discharge summary in order to capture severity of illness and risk of mortality. Include clinical findings that support your diagnosis. FYI: Press F11 to launch patient chart. Place X here if this finding has no clinical significance, is not applicable or if you are not able to provide any additional documentation. Thank You. RUTHIE
--- NOTE | 2017-01-15 10:18 | P.DS ---
Providers Date of admission: 01/09/17 19:11 Expected date of discharge: 01/15/17 Attending physician: Parminder Chappell Consults: 01/09/17 19:22 Consult Physician Stat Consulting Provider: [facility] Consult Reason/Comments: chest pain Do you want consulting provider notified?: Yes 01/10/17 00:03 Consult Physician Routine Consulting Provider: Xander Gaspar Consult Reason/Comments: low platelets, possible infection Do you want consulting provider notified?: Yes, Notify in am 01/10/17 01:42 Consult Physician Routine Consulting Provider: Donal Jones Consult Reason/Comments: low platelets, anemia Do you want consulting provider notified?: Yes, Notify in am 01/14/17 09:30 Consult Physician Stat Consulting Provider: [place] [employer] Consult Reason/Comments: increase edema labia Do you want consulting provider notified?: Yes Primary care physician: Parminder Chappell [facility] Course: his is a 26-year-old female that gives a history of 3 months ago having a cold symptoms that lasted for 2 weeks. Her twin sister was diagnosed with pneumonia by Dr. Chappell and the patient went to Dr. Chappell and was also diagnosed with pneumonia. She completed 2 courses of antibiotics. She then developed diarrhea which was liquid, mucousy and bloody. She was having large amounts 10 times per day. She states that she lost 13 pounds over 2 weeks. She also has pain with defecation. She then was seen by Dr. Maynard and underwent colonoscopy on January 06. Pathology reports terminal ileum biopsy reveals mature small bowel mucosa without histopathologic changes.: Random biopsy shows acute colitis with features suggestive chronicity. Rectum biopsy shows acute proctitis with the stretcher suggestive of chronicity. Possibility of inflammatory bowel disease cannot be excluded. Prior to the endoscopy, patient was started on prednisone which she states helped her diarrhea. She was on 20 mg 4 times daily and yesterday was decreased to 20 mg 3 times daily. She also relates that she has been at [facility] for ER visits and admissions and has had multipl stool samples tested for C. difficile toxin which is been negative but she did complete a course of Flagyl at some point. Yesterday patient had a near syncopal episode. She was feeling lightheaded and dizzy and like she was going to pass out. She went to the bathroom and had a bloody bowel movement. She then came into [facility] emergency center. Patient was followed by multiple consulting physicians throughout the hospitalization recommendations noted appreciated and reviewed patient initially was admitted to the intensive care unit. The white count initially was 13.0. Platelet count was 24 patient on admission was febrile temp 101.8 tachycardic hypotensive treated for sepsis CAT scan of the abdomen and pelvis shows a calculus in the right ureter with obstruction appears to be acute. Nonspecific colitis. Mild left inguinal density 2.5 cm representing possible edema or adenopathy. It showed a moderate right hydronephrosis due to a 5 mm right urethral calculus Patient was seen in consultation by Dr. Leblanc. On January 10 the patient did undergo a cystoscopic a right ureteral stent insertion due to right hydronephrosis secondary to the right urethral calculus. Dr. Leblanc intent to perform an elective right ureteroscopic laser lithotripsy in several weeks to remove the obstructing urethral calculus the stent will be removed at that time additionally Dr. Gaspar infectious disease to participate in the plan of care. Antibiotic treatment was per infectious diseases recommendations. Patient was treated for gram-negative sepsis from obstructive uropathy bacteremia. Labs verified Klebsiella pneumoniae gram-negative bacilli from both the blood and urine Surgical consultation was requested for GI bleed was felt to be secondary to proctitis there was no surgical intervention at this time recommended managing conservatively white count was initially 13.0 Her platelet count was 24 currently at 30. She was febrile at 101.8, tachycardic, hypotensive. Initial to troponins were negative with the third one being at 0.148. She has not required vasopressors . Patient was treated for septic shock due to klebsiella pneumoniae gram- negative bacilli from both the blood and urine suspect due to obstructive uropathy Patient did develop on the 14 of January increase edema to the right side of the labia patient was given IV diuretics and the swelling involving the right side of the labia had significantly improved almost resolved at the time of discharge no vaginal drainage. From all consulting physicians patient was felt to be appropriate to be discharged Impression Present on admission severe sepsis with septic shock tachycardic febrile hypotensive secondary to obstructive uropathy Present on admission acute blood loss anemia suspect due to GI bleed necessitating transfusions 3 units of packed red blood cells Thrombocytopenia likely secondary to consumptive thrombocytopenia secondary to sepsis acute on chronic colitis s/p colonoscopy 01/06/17 biopsies suggest chronicity. No evidence to suggest at this time presentation is a complication from recent colonoscopy. 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 Lower extremities edema due to aggressive fluid resuscitation and hypoproteinemia Present on admission septic shock febrile hypotensive tachycardic due to klebsiella pneumoniae gram-negative bacilli from both the blood and urine suspect due to obstructive uropathy Present on admission elevated troponin felt to be secondary to severe sepsis no evidence of acute coronary syndrome The above dictated assessment and findings were discussed with Dr. Chappell Impression and the plan of care have been dictated as directed. Shari Cabrera nurse practitioner acting as a scribe for Dr. Chappell Patient Condition at Discharge: Critical Plan - Discharge Summary New Discharge Prescriptions: Pantoprazole [Protonix] 40 mg PO AC-BRKFST #30 tablet. Sulfamethox-Tmp 200-40Mg/5Ml [Bactrim Suspension] 20 ml PO BID #840 ml predniSONE 10 mg PO DAILY #36 tab Discharge Medication List Albuterol Inhaler [Ventolin Hfa Inhaler] 1 puff INHALATION RT-Q6H PRN 01/02/17 [ History] Dextroamphetamine/Amphetamine [Adderall] 20 mg PO TID 01/02/17 [History] Ergocalciferol (Vitamin D2) [Vitamin D2] 50,000 unit PO Q30D 01/02/17 [History] HYDROcodone/APAP 5-325MG [[place] 5-325] 1 tab PO Q8H PRN 01/02/17 [History] Medroxyprogesterone Acetate [Depo-Provera] 150 mg IM DIRECTED 01/02/17 [ History] Albuterol Nebulized [Ventolin Nebulized] 2.5 mg INHALATION RT-Q6H PRN 01/09/17 [ History] Beclomethasone Dipropionate [Qvar 80 mcg] 1 puff INHALATION RT-BID 01/09/17 [ History] EPINEPHrine (Auto Inject) [Epipen] 0.3 mg IM ONCE PRN 01/09/17 [History] Nystatin 100,000 Unit/ml Susp [Mycostatin Oral Susp] 1 ml PO QID PRN 01/09/17 [ History] Pantoprazole [Protonix] 40 mg PO AC-BRKFST #30 tablet. 01/15/17 [Rx] Sulfamethox-Tmp 200-40Mg/5Ml [Bactrim Suspension] 20 ml PO BID #840 ml 01/15/17 [Rx] predniSONE 10 mg PO DAILY #36 tab 01/15/17 [Rx] Follow up Appointment(s)/Referral(s): Parminder Chappell MD [Primary Care Provider] - 1-2 days Óscar Maynard MD [STAFF PHYSICIAN] - 1 Week Landon Leblanc MD [STAFF PHYSICIAN] - 2 Weeks Nora Ga MD [STAFF PHYSICIAN] - 3 Weeks Activity/Diet/Wound Care/Special Instructions: Prednisone instructions on discharge 30 mg daily 7 days 20 mg daily 7 days 10 mg daily 7 days Discharge Disposition: HOME SELF-CARE
--- NOTE | 2017-01-15 17:43 | PN ---
CHIEF COMPLAINT: Colitis. HISTORY OF PRESENT ILLNESS: This young lady is doing well and should probably go home today. Vaginal swelling is apparently subsided. PHYSICAL EXAMINATION: CHEST: Clear. CARDIAC: Normal. ABDOMEN: Soft and less tender. IMPRESSION: 1. Ulcerative colitis-resolving. 2. Vulvar swelling. 3. Right ureteral obstruction. PLAN: Probably home today and this will be arranged by the nurse practitioner.
== END 2017-01-15 11:30 | disposition home or self-care (01) | DRG 871 ==
LOC: EC 16:09 → 6ICU 19:11 → 6PED 01-12 13:54
PROVIDERS: ADMIT Family Medicine; ATTEND Family Medicine
PROC: 30233R1 Transfusion of Nonautologous Platelets into Peripheral Vein, Percutaneous Approach (ICD-10-PCS; 2017-01-09)
PROC: 30233N1 Transfusion of Nonautologous Red Blood Cells into Peripheral Vein, Percutaneous Approach (ICD-10-PCS; 2017-01-09)
PROC: 0T768DZ Dilation of Right Ureter with Intraluminal Device, Via Natural or Artificial Opening Endoscopic (ICD-10-PCS; principal; 2017-01-10 16:30)
DX: A41.59 Other Gram-negative sepsis (principal); J96.01 Acute respiratory failure with hypoxia; R65.21 Severe sepsis with septic shock; B37.89 Other sites of candidiasis; D61.818 Other pancytopenia; D80.3 Selective deficiency of immunoglobulin G [IgG] subclasses; D62 Acute posthemorrhagic anemia; B37.0 Candidal stomatitis; N13.6 Pyonephrosis; K92.2 Gastrointestinal hemorrhage, unspecified; D69.59 Other secondary thrombocytopenia; E77.8 Other disorders of glycoprotein metabolism; J45.909 Unspecified asthma, uncomplicated; L30.9 Dermatitis, unspecified; B96.1 Klebsiella pneumoniae [K. pneumoniae] as the cause of diseases classified elsewhere; E86.0 Dehydration; F51.04 Psychophysiologic insomnia; K52.9 Noninfective gastroenteritis and colitis, unspecified; K62.89 Other specified diseases of anus and rectum; M25.562 Pain in left knee; M25.561 Pain in right knee; M25.572 Pain in left ankle and joints of left foot; M25.571 Pain in right ankle and joints of right foot; K58.9 Irritable bowel syndrome, unspecified; T38.0X5A Adverse effect of glucocorticoids and synthetic analogues, initial encounter; F90.9 Attention-deficit hyperactivity disorder, unspecified type; K12.1 Other forms of stomatitis; R60.9 Edema, unspecified; Z79.52 Long term (current) use of systemic steroids; Z79.899 Other long term (current) drug therapy; Z88.1 Allergy status to other antibiotic agents; Z88.7 Allergy status to serum and vaccine
CPT/HCPCS: 36415; 36430; 71010; 74177; 80048; 80053; 80061; 81001; 81025; 82085; 82150; 82164; 82272; 82330; 82550; 82553; 82784; 82785; 83010; 83036; 83516; 83605; 83615; 83690; 83735; 83883; 84100; 84484; 84550; 85025; 85027; 85379; 85384; 85598; 85610; 85613; 85652; 85730; 85732; 86038; 86140; 86147; 86160; 86162; 86200; 86235; 86255; 86334; 86431; 86803; 86812; 86850; 86870; 86880; 86900; 86901; 86902; 86920; 87040; 87045; 87046; 87077; 87086; 87186; 87340; 89055; 93005; 93306; 93970; 96361; 96365; 96366; 96375; 99291

== ENCOUNTER 2017-01-21 11:43 | Inpatient (IN) | payer BC, OTHER ==
--- NOTE | 2017-01-21 12:25 | ED ---
General Adult HPI - General Chief complaint: Recheck/Abnormal Lab/Rx Stated complaint: abnormal labs Time Seen by Provider: 01/21/17 11:50 Source: patient, RN notes reviewed Mode of arrival: wheelchair Limitations: no limitations - History of Present Illness Initial comments: This is a 26-year-old female who presents emergency Department with a past medical history significant for recently diagnosed anemia. Patient states after she had been treated recently with antibiotics for pneumonia and also was on steroids she started having bright red blood per rectum. Patient states she came into the emergency department and was admitted and given a unit of blood. Patient states she has been continuing to have some bright red blood per rectum and she been feeling as though her heart is been racing and he she is also getting very tired. Patient states her abdomen does hurt a little but is kind of diffuse pain throughout the lower abdomen. Patient does states she sometimes lightheaded and dizzy. Patient denies any dysuria or hematuria. Patient denies being on any blood thinners. - Related Data Home Medications Medication Instructions Recorded Confirmed Albuterol Inhaler [Ventolin Hfa 1 puff INHALATION RT-Q6H PRN 01/02/17 01/21/17 Inhaler] Dextroamphetamine/Amphetamine 20 mg PO TID 01/02/17 01/21/17 [Adderall] Ergocalciferol (Vitamin D2) 50,000 unit PO Q30D 01/02/17 01/21/17 [Vitamin D2] HYDROcodone/APAP 5-325MG [[place] 1 tab PO Q8H PRN 01/02/17 01/21/17 5-325] Medroxyprogesterone Acetate 150 mg IM Q90D 01/02/17 01/21/17 [Depo-Provera] Albuterol Nebulized [Ventolin 2.5 mg INHALATION RT-Q6H PRN 01/09/17 01/21/17 Nebulized] Beclomethasone Dipropionate [Qvar 1 puff INHALATION RT-BID 01/09/17 01/21/17 80 mcg] EPINEPHrine (Auto Inject) [Epipen] 0.3 mg IM ONCE PRN 01/09/17 01/21/17 Nystatin 100,000 Unit/ml Susp 1 ml PO QID PRN 01/09/17 01/21/17 [Mycostatin Oral Susp] predniSONE See Taper PO DAILY 01/21/17 01/21/17 Previous Rx's Medication Instructions Recorded Pantoprazole [Protonix] 40 mg PO MARIANELA #30 tablet. 01/15/17 Sulfamethox-Tmp 200-40Mg/5Ml 20 ml PO BID #840 ml 01/15/17 [Bactrim Suspension] Allergies Allergy/AdvReac Type Severity Reaction Status Date / Time adhesive tape Allergy skin Verified 01/21/17 12:34 irritation animal dander Allergy Unknown Verified 01/21/17 12:34 cashew nut Allergy Swelling Verified 01/21/17 12:34 clarithromycin [From Biaxin] Allergy Unknown Verified 01/21/17 12:34 Influenza Virus Vaccines Allergy Unknown Verified 01/21/17 12:34 pistachio nut Allergy Rash/Hives Verified 01/21/17 12:34 walnut Allergy Rash/Hives Verified 01/21/17 12:34 wheat Allergy Unknown Verified 01/21/17 12:34 ciprofloxacin [From Cipro] AdvReac Itching Verified 01/21/17 12:34 Wetzel And Derivatives AdvReac Itching Verified 01/21/17 12:34 [Wetzel] Review of Systems ROS Statement: Those systems with pertinent positive or pertinent negative responses have been documented in the HPI. ROS Other: All systems not noted in ROS Statement are negative. Past Medical History Past Medical History: Asthma, Pneumonia Additional Past Medical History / Comment(s): insomnia, hernia, pt mother states "she had bowel wipeout related to her antibiotics" colitis, kidney stones to right kidney anemia History of Any Multi-Drug Resistant Organisms: None Reported Past Surgical History: Adenoidectomy, Hernia Repair, Tonsillectomy Additional Past Surgical History / Comment(s): left inguinal hernia Past Anesthesia/Blood Transfusion Reactions: Motion Sickness Additional Past Anesthesia/Blood Transfusion Reaction / Comment(s): "high tolerance, I sometimes need more" Past Psychological History: No Psychological Hx Reported Smoking Status: Never smoker Past Alcohol Use History: None Reported Additional Past Alcohol Use History / Comment(s): Patient has been a lifelong nonsmoker. She uses alcohol occasionally. She denies any medical marijuana, marijuana, street drug use. She works at [employer]. Past Drug Use History: Marijuana Additional Drug Use History / Comment(s): edible marijuana - Past Family History Mother Family Medical History: No Reported History Additional Family Medical History / Comment(s): Mom is healthy with no major medical problems. Father Additional Family Medical History / Comment(s): Father has history of either Crohn's or irritable bowel syndrome. General Exam - General Exam Comments Initial Comments: GENERAL: Patient is well-developed and well-nourished. Patient is nontoxic and well- hydrated and is in mild distress. ENT: Neck is soft and supple. No significant lymphadenopathy is noted. Oropharynx is clear. Moist mucous membranes. Neck has full range of motion without eliciting any pain. EYES: The sclera were anicteric and conjunctiva were pink and moist. Extraocular movements were intact and pupils were equal round and reactive to light. Eyelids were unremarkable. PULMONARY: Unlabored respirations. Good breath sounds bilaterally. No audible rales rhonchi or wheezing was noted. CARDIOVASCULAR: Patient is tachycardic at about 120 beats a minute ABDOMEN: Soft and nontender with normal bowel sounds. No palpable organomegaly was noted. There is no palpable pulsatile mass. SKIN: Skin is clear with no lesions or rashes and otherwise unremarkable. NEUROLOGIC: Patient is alert and oriented x3. Cranial nerves II through XII are grossly intact. Motor and sensory are also intact. Normal speech, volume and content. Symmetrical smile. MUSCULOSKELETAL: Normal extremities with adequate strength and full range of motion. 1+ edema. LYMPHATICS: No significant lymphadenopathy is noted PSYCHIATRIC: Normal psychiatric evaluation. Patient is mildly anxious Limitations: no limitations Course Vital Signs 01/21/17 01/21/17 11:48 12:32 Temperature 98.0 F Pulse Rate 122 H 120 H Respiratory 20 18 Rate Blood Pressure 134/81 126/60 O2 Sat by Pulse 100 100 Oximetry Medical Decision Making - Medical Decision Making EKG shows sinus tachycardia at 103 bpm TN interval is 114 QRS 72 QT interval is 294 QTC is 385. Patient's EKG shows no ST segment elevation or depression or T wave abnormalities are noted.New para patient's hemoglobin is 5.5. I spoke with Dr. Jim and he agreed to admit the patient admitted the patient and consult Dr. Gandara for critical care management. I consult the GI as well. I gave the patient 2 units of packed red blood cells. - Lab Data Result diagrams: 01/21/17 12:21 01/21/17 12:21 Lab Results 04/18/17 04/18/17 04/18/17 Range/Units 12:21 12:21 12:21 WBC 17.6 H (3.8-10.6) k/uL RBC 1.83 L (3.80-5.40) m/uL Hgb 5.5 L* D (11.4-16.0) gm/dL Hct 17.2 L* (34.0-46.0) % MCV 93.7 (80.0-100.0) fL MCH 30.2 (25.0-35.0) pg MCHC 32.2 (31.0-37.0) g/dL RDW 17.5 H (11.5-15.5) % Plt Count 501 H D (150-450) k/uL Neutrophils % 89 % Lymphocytes % 7 % Monocytes % 2 % Eosinophils % 1 % Basophils % 0 % Neutrophils # 15.7 H (1.3-7.7) k/uL Lymphocytes # 1.2 (1.0-4.8) k/uL Monocytes # 0.4 (0-1.0) k/uL Eosinophils # 0.1 (0-0.7) k/uL Basophils # 0.1 (0-0.2) k/uL Anisocytosis Slight PT 9.6 (9.0-12.0) sec INR 0.9 (<1.1) APTT 17.5 L (22.0-30.0) sec Sodium (137-145) mmol/L Potassium (3.5-5.1) mmol/L Chloride (98-107) mmol/L Carbon Dioxide (22-30) mmol/L Anion Gap mmol/L BUN (7-17) mg/dL Creatinine (0.52-1.04) mg/dL Est GFR (MDRD) Af Amer (>60 ml/min/1.73 sqM) Est GFR (MDRD) Non-Af (>60 ml/min/1.73 sqM) Glucose (74-99) mg/dL Calcium (8.4-10.2) mg/dL Magnesium (1.6-2.3) mg/dL Total Bilirubin (0.2-1.3) mg/dL AST (14-36) U/L ALT (9-52) U/L Alkaline Phosphatase (38-126) U/L Total Creatine Kinase 20 L (30-135) U/L CK-MB (CK-2) 0.7 (0.0-2.4) ng/mL CK-MB (CK-2) Rel Index 3.5 Troponin I <0.012 (0.000-0.034) ng/mL Total Protein (6.3-8.2) g/dL Albumin (3.5-5.0) g/dL Blood Type Blood Type Recheck Antibody Screen Crossmatch Spec Expiration Date 01/21/17 01/21/17 Range/Units 12:21 12:21 WBC (3.8-10.6) k/uL RBC (3.80-5.40) m/uL Hgb (11.4-16.0) gm/dL Hct (34.0-46.0) % MCV (80.0-100.0) fL MCH (25.0-35.0) pg MCHC (31.0-37.0) g/dL RDW (11.5-15.5) % Plt Count (150-450) k/uL Neutrophils % % Lymphocytes % % Monocytes % % Eosinophils % % Basophils % % Neutrophils # (1.3-7.7) k/uL Lymphocytes # (1.0-4.8) k/uL Monocytes # (0-1.0) k/uL Eosinophils # (0-0.7) k/uL Basophils # (0-0.2) k/uL Anisocytosis PT (9.0-12.0) sec INR (<1.1) APTT (22.0-30.0) sec Sodium 135 L (137-145) mmol/L Potassium 4.4 (3.5-5.1) mmol/L Chloride 104 (98-107) mmol/L Carbon Dioxide 25 (22-30) mmol/L Anion Gap 6 mmol/L BUN 17 (7-17) mg/dL Creatinine 0.50 L (0.52-1.04) mg/dL Est GFR (MDRD) Af Amer >60 (>60 ml/min/1.73 sqM) Est GFR (MDRD) Non-Af >60 (>60 ml/min/1.73 sqM) Glucose 124 H (74-99) mg/dL Calcium 8.5 (8.4-10.2) mg/dL Magnesium 1.9 (1.6-2.3) mg/dL Total Bilirubin 0.4 (0.2-1.3) mg/dL AST 21 (14-36) U/L ALT 36 (9-52) U/L Alkaline Phosphatase 57 (38-126) U/L Total Creatine Kinase (30-135) U/L CK-MB (CK-2) (0.0-2.4) ng/mL CK-MB (CK-2) Rel Index Troponin I (0.000-0.034) ng/mL Total Protein 5.3 L (6.3-8.2) g/dL Albumin 2.7 L (3.5-5.0) g/dL Blood Type B Positive Blood Type Recheck No Antibody Screen NEGATIVE Crossmatch See Detail Spec Expiration Date 01/24/2017 - 5035 Critical Care Time Critical Care Time: Yes Total Critical Care Time: 35 Disposition Clinical Impression: Anemia, GI bleed Disposition: ADMITTED IP TO THIS [facility] Time of Disposition: 13:45
[2017-01-21 12:38] LABS: Anisocytosis Slight; Basophils # (A) 0.1 k/uL (0-0.2); Basophils % (A) 0 %; CH 30.2; CHCM 32.4; Eosinophils # (A) 0.1 k/uL (0-0.7); Eosinophils % (A) 1 %; HDW 2.77; Luc # (Auto) 0.15; Luc % (Auto) 1; Lymphocytes # (A) 1.2 k/uL (1.0-4.8); Lymphocytes % (A) 7 %; MCH 30.2 pg (25.0-35.0); MCHC 32.2 g/dL (31.0-37.0); MCV 93.7 fL (80.0-100.0); Mean Platelet Volume 6.8; Monocytes # (A) 0.4 k/uL (0-1.0); Monocytes % (A) 2 %; Neutrophils # (A) 15.7 k/uL (1.3-7.7); Neutrophils % (A) 89 %; RBC 1.83 m/uL (3.80-5.40); RDW 17.5 % (11.5-15.5); WBC 17.6 k/uL (3.8-10.6); WBC (Perox) 17.13
[2017-01-21 12:47] LABS: ALT 36 U/L (9-52); AST 21 U/L (14-36); Alkaline Phosphatase 57 U/L (38-126); Anion Gap 6 mmol/L; Blood Urea Nitrogen 17 mg/dL (7-17); Calcium 8.5 mg/dL (8.4-10.2); Carbon Dioxide 25 mmol/L (22-30); Chloride 104 mmol/L (98-107); Glucose 124 mg/dL (74-99); INR 0.9 (<1.1); Magnesium 1.9 mg/dL (1.6-2.3); Non-African American GFR(MDRD) >60 (>60 ml/min/1.73 sqM); Potassium 4.4 mmol/L (3.5-5.1); Prothrombin Time 9.6 sec (9.0-12.0); Sodium 135 mmol/L (137-145); Total Bilirubin 0.4 mg/dL (0.2-1.3); Total Protein 5.3 g/dL (6.3-8.2)
[2017-01-21 12:49] LABS: HCT 17.2 % (34.0-46.0)
[2017-01-21 12:50] LABS: HGB 5.5 gm/dL (11.4-16.0)
[2017-01-21 12:58] LABS: Creatine Kinase 20 U/L (30-135)
[2017-01-21 13:06] LABS: Partial Thromboplastin Time 17.5 sec (22.0-30.0)
[2017-01-21 13:11] LABS: Creatine Kinase MB 0.7 ng/mL (0.0-2.4); Troponin I <0.012 ng/mL (0.000-0.034)
[2017-01-21] MEDS ORDERED: NALOXONE 0.4 MG/ML 1 ML VIAL IV PRN (13:46)
[2017-01-21 15:12] LABS: Appearance,Urine Clear (Clear); Bacteria,Urine Rare /hpf; Bilirubin,Urine Negative (Negative); Glucose,Urine (UA) Negative (Negative); Ketones,Urine Negative (Negative); Leukocyte Esterase,Urine Moderate (Negative); Mucus,Urine Rare /hpf; Nitrite,Urine Negative (Negative); PH, Urine 7.5 (5.0-8.0); Particle Count 1597; Protein,Urine Negative (Negative); RBC,Urine 15 /hpf (0-5); Specific Gravity,Urine 1.007 (1.001-1.035); UA Billing (MACRO vs. MICRO) MICRO; Urobilinogen,Urine <2.0 mg/dL (<2.0); WBC,Urine 25 /hpf (0-5)
[2017-01-21] MEDS ORDERED: ACETAMINOPHEN TAB 325 MG TAB PO PRN (15:41)
[2017-01-21] MEDS ORDERED: IOHEXOL 350 MG/ML 25 ML BOTTLE (ORAL USE) PO PRN (16:16)
[2017-01-21] MEDS ORDERED: RX INFO: IV CONTRAST WAS GIVEN 1 EACH MISC MISCELLANE PRN (16:16)
--- NOTE | 2017-01-21 18:39 | CT ---
EXAMINATION TYPE: CT abdomen pelvis w con DATE OF EXAM: 01/21/2017 6:29 PM COMPARISON: 01/09/2017 HISTORY: C/O abdominal pain, R/O GI bleed. Hx of ulcertive colitis. CT DLP: 383.7 mGycm Automated exposure control for dose reduction was used. TECHNIQUE: Helical acquisition of images was performed from the lung bases through the pelvis. CONTRAST: Performed with Oral Contrast and with IV Contrast, patient injected with 100 mL of Omnipaque 300. FINDINGS: Lung bases are clear of consolidation. There is small right pleural effusion. Liver spleen pancreas gallbladder appear normal. Bile ducts are not dilated. There is no adrenal mass. Kidneys show satisfactory contrast opacification. There is right ureteral s tent. There is minimal right-sided hydronephrosis. There is decreased cortical contrast opacification of the right kidney compared to the left. There is no retroperitoneal adenopathy. There is no ascites. Bladder distends smoothly. There is no s ign of a pelvic mass. There is no free fluid. There is retained fecal material throughout the colon. There is no sign of appendicitis. I see no bony destructive process. IMPRESSION: THERE IS MILD RIGHT-SIDED HYDRONEPHROSIS. THIS APPEARS NO WORSE THAN LAST EXAM. THERE IS A RIGHT URET ERAL STENT THAT APPEARS TO BE IN GOOD POSITION. DECREASED RIGHT RENAL CORTICAL OPACIFICATION IS CONSI STENT WITH PYELONEPHRITIS OR OBSTRUCTION. THIS IS IS IMPROVED SLIGHTLY COMPARED TO LAST EXAM. THERE IS A NEW SMALL RIGHT PLEURAL EFFUSION COMPARED TO LAST EXAM.
[2017-01-21 19:46] LABS: Anisocytosis Slight; Basophils # (A) 0.1 k/uL (0-0.2); Basophils % (A) 0 %; CH 29.8; CHCM 34.5; Eosinophils % (A) 0 %; HCT 24.2 % (34.0-46.0); HDW 3.35; Luc # (Auto) 0.27; Luc % (Auto) 2; Lymphocytes # (A) 1.8 k/uL (1.0-4.8); Lymphocytes % (A) 11 %; MCH 29.6 pg (25.0-35.0); MCHC 33.9 g/dL (31.0-37.0); Mean Platelet Volume 6.8; Monocytes # (A) 0.7 k/uL (0-1.0); Monocytes % (A) 4 %; Neutrophils # (A) 13.2 k/uL (1.3-7.7); Neutrophils % (A) 83 %; RBC 2.77 m/uL (3.80-5.40); RDW 18.9 % (11.5-15.5); WBC 15.9 k/uL (3.8-10.6); WBC (Perox) 16.23
[2017-01-21 19:49] LABS: HGB 8.2 gm/dL (11.4-16.0); MCV 87.2 fL (80.0-100.0)
[2017-01-21] MEDS ORDERED: HYDROcodone/APAP 5-325MG 1 EACH TAB PO PRN (20:49)
[2017-01-21 23:07] VITALS: BMI 20.7
[2017-01-22] MEDS: PANTOPRAZOLE 40 MG/10 ML VIAL IVP SCH ×2 (00:08→07:56)
[2017-01-22] MEDS ORDERED: HYDROcodone/APAP 5-325MG 1 EACH TAB PO PRN (01:23)
[2017-01-22 07:55] VITALS: BP 128/55; PULSE 124; RESP 20; TEMP 98.7
[2017-01-22] MEDS ORDERED: BUDESONIDE 0.5 MG/2 ML NEBU INHALATION PRN (08:14)
[2017-01-22] MEDS ORDERED: EPINEPHrine (PF) 1 MG/ML AMP IM PRN (08:14)
[2017-01-22] MEDS ORDERED: ALBUTEROL NEBULIZED 2.5 MG/3 ML INHALATION PRN ×2 (08:14)
[2017-01-22] MEDS ORDERED: NON-FORMULARY DRUG (Medroxyprogesterone Acetate [Depo-Provera] 150 MG) IM SCH (08:15)
[2017-01-22 08:30] LABS: Anisocytosis Slight; Basophils # (A) 0.1 k/uL (0-0.2); Basophils % (A) 0 %; CH 28.8; CHCM 32.1; Eosinophils % (A) 0 %; HCT 28.9 % (34.0-46.0); HDW 3.22; HGB 9.4 gm/dL (11.4-16.0); Hypochromasia Slight; Luc % (Auto) 1; Lymphocytes # (A) 2.6 k/uL (1.0-4.8); Lymphocytes % (A) 17 %; MCH 29.3 pg (25.0-35.0); MCHC 32.4 g/dL (31.0-37.0); MCV 90.5 fL (80.0-100.0); Mean Platelet Volume 6.7; Monocytes # (A) 0.7 k/uL (0-1.0); Monocytes % (A) 5 %; Neutrophils # (A) 11.6 k/uL (1.3-7.7); Neutrophils % (A) 77 %; RDW 19.4 % (11.5-15.5); WBC 15.1 k/uL (3.8-10.6); WBC (Perox) 16.06
[2017-01-22] MEDS ORDERED: NON-FORMULARY DRUG (Dextroamphetamine/Amphetamine [Adderall] 20 MG) PO SCH (09:00)
[2017-01-22] MEDS ORDERED: SULFAMETHOX-TMP 200-40MG/5ML 20 ML CUP PO SCH (09:00)
[2017-01-22] MEDS ORDERED: predniSONE 10 MG TAB PO SCH (09:00)
[2017-01-22 09:01] LABS: ALT 33 U/L (9-52); AST 19 U/L (14-36); Alkaline Phosphatase 65 U/L (38-126); Anion Gap 8 mmol/L; Blood Urea Nitrogen 13 mg/dL (7-17); Calcium 8.6 mg/dL (8.4-10.2); Carbon Dioxide 26 mmol/L (22-30); Chloride 102 mmol/L (98-107); Glucose 109 mg/dL (74-99); Magnesium 1.8 mg/dL (1.6-2.3); Non-African American GFR(MDRD) >60 (>60 ml/min/1.73 sqM); Potassium 4.3 mmol/L (3.5-5.1); Sodium 136 mmol/L (137-145); Total Bilirubin 0.5 mg/dL (0.2-1.3); Total Protein 5.8 g/dL (6.3-8.2)
--- NOTE | 2017-01-22 09:05 | P.CNPUL ---
History of Present Illness Consult date: 01/21/17 Requesting physician: Parminder Chappell Reason for consult: other (icu mangement) Chief complaint: Anemia History of present illness: This is a 26-year-old female patient being evaluated and examined today. This patient came into the emergency department after her medical doctor after receiving results of a low hemoglobin. Patient states she was recently treated for pneumonia and polynephritis. She was on steroids and antibiotics. She also had a stent placed in her kidney by Dr. Xiong. Patient states her bright red blood per rectum was about 2 days ago and has since then had normal stools. She does state that she has some diffuse pain through her lower abdomen and it is tender to palpation. Patient also complains of sometimes being lightheaded or dizzy. She denies any dysuria, hematuria or being on any blood thinners. GI was consulted. The patient's hemoglobin in the ER was 5.5 and orders have been put in to transfuse 2 units of packed red blood cells. The patient will be admitted to the intensive care unit. Upon examination the patient is resting in bed on 2 L of supplemental oxygen she denies any shortness of breath or cough. Review of Systems 14 point review of systems was completed and is negative other than what is noted in the HPI. Past Medical History Past Medical History: Asthma, Pneumonia Additional Past Medical History / Comment(s): insomnia, hernia, pt mother states "she had bowel wipeout related to her antibiotics" colitis, kidney stones to right kidney anemia History of Any Multi-Drug Resistant Organisms: None Reported Past Surgical History: Adenoidectomy, Hernia Repair, Tonsillectomy Additional Past Surgical History / Comment(s): left inguinal hernia Past Anesthesia/Blood Transfusion Reactions: Motion Sickness Additional Past Anesthesia/Blood Transfusion Reaction / Comment(s): "high tolerance, I sometimes need more" Past Psychological History: No Psychological Hx Reported Smoking Status: Never smoker Past Alcohol Use History: None Reported Additional Past Alcohol Use History / Comment(s): Patient has been a lifelong nonsmoker. She uses alcohol occasionally. She denies any medical marijuana, marijuana, street drug use. She works at [employer]. Past Drug Use History: Marijuana Additional Drug Use History / Comment(s): edible marijuana - Past Family History Mother Family Medical History: No Reported History Additional Family Medical History / Comment(s): Mom is healthy with no major medical problems. Father Additional Family Medical History / Comment(s): Father has history of either Crohn's or irritable bowel syndrome. Medications and Allergies Home Medications Medication Instructions Recorded Confirmed Type Albuterol Inhaler [Ventolin Hfa 1 puff INHALATION RT-Q6H PRN 01/02/17 01/21/17 History Inhaler] Dextroamphetamine/Amphetamine 20 mg PO TID 01/02/17 01/21/17 History [Adderall] Ergocalciferol (Vitamin D2) 50,000 unit PO Q30D 01/02/17 01/21/17 History [Vitamin D2] HYDROcodone/APAP 5-325MG [[place] 1 tab PO Q6H PRN 01/02/17 01/21/17 History 5-325] Medroxyprogesterone Acetate 150 mg IM Q90D 01/02/17 01/21/17 History [Depo-Provera] Albuterol Nebulized [Ventolin 2.5 mg INHALATION RT-Q6H PRN 01/09/17 01/21/17 History Nebulized] Beclomethasone Dipropionate [Qvar 1 puff INHALATION RT-BID PRN 01/09/17 History 80 mcg] EPINEPHrine (Auto Inject) [Epipen] 0.3 mg IM ONCE PRN 01/09/17 01/21/17 History predniSONE See Taper PO DAILY 01/21/17 01/21/17 History Allergies Allergy/AdvReac Type Severity Reaction Status Date / Time adhesive tape Allergy skin Verified 01/21/17 22:52 irritation animal dander Allergy Unknown Verified 01/21/17 22:52 cashew nut Allergy Swelling Verified 01/21/17 22:52 clarithromycin [From Biaxin] Allergy Unknown Verified 01/21/17 22:52 Influenza Virus Vaccines Allergy Unknown Verified 01/21/17 22:52 pistachio nut Allergy Rash/Hives Verified 01/21/17 22:52 walnut Allergy Rash/Hives Verified 01/21/17 22:52 wheat Allergy Unknown Verified 01/21/17 22:52 ciprofloxacin [From Cipro] AdvReac Itching Verified 01/21/17 22:52 Amite And Derivatives AdvReac Itching Verified 01/21/17 22:52 [Amite] Physical Exam Vitals: Vital Signs Temp Pulse Resp BP Pulse Ox 01/21/17 16:19 99.4 F 93 18 116/67 99 01/21/17 15:59 99.5 F 84 18 114/60 99 01/21/17 15:49 99.3 F 97 20 120/64 100 01/21/17 15:39 100.1 F H 96 18 116/59 100 01/21/17 15:20 99.2 F 109 H 18 122/66 100 01/21/17 14:50 98.9 F 95 18 116/58 100 01/21/17 14:39 99.1 F 106 H 18 122/68 99 01/21/17 14:29 98.9 F 96 18 123/70 100 01/21/17 14:19 99.3 F 102 H 18 122/69 Intake and Output 01/21/17 01/21/17 01/21/17 06:59 14:59 22:59 Intake Total 0 310 Balance 0 310 Intake: Blood Product 0 310 Rc As-1 Unit 0 310 [id number] Rc As-3 Unit 0 [id number] GENERAL EXAM: Alert, active, comfortable in no apparent distress. HEAD: Normocephalic. EYES: Normal reaction of pupils, equal size. NOSE: Clear with pink turbinates. THROAT: No erythema or exudates. NECK: No masses, no JVD. CHEST: No chest wall deformity. LUNGS: Equal air entry with no crackles, wheeze, rhonchi or dullness. CVS: S1 and S2 normal with no audible mumurs, regular rhythm. ABDOMEN: No hepatosplenomegaly, normal bowel sounds, slight diffuse tenderness to palpation EXTREMITIES: No edema noted, pedal pulses palpable. SKIN: No rashes, pale CENTRAL NERVOUS SYSTEM: No focal deficits, tone is normal in all 4 extremities. Results - Laboratory Findings CBC and BMP: 01/22/17 08:00 01/21/17 12:21 PT/INR, D-dimer PT 9.6 sec (9.0-12.0) 01/21/17 12:21 INR 0.9 (<1.1) 01/21/17 12:21 Assessment and Plan Plan: Assessment Acute blood loss anemia GI bleed Status post right ureteral stent placement on January 10 History of right hydronephrosis Plan Medications have been reviewed and will be continued. GI and DVT prophylaxis. We will get a urine specimen for culture as well as a urine hCG. If the urine hCG is negative we'll go forth with a CT of the abdomen and pelvis. The patient 's repeat hemoglobin comes back less than 7 after HER-2 units of packed red blood cells we will order an additional unit to be transfused. We will continue to monitor for bleeding. We will continue to monitor labs/results and adjust treatment as necessary. I performed an examination of the patient and discussed their management with the nurse practitioner. I have reviewed the nurse practitioner's note and agree with the documented findings and plan of care.
--- NOTE | 2017-01-22 10:36 | P.HPIM ---
History of Present Illness H&P Date: 01/21/17 Chief Complaint: abnormal lab 26-year-old female presented on the day of admission to the emergency room to be evaluated after patient states she was told she had abnormal labs.patient stated over the last several days she been feeling like her heart was racing she was getting very tired. Patient stated that she had an episode 4 days prior of bright red blood per rectum after taking Motrin. After taking the Motrin had the episode of bright red blood per rectum. Patient states since that occurrence her bowel movements have been normal there have been no further episodes of having bright red blood per rectumpatient was seen in the emergency room did undergo a computed tomography scan of the abdomen with contrast that showed mild right-sided hydronephrosis appears no worse the last exam no free air retained fecal material throughout the colon no sign of appendicitispatient was just discharged on January 15 after being hospitalized for 6 daysthat admission the patient was treated for severe sepsis with septic shock was tachycardic hypotensive secondary to obstructive uropathy. That admission the patient did have acute blood loss anemia the suspect was due to a GI bleed did receive 3 units of packed red blood cells. Patient was seen that admission by GI service. Also that admission the patient was seen by urology service. Patient did have a ureteral stent placed I urology this was to be removed in the outpatient setting in 2 weeks. Patient was treated at that admission for acute right hydronephrosis secondary to a right ureteral calculus. 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 Dorsey did undergo colonoscopy on January 06. Random biopsies done reviewed biopsies showing acute colitis features suggesting chronic. Rectal biopsies showed acute proctitis. Was felt to be chronic. Patient was being treated for possible inflammatory bowel disease which could not be excluded. Patient was to follow-up in the outpatient setting. The last admission the patient was treated for sepsis gram-negative from obstructive uropathogen bacteremia. Labs verified Klebsiella Gram-Negative Both from the Blood and the Urinehemoglobin on admission was 5.5. Patient did receive 2 units of packed red blood cells and on the it was up to 9.4 A GI consultation was requested Dr. Manrique did see patient on January 22 indicated there was no further GI workup indicated at this time hemoglobin was stable Review of Systems essentially unremarkable except as mentioned in the present illness Past Medical History Past Medical History: Asthma, Pneumonia Additional Past Medical History / Comment(s): insomnia, hernia, pt mother states "she had bowel wipeout related to her antibiotics" colitis, kidney stones to right kidney anemia History of Any Multi-Drug Resistant Organisms: None Reported Past Surgical History: Adenoidectomy, Hernia Repair, Tonsillectomy Additional Past Surgical History / Comment(s): left inguinal hernia Past Anesthesia/Blood Transfusion Reactions: Motion Sickness Additional Past Anesthesia/Blood Transfusion Reaction / Comment(s): "high tolerance, I sometimes need more" Past Psychological History: No Psychological Hx Reported Smoking Status: Never smoker Past Alcohol Use History: None Reported Additional Past Alcohol Use History / Comment(s): Patient has been a lifelong nonsmoker. She uses alcohol occasionally. She denies any medical marijuana, marijuana, street drug use. She works at [employer]. Past Drug Use History: Marijuana Additional Drug Use History / Comment(s): edible marijuana - Past Family History Mother Family Medical History: No Reported History Additional Family Medical History / Comment(s): Mom is healthy with no major medical problems. Father Additional Family Medical History / Comment(s): Father has history of either Crohn's or irritable bowel syndrome. Medications and Allergies Home Medications Medication Instructions Recorded Confirmed Type Albuterol Inhaler [Ventolin Hfa 1 puff INHALATION RT-Q6H PRN 01/02/17 01/21/17 History Inhaler] Dextroamphetamine/Amphetamine 20 mg PO TID 01/02/17 01/21/17 History [Adderall] Ergocalciferol (Vitamin D2) 50,000 unit PO Q30D 01/02/17 01/21/17 History [Vitamin D2] HYDROcodone/APAP 5-325MG [[place]emet 1 tab PO Q6H PRN 01/02/17 01/21/17 History 5-325] Medroxyprogesterone Acetate 150 mg IM Q90D 01/02/17 01/21/17 History [Depo-Provera] Albuterol Nebulized [Ventolin 2.5 mg INHALATION RT-Q6H PRN 01/09/17 01/21/17 History Nebulized] Beclomethasone Dipropionate [Qvar 1 puff INHALATION RT-BID PRN 01/09/17 History 80 mcg] EPINEPHrine (Auto Inject) [Epipen] 0.3 mg IM ONCE PRN 01/09/17 01/21/17 History predniSONE See Taper PO DAILY 01/21/17 01/21/17 History Allergies Allergy/AdvReac Type Severity Reaction Status Date / Time adhesive tape Allergy skin Verified 01/21/17 22:52 irritation animal dander Allergy Unknown Verified 01/21/17 22:52 cashew nut Allergy Swelling Verified 01/21/17 22:52 clarithromycin [From Biaxin] Allergy Unknown Verified 01/21/17 22:52 Influenza Virus Vaccines Allergy Unknown Verified 01/21/17 22:52 pistachio nut Allergy Rash/Hives Verified 01/21/17 22:52 walnut Allergy Rash/Hives Verified 01/21/17 22:52 wheat Allergy Unknown Verified 01/21/17 22:52 ciprofloxacin [From Cipro] AdvReac Itching Verified 01/21/17 22:52 Crowder And Derivatives AdvReac Itching Verified 01/21/17 22:52 [Crowder] Physical Exam Vitals: Vital Signs Temp Pulse Pulse Pulse Resp BP BP 01/22/17 07:00 98.7 F 124 H 20 128/55 01/22/17 04:52 98 F 113 H 16 115/61 01/22/17 04:40 139 H 01/22/17 02:00 125 H 01/22/17 01:23 98.3 F 115 H 18 129/75 01/21/17 19:59 93 20 01/21/17 19:48 98.9 F 93 20 125/68 01/21/17 18:20 98.9 F 97 18 113/67 01/21/17 17:22 92 18 116/68 01/21/17 16:19 99.4 F 93 18 116/67 01/21/17 15:59 99.5 F 84 18 114/60 01/21/17 15:49 99.3 F 97 20 120/64 01/21/17 15:39 100.1 F H 96 18 116/59 01/21/17 15:20 99.2 F 109 H 18 122/66 01/21/17 14:50 98.9 F 95 18 116/58 01/21/17 14:39 99.1 F 106 H 18 122/68 01/21/17 14:29 98.9 F 96 18 123/70 01/21/17 14:19 99.3 F 102 H 18 122/69 Pulse Ox 01/22/17 07:00 100 01/22/17 04:52 100 01/22/17 04:40 01/22/17 02:00 01/22/17 01:23 100 01/21/17 19:59 01/21/17 19:48 99 01/21/17 18:20 98 01/21/17 17:22 98 01/21/17 16:19 99 01/21/17 15:59 99 01/21/17 15:49 100 01/21/17 15:39 100 01/21/17 15:20 100 01/21/17 14:50 100 01/21/17 14:39 99 01/21/17 14:29 100 01/21/17 14:19 Intake and Output 01/21/17 01/22/17 01/22/17 22:59 06:59 14:59 Intake Total 620 390 Output Total 1600 Balance -980 390 Intake: Oral 390 Blood Product 620 Rc As-1 Unit 310 [id number] Rc As-3 Unit 310 [id number] Output: Urine 1600 Other: Voiding Method Toilet Toilet Bedside Commode # Voids 1 1 # Bowel Movements 1 1 Weight 54.885 kg GENERAL APPEARANCE: patient is alert, oriented, in no acute distress.sitting up on the edge of the bed talkative on room air VITAL SIGNS: reviewed HEENT: Head is normocephalic and atraumatic. Pupils are equal and reactive. The nares are patent. Oropharynx is clear without lesions. NECK: Supple without lymphadenopathy. Traches midline. HEART: S1, S2. Regular rate and rhythm.no murmur noted monitor sinus tach heart rate 110 patient denies any heart palpitations LUNGS: No crackles or wheezes are heard.adequate air movement bilaterally ABDOMEN: Soft, nontender, nondistended with good bowel sounds. No peritoneal signs. No palpable organomegaly or masses.denying any abdominal pain no further stooling EXTREMITIES: Normal skin color and turgor. No cyanosis, rash, ulceration, clubbing or edema. Radial pedal pulses are 2/4 bilaterally. NEUROLOGICAL: No focal deficits. Strength and sensation are grossly intact. Results CBC & Chem 7: 01/22/17 08:00 01/22/17 08:00 Labs: Abnormal Lab Results - Last 24 Hours (Table) 01/21/17 01/22/17 01/22/17 Range/Units 19:20 08:00 08:00 WBC 15.9 H 15.1 H (3.8-10.6) k/uL RBC 2.77 L 3.20 L (3.80-5.40) m/uL Hgb 8.2 L D 9.4 L (11.4-16.0) gm/dL Hct 24.2 L 28.9 L (34.0-46.0) % RDW 18.9 H 19.4 H (11.5-15.5) % Plt Count 468 H 550 H (150-450) k/uL Neutrophils # 13.2 H 11.6 H (1.3-7.7) k/uL Sodium 136 L (137-145) mmol/L Glucose 109 H (74-99) mg/dL Total Protein 5.8 L (6.3-8.2) g/dL Albumin 2.9 L (3.5-5.0) g/dL Thrombosis Risk Factor Assmnt - Choose All That Apply Any of the Below Risk Factors Present?: Yes Each Factor Represents 1 point: Sepsis (< 1month) Other Risk Factors: No Other congenital or acquired thrombophilia - If yes, enter type in comment: No Thrombosis Risk Factor Assessment Total Risk Factor Score: 1 Thrombosis Risk Factor Assessment Level: Low Risk Assessment and Plan Plan: impression present on admission acute blood loss anemia suspect due to a GI bleed necessitating 2 units of packed red blood cells hemoglobin on admission 5.5 History of an acute right hydronephrosis secondary to a right urethral calculus with a stent placed on January 10 to the right ureter A recent admission discharged on the for severe septic shock due to Klebsiella pneumoniae gram-negative bacilli both from the blood and urine due to obstructive uropathathy computed tomography scan abdomen and pelvis with contrast on the show mild right-sided hydronephrosis with retained fecal material otherwise unremarkable study Sinus tachycardic heart rate 110 likely reactive a colonoscopy on January [address] Dorsey suggest acute colitis as features suggestive of chronicity possibility of inflammatory bowel disease not excluded Plan Prepped for discharge today Follow up tomorrow with the PCP in the office resume home meds as appropriate further recommendations pending The above dictated assessment and findings were discussed with dr alfred Impression and the plan of care have been dictated as directed. Shari Cabrera nurse practitioner acting as a scribe for dr alfred
--- NOTE | 2017-01-22 10:40 | P.DS ---
Providers Date of admission: 01/21/17 13:48 Expected date of discharge: 01/22/17 Attending physician: Parminder Chappell Primary care physician: Parminder Chappell [facility] Course: 26-year-old female presented on the day of admission to the emergency room to be evaluated after patient states she was told she had abnormal labs.patient stated over the last several days she been feeling like her heart was racing she was getting very tired. Patient stated that she had an episode 4 days prior of bright red blood per rectum after taking Motrin. After taking the Motrin had the episode of bright red blood per rectum. Patient states since that occurrence her bowel movements have been normal there have been no further episodes of having bright red blood per rectumpatient was seen in the emergency room did undergo a computed tomography scan of the abdomen with contrast that showed mild right-sided hydronephrosis appears no worse the last exam no free air retained fecal material throughout the colon no sign of appendicitispatient was just discharged on January 15 after being hospitalized for 6 daysthat admission the patient was treated for severe sepsis with septic shock was tachycardic hypotensive secondary to obstructive uropathy. That admission the patient did have acute blood loss anemia the suspect was due to a GI bleed did receive 3 units of packed red blood cells. Patient was seen that admission by GI service. Also that admission the patient was seen by urology service. Patient did have a ureteral stent placed I urology this was to be removed in the outpatient setting in 2 weeks. Patient was treated at that admission for acute right hydronephrosis secondary to a right ureteral calculus. 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 Dorsey did undergo colonoscopy on January 06. Random biopsies done reviewed biopsies showing acute colitis features suggesting chronic. Rectal biopsies showed acute proctitis. Was felt to be chronic. Patient was being treated for possible inflammatory bowel disease which could not be excluded. Patient was to follow-up in the outpatient setting. The last admission the patient was treated for sepsis gram-negative from obstructive uropathogen bacteremia. Labs verified Klebsiella Gram-Negative Both from the Blood and the Urinehemoglobin on admission was 5.5. Patient did receive 2 units of packed red blood cells and on the it was up to 9.4 A GI consultation was requested Dr. Manrique did see patient on January 22 indicated there was no further GI workup indicated at this time hemoglobin was stable Patient was adamant about being discharged home. There were no further episodes of bloody stools bowel movements were normal hemoglobin was stable impression present on admission acute blood loss anemia suspect due to a GI bleed necessitating 2 units of packed red blood cells hemoglobin on admission 5.5 History of an acute right hydronephrosis secondary to a right urethral calculus with a stent placed on January 10 to the right ureter A recent admission discharged on the for severe septic shock due to Klebsiella pneumoniae gram-negative bacilli both from the blood and urine due to obstructive uropathathy computed tomography scan abdomen and pelvis with contrast on the show mild right-sided hydronephrosis with retained fecal material otherwise unremarkable study Sinus tachycardic heart rate 110 likely reactive a colonoscopy on January [address] Dorsey suggest acute colitis as features suggestive of chronicity possibility of inflammatory bowel disease not excluded The above dictated assessment and findings were discussed with dr aubrie Maynard and the plan of care have been dictated as directed. Shari Cabrera nurse practitioner acting as a scribe for dr chappell Plan - Discharge Summary Discharge Medication List Albuterol Inhaler [Ventolin Hfa Inhaler] 1 puff INHALATION RT-Q6H PRN 01/02/17 [ History] Dextroamphetamine/Amphetamine [Adderall] 20 mg PO TID 01/02/17 [History] Ergocalciferol (Vitamin D2) [Vitamin D2] 50,000 unit PO Q30D 01/02/17 [History] HYDROcodone/APAP 5-325MG [[place] 5-325] 1 tab PO Q6H PRN 01/02/17 [History] Medroxyprogesterone Acetate [Depo-Provera] 150 mg IM Q90D 01/02/17 [History] Albuterol Nebulized [Ventolin Nebulized] 2.5 mg INHALATION RT-Q6H PRN 01/09/17 [ History] Beclomethasone Dipropionate [Qvar 80 mcg] 1 puff INHALATION RT-BID PRN 01/09/17 [History] EPINEPHrine (Auto Inject) [Epipen] 0.3 mg IM ONCE PRN 01/09/17 [History] Pantoprazole [Protonix] 40 mg PO ASHLEY-BRKFST #30 tablet. 01/15/17 [Rx] Sulfamethox-Tmp 200-40Mg/5Ml [Bactrim Suspension] 20 ml PO BID #840 ml 01/15/17 [Rx] predniSONE See Taper PO DAILY 01/21/17 [History] Follow up Appointment(s)/Referral(s): Parminder Chappell MD [Primary Care Provider] - 01/23/17 9:30 am Rosas Gandara MD [STAFF PHYSICIAN] - 1 Week Discharge Disposition: HOME SELF-CARE
--- NOTE | 2017-01-22 11:05 | CONS ---
DATE OF CONSULTATION: 01/22/2017 REASON FOR CONSULTATION: Rectal bleeding and anemia. HISTORY OF PRESENT ILLNESS: The patient is a 26-year-old pleasant lady who came into the emergency room after she was advised by her PCP to go to the ER for severe anemia and hemoglobin of 5.5, requiring 2 units of blood transfusion. The patient stated that she was seen by Dr. Maynard 10 days ago and underwent an outpatient colonoscopy by him on January 06. Colonoscopy showed mild nonspecific proctitis; otherwise, the entire colon including the terminal ileum was normal. Biopsies showed acute proctitis, with features suggestive of chronicity but the rest of the colon also had mild changes of acute colitis with features suggestive of chronicity and possibility of infectious disease with inflammatory bowel disease could not be excluded as per the pathologist. In any event, patient was discharged home following the outpatient colonoscopy and in fact was scheduled to see Dr. Maynard sometime this week. In the meantime, apparently she was taking some Motrin. She had an episode of bright red blood per rectum about 4 days ago and around the same time she went to see her family physician and had routine labs done and hemoglobin was 5.5 and she was instructed to go to the emergency room. About a week ago, her hemoglobin was 10.1. Yesterday she received 3 units of blood and this morning hemoglobin is 8.2. She presently denies any abdominal pain. Reports no nausea or vomiting. Denies any fever, chills, night sweats. The patient has been sick for the last 6 months' duration. She had initially had prolonged hospitalization at [facility] for 10 days in early December and was diagnosed with urosepsis secondary to kidney stones/secondary to ureteral system for which she underwent urethral stent placement. She was on broad-spectrum antibiotics. Prior to that hospitalization, she had severe bloody diarrhea and was treated with antibiotics for possible infectious colitis. Recently, she has been doing well. She reports no fever, chills, night sweats. No abdominal pain. No nausea or vomiting. Her past medical history is significant for recent urosepsis, recent acute episode of acute colitis, history of IgG deficiency, asthma, pneumonia, motion sickness. Past surgical history of adenoidectomy, hernia repair, tonsillectomy, left inguinal hernia repair and colonoscopy January [address] Maynard that showed some proctitis. FAMILY HISTORY: Mother is healthy, father has Crohn's disease. Medications at home include Gilbert, Ventolin, QVAR, Epipen, nystatin, prednisone taper, Adderall and vitamin D2. Allergies to INFLUENZA VACCINE, BIAXIN, CIPRO. SOCIAL HISTORY: No smoking, no alcohol use. REVIEW OF SYSTEMS: CARDIOPULMONARY: No chest pain, shortness of breath. GENITOURINARY: No dysuria or hematuria. MUSCULOSKELETAL: Unremarkable. SKIN: Unremarkable. ENDOCRINE: Unremarkable. PSYCHIATRIC: Unremarkable. NEUROLOGY: Unremarkable. ENT: Vision unremarkable. CONSTITUTIONAL: No recent weight loss. No fevers, chills, night sweats. On physical examination, blood pressure 130/82, pulse rate 115, temperature 98. HEENT: Unremarkable. Conjunctivae are pink. Sclerae nonicteric. Oral cavity no lesions. NECK: No JVD or lymph node enlargement. Chest was clear to auscultation. HEART: Regular rate and rhythm. Abdomen is soft. Bowel sounds are positive. No organomegaly. EXTREMITIES: No pedal edema. SKIN: No rashes. NEURO: Alert and oriented x3. No focal deficits. LABS: Yesterday WBC 7.6, hemoglobin 5.5, platelets are 501. PT 9.6. INR 0.9. After 3 units hemoglobin is 8.2 this morning. IMPRESSION: 1. This is a lady who presents to the hospital with severe symptomatic anemia with a hemoglobin of 5.5 and a week earlier is 10.1 gm/dL. She had an episode of bright red blood per rectum which happened about 4 days ago but since then she has been having one bowel movement daily with no further bleeding. She had a colonoscopy by Dr. Maynard 2 weeks ago on January 06 that showed evidence of acute proctitis and biopsies did show evidence of acute proctitis with some chronic changes consistent with early inflammatory bowel disease. 2. Recent urosepsis secondary to kidney stones for which she has a ureteral stent, doing well. RECOMMENDATIONS: 1. Will start her on Canasa suppositories once at bedtime. 2. She is already tapering her doses of prednisone which she will finish it up as scheduled. 3. Since there is no further bleeding, no need for any endoscopic intervention and therefore will follow her closely during the hospital stay. Will try her on clear liquid diet and advance as tolerated. Thank you for this consultation.
[2017-01-22] MEDS ORDERED: ERGOCALCIFEROL 50,000 UNIT CAP PO SCH (12:00)
--- NOTE | 2017-01-22 16:46 | HP ---
DATE OF ADMISSION: 01/21/2017 CHIEF COMPLAINT: Ulcerative colitis with anemia. HISTORY OF PRESENT ILLNESS: This is another admission for this 26-year-old white female who was just in the hospital. She was in the office to be evaluated; CBC was drawn and her hemoglobin came back just over 5. She was contacted and brought directly into the hospital for transfusion, but it was felt safest to admit her. Initially she indicated she had not had any rectal bleeding, but then she stated that she took ibuprofen. Why she did this is not clear. She is also on prednisone, which is being tapered. She has a right ureteral stent for obstruction from a stone. She has had no fever, chills, etc. REVIEW OF SYSTEMS: She has had no other complaints. She has had no headaches, cough, hemoptysis, chest pain, sputum production, nausea, vomiting, hematemesis, etc. Past medical history, family history, and personal and social histories are all otherwise unremarkable or unchanged or noncontributory. MEDICATIONS: She is on: 1. Tapering dose of prednisone. 2. Protonix 40 mg once a day. 3. Bactrim DS twice a day. 4. Albuterol MDI. 5. Vicodin 5 q.4 p.r.n. 6. Depo-Provera. 7. Updrafts of albuterol. 8. Beclomethasone. 9. Nystatin suspension swish and swallow 4 times a day. PHYSICAL EXAMINATION: Blood pressure is 98/60 with a pulse of 115, respirations of 34, and temperature of 100.6. In general she appeared to be pale and in no acute distress. Skin was dry and lymph nodes were not enlarged. Head, ears, eyes, nose, mouth and throat were unremarkable. She had a slightly cushingoid appearance. Neck veins were not distended. The chest demonstrated occasional rales and rhonchi at the bases. Cardiac exam demonstrated sinus tachycardia. Abdomen was slightly protuberant she had mild tenderness throughout. There were no definite masses. There was no rebound or referred tenderness. Bowel sounds were heard. Extremities were normal. Neurologically she was intact. IMPRESSION: 1. Anemia. 2. Ulcerative colitis. 3. Arthralgias. 4. Dermatitis. PLAN: 1. Bed rest. 2. IV fluids. 3. Transfuse. 4. Discharge outpatient treatment when she is stabilized.
--- NOTE | 2017-01-22 16:53 | PN ---
CHIEF COMPLAINT: Anemia. HISTORY OF PRESENT ILLNESS: This lady's hemoglobin is up now that she has received 2 units of packed cells. She states she is feeling fine. She states she has had no fever, chills, abdominal pain, etc., and she has had no further bleeding. PHYSICAL EXAMINATION: She remains pale. Chest clear. Cardiac exam is normal. The abdomen is somewhat doughy throughout. There are no masses. IMPRESSION: 1. Anemia. 2. Ulcerative colitis. 3. Pancytopenia. 4. Fever of unknown origin. PLAN: Home today and monitor closely as an outpatient. Stay on prednisone in the meantime.
--- NOTE | 2017-01-22 17:41 | PN ---
Ms. Sahra Sidhu is seen, evaluated, examined on the fifth floor. This is a 26-year-old female who came into hospital with severe profound anemia. The patient has abdominal tenderness and pain which is a better. Patient has been evaluated by GI services. No evidence of active bleeding has been seen. Her hemodynamic status is stable except intermittent tachycardia. Her last set of vitals include blood pressure 128/50, respiratory rate 20, pulse 124, temperature is 98, saturation 100% on room air. HEENT EXAMINATION: Otherwise unremarkable. NECK: Supple. LUNGS: Good air entry bilaterally. HEART: Regular rate and rhythm. S1 and S2 audible. ABDOMEN: Soft. No rebound or rigidity. EXTREMITIES: +1 peripheral pulses. NEUROLOGICAL EXAMINATION: Awake, alert. CT scan of the chest revealed a small right-sided pleural effusion is seen with some basal subsegmental atelectasis, right sided ureteral stent and small right-sided hydronephrosis seen, which is overall stable. IMPRESSION: 1. Gastrointestinal bleed acute blood loss anemia, history of ulcerative colitis and severe anemia, status post transfusion of 2 units of packed RBC. Clinically doing better. Hemoglobin has stabilized and improved now. Last checked revealed a hemoglobin of 9.4, which is stable compared to last night of 8.2. 2. Small right-sided pleural effusion, likely related to intraabdominal process associated with hydronephrosis and stenting related to renal calculi. We will monitor and observe. No active intervention. Will recommend follow-up on an outpatient basis. 3. History of sepsis and urinary tract infection. Plan and recommendation: As above. Will follow.
[2017-01-22] MEDS ORDERED: MESALAMINE 1,000 MG SUPP RECTAL SCH (21:00)
[2017-01-23] MEDS ORDERED: PANTOPRAZOLE 40 MG TABLET PO SCH (07:30)
== END 2017-01-22 11:50 | disposition home or self-care (01) | DRG 378 ==
LOC: EC 11:43 → 6ICU 13:48 → 5MS5E 21:18
PROVIDERS: ADMIT Family Medicine; ATTEND Family Medicine
PROC: 30233N1 Transfusion of Nonautologous Red Blood Cells into Peripheral Vein, Percutaneous Approach (ICD-10-PCS; principal; 2017-01-21)
DX: K92.2 Gastrointestinal hemorrhage, unspecified (principal); D62 Acute posthemorrhagic anemia; J90 Pleural effusion, not elsewhere classified; D61.818 Other pancytopenia; D80.3 Selective deficiency of immunoglobulin G [IgG] subclasses; N13.30 Unspecified hydronephrosis; K51.90 Ulcerative colitis, unspecified, without complications; R00.0 Tachycardia, unspecified; K62.89 Other specified diseases of anus and rectum; R50.9 Fever, unspecified; N13.9 Obstructive and reflux uropathy, unspecified; R42 Dizziness and giddiness; R53.83 Other fatigue; J45.909 Unspecified asthma, uncomplicated; G47.00 Insomnia, unspecified; M25.50 Pain in unspecified joint; L30.9 Dermatitis, unspecified; Z79.3 Long term (current) use of hormonal contraceptives; Z79.891 Long term (current) use of opiate analgesic; Z79.51 Long term (current) use of inhaled steroids; Z87.442 Personal history of urinary calculi; Z79.899 Other long term (current) drug therapy; Z87.440 Personal history of urinary (tract) infections; Z87.01 Personal history of pneumonia (recurrent); Z86.19 Personal history of other infectious and parasitic diseases; Z88.1 Allergy status to other antibiotic agents; Z91.018 Allergy to other foods; Z88.7 Allergy status to serum and vaccine; Z91.048 Other nonmedicinal substance allergy status; Z96.0 Presence of urogenital implants; Z83.79 Family history of other diseases of the digestive system; Z79.2 Long term (current) use of antibiotics
CPT/HCPCS: 36415; 74177; 80053; 81001; 81025; 82550; 82553; 83735; 84484; 85025; 85610; 85730; 86850; 86900; 86901; 86920; 87086; 93005; 99291

== ENCOUNTER 2017-02-06 11:03 | Day surgery (SDC) | payer BC, OTHER ==
[~2017-02-06 11:03] MED LIST changes: +DEXAMETHASONE SOD PHOSPHATE 10 MG/ML 1 ML VIAL IV ONE; +HYDROmorphone 1 MG/ML 1 ML SYRINGE IVP PRN; +LIDOCAINE 1% 20 ML VIAL (10MG/ML) FOR IV START INTRADERMA PRN; +MIDAZOLAM 2 MG/2 ML VIAL IV PRN; +ONDANSETRON 4 MG/2 ML VIAL IVP ONE; +SCOPOLAMINE 1.5MG/72HR PATCH TRANSDERM ONE; +ceFAZolin 2 GM in SODIUM CHLORIDE 0.9% 100 ML IVPB ONE
[2017-02-06] MEDS ORDERED: fentaNYL (PF) 50 MCG/ML 2 ML AMP ONE (13:19)
[2017-02-06] MEDS ORDERED: SUCCINYLCHOLINE CHLORIDE 100 MG/5 ML SYR IV ONE (13:19)
[2017-02-06] MEDS ORDERED: MIDAZOLAM 2 MG/2 ML VIAL ONE (13:19)
[2017-02-06] MEDS ORDERED: LIDOCAINE 1% INJ 10MG/ML (20 ML MDV) ONE (13:19)
[2017-02-06] MEDS ORDERED: PROPOFOL 10 MG/ML 20 ML VIAL IV ONE (13:19)
--- NOTE | 2017-02-06 13:19 | XR ---
Abdomen HISTORY: Kidney stones Frontal view of the abdomen on 2 images correlated to prior abdomen January, CT abdomen pe lvis 21 January 2017 There is a right-sided double J ureteral stent in place. Overlying bowel gas may obscure detail. Larg e amount of retained fecal debris is noted. Small punctate calculi may be present within the right ki dney as noted on previous CT. Difficult to exclude distal ureteral calculus. IMPRESSION: Exam may be somewhat limited. Nonobstructive nephrolithiasis suspected, additional findin gs above, correlate for fecal stasis
--- NOTE | 2017-02-06 14:12 | P.OP ---
Date of Procedure: 02/06/17 Preoperative Diagnosis: Right Ureteral Calculus Postoperative Diagnosis: Same Procedure(s) Performed: Cystoscopy, right ureteral stent removal, right ureteroscopy with Holmium laser lithotripsy Anesthesia: ALPHONSEA Surgeon: Landon Leblanc Estimated Blood Loss (ml): 0 IV fluids (ml): 500 Pathology: none sent Condition: stable Disposition: PACU Indications for Procedure: She is a 26-year-old woman recently hospitalized with sepsis, resulting from acute right pyelonephritis complicated by a 5 mm right proximal ureteral calculus. She underwent stent placement, and is being treated with Bactrim DS. Her clinical condition is much improved, and she now comes for ureteroscopic removal of the calculus. Operative Findings: Right proximal ureteral calculus, fragmented completely. Description of Procedure: The patient was taken to the operating room and placed in the dorsolithotomy position, with legs supported in Salvador stirrups. The external genitalia was prepped and draped sterilely. The 30 lens was used to introduce the 22-[place] Stortz cystoscopic sheath through the urethra and into the bladder under direct vision. The bladder was examined in its entirety. No tumors or foreign bodies were seen. Grasping forceps were used to grasp the distal end of the right ureteral stent, which was then removed along with the cystoscope. The mini flexible ureteroscope was advanced into the bladder, and the right ureteral orifice was cannulated. The ureteroscope was slowly advanced under direct vision, until the calculus was identified within the proximal ureter. The 200 micron Holmium laser probe was passed through the ureteroscope, and lithotripsy was performed. As the calculus fragmented, several fragments refluxed into an upper pole calyx. Lithotripsy was completed within this calyx , such that there were no residual calculus fragments exceeding the diameter of the laser fiber tip. Each calyx was then examined. No additional calculi were seen, though a Renaldo's plaque was detached from the mucosal wall within a midpole calyx. The ureteroscope was then slowly withdrawn under direct vision. There was no evidence of ureteral trauma, and no residual calculus fragments too large to pass. The patient tolerated the procedure well and was taken to the recovery room in stable condition.
[2017-02-06 14:33] VITALS: TEMP 98.7
[2017-02-06 14:47] VITALS: RESP 16
[2017-02-06] MEDS ORDERED: LACTATED RINGERS 1,000 ML IV ONE (14:55)
[2017-02-06 15:43] VITALS: BP 123/71; PULSE 100
== END 2017-02-06 15:52 | disposition home or self-care (01) ==
LOC: OR 11:03
PROVIDERS: ATTEND Urology
DX: N20.1 Calculus of ureter (principal); J45.909 Unspecified asthma, uncomplicated; K21.9 Gastro-esophageal reflux disease without esophagitis; D64.9 Anemia, unspecified; Z79.51 Long term (current) use of inhaled steroids; Z79.52 Long term (current) use of systemic steroids; Z79.899 Other long term (current) drug therapy; Z88.1 Allergy status to other antibiotic agents; Z91.012 Allergy to eggs; Z88.7 Allergy status to serum and vaccine; Z91.018 Allergy to other foods; Z91.09 Other allergy status, other than to drugs and biological substances
CPT/HCPCS: 81025; 74000; 52353; C1769; J2250; J1100; J0690; J2405; J2001; J3010; J0330; J2704

== ENCOUNTER → 2018-07-24 | Outpatient (CLI) | payer BC, OTHER ==
--- NOTE | 2018-07-24 15:46 | US ---
EXAMINATION TYPE: US pelvic complete DATE OF EXAM: 07/24/2018 COMPARISON: CT 01/21/2017 CLINICAL HISTORY: N93.9 Abnormal Vaginal Bleeding. TECHNIQUE: . Transabdominal sonographic images of the pelvis were acquired. Date of LMP: Unsure, patient does not have cycles due to depo shot EXAM MEASUREMENTS: Uterus: 6.1 x 2.0 x 2.1 cm Endometrial Stripe: 0.2 cm Right Ovary: 1.8 x 1.2 x 1.5 cm Left Ovary: 1.9 x 1.2 x 1.7 cm 1. Uterus: Anteverted wnl 2. Endometrium: wnl 3. Right Ovary: Follicles visualized, wnl 4. Left Ovary: Follicles visualized, wnl 5. Bilateral Adnexa: wnl 6. Posterior cul-de-sac: wnl IMPRESSION: Unremarkable pelvic ultrasound. No ovarian abnormality identified. Endometrial thickness is within normal limits.
== END ==
LOC: RADUSWWP 13:27
PROVIDERS: ATTEND Family Medicine
DX: N93.9 Abnormal uterine and vaginal bleeding, unspecified (principal)
CPT/HCPCS: 76856

== ENCOUNTER → 2018-10-20 | Outpatient (CLI) | payer OTHER ==
--- NOTE | 2018-10-21 07:33 | US ---
EXAMINATION TYPE: US kidneys/renal and bladder DATE OF EXAM: 10/20/2018 COMPARISON: CT 2017 CLINICAL HISTORY: R31.9 Hematuria, HX renal stones Z87.59. hematuria x 1 week, UTI, history of kidney stones, lower back pain EXAM MEASUREMENTS: Right Kidney: 10.5 x 4.6 x 5.0 cm Left Kidney: 10.9 x 5.7 x 4.6 cm Right Kidney: 0.6cm echogenic focus superior pole with shadowing. No obstruction is evident. Left Kidney: 0.5cm echogenic focus mid/superior pole with shadowing. No obstruction is evident. Bladder: wnl Bilateral Jets seen: yes IMPRESSION: 1. Bilateral nonobstructing renal stones.
== END ==
LOC: RADUSMAIN 16:02
PROVIDERS: ATTEND Family Medicine
DX: N20.0 Calculus of kidney (principal)
CPT/HCPCS: 76770

== ENCOUNTER → 2019-01-26 | Outpatient (CLI) | payer BC, OTHER ==
--- NOTE | 2019-01-26 13:36 | US ---
EXAMINATION TYPE: US abdomen complete DATE OF EXAM: 01/26/2019 COMPARISON: CLINICAL HISTORY: R10.11 right upper quadrant pain. RUQ pain, NPO EXAM MEASUREMENTS: Liver Length: 12.4 cm Gallbladder Wall: 0.2 cm CBD: 0.3 cm CHD: 0.2 cm Spleen: 8.8 cm Right Kidney: 9.0 x 4.4 x 3.9 cm Left Kidney: 9.8 x 4.4 x 5.4 cm Pancreas: Body and tail not well visualized due to overlying bowel gas Liver: wnl Gallbladder: wnl Evidence for sonographic Ryan's sign: neg CBD: wnl CHD: wnl Spleen: wnl Right Kidney: wnl Left Kidney: wnl Upper IVC: wnl Abd Aorta: No AAA visualized The liver is homogenous. The intrahepatic portion of the IVC and proximal abdominal aorta are within normal limits. There is no evidence of cholelithiasis. Common bile duct is unremarkable. The visu alized portions of the pancreas are homogenous. The spleen is unremarkable. Kidneys are symmetric a nd free of hydronephrosis. No renal lesions are seen. IMPRESSION: No distinct abnormality seen.
== END | disposition home or self-care (01) ==
LOC: RADUSWWP 12:54
PROVIDERS: ATTEND Family Medicine
DX: R10.11 Right upper quadrant pain (principal); Z88.0 Allergy status to penicillin; Z88.1 Allergy status to other antibiotic agents
CPT/HCPCS: 76700

== ENCOUNTER 2020-02-07 15:28 | Inpatient (IN) | payer BC, OTHER ==
[2020-02-07 16:17] LABS: Basophils % (A) 0 %; Eosinophils # (A) 0.3 k/uL (0-0.7); Eosinophils % (A) 2 %; HCT 39.1 % (34.0-46.0); Lymphocytes # (A) 1.3 k/uL (1.0-4.8); Lymphocytes % (A) 10 %; MCH 30.3 pg (25.0-35.0); MCHC 33.1 g/dL (31.0-37.0); MCV 91.5 fL (80.0-100.0); Mean Platelet Volume 7.7; Monocytes % (A) 7 %; Neutrophils # (A) 10.7 k/uL (1.3-7.7); Neutrophils % (A) 80 %; Platelet Count 213 k/uL (150-450); RBC 4.27 m/uL (3.80-5.40); RDW 12.1 % (11.5-15.5); WBC 13.4 k/uL (3.8-10.6)
[2020-02-07] MEDS ORDERED: SODIUM CHLORIDE 0.9% 1,000 ML IV ONE (16:18)
[2020-02-07] MEDS ORDERED: MORPHINE SULFATE 4 MG/ML SYRINGE IVP STA ×2 (16:18→18:01)
[2020-02-07 16:28] LABS: INR 1.1 (<1.2); Partial Thromboplastin Time 24.7 sec (22.0-30.0); Prothrombin Time 10.8 sec (9.0-12.0)
[2020-02-07 16:29] LABS: ALT 15 U/L (4-34); AST 26 U/L (14-36); African American GFR (CKD) >90 (>60 ml/min/1.73 sqM); Albumin 3.6 g/dL (3.5-5.0); Alkaline Phosphatase 86 U/L (38-126); Anion Gap 11 mmol/L; Blood Urea Nitrogen 7 mg/dL (7-17); Calcium 8.6 mg/dL (8.4-10.2); Carbon Dioxide 23 mmol/L (22-30); Chloride 103 mmol/L (98-107); Glucose 98 mg/dL (74-99); Non-African American GFR(CKD) >90 (>60 ml/min/1.73 sqM); Potassium 3.6 mmol/L (3.5-5.1); Sodium 137 mmol/L (137-145); Total Bilirubin 0.5 mg/dL (0.2-1.3); Total Protein 6.5 g/dL (6.3-8.2)
[2020-02-07] MEDS ORDERED: ONDANSETRON 4 MG/2 ML VIAL IVP STA (16:30)
--- NOTE | 2020-02-07 16:43 | ED ---
General Adult HPI - General Chief complaint: GI Bleed Stated complaint: abd pain/blood in stool Time Seen by Provider: 02/07/20 15:35 Source: patient Mode of arrival: ambulatory Limitations: no limitations - History of Present Illness Initial comments: The patient is a 29-year-old female past medical history of nephrolithiasis and ulcer colitis presents emergency room with reported left lower quadrant abdominal pain. She states the pain was sudden onset earlier today. She has had associated 5 episodes of diarrhea with dark, melanic stools. The patient denies dysuria, hematuria voiding but does admit to history of previous kidney stones. The patient denies any abnormal vaginal bleeding or discharge. No fevers or chills. She did not take any medications at home for her symptoms. Pain has been constant since onset without any provocative factors. Patient denies any back or flank pain. Denies chest pain or shortness of breath. She is not currently on any treatment for her UC. She did have a colonoscopy in October however has yet to follow up with GI. There are no alleviating, precipitating or modifying factors - Related Data Home Medications Medication Instructions Recorded Confirmed Dextroamphetamine/Amphetamine 20 mg PO TID 01/02/17 02/07/20 [Adderall] Medroxyprogesterone Acetate 150 mg IM Q90D 01/02/17 02/07/20 [Depo-Provera] Albuterol Nebulized [Ventolin 2.5 mg INHALATION RT-QID PRN 01/09/17 02/07/20 Nebulized] EPINEPHrine (Auto Inject) [Epipen] 0.3 mg IM ONCE PRN 01/09/17 02/07/20 Albuterol Sulfate [Proair Hfa] 1 puff INHALATION RT-QID PRN 02/07/20 02/07/20 Montelukast [Singulair] 10 mg PO DAILY 02/07/20 02/07/20 Allergies Allergy/AdvReac Type Severity Reaction Status Date / Time Influenza Virus Vaccines Allergy Intermediate Unknown Verified 02/10/20 08:00 adhesive tape Allergy skin Verified 02/07/20 18:24 irritation animal dander Allergy Unknown Verified 02/07/20 18:24 cashew nut Allergy Swelling Verified 02/07/20 18:24 clarithromycin [From Biaxin] Allergy Abdominal Verified 02/07/20 18:24 Pain pistachio nut Allergy Rash/Hives Verified 02/07/20 18:24 walnut Allergy Rash/Hives Verified 02/07/20 18:24 wheat Allergy Unknown Verified 02/07/20 18:24 ciprofloxacin [From Cipro] AdvReac Itching Verified 02/07/20 18:24 [place] And Derivatives AdvReac Itching Verified 02/07/20 18:24 [[place]] Milk Containing Products AdvReac Diarrhea Verified 02/10/20 08:01 Review of Systems ROS Statement: Those systems with pertinent positive or pertinent negative responses have been documented in the HPI. ROS Other: All systems not noted in ROS Statement are negative. Past Medical History Past Medical History: Asthma, Pneumonia Additional Past Medical History / Comment(s): insomnia, hernia, pt mother states "she had bowel wipeout related to her antibiotics" colitis, kidney stones to right kidney anemia History of Any Multi-Drug Resistant Organisms: None Reported Past Surgical History: Adenoidectomy, Hernia Repair, Tonsillectomy Additional Past Surgical History / Comment(s): left inguinal hernia Past Anesthesia/Blood Transfusion Reactions: Motion Sickness Additional Past Anesthesia/Blood Transfusion Reaction / Comment(s): "high tolerance, I sometimes need more" Past Psychological History: No Psychological Hx Reported Smoking Status: Never smoker Past Alcohol Use History: None Reported Past Drug Use History: Marijuana - Past Family History Mother Family Medical History: No Reported History Additional Family Medical History / Comment(s): Mom is healthy with no major medical problems. Father Additional Family Medical History / Comment(s): Father has history of either Crohn's or irritable bowel syndrome. General Exam Limitations: no limitations General appearance: alert, in no apparent distress Head exam: Present: atraumatic, normocephalic, normal inspection Eye exam: Present: normal appearance, PERRL, EOMI. Absent: scleral icterus, conjunctival injection, periorbital swelling ENT exam: Present: normal exam, mucous membranes moist Neck exam: Present: normal inspection. Absent: tenderness, meningismus, lymphadenopathy Respiratory exam: Present: normal lung sounds bilaterally. Absent: respiratory distress, wheezes, rales, rhonchi, stridor Cardiovascular Exam: Present: normal rhythm, tachycardia, normal heart sounds. Absent: systolic murmur, diastolic murmur, rubs, gallop, clicks GI/Abdominal exam: Present: soft, tenderness (left lower quadrant), normal bowel sounds. Absent: distended, guarding, rebound, rigid Rectal exam: Present: heme (+) stool, other (brown stool) Extremities exam: Present: normal inspection, full ROM, normal capillary refill. Absent: tenderness, pedal edema, joint swelling, calf tenderness Back exam: Present: normal inspection Neurological exam: Present: alert, oriented X3, CN II-XII intact Psychiatric exam: Present: normal affect, normal mood Skin exam: Present: warm, dry, intact, normal color. Absent: rash Course Vital Signs 02/07/20 02/07/20 15:34 18:16 Temperature 98.7 F Pulse Rate 133 H 114 H Respiratory 24 16 Rate Blood Pressure 103/62 142/88 O2 Sat by Pulse 99 100 Oximetry EKG Findings - EKG Comments: EKG Findings:: EKG demonstrates a sinus tachycardia with a ventricular rate of 121. When necessary 1:30. QRS 72. QTC of 448. ST depression V3 through V6 as well as aVF. Possibly rate dependent. No acute ST segment elevations. no signs of Mnfcz-Rbhpueviu-Drtov or Brugada. Medical Decision Making - Medical Decision Making Upon arrival the patient was placed into room 5. A thorough history and physical exam was performed. I did perform a rectal exam on the patient which demonstrates minimal brown stool. The patient is markedly tachycardic. Peripheral IV was established the patient was given a liter bolus of normal saline, 4 mg of morphine and 4 mg of Zofran. Laboratory studies were conducted and the patient was sent for CT of her abdomen and pelvis. Laboratories studies demonstrate a white blood cell count of 13.4. CMP is normal with a creatinine of 0.79. Urinalysis shows small blood. Fecal occult is positive. Coronavirus not detected. CT of the patient's abdomen and pelvis demonstrates edema of the left kidney with delayed excretion and mild hydroureter nephrosis. Possible 2-3 mm calculus at the UVJ. Wall thickening involving the descending colon and hepatic flexure. I discussed results of the patient. She had improvement in her pain however it has recurred. I do avoid Toradol as the patient does report rectal bleeding. I discussed the case with Dr. Munoz who agreed to admit the patient. I will consult GI. The patient is made nothing by mouth. The patient was in taken to the floor in stable condition - Lab Data Result diagrams: 02/12/20 06:06 02/11/20 06:48 Lab Results 02/07/20 02/07/20 02/07/20 Range/Units 15:58 15:58 15:58 WBC 13.4 H (3.8-10.6) k/uL RBC 4.27 (3.80-5.40) m/uL Hgb 13.0 (11.4-16.0) gm/dL Hct 39.1 (34.0-46.0) % MCV 91.5 (80.0-100.0) fL MCH 30.3 (25.0-35.0) pg MCHC 33.1 (31.0-37.0) g/dL RDW 12.1 (11.5-15.5) % Plt Count 213 (150-450) k/uL Neutrophils % 80 % Lymphocytes % 10 % Monocytes % 7 % Eosinophils % 2 % Basophils % 0 % Neutrophils # 10.7 H (1.3-7.7) k/uL Lymphocytes # 1.3 (1.0-4.8) k/uL Monocytes # 1.0 (0-1.0) k/uL Eosinophils # 0.3 (0-0.7) k/uL Basophils # 0.0 (0-0.2) k/uL PT 10.8 (9.0-12.0) sec INR 1.1 (<1.2) APTT 24.7 (22.0-30.0) sec Sodium 137 (137-145) mmol/L Potassium 3.6 (3.5-5.1) mmol/L Chloride 103 (98-107) mmol/L Carbon Dioxide 23 (22-30) mmol/L Anion Gap 11 mmol/L BUN 7 (7-17) mg/dL Creatinine 0.79 (0.52-1.04) mg/dL Est GFR (CKD-EPI)AfAm >90 (>60 ml/min/1.73 sqM) Est GFR (CKD-EPI)NonAf >90 (>60 ml/min/1.73 sqM) Glucose 98 (74-99) mg/dL Calcium 8.6 (8.4-10.2) mg/dL Total Bilirubin 0.5 (0.2-1.3) mg/dL AST 26 (14-36) U/L ALT 15 (4-34) U/L Alkaline Phosphatase 86 (38-126) U/L Troponin I (0.000-0.034) ng/mL Total Protein 6.5 (6.3-8.2) g/dL Albumin 3.6 (3.5-5.0) g/dL HCG, Qual Not Detected Urine Color Urine Appearance (Clear) Urine pH (5.0-8.0) Ur Specific [place] (1.001-1.035) Urine Protein (Negative) Urine Glucose (UA) (Negative) Urine Ketones (Negative) Urine Blood (Negative) Urine Nitrite (Negative) Urine Bilirubin (Negative) Urine Urobilinogen (<2.0) mg/dL Ur Leukocyte Esterase (Negative) Urine RBC (0-5) /hpf Urine WBC (0-5) /hpf Ur Squamous Epith Cells (0-4) /hpf Stool Occult Blood (Negative) Coronavirus (PCR) (Not Detectd) 02/07/20 02/07/20 02/07/20 Range/Units 15:58 16:30 16:40 WBC (3.8-10.6) k/uL RBC (3.80-5.40) m/uL Hgb (11.4-16.0) gm/dL Hct (34.0-46.0) % MCV (80.0-100.0) fL MCH (25.0-35.0) pg MCHC (31.0-37.0) g/dL RDW (11.5-15.5) % Plt Count (150-450) k/uL Neutrophils % % Lymphocytes % % Monocytes % % Eosinophils % % Basophils % % Neutrophils # (1.3-7.7) k/uL Lymphocytes # (1.0-4.8) k/uL Monocytes # (0-1.0) k/uL Eosinophils # (0-0.7) k/uL Basophils # (0-0.2) k/uL PT (9.0-12.0) sec INR (<1.2) APTT (22.0-30.0) sec Sodium (137-145) mmol/L Potassium (3.5-5.1) mmol/L Chloride (98-107) mmol/L Carbon Dioxide (22-30) mmol/L Anion Gap mmol/L BUN (7-17) mg/dL Creatinine (0.52-1.04) mg/dL Est GFR (CKD-EPI)AfAm (>60 ml/min/1.73 sqM) Est GFR (CKD-EPI)NonAf (>60 ml/min/1.73 sqM) Glucose (74-99) mg/dL Calcium (8.4-10.2) mg/dL Total Bilirubin (0.2-1.3) mg/dL AST (14-36) U/L ALT (4-34) U/L Alkaline Phosphatase (38-126) U/L Troponin I <0.012 (0.000-0.034) ng/mL Total Protein (6.3-8.2) g/dL Albumin (3.5-5.0) g/dL HCG, Qual Urine Color Urine Appearance (Clear) Urine pH (5.0-8.0) Ur Specific [place] (1.001-1.035) Urine Protein (Negative) Urine Glucose (UA) (Negative) Urine Ketones (Negative) Urine Blood (Negative) Urine Nitrite (Negative) Urine Bilirubin (Negative) Urine Urobilinogen (<2.0) mg/dL Ur Leukocyte Esterase (Negative) Urine RBC (0-5) /hpf Urine WBC (0-5) /hpf Ur Squamous Epith Cells (0-4) /hpf Stool Occult Blood Positive H (Negative) Coronavirus (PCR) Not Detected (Not Detectd) 02/07/20 Range/Units 17:50 WBC (3.8-10.6) k/uL RBC (3.80-5.40) m/uL Hgb (11.4-16.0) gm/dL Hct (34.0-46.0) % MCV (80.0-100.0) fL MCH (25.0-35.0) pg MCHC (31.0-37.0) g/dL RDW (11.5-15.5) % Plt Count (150-450) k/uL Neutrophils % % Lymphocytes % % Monocytes % % Eosinophils % % Basophils % % Neutrophils # (1.3-7.7) k/uL Lymphocytes # (1.0-4.8) k/uL Monocytes # (0-1.0) k/uL Eosinophils # (0-0.7) k/uL Basophils # (0-0.2) k/uL PT (9.0-12.0) sec INR (<1.2) APTT (22.0-30.0) sec Sodium (137-145) mmol/L Potassium (3.5-5.1) mmol/L Chloride (98-107) mmol/L Carbon Dioxide (22-30) mmol/L Anion Gap mmol/L BUN (7-17) mg/dL Creatinine (0.52-1.04) mg/dL Est GFR (CKD-EPI)AfAm (>60 ml/min/1.73 sqM) Est GFR (CKD-EPI)NonAf (>60 ml/min/1.73 sqM) Glucose (74-99) mg/dL Calcium (8.4-10.2) mg/dL Total Bilirubin (0.2-1.3) mg/dL AST (14-36) U/L ALT (4-34) U/L Alkaline Phosphatase (38-126) U/L Troponin I (0.000-0.034) ng/mL Total Protein (6.3-8.2) g/dL Albumin (3.5-5.0) g/dL HCG, Qual Urine Color Colorless Urine Appearance Clear (Clear) Urine pH 7.0 (5.0-8.0) Ur Specific [place] 1.044 H (1.001-1.035) Urine Protein Negative (Negative) Urine Glucose (UA) Negative (Negative) Urine Ketones Negative (Negative) Urine Blood Small H (Negative) Urine Nitrite Negative (Negative) Urine Bilirubin Negative (Negative) Urine Urobilinogen <2.0 (<2.0) mg/dL Ur Leukocyte Esterase Negative (Negative) Urine RBC 4 (0-5) /hpf Urine WBC 1 (0-5) /hpf Ur Squamous Epith Cells <1 (0-4) /hpf Stool Occult Blood (Negative) Coronavirus (PCR) (Not Detectd) Disposition Clinical Impression: Melena, Hydronephrosis with urinary obstruction due to ureteral calculus, Calculus of ureter, Ulcerative colitis, Tachycardia Disposition: ADMITTED IP TO THIS [facility] Condition: Stable Is patient prescribed a controlled substance at d/c from ED?: No Decision to Admit Reason: Admit from EC Decision Date: 02/07/20 Decision Time: 18:09
--- NOTE | 2020-02-07 17:18 | CT ---
EXAMINATION TYPE: CT abdomen pelvis w con DATE OF EXAM: 02/07/2020 COMPARISON: 01/21/2017 HISTORY: rectal bleed, history of ulcerative colitis CT DLP: 764.9 mGycm CONTRAST: CT scan of the abdomen and pelvis is performed without Oral Contrast and with IV Contrast, patient in jected with 100 mL of Isovue 300. FINDINGS: LUNG BASES-: No visible nodule. No infiltrate. LIVER/GB: No calcified gallstones. No space occupying hepatic lesion. Biliary tree is of normal ca liber. Heterogenous enhancement throughout the liver without distinct lesion on delayed imaging. The findings may be related to fatty hepatic infiltration. PANCREAS: No inflammation. No distinct mass. SPLEEN: No splenic enlargement. No lesion seen. ADRENALS: No nodule. No thickening. KIDNEYS/BLADDER: There is edema of the left kidney with delayed excretion and mild hydroureteronephro sis. On axial image 82 of 97 there is a vaguely radiopaque density noted which may reflect a 2 or 3 m m calculus at the UVJ. There is nonobstructing calculus noted midpole right kidney measuring 2.5 mm. No renal masses are detected. BOWEL: Normal appendix. There is contiguous wall thickening involving the colon from the rectum to th e cecum. There appears to be greater wall thickening involving the ascending colon and hepatic flexur e. The findings are compatible with the provided history of ulcerative colitis. No evidence for perfo ration or abscess. GENITAL ORGANS: No gross abnormality. LYMPH NODES: No greater than 1cm abdominal or pelvic lymph nodes are appreciated. AORTA: No significant abnormality. OSSEOUS STRUCTURES: No significant abnormality is seen. OTHER: No significant additional abnormality is seen. IMPRESSION: 1. Colonic findings compatible with the provided history of ulcerative colitis. See above. 2. Edema and mild hydronephrosis left kidney with delayed excretion. Distal left ureteral calculus at the level of the UVJ is difficult to exclude. 3. Probable fatty liver.
[2020-02-07 17:46] LABS: HCG,Qualitative Serum Not Detected
[2020-02-07 18:06] LABS: Appearance,Urine Clear (Clear); Bilirubin,Urine Negative (Negative); Blood,Urine Small (Negative); Color,Urine Colorless; Glucose,Urine (UA) Negative (Negative); Ketones,Urine Negative (Negative); Leukocyte Esterase,Urine Negative (Negative); Nitrite,Urine Negative (Negative); Protein,Urine Negative (Negative); RBC,Urine 4 /hpf (0-5); Specific Gravity,Urine 1.044 (1.001-1.035); Squamous Epithelial Cell,Urine <1 /hpf (0-4); Urobilinogen,Urine <2.0 mg/dL (<2.0); WBC,Urine 1 /hpf (0-5)
[2020-02-07] MEDS ORDERED: MORPHINE SULFATE 4 MG/ML SYRINGE IV PRN (18:09)
[2020-02-07] MEDS ORDERED: ONDANSETRON 4 MG/2 ML VIAL IVP PRN (18:09)
[2020-02-07] MEDS ORDERED: NALOXONE 0.4 MG/ML 1 ML VIAL IV PRN (18:09)
[2020-02-07] MEDS ORDERED: TAMSULOSIN 0.4 MG CAP.ER.24H PO STA (18:12)
[2020-02-07] MEDS: SODIUM CHLORIDE 0.9% 1,000 ML IV SCH (18:36)
[2020-02-07] MEDS: HYDROmorphone 0.5 MG/0.5 ML SYRINGE IVP PRN (22:51)
[2020-02-08] MEDS: HYDROmorphone 0.5 MG/0.5 ML SYRINGE IVP PRN ×5 (04:18→23:40)
[2020-02-08] MEDS: SODIUM CHLORIDE 0.9% 1,000 ML IV SCH ×4 (04:20→19:05)
[2020-02-08 06:11] LABS: HCT 36.2 % (34.0-46.0); HGB 11.9 gm/dL (11.4-16.0); MCH 30.8 pg (25.0-35.0); MCHC 32.9 g/dL (31.0-37.0); MCV 93.8 fL (80.0-100.0); Mean Platelet Volume 7.5; Platelet Count 169 k/uL (150-450); RBC 3.85 m/uL (3.80-5.40); RDW 12.1 % (11.5-15.5); WBC 12.3 k/uL (3.8-10.6)
[2020-02-08 06:22] LABS: African American GFR (CKD) >90 (>60 ml/min/1.73 sqM); Anion Gap 9 mmol/L; Blood Urea Nitrogen 6 mg/dL (7-17); Calcium 7.3 mg/dL (8.4-10.2); Carbon Dioxide 24 mmol/L (22-30); Chloride 105 mmol/L (98-107); Glucose 98 mg/dL (74-99); Non-African American GFR(CKD) >90 (>60 ml/min/1.73 sqM); Potassium 3.7 mmol/L (3.5-5.1); Sodium 138 mmol/L (137-145)
[2020-02-08 07:16] LABS: Band Neutrophils % 3 %; Lymphocytes # (M) 1.72 k/uL (1.0-4.8); Monocytes # (M) 1.72 k/uL (0-1.0); Neutrophils % (M) 69 %; Nucleated Red Blood Cells 0 /100 WBC (0-0); Total Cells Counted 100
[2020-02-08] MEDS: TAMSULOSIN 0.4 MG CAP.ER.24H PO SCH (09:02)
[2020-02-08] MEDS: INSULIN ASPART (NovoLOG) 100 UNIT/ML VIAL SQ SCH ×3 (12:30→21:05)
[2020-02-08] MEDS: methylPREDNISolone SOD SUCCI 40 MG/ML 1 ML VIAL IV SCH ×2 (16:01→23:40)
[2020-02-08 16:42] LABS: Glucose,Whole Blood 95 mg/dL (75-99)
--- NOTE | 2020-02-08 17:14 | HP ---
HISTORY AND PHYSICAL CHIEF COMPLAINT: Acute abdominal pain and bloody diarrhea for a month. HISTORY OF PRESENT ILLNESS: This is another admission for this 29-year-old white female who has a history of ulcerative colitis. She started having diarrhea and crampy abdominal pain about a month ago. On the day of admission it grew quite severe and she started to pass quite a bit of bright red blood. She came to emergency room. She is not been on any medications of late and has not seen a cable television technician in some time. She has no skin changes, joint pain, fever, chills, nausea, vomiting, etc. REVIEW OF SYSTEMS: Otherwise unremarkable. She has had no neurologic problems, pulmonary issues other than mild asthma, renal failure, hematuria, dysuria, frequency, diabetes, etc. Past medical history, family history, personal and social histories reveal that she cannot take penicillin, Flagyl, erythromycin. She uses albuterol occasionally for asthma. She has also been on Adderall 20 mg t.i.d. She takes montelukast 10 mg once a day. She has been on Depo-Provera as well. She does not smoke and drinks occasionally. PHYSICAL EXAMINATION: Blood pressure 122/80 with a pulse of 120, respirations of 34 and she is afebrile. In general, she appeared to be pale and quite uncomfortable. She is very anxious. Skin was dry. Head, ears, eyes, nose, mouth, and throat were normal. Neck veins are not distended. Neck was supple. Chest is clear. Cardiac exam demonstrates sinus tachycardia and the abdomen was flat, slightly distended and doughy in consistency. She was very tender throughout. There are no easily palpated masses or visceromegaly. Bowel sounds are not heard. Extremities are normal. Neurologically, she is intact. She is admitted to the hospital with diagnoses. 1. Acute exacerbation of ulcerative colitis. 2. Asthmatic bronchitis. PLAN: 1. Bed rest. 2. IV fluids. 3. N.p.o. 4. Analgesics. 5. GI consult. MMODL / IJN: [id number] /
--- NOTE | 2020-02-08 17:38 | PN ---
PROGRESS NOTE DATE OF SERVICE: 02/08/2020 CHIEF COMPLAINT: Exacerbation of ulcerative colitis. HISTORY OF PRESENT ILLNESS: This lady is still having quite a bit of discomfort. She has had no vomiting. She has had no fever. PHYSICAL EXAMINATION: Chest is clear. Cardiac exam demonstrates tachycardia of around 130 beats per minute. The abdomen is somewhat firm and she has generalized tenderness. There is no rebound. IMPRESSION: Exacerbation of ulcerative colitis. PLAN: 1. Continue on IV fluids. 2. Await GI consult. 3. Dilaudid intravenously for comfort. MMODL / IJN: [id number] /
--- NOTE | 2020-02-08 19:27 | P.CONS ---
History of Present Illness - Reason for Consult Consult date: 02/08/20 Colitis Requesting physician: Parminder Chappell - Chief Complaint Abdominal pain, diarrhea - History of Present Illness 29-year-old female with a medical history significant for nephrolithiasis and a history of ulcerative colitis diagnosed in 2017 over which she has not been on chronic therapy in the past who presented with complaints of abdominal pain and diarrhea. The patient reports one month of loose stool. She reports approximately 10 bowel movements per day with associated frequency and urgency. She also reports associated decreased oral intake. She reports diffuse throbbing severe abdominal pain worse in the left lower quadrant. Bowel movements have been darker than normal. She does report a family history of Crohn's disease on her maternal side. She did have a colonoscopy on 01/06/2017 significant for proctitis with biopsies showing acute on chronic inflammation of the affected areas as well as the rest of the colon. She also reports a recent colonoscopy performed in October of this year during which she was told she had 2 areas of erythema and colitis. The plan was for patient follow-up with gastroenterology however this has not occurred yet. Computed tomography scan of the abdomen on current presentation showed colitis from the rectum to cecum. Laboratory evaluation on presentation significant for WBC 12.3, hemoglobin 11.9, platelet count 169,000, total bilirubin 0.5, alkaline., AST 26 and ALT 15 with stool testing positive for blood. ESR was normal but CRP was markedly elevated at 141. Review of Systems REVIEW OF SYSTEMS: CONSTITUTIONAL: Denies any fevers, chills, weight change or fatigue. CARDIOVASCULAR: Denies any chest pain, palpitations high or low blood pressures RESPIRATORY: Denies any shortness of breath, hemoptysis or cough. GENITOURINARY: No dysuria or hematuria. MUSCULOSKELETAL: No weakness reported. SKIN: Denies any new rashes or lesions, jaundice or pallor. PSYCHIATRIC: Denies any depression or anxiety. NEUROLOGY: Denies headache, denies any new focal deficits. EARS/NOSE/THROAT: No recent hearing change, congestion, nasal discharge or sore throat. EYES: No pain in eyes, discharge or change in vision. GASTROINTESTINAL: As per HPI. Past Medical History Past Medical History: Asthma, Pneumonia Additional Past Medical History / Comment(s): insomnia, hernia, pt mother states "she had bowel wipeout related to her antibiotics" colitis, kidney stones to right kidney anemia History of Any Multi-Drug Resistant Organisms: None Reported Past Surgical History: Adenoidectomy, Hernia Repair, Tonsillectomy Additional Past Surgical History / Comment(s): left inguinal hernia Past Anesthesia/Blood Transfusion Reactions: Motion Sickness Additional Past Anesthesia/Blood Transfusion Reaction / Comm: "high tolerance, I sometimes need more" Past Psychological History: No Psychological Hx Reported Smoking Status: Never smoker Past Alcohol Use History: None Reported Past Drug Use History: Marijuana - Past Family History Mother Family Medical History: No Reported History Additional Family Medical History / Comment(s): Mom is healthy with no major medical problems. Father Additional Family Medical History / Comment(s): Father has history of either Crohn's or irritable bowel syndrome. Medications and Allergies Home Medications Medication Instructions Recorded Confirmed Type Dextroamphetamine/Amphetamine 20 mg PO TID 01/02/17 02/07/20 History [Adderall] Medroxyprogesterone Acetate 150 mg IM Q90D 01/02/17 02/07/20 History [Depo-Provera] Albuterol Nebulized [Ventolin 2.5 mg INHALATION RT-QID PRN 01/09/17 02/07/20 History Nebulized] EPINEPHrine (Auto Inject) [Epipen] 0.3 mg IM ONCE PRN 01/09/17 02/07/20 History Albuterol Sulfate [Proair Hfa] 1 puff INHALATION RT-QID PRN 02/07/20 02/07/20 History Montelukast [Singulair] 10 mg PO DAILY 02/07/20 02/07/20 History Allergies Allergy/AdvReac Type Severity Reaction Status Date / Time adhesive tape Allergy skin Verified 02/07/20 18:24 irritation animal dander Allergy Unknown Verified 02/07/20 18:24 cashew nut Allergy Swelling Verified 02/07/20 18:24 clarithromycin [From Biaxin] Allergy Abdominal Verified 02/07/20 18:24 Pain Influenza Virus Vaccines Allergy Unknown Verified 02/07/20 18:24 pistachio nut Allergy Rash/Hives Verified 02/07/20 18:24 walnut Allergy Rash/Hives Verified 02/07/20 18:24 wheat Allergy Unknown Verified 02/07/20 18:24 ciprofloxacin [From Cipro] AdvReac Itching Verified 02/07/20 18:24 [place] And Derivatives AdvReac Itching Verified 02/07/20 18:24 [[place]] Physical Exam Vitals: Vital Signs Temp Pulse Pulse Resp BP BP Pulse Ox 02/08/20 08:55 98.6 F 144 H 18 135/73 100 02/08/20 04:00 98.5 F 118 H 18 114/76 100 02/08/20 00:00 98.3 F 109 H 18 127/64 99 02/07/20 20:00 98.6 F 116 H 18 133/87 99 02/07/20 19:13 110 H 18 132/81 98 02/07/20 18:16 114 H 16 142/88 100 02/07/20 15:34 98.7 F 133 H 24 103/62 99 Intake and Output 02/07/20 02/08/20 02/08/20 22:59 06:59 14:59 Intake Total 1425 Output Total 900 Balance 525 Intake: Intake, IV Titration 1425 Amount Sodium Chloride 0.9% 1, 1425 000 ml @ 150 mls/hr IV . Q6H40M [facility] Rx#:[id number] Output: Urine 900 Other: Voiding Method Toilet Toilet # Voids 2 2 1 # Bowel Movements 0 Weight 70.851 kg 72 kg On physical examination, patient appears comfortable in no apparent distress. HEAD: Normocephalic, atraumatic. EYES: No scleral icterus. No conjunctival injection. MOUTH: No lesions, tongue midline. NECK: Trachea midline, no gross abnormalities. CHEST: Clear to auscultation with no wheezing or rhonchi appreciated. HEART: Regular rate and rhythm. ABDOMEN: Soft, obese. Bowel sounds are positive. No organomegaly. No guarding or rigidity. EXTREMITIES: No pedal edema. SKIN: No rashes, no jaundice. NEUROLOGIC: Alert and oriented x3. No focal deficits. Results CBC & Chem 7: 02/08/20 05:27 02/08/20 05:27 Labs: Abnormal Lab Results - Last 24 Hours (Table) 02/07/20 02/07/20 02/07/20 Range/Units 15:58 16:30 17:50 WBC 13.4 H (3.8-10.6) k/uL Neutrophils # 10.7 H (1.3-7.7) k/uL Neutrophils # (Manual) (1.3-7.7) k/uL Monocytes # (Manual) (0-1.0) k/uL BUN (7-17) mg/dL Calcium (8.4-10.2) mg/dL C-Reactive Protein (<10.0) mg/L Ur Specific [place] 1.044 H (1.001-1.035) Urine Blood Small H (Negative) Stool Occult Blood Positive H (Negative) 02/08/20 02/08/20 02/08/20 Range/Units 05:27 05:27 05:27 WBC 12.3 H (3.8-10.6) k/uL Neutrophils # (1.3-7.7) k/uL Neutrophils # (Manual) 8.80 H (1.3-7.7) k/uL Monocytes # (Manual) 1.72 H (0-1.0) k/uL BUN 6 L (7-17) mg/dL Calcium 7.3 L (8.4-10.2) mg/dL C-Reactive Protein 141.8 H (<10.0) mg/L Ur Specific [place] (1.001-1.035) Urine Blood (Negative) Stool Occult Blood (Negative) CT scan - abdomen: report reviewed (Computed tomography scan of the abdomen with findings of colitis from rectum to cecum) Assessment and Plan (1) Ulcerative colitis Narrative/Plan: 29-year-old female with a history of ulcerative colitis initially involving the distal colon in 2017 on diagnosis, with the patient reporting to areas of colitis on recent colonoscopy in October of this year patient presents to the hospital with reports of dark colored stool and CT findings of pancolitis. CRP markedly elevated at 141 the patient has not been on treatment for her ulcerative colitis in the past. Current Visit: Yes Status: Acute Code(s): K51.90 - ULCERATIVE COLITIS, UNSPECIFIED, WITHOUT COMPLICATIONS SNOMED Code(s): 15925098 (2) Melena Current Visit: Yes Status: Acute Code(s): K92.1 - MELENA SNOMED Code(s): 0083312 (3) Acute blood loss anemia Current Visit: No Status: Acute Priority: High Code(s): D62 - ACUTE POSTHEMORRHAGIC ANEMIA SNOMED Code(s): 083500343 (4) GI bleed Current Visit: No Status: Acute Code(s): K92.2 - GASTROINTESTINAL HEMORRHAGE, UNSPECIFIED SNOMED Code(s): 88149700 Plan: Supportive care Monitor CBC, CMP Solu-Medrol 20 mg every 8 hours initiated ESR and CRP ordered Clear liquid diet Extensive conversation with the patient will need follow-up with gastroenterology after discharge, with discussion regarding long-term treatment Thank you for allowing us to participate in the care of the patient we will continue to follow
[2020-02-08 20:29] LABS: Glucose,Whole Blood 133 mg/dL (75-99)
--- NOTE | 2020-02-08 20:34 | P.GSCN ---
History of Present Illness Consult date: 02/08/20 Reason for Consult: Left hydronephrosis History of present illness: The patient is a 29-year-old female admitted through the emergency room yest nettieay for evaluation of left lower quadrant pain. She said that the pain began abruptly approximately 8 in the morning and seemed to radiate into the urethra. She complained of urinary frequency and urgency. She thinks she may have passed a stone later in the day but did not recover anything as she was not straining her urine. She did see some pink tinged urine at one point. She says that lat er in the day her pain resolved. When seen in the emergency room a noncontrast computed tomography scan of the abdomen and pelvis showed evidence of mild left hydroureteronephrosis with a questionable calculus at the left ureteral meatus. I was asked to see the patient for further evaluation. She says that the severe pain that she experienced yesterday has resolved although she has generalized a bdominal pain which she attributes to colitis. The patient says she has a history of kidney stones and underwent left ureteroscopy with lithotripsy in 2017. She is uncertain as to the type of stone at that time. She said that she had infected urine and temporarily was treated with a stent. She has had no problems since then. She does not have a history of recurrent urinary tract infections. She believes her mother has had kidney stones in the past. Review of Systems - Constitutional Denies chills, Denies fever - Gastrointestinal Reports BRBPR, Reports diarrhea, Reports nausea - Genitourinary Genitourinary: Reports as per HPI Past Medical History Past Medical History: Asthma, Pneumonia Additional Past Medical History / Comment(s): insomnia, hernia, pt mother states "she had bowel wipeout related to her antibiotics" colitis, kidney stones to right kidney anemia History of Any Multi-Drug Resistant Organisms: None Reported Past Surgical History: Adenoidectomy, Hernia Repair (Left), Tonsillectomy Additional Past Surgical History / Comment(s): left inguinal hernia Past Anesthesia/Blood Transfusion Reactions: Motion Sickness Additional Past Anesthesia/Blood Transfusion Reaction / Comm: "high tolerance, I sometimes need more" Past Psychological History: No Psychological Hx Reported Smoking Status: Never smoker Past Alcohol Use History: None Reported Past Drug Use History: Marijuana - Past Family History Mother Family Medical History: No Reported History Additional Family Medical History / Comment(s): Mom is healthy with no major medical problems. Father Additional Family Medical History / Comment(s): Father has history of either Crohn's or irritable bowel syndrome. Medications and Allergies Home Medications Medication Instructions Recorded Confirmed Type Dextroamphetamine/Amphetamine 20 mg PO TID 01/02/17 02/07/20 History [Adderall] Medroxyprogesterone Acetate 150 mg IM Q90D 01/02/17 02/07/20 History [Depo-Provera] Albuterol Nebulized [Ventolin 2.5 mg INHALATION RT-QID PRN 01/09/17 02/07/20 History Nebulized] EPINEPHrine (Auto Inject) [Epipen] 0.3 mg IM ONCE PRN 01/09/17 02/07/20 History Albuterol Sulfate [Proair Hfa] 1 puff INHALATION RT-QID PRN 02/07/20 02/07/20 Hi story Montelukast [Singulair] 10 mg PO DAILY 02/07/20 02/07/20 History Allergies Allergy/AdvReac Type Severity Reaction Status Date / Time adhesive tape Allergy skin Verified 02/07/20 18:24 irritation animal dander Allergy Unknown Verified 02/07/20 18:24 cashew nut Allergy Swelling Verified 02/07/20 18:24 clarithromycin [From Biaxin] Allergy Abdominal Verified 02/07/20 18:24 Pain Influenza Virus Vaccines Allergy Unknown Verified 02/07/20 18:24 pistachio nut Allergy Rash/Hives Verified 02/07/20 18:24 walnut Allergy Rash/Hives Verified 02/07/20 18:24 wheat Allergy Unknown Verified 02/07/20 18:24 ciprofloxacin [From Cipro] AdvReac Itching Verified 02/07/20 18:24 [place] And Derivatives AdvReac Itching Verified 02/07/20 18:24 [[place]] Surgical - Exam Vital Signs Temp Pulse Resp BP Pulse Ox 98.7 F 133 H 24 103/62 99 02/07/20 15:34 02/07/20 15:34 02/07/20 15:34 02/07/20 15:34 02/07/20 15:34 - General well developed, well nourished - ENT no hearing loss - Neck no masses - Respiratory normal respiratory effort - Abdomen Abdomen: soft, tender (vague tenderness throughout the abdomen), no organomegaly, no guarding Results - Labs 02/08/20 05:27 02/08/20 05:27 Abnormal Lab Results - Last 24 Hours (Table) 02/08/20 02/08/20 02/08/20 Range/Units 05:27 05:27 05:27 WBC 12.3 H (3.8-10.6) k/uL Neutrophils # (Manual) 8.80 H (1.3-7.7) k/uL Monocytes # (Manual) 1.72 H (0-1.0) k/uL BUN 6 L (7-17) mg/dL Calcium 7.3 L (8.4-10.2) mg/dL C-Reactive Protein 141.8 H (<10.0) mg/L Diabetes panel 02/08/20 Range/Units 05:27 Sodium 138 (137-145) mmol/L Potassium 3.7 (3.5-5.1) mmol/L Chloride 105 (98-107) mmol/L Carbon Dioxide 24 (22-30) mmol/L BUN 6 L (7-17) mg/dL Creatinine 0.76 (0.52-1.04) mg/dL Glucose 98 (74-99) mg/dL Calcium 7.3 L (8.4-10.2) mg/dL Calcium panel 02/08/20 Range/Units 05:27 Calcium 7.3 L (8.4-10.2) mg/dL Pituitary panel 02/08/20 Range/Units 05:27 Sodium 138 (137-145) mmol/L Potassium 3.7 (3.5-5.1) mmol/L Chloride 105 (98-107) mmol/L Carbon Dioxide 24 (22-30) mmol/L BUN 6 L (7-17) mg/dL Creatinine 0.76 (0.52-1.04) mg/dL Glucose 98 (74-99) mg/dL Calcium 7.3 L (8.4-10.2) mg/dL Adrenal panel 02/08/20 Range/Units 05:27 Sodium 138 (137-145) mmol/L Potassium 3.7 (3.5-5.1) mmol/L Chloride 105 (98-107) mmol/L Carbon Dioxide 24 (22-30) mmol/L BUN 6 L (7-17) mg/dL Creatinine 0.76 (0.52-1.04) mg/dL Glucose 98 (74-99) mg/dL Calcium 7.3 L (8.4-10.2) mg/dL Assessment and Plan (1) Hydronephrosis with urinary obstruction due to ureteral calculus Narrative/Plan: I personally reviewed the patient's computed tomography scan of the abdomen and pelvis. There is no definite calculus noted at the left ureteral meatus however there could have been some sand present from previous passage of a stone. The patient's history is consistent with acute left sided abdominal pain and urgency from a distal ureteral calculus. Her left lower quadrant pain has subsided and she has no evidence of urinary tract infection. At this point I do not feel that further urologic evaluation is necessary. She does have diffuse abdominal pain but this is most likely related to her underlying colitis. Current Visit: Yes Status: Acute Priority: High Code(s): N13.2 - HYDRONEPHROSIS WITH RENAL AND URETERAL CALCULOUS OBSTRUCTION SNOMED Code(s): 386643899
[2020-02-09] MEDS: HYDROmorphone 0.5 MG/0.5 ML SYRINGE IVP PRN ×4 (04:42→21:00)
[2020-02-09] MEDS: SODIUM CHLORIDE 0.9% 1,000 ML IV SCH ×3 (04:46→18:53)
[2020-02-09 06:44] LABS: Glucose,Whole Blood 138 mg/dL (75-99)
[2020-02-09] MEDS: INSULIN ASPART (NovoLOG) 100 UNIT/ML VIAL SQ SCH ×4 (06:48→21:40)
[2020-02-09] MEDS: methylPREDNISolone SOD SUCCI 40 MG/ML 1 ML VIAL IV SCH ×2 (09:23→16:24)
[2020-02-09] MEDS: TAMSULOSIN 0.4 MG CAP.ER.24H PO SCH (09:23)
[2020-02-09 09:29] LABS: HCT 35.2 % (34.0-46.0); HGB 11.3 gm/dL (11.4-16.0); MCH 29.6 pg (25.0-35.0); MCHC 32.1 g/dL (31.0-37.0); MCV 92.2 fL (80.0-100.0); Mean Platelet Volume 7.9; Platelet Count 156 k/uL (150-450); RBC 3.82 m/uL (3.80-5.40); WBC 11.8 k/uL (3.8-10.6)
[2020-02-09 09:33] LABS: ALT 19 U/L (4-34); AST 22 U/L (14-36); African American GFR (CKD) >90 (>60 ml/min/1.73 sqM); Albumin 2.7 g/dL (3.5-5.0); Alkaline Phosphatase 79 U/L (38-126); Anion Gap 9 mmol/L; Blood Urea Nitrogen 6 mg/dL (7-17); Calcium 7.4 mg/dL (8.4-10.2); Carbon Dioxide 25 mmol/L (22-30); Chloride 101 mmol/L (98-107); Glucose 145 mg/dL (74-99); Non-African American GFR(CKD) >90 (>60 ml/min/1.73 sqM); Potassium 3.2 mmol/L (3.5-5.1); Sodium 135 mmol/L (137-145); Total Bilirubin 0.2 mg/dL (0.2-1.3); Total Protein 5.3 g/dL (6.3-8.2)
[2020-02-09 11:22] LABS: Glucose,Whole Blood 129 mg/dL (75-99)
[2020-02-09] MEDS ORDERED: Potassium Replacement Protocol 1 EACH MISC MISCELLANE PRN (16:05)
[2020-02-09 16:19] LABS: Basophils % (A) 0 %; Eosinophils % (A) 0 %; HCT 34.3 % (34.0-46.0); HGB 11.2 gm/dL (11.4-16.0); Lymphocytes # (A) 0.7 k/uL (1.0-4.8); Lymphocytes % (A) 5 %; MCH 29.8 pg (25.0-35.0); MCHC 32.7 g/dL (31.0-37.0); MCV 91.2 fL (80.0-100.0); Mean Platelet Volume 7.7; Monocytes # (A) 0.5 k/uL (0-1.0); Monocytes % (A) 4 %; Neutrophils # (A) 11.3 k/uL (1.3-7.7); Neutrophils % (A) 90 %; Platelet Count 177 k/uL (150-450); RBC 3.76 m/uL (3.80-5.40); RDW 11.9 % (11.5-15.5); WBC 12.6 k/uL (3.8-10.6)
[2020-02-09] MEDS: POTASSIUM CHLORIDE ER 20 MEQ TAB.ER PO SCH ×2 (16:24→18:53)
[2020-02-09 16:29] LABS: Glucose,Whole Blood 114 mg/dL (75-99)
[2020-02-09 16:31] LABS: ALT 19 U/L (4-34); AST 22 U/L (14-36); African American GFR (CKD) >90 (>60 ml/min/1.73 sqM); Albumin 2.8 g/dL (3.5-5.0); Alkaline Phosphatase 76 U/L (38-126); Anion Gap 7 mmol/L; Blood Urea Nitrogen 6 mg/dL (7-17); Calcium 7.8 mg/dL (8.4-10.2); Carbon Dioxide 29 mmol/L (22-30); Chloride 100 mmol/L (98-107); Glucose 127 mg/dL (74-99); Non-African American GFR(CKD) >90 (>60 ml/min/1.73 sqM); Potassium 3.1 mmol/L (3.5-5.1); Sodium 136 mmol/L (137-145); Total Bilirubin 0.2 mg/dL (0.2-1.3); Total Protein 5.5 g/dL (6.3-8.2)
[2020-02-09 17:43] LABS: Poikilocytosis (M) Present
--- NOTE | 2020-02-09 18:56 | P.PN ---
Subjective Progress Note Date: 02/09/20 Principal diagnosis: Colitis, blood per rectum, diarrhea Patient is seen this morning stating that she's had no further bowel movements or blood per rectum since yesterday. Tolerated liquid diet. No abdominal pain at this time. Objective - Vital Signs Vital signs: Vital Signs Temp 98.6 F 02/09/20 04:00 Pulse 89 02/09/20 04:00 Resp 18 02/09/20 04:00 BP 118/71 02/09/20 04:00 Pulse Ox 98 02/09/20 04:00 Intake & Output 02/08/20 02/09/20 02/09/20 18:59 06:59 18:59 Intake Total 1350 240 Output Total 875 Balance 475 240 Weight 73.5 kg Intake: Intake, IV Titration 1350 Amount Sodium Chloride 0.9% 1, 1350 000 ml @ 150 mls/hr IV . Q6H40M [facility] Rx#:[id number] Oral 240 Output: Urine 875 Other: Voiding Method Toilet # Voids 1 1 # Bowel Movements 0 - Exam On physical examination, patient appears comfortable in no apparent distress. HEAD: Normocephalic, atraumatic. EYES: No scleral icterus. No conjunctival injection. MOUTH: No lesions, tongue midline. NECK: Trachea midline, no gross abnormalities. ABDOMEN: Soft, nontender to palpation. Bowel sounds are positive. No organomegaly. No guarding or rigidity. EXTREMITIES: No pedal edema. SKIN: No rashes, no jaundice. NEUROLOGIC: Alert and oriented x3. No focal deficits. - Labs CBC & Chem 7: 02/09/20 15:57 02/09/20 15:57 Labs: Abnormal Lab Results - Last 24 Hours (Table) 02/08/20 02/08/20 02/09/20 Range/Units 05:27 20:27 05:52 WBC 11.8 H (3.8-10.6) k/uL Hgb 11.3 L (11.4-16.0) gm/dL Sodium (137-145) mmol/L Potassium (3.5-5.1) mmol/L BUN (7-17) mg/dL Creatinine (0.52-1.04) mg/dL Glucose (74-99) mg/dL POC Glucose (mg/dL) 133 H (75-99) mg/dL Calcium (8.4-10.2) mg/dL C-Reactive Protein 141.8 H (<10.0) mg/L Total Protein (6.3-8.2) g/dL Albumin (3.5-5.0) g/dL 02/09/20 02/09/20 Range/Units 05:52 06:43 WBC (3.8-10.6) k/uL Hgb (11.4-16.0) gm/dL Sodium 135 L (137-145) mmol/L Potassium 3.2 L (3.5-5.1) mmol/L BUN 6 L (7-17) mg/dL Creatinine 0.48 L (0.52-1.04) mg/dL Glucose 145 H (74-99) mg/dL POC Glucose (mg/dL) 138 H (75-99) mg/dL Calcium 7.4 L (8.4-10.2) mg/dL C-Reactive Protein (<10.0) mg/L Total Protein 5.3 L (6.3-8.2) g/dL Albumin 2.7 L (3.5-5.0) g/dL Assessment and Plan (1) Ulcerative colitis Narrative/Plan: 29-year-old female with a history of ulcerative colitis initially involving the distal colon in 2016 on diagnosis, with the patient reporting to areas of colitis on recent colonoscopy in October of this year patient presents to the hospital with reports of dark colored stool and CT findings of pancolitis. CRP markedly elevated at 141 the patient has not been on treatment for her ulcerative colitis in the past. Current Visit: Yes Status: Acute Code(s): K51.90 - ULCERATIVE COLITIS, UNSPECIFIED, WITHOUT COMPLICATIONS SNOMED Code(s): 53668281 (2) Melena Current Visit: Yes Status: Acute Code(s): K92.1 - MELENA SNOMED Code(s): 1370963 (3) Acute blood loss anemia Current Visit: No Status: Acute Priority: High Code(s): D62 - ACUTE POSTHEMORRHAGIC ANEMIA SNOMED Code(s): 936504967 (4) GI bleed Current Visit: No Status: Acute Code(s): K92.2 - GASTROINTESTINAL HEMORRHAGE, UNSPECIFIED SNOMED Code(s): 04974829 Plan: Supportive care Monitor CBC, CMP Solu-Medrol 20 mg every 8 hours ESR and CRP Full liquid diet Extensive conversation with the patient will need follow-up with gastroenterology after discharge, with discussion regarding long-term treatment Thank you for allowing us to participate in the care of the patient we will cont inue to follow
[2020-02-09 20:17] LABS: Glucose,Whole Blood 151 mg/dL (75-99)
[2020-02-10] MEDS ORDERED: HYDROmorphone 0.5 MG/0.5 ML SYRINGE ONE (02:11)
[2020-02-10] MEDS: methylPREDNISolone SOD SUCCI 40 MG/ML 1 ML VIAL IV SCH ×4 (05:01→23:26)
[2020-02-10 06:21] LABS: Glucose,Whole Blood 142 mg/dL (75-99)
[2020-02-10] MEDS: INSULIN ASPART (NovoLOG) 100 UNIT/ML VIAL SQ SCH ×3 (06:50→21:23)
[2020-02-10] MEDS: HYDROmorphone 0.5 MG/0.5 ML SYRINGE IVP PRN ×4 (07:56→20:38)
[2020-02-10] MEDS: TAMSULOSIN 0.4 MG CAP.ER.24H PO SCH (07:56)
[2020-02-10] MEDS: SODIUM CHLORIDE 0.9% 1,000 ML IV SCH ×2 (07:58→16:58)
[2020-02-10 08:42] LABS: Basophils % (A) 0 %; Eosinophils % (A) 0 %; HCT 33.2 % (34.0-46.0); HGB 11.1 gm/dL (11.4-16.0); Lymphocytes # (A) 0.8 k/uL (1.0-4.8); Lymphocytes % (A) 7 %; MCH 30.5 pg (25.0-35.0); MCHC 33.6 g/dL (31.0-37.0); MCV 90.8 fL (80.0-100.0); Mean Platelet Volume 7.4; Monocytes # (A) 0.7 k/uL (0-1.0); Monocytes % (A) 6 %; Neutrophils # (A) 9.8 k/uL (1.3-7.7); Neutrophils % (A) 87 %; Platelet Count 247 k/uL (150-450); RBC 3.66 m/uL (3.80-5.40); RDW 11.8 % (11.5-15.5); WBC 11.4 k/uL (3.8-10.6)
[2020-02-10 08:50] LABS: African American GFR (CKD) >90 (>60 ml/min/1.73 sqM); Anion Gap 7 mmol/L; Blood Urea Nitrogen 7 mg/dL (7-17); Calcium 7.5 mg/dL (8.4-10.2); Carbon Dioxide 25 mmol/L (22-30); Chloride 105 mmol/L (98-107); Glucose 126 mg/dL (74-99); Non-African American GFR(CKD) >90 (>60 ml/min/1.73 sqM); Potassium 3.6 mmol/L (3.5-5.1); Sodium 137 mmol/L (137-145)
[2020-02-10 11:34] LABS: Glucose,Whole Blood 130 mg/dL (75-99)
[2020-02-10] MEDS ORDERED: POTASSIUM CHLORIDE ER 20 MEQ TAB.ER PO SCH (12:00)
--- NOTE | 2020-02-10 13:41 | P.PN ---
Subjective Progress Note Date: 02/10/20 Principal diagnosis: Colitis, blood per rectum, diarrhea Patient is seen today reporting 5 episodes of blood per rectum. Hemoglobin has remained stable. She is complaining about her diet and would like advanced. Objective - Vital Signs Vital signs: Vital Signs Temp 98.0 F 02/10/20 08:00 Pulse 100 02/10/20 08:00 Resp 18 02/10/20 08:00 BP 130/73 02/10/20 08:00 Pulse Ox 97 02/10/20 08:00 Intake & Output 02/09/20 02/10/20 02/10/20 18:59 06:59 18:59 Intake Total 240 Output Total 800 Balance -560 Weight 78.5 kg Intake: Oral 240 Output: Urine 800 Other: Voiding Method Toilet Toilet # Voids 2 - Exam On physical examination, patient appears comfortable in no apparent distress. HEAD: Normocephalic, atraumatic. EYES: No scleral icterus. No conjunctival injection. MOUTH: No lesions, tongue midline. NECK: Trachea midline, no gross abnormalities. ABDOMEN: Soft, nontender to palpation. Bowel sounds are positive. No organomegaly. No guarding or rigidity. EXTREMITIES: No pedal edema. SKIN: No rashes, no jaundice. NEUROLOGIC: Alert and oriented x3. No focal deficits. - Labs CBC & Chem 7: 02/10/20 08:19 02/10/20 08:19 Labs: Abnormal Lab Results - Last 24 Hours (Table) 02/09/20 02/09/20 02/09/20 Range/Units 15:57 15:57 16:27 WBC 12.6 H (3.8-10.6) k/uL RBC 3.76 L (3.80-5.40) m/uL Hgb 11.2 L (11.4-16.0) gm/dL Hct (34.0-46.0) % Neutrophils # 11.3 H (1.3-7.7) k/uL Lymphocytes # 0.7 L (1.0-4.8) k/uL Sodium 136 L (137-145) mmol/L Potassium 3.1 L (3.5-5.1) mmol/L BUN 6 L (7-17) mg/dL Creatinine 0.43 L (0.52-1.04) mg/dL Glucose 127 H (74-99) mg/dL POC Glucose (mg/dL) 114 H (75-99) mg/dL Calcium 7.8 L (8.4-10.2) mg/dL C-Reactive Protein (<10.0) mg/L Total Protein 5.5 L (6.3-8.2) g/dL Albumin 2.8 L (3.5-5.0) g/dL 02/09/20 02/10/20 02/10/20 Range/Units 20:14 06:20 06:57 WBC (3.8-10.6) k/uL RBC (3.80-5.40) m/uL Hgb (11.4-16.0) gm/dL Hct (34.0-46.0) % Neutrophils # (1.3-7.7) k/uL Lymphocytes # (1.0-4.8) k/uL Sodium (137-145) mmol/L Potassium (3.5-5.1) mmol/L BUN (7-17) mg/dL Creatinine (0.52-1.04) mg/dL Glucose (74-99) mg/dL POC Glucose (mg/dL) 151 H 142 H (75-99) mg/dL Calcium (8.4-10.2) mg/dL C-Reactive Protein 91.4 H (<10.0) mg/L Total Protein (6.3-8.2) g/dL Albumin (3.5-5.0) g/dL 02/10/20 02/10/20 02/10/20 Range/Units 08:19 08:19 11:30 WBC 11.4 H (3.8-10.6) k/uL RBC 3.66 L (3.80-5.40) m/uL Hgb 11.1 L (11.4-16.0) gm/dL Hct 33.2 L (34.0-46.0) % Neutrophils # 9.8 H (1.3-7.7) k/uL Lymphocytes # 0.8 L (1.0-4.8) k/uL Sodium (137-145) mmol/L Potassium (3.5-5.1) mmol/L BUN (7-17) mg/dL Creatinine 0.40 L (0.52-1.04) mg/dL Glucose 126 H (74-99) mg/dL POC Glucose (mg/dL) 130 H (75-99) mg/dL Calcium 7.5 L (8.4-10.2) mg/dL C-Reactive Protein (<10.0) mg/L Total Protein (6.3-8.2) g/dL Albumin (3.5-5.0) g/dL Assessment and Plan (1) Ulcerative colitis Narrative/Plan: 29-year-old female with a history of ulcerative colitis initially involving the distal colon in 2017 on diagnosis, with the patient reporting to areas of colitis on recent colonoscopy in October of this year patient presents to the hospital with reports of dark colored stool and CT findings of pancolitis. CRP markedly elevated at 141 on presentation, improved today. Current Visit: Yes Status: Acute Code(s): K51.90 - ULCERATIVE COLITIS, UNSPECIFIED, WITHOUT COMPLICATIONS SNOMED Code(s): 12780646 (2) Melena Current Visit: Yes Status: Acute Code(s): K92.1 - MELENA SNOMED Code(s): 2 861321 (3) Acute blood loss anemia Current Visit: No Status: Acute Priority: High Code(s): D62 - ACUTE POSTHEMORRHAGIC ANEMIA SNOMED Code(s): 648647096 (4) GI bleed Current Visit: No Status: Acute Code(s): K92.2 - GASTROINTESTINAL HEMORRHAGE, UNSPECIFIED SNOMED Code(s): 31547526 Plan: Supportive care Monitor CBC, CMP Solu-Medrol 20 mg every 8 hours ESR and CRP Diet advance to low fiber Rowasa enema added nightly Sulfasalazine 1 g twice a day added Extensive conversation with the patient will need follow-up with gastroenterology after discharge, with discussion regarding long-term treatment Thank you for allowing us to participate in the care of the patient we will continue to follow
--- NOTE | 2020-02-10 14:14 | PN ---
PROGRESS NOTE DATE OF SERVICE: 02/09/2020 CHIEF COMPLAINT: Acute exacerbation of ulcerative colitis. HISTORY OF PRESENT ILLNESS: This lady is not doing much better. She is still having quite a bit of abdominal pain and distention. She has been placed on steroids by Gastroenterology. She is still having bloody stool. She has had no fever, chills, and white count is normal. PHYSICAL EXAMINATION: She is slightly pale. Chest is clear. The cardiac exam is normal and the abdomen is still distended and she has generalized tenderness to light palpation. Bowel sounds are heard. IMPRESSION: 1. Exacerbation of ulcerative colitis. 2. Gastrointestinal blood loss. 3. Possible left renal calculus. PLAN: Continue with IV fluids and steroids. MMODL / IJN: [id number] /
--- NOTE | 2020-02-10 14:29 | PN ---
PROGRESS NOTE DATE OF SERVICE: 02/10/2020. CHIEF COMPLAINT: Ulcerative colitis. HISTORY OF PRESENT ILLNESS: This lady is feeling a little bit better. She is a little upset because she has lactose intolerance and they keep bringing her dairy products. The pain is slightly better, but she is still having loose bloody stool. Urology feels that she does not have a left ureteral calculus. PHYSICAL EXAMINATION: Color is still slightly pale. Head, ears, eyes, nose, mouth are normal. Chest is clear. Cardiac exam is normal. Tachycardia is diminished. Abdomen is still a bit distended, but a little bit less so than yesterday. Bowel sounds are heard. She has generalized tenderness. IMPRESSION: Ulcerative colitis. PLAN: 1. Continue with IV fluids and steroids. 2. Slowly advance diet without dairy products. MMODL / IJN: [id number] /
[2020-02-10 16:36] LABS: Glucose,Whole Blood 140 mg/dL (75-99)
[2020-02-10 20:24] LABS: Glucose,Whole Blood 128 mg/dL (75-99)
[2020-02-10] MEDS: sulfaSALAzine 500 MG TAB PO SCH (20:36)
[2020-02-10] MEDS: MESALAMINE 4 GM/60 ML ENEMA RECTAL SCH (20:36)
[2020-02-11] MEDS: HYDROmorphone 0.5 MG/0.5 ML SYRINGE IVP PRN ×4 (01:23→23:53)
[2020-02-11 06:12] LABS: Glucose,Whole Blood 141 mg/dL (75-99)
[2020-02-11] MEDS: INSULIN ASPART (NovoLOG) 100 UNIT/ML VIAL SQ SCH ×4 (06:43→20:56)
[2020-02-11 07:28] LABS: HCT 31.7 % (34.0-46.0); HGB 10.3 gm/dL (11.4-16.0); MCH 29.8 pg (25.0-35.0); MCHC 32.4 g/dL (31.0-37.0); MCV 91.9 fL (80.0-100.0); Mean Platelet Volume 7.1; Platelet Count 257 k/uL (150-450); RBC 3.45 m/uL (3.80-5.40); RDW 12.1 % (11.5-15.5); WBC 9.7 k/uL (3.8-10.6)
[2020-02-11] MEDS: SODIUM CHLORIDE 0.9% 1,000 ML IV SCH ×4 (07:54→23:17)
[2020-02-11 08:13] LABS: Potassium 3.7 mmol/L (3.5-5.1)
[2020-02-11] MEDS: TAMSULOSIN 0.4 MG CAP.ER.24H PO SCH (08:20)
[2020-02-11] MEDS: sulfaSALAzine 500 MG TAB PO SCH ×2 (08:20→21:04)
[2020-02-11] MEDS: methylPREDNISolone SOD SUCCI 40 MG/ML 1 ML VIAL IV SCH ×3 (08:20→23:53)
[2020-02-11 08:39] LABS: C Reactive Protein 34.7 mg/L (<10.0)
[2020-02-11 09:15] LABS: Erythrocyte Sedimentation Rate 10 mm/hr (0-20)
[2020-02-11 11:57] LABS: Glucose,Whole Blood 116 mg/dL (75-99)
[2020-02-11] MEDS: DICYCLOMINE 20 MG TAB PO PRN ×2 (15:14→21:04)
[2020-02-11 16:47] LABS: Glucose,Whole Blood 138 mg/dL (75-99)
--- NOTE | 2020-02-11 16:55 | PN ---
PROGRESS NOTE DATE OF SERVICE: 02/11/2020 CHIEF COMPLAINT: Acute exacerbation of ulcerative colitis. HISTORY OF PRESENT ILLNESS: This lady is doing slightly better. Pain is slightly improved. Her abdominal distention is also diminished slightly. She has had no vomiting and she has had no fever, chills, etc. She has been started on acid in addition to steroids. PHYSICAL EXAMINATION: Chest is clear. Cardiac exam is normal. The abdomen is slightly distended, but less so. She still has some generalized mild tenderness. Bowel sounds are present. Extremities are normal, neurologically she is intact. IMPRESSION: Acute exacerbation of ulcerative colitis. PLAN: Continue with conservative management and slowly reintroducing bland, soft diet. MMODL / IJN: [id number] /
[2020-02-11 20:46] LABS: Glucose,Whole Blood 139 mg/dL (75-99)
[2020-02-11] MEDS: MESALAMINE 4 GM/60 ML ENEMA RECTAL SCH (23:53)
[2020-02-12 06:37] LABS: HCT 34.1 % (34.0-46.0); HGB 11.2 gm/dL (11.4-16.0); MCH 30.2 pg (25.0-35.0); MCHC 32.9 g/dL (31.0-37.0); MCV 91.8 fL (80.0-100.0); Platelet Count 364 k/uL (150-450); RBC 3.71 m/uL (3.80-5.40); WBC 13.3 k/uL (3.8-10.6)
[2020-02-12 06:59] LABS: Glucose,Whole Blood 135 mg/dL (75-99)
--- NOTE | 2020-02-12 07:12 | P.PN ---
Subjective Progress Note Date: 02/11/20 Principal diagnosis: Colitis, blood per rectum, diarrhea Patient continues to take pain medications around the clock. She continues to report some blood per rectum and lower abdominal pain. Objective - Vital Signs Vital signs: Vital Signs Temp 97.9 F 02/12/20 05:01 Pulse 70 02/12/20 05:01 Resp 16 02/12/20 05:01 BP 117/63 02/12/20 05:01 Pulse Ox 95 02/12/20 05:01 Intake & Output 02/11/20 02/12/20 02/12/20 18:59 06:59 18:59 Intake Total 960 590 Output Total 1300 1 Balance -340 589 Intake: Intake, IV Titration 0 Amount Sodium Chloride 0.9% 1, 0 000 ml @ 150 mls/hr IV . Q6H40M [facility] Rx#:[id number] Oral 960 590 Output: Urine 1300 1 Other: Voiding Method Toilet # Voids 2 # Bowel Movements 1 - Exam On physical examination, patient appears comfortable in no apparent distress. HEAD: Normocephalic, atraumatic. EYES: No scleral icterus. No conjunctival injection. MOUTH: No lesions, tongue midline. NECK: Trachea midline, no gross abnormalities. ABDOMEN: Soft, nontender to palpation. Bowel sounds are positive. No organomegaly. No guarding or rigidity. EXTREMITIES: No pedal edema. SKIN: No rashes, no jaundice. NEUROLOGIC: Alert and oriented x3. No focal deficits. - Labs CBC & Chem 7: 02/12/20 06:06 02/11/20 06:48 Labs: Abnormal Lab Results - Last 24 Hours (Table) 02/11/20 02/11/20 02/11/20 Range/Units 06:48 06:48 11:55 WBC (3.8-10.6) k/uL RBC 3.45 L (3.80-5.40) m/uL Hgb 10.3 L (11.4-16.0) gm/dL Hct 31.7 L (34.0-46.0) % POC Glucose (mg/dL) 116 H (75-99) mg/dL C-Reactive Protein 34.7 H (<10.0) mg/L 02/11/20 02/11/20 02/12/20 Range/Units 16:46 20:45 06:06 WBC 13.3 H (3.8-10.6) k/uL RBC 3.71 L (3.80-5.40) m/uL Hgb 11.2 L (11.4-16.0) gm/dL Hct (34.0-46.0) % POC Glucose (mg/dL) 138 H 139 H (75-99) mg/dL C-Reactive Protein (<10.0) mg/L 02/12/20 Range/Units 06:57 WBC (3.8-10.6) k/uL RBC (3.80-5.40) m/uL Hgb (11.4-16.0) gm/dL Hct (34.0-46.0) % POC Glucose (mg/dL) 135 H (75-99) mg/dL C-Reactive Protein (<10.0) mg/L Assessment and Plan (1) Ulcerative colitis Narrative/Plan: 29-year-old female with a history of ulcerative colitis initially involving the distal colon in 2016 on diagnosis, with the patient reporting to areas of colitis on recent colonoscopy in October of this year patient presents to the hospital with reports of dark colored stool and CT findings of pancolitis. CRP markedly elevated at 141 on presentation, improved today. Current Visit: Yes Status: Acute Code(s): K51.90 - ULCERATIVE COLITIS, UNSPECIFIED, WITHOUT COMPLICATIONS SNOMED Code(s): 85019526 (2) Melena Current Visit: Yes Status: Acute Code(s): K92.1 - MELENA SNOMED Code(s): 0050957 (3) Acute blood loss anemia Current Visit: No Status: Acute Priority: High Code(s): D62 - ACUTE POSTHEMORRHAGIC ANEMIA SNOMED Code(s): 397726682 (4) GI bleed Current Visit: No Status: Acute Code(s): K92.2 - GASTROINTESTINAL H EMORRHAGE, UNSPECIFIED SNOMED Code(s): 94117596 Plan: Supportive care Monitor CBC, CMP Solu-Medrol 20 mg every 8 hours, can send on a tapering dose upon discharge ESR and CRP Diet advance to low fiber Rowasa enema added nightly Sulfasalazine 1 g twice a day added Extensive conversation with the patient will need follow-up with gastroentero logy after discharge, with discussion regarding long-term treatment Thank you for allowing us to participate in the care of the patient we will continue to follow
[2020-02-12] MEDS: INSULIN ASPART (NovoLOG) 100 UNIT/ML VIAL SQ SCH ×4 (08:10→21:45)
[2020-02-12] MEDS: methylPREDNISolone SOD SUCCI 40 MG/ML 1 ML VIAL IV SCH ×3 (08:11→17:54)
[2020-02-12] MEDS: TAMSULOSIN 0.4 MG CAP.ER.24H PO SCH (08:12)
[2020-02-12] MEDS: sulfaSALAzine 500 MG TAB PO SCH ×2 (08:12→21:45)
[2020-02-12] MEDS: SODIUM CHLORIDE 0.9% 1,000 ML IV SCH ×3 (08:51→19:42)
[2020-02-12] MEDS: DICYCLOMINE 20 MG TAB PO PRN (12:36)
--- NOTE | 2020-02-12 13:15 | P.GSCN ---
History of Present Illness Consult date: 02/12/20 Reason for Consult: Abdominal pain History of present illness: This a 29-year-old female with history of ulcerative colitis. Patient states th at she's had a one-month history of frequent diarrhea and rectal bleeding. Patient underwent colonoscopy in early January with Dr. Darby. She is found have acute and chronic inflammation of the colon patient recent CAT scan showed evidence of colitis from rectum to the cecum. She states that her pain is worsened today because she's not had any IV pain medication. Past Medical History Past Medical History: Asthma, Pneumonia Additional Past Medical History / Comment(s): insomnia, hernia, pt mother states "she had bowel wipeout related to her antibiotics" colitis, kidney stones to right kidney anemia History of Any Multi-Drug Resistant Organisms: None Reported Past Surgical History: Adenoidectomy, Hernia Repair (Left), Tonsillectomy Additional Past Surgical History / Comment(s): left inguinal hernia Past Anesthesia/Blood Transfusion Reactions: Motion Sickness Additional Past Anesthesia/Blood Transfusion Reaction / Comm: "high tolerance, I sometimes need more" Past Psychological History: No Psychological Hx Reported Smoking Status: Never smoker Past Alcohol Use History: None Reported Past Drug Use History: Marijuana - Past Family History Mother Family Medical History: No Reported History Additional Family Medical History / Comment(s): Mom is healthy with no major medical problems. Father Additional Family Medical History / Comment(s): Father has history of either Crohn's or irritable bowel syndrome. Medications and Allergies Home Medications Medication Instructions Recorded Confirmed Type Dextroamphetamine/Amphetamine 20 mg PO TID 01/02/17 02/07/20 History [Adderall] Medroxyprogesterone Acetate 150 mg IM Q90D 01/02/17 02/07/20 History [Depo-Provera] Albuterol Nebulized [Ventolin 2.5 mg INHALATION RT-QID PRN 01/09/17 02/07/20 History Nebulized] EPINEPHrine (Auto Inject) [Epipen] 0.3 mg IM ONCE PRN 01/09/17 02/07/20 History Albuterol Sulfate [Proair Hfa] 1 puff INHALATION RT-QID PRN 02/07/20 02/07/20 History Montelukast [Singulair] 10 mg PO DAILY 02/07/20 02/07/20 History Allergies Allergy/AdvReac Type Severity Reaction Status Date / Time Influenza Virus Vaccines Allergy Intermediate Unknown Verified 02/10/20 08:00 adhesive tape Allergy skin Verified 02/07/20 18:24 irritation animal dander Allergy Unknown Verified 02/07/20 18:24 cashew nut Allergy Swelling Verified 02/07/20 18:24 clarithromycin [From Biaxin] Allergy Abdominal Verified 02/07/20 18:24 Pain pistachio nut Allergy Rash/Hives Verified 02/07/20 18:24 walnut Allergy Rash/Hives Verified 02/07/20 18:24 wheat Allergy Unknown Verified 02/07/20 18:24 ciprofloxacin [From Cipro] AdvReac Itching Verified 02/07/20 18:24 [place] And Derivatives AdvReac Itching Verified 02/07/20 18:24 [[place]] Milk Containing Products AdvReac Diarrhea Verified 02/10/20 08:01 Surgical - Exam Vital Signs Temp Pulse Resp BP Pulse Ox 98.7 F 133 H 24 103/62 99 02/07/20 15:34 02/07/20 15:34 02/07/20 15:34 02/07/20 15:34 02/07/20 15:34 - General well developed, well nourished, no distress - Eyes PERRL - ENT normal pinna - Neck no masses - Respiratory normal expansion - Cardiovascular Rhythm: regular - Abdomen Mild diffuse tenderness. There is no rebound or guarding. Abdomen: soft Results - Labs 02/12/20 06:06 02/11/20 06:48 Abnormal Lab Results - Last 24 Hours (Table) 02/11/20 02/11/20 02/12/20 Range/Units 16:46 20:45 06:06 WBC 13.3 H (3.8-10.6) k/uL RBC 3.71 L (3.80-5.40) m/uL Hgb 11.2 L (11.4-16.0) gm/dL POC Glucose (mg/dL) 138 H 139 H (75-99) mg/dL C-Reactive Protein (<10.0) mg/L 02/12/20 02/12/20 Range/Units 06:06 06:57 WBC (3.8-10.6) k/uL RBC (3.80-5.40) m/uL Hgb (11.4-16.0) gm/dL POC Glucose (mg/dL) 135 H (75-99) mg/dL C-Reactive Protein 19.1 H (<10.0) mg/L Assessment and Plan Assessment: History of ulcerative colitis. Patient continue current medical management. She does not appear to have any significant rectal bleeding today. We will follow with you.
[2020-02-12] MEDS: HYDROmorphone 0.5 MG/0.5 ML SYRINGE IVP PRN ×3 (13:41→21:49)
--- NOTE | 2020-02-12 16:56 | PN ---
PROGRESS NOTE CHIEF COMPLAINT: Ulcerative colitis. HISTORY OF PRESENT ILLNESS: This lady has continued to have significant amount of pain. She feels it is not improving and she is still having several bloody stools a day. At the present time her IV has failed and will have to be restarted before fluids and analgesics. PHYSICAL EXAMINATION: She remains pale. Chest is clear. Cardiac exam is normal. 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 Bowel sounds present. IMPRESSION: Persistent active ulcerative colitis. PLAN: 1. Re-initiate IV fluids and analgesics. 2. Consult with Surgery. MMODL / IJN: [id number] /
[2020-02-12 21:25] LABS: Glucose,Whole Blood 150 mg/dL (75-99)
[2020-02-13] MEDS: DICYCLOMINE 20 MG TAB PO PRN ×2 (00:05→20:33)
[2020-02-13] MEDS: methylPREDNISolone SOD SUCCI 40 MG/ML 1 ML VIAL IV SCH ×3 (00:05→17:51)
[2020-02-13] MEDS: MESALAMINE 4 GM/60 ML ENEMA RECTAL SCH ×2 (00:05→23:39)
[2020-02-13] MEDS: SODIUM CHLORIDE 0.9% 1,000 ML IV SCH ×4 (02:22→20:27)
[2020-02-13] MEDS: HYDROmorphone 0.5 MG/0.5 ML SYRINGE IVP PRN ×5 (04:42→22:38)
[2020-02-13 06:59] LABS: Glucose,Whole Blood 174 mg/dL (75-99)
[2020-02-13] MEDS: sulfaSALAzine 500 MG TAB PO SCH ×2 (07:52→20:33)
[2020-02-13] MEDS: TAMSULOSIN 0.4 MG CAP.ER.24H PO SCH (07:52)
[2020-02-13] MEDS: INSULIN ASPART (NovoLOG) 100 UNIT/ML VIAL SQ SCH ×4 (07:53→20:04)
--- NOTE | 2020-02-13 09:21 | P.PN ---
Subjective Progress Note Date: 02/12/20 Principal diagnosis: Colitis, blood per rectum, diarrhea Patient tolerating her diet reporting improvement in abdominal pain. She is taking less pain medications at this time. She still evidence of blood per rectum. Objective - Vital Signs Vital signs: Vital Signs Temp 98.4 F 02/12/20 13:01 Pulse 97 02/12/20 13:01 Resp 15 02/12/20 13:01 BP 125/84 02/12/20 13:01 Pulse Ox 95 02/12/20 13:01 Intake & Output 02/11/20 02/12/20 02/12/20 18:59 06:59 18:59 Intake Total 960 590 Output Total 1300 1 Balance -340 589 Intake: Intake, IV Titration 0 Amount Sodium Chloride 0.9% 1, 0 000 ml @ 150 mls/hr IV . Q6H40M [facility] Rx#:[id number] Oral 960 590 Output: Urine 1300 1 Other: Voiding Method Toilet Toilet # Voids 2 # Bowel Movements 1 - Exam On physical examination, patient appears comfortable in no apparent distress. HEAD: Normocephalic, atraumatic. EYES: No scleral icterus. No conjunctival injection. MOUTH: No lesions, tongue midline. NECK: Trachea midline, no gross abnormalities. ABDOMEN: Soft, nontender to palpation. Bowel sounds are positive. No organo megaly. No guarding or rigidity. EXTREMITIES: No pedal edema. SKIN: No rashes, no jaundice. NEUROLOGIC: Alert and oriented x3. No focal deficits. - Labs CBC & Chem 7: 02/12/20 06:06 02/11/20 06:48 Labs: Abnormal Lab Results - Last 24 Hours (Table) 02/11/20 02/11/20 02/12/20 Range/Units 16:46 20:45 06:06 WBC 13.3 H (3.8-10.6) k/uL RBC 3.71 L (3.80-5.40) m/uL Hgb 11.2 L (11.4-16.0) gm/dL POC Glucose (mg/dL) 138 H 139 H (75-99) mg/dL C-Reactive Protein (<10.0) mg/L 02/12/20 02/12/20 Range/Units 06:06 06:57 WBC (3.8-10.6) k/uL RBC (3.80-5.40) m/uL Hgb (11.4-16.0) gm/dL POC Glucose (mg/dL) 135 H (75-99) mg/dL C-Reactive Protein 19.1 H (<10.0) mg/L Assessment and Plan (1) Ulcerative colitis Narrative/Plan: 29-year-old female with a history of ulcerative colitis initially involving the distal colon in 2017 on diagnosis, with the patient reporting to areas of colitis on recent colonoscopy in October of this year patient presents to the hospital with reports of dark colored stool and CT findings of pancolitis. CRP markedly elevated at 141 on presentation, markedly improved down to 19. Current Visit: Yes Status: Acute Code(s): K51.90 - ULCERATIVE COLITIS, UNSPECIFIED, WITHOUT COMPLICATIONS SNOMED Code(s): 50228842 (2) Melena Current Visit: Yes Status: Acute Code(s): K92.1 - MELENA SNOMED Code(s): 1756093 (3) Acute blood loss anemia Current Visit: No Status: Acute Priority: High Code(s): D62 - ACUTE POSTHEMORRHAGIC ANEMIA SNOMED Code(s): 858904364 (4) GI bleed Current Visit: No Status: Acute Code(s): K92.2 - GASTROINTESTINAL HEMORRHAGE, UNSPECIFIED SNOMED Code(s): 74276533 Plan: Supportive care Monitor CBC, CMP Solu-Medrol 20 mg every 8 hours, can send on a tapering dose upon discharge Diet advance to low fiber Rowasa enema added nightly Sulfasalazine 1 g twice a day added Extensive conversation with the patient will need follow-up with gastroenterology after discharge, with discussion regarding long-term treatment Thank you for allowing us to participate in the care of the patient we will continue to follow
[2020-02-13 09:57] VITALS: BMI 28.3
[2020-02-13 11:47] LABS: Glucose,Whole Blood 119 mg/dL (75-99)
--- NOTE | 2020-02-13 14:23 | P.PN ---
Progress Note - Text Progress Note Date: 02/13/20 The patient feels better. She denies any significant diarrhea. She has had no further rectal bleeding. On exam her vital signs are stable. Her abdomen soft. Improving colitis. Patient will be treated conservatively.
[2020-02-13 17:12] LABS: Glucose,Whole Blood 126 mg/dL (75-99)
--- NOTE | 2020-02-13 19:47 | P.PN ---
Subjective Progress Note Date: 02/13/20 Principal diagnosis: Colitis, blood per rectum, diarrhea Patient tolerating her diet reporting improvement in abdominal pain. No blood per rectum reported today. Objective - Vital Signs Vital signs: Vital Signs Temp 98.1 F 02/13/20 05:03 Pulse 98 02/13/20 05:03 Resp 16 02/13/20 05:03 BP 111/76 02/13/20 05:03 Pulse Ox 96 02/13/20 05:03 Intake & Output 02/12/20 02/13/20 02/13/20 18:59 06:59 18:59 Intake Total 1080 590 Balance 1080 590 Weight 76.2 kg Intake: Oral 1080 590 Other: Voiding Method Toilet Toilet # Voids 2 2 # Bowel Movements 10 - Exam On physical examination, patient appears comfortable in no apparent distress. HEAD: Normocephalic, atraumatic. EYES: No scleral icterus. No conjunctival injection. MOUTH: No lesions, tongue midline. NECK: Trachea midline, no gross abnormalities. ABDOMEN: Soft, nontender to palpation. Bowel sounds are positive. No organomegaly. No guarding or rigidity. EXTREMITIES: No pedal edema. SKIN: No rashes, no jaundice. NEUROLOGIC: Alert and oriented x3. No focal deficits. - Labs CBC & Chem 7: 02/12/20 06:06 02/11/20 06:48 Labs: Abnormal Lab Results - Last 24 Hours (Table) 02/12/20 02/13/20 Range/Units 21:24 06:59 POC Glucose (mg/dL) 150 H 174 H (75-99) mg/dL Assessment and Plan (1) Ulcerative colitis Narrative/Plan: 29-year-old female with a history of ulcerative colitis initially involving the distal colon in 2017 on diagnosis, with the patient reporting to areas of colitis on recent colonoscopy in October of this year patient presents to the hospital with reports of dark colored stool and CT findings of pancolitis. CRP markedly elevated at 141 on presentation, markedly improved. Current Visit: Yes Status: Acute Code(s): K51.90 - ULCERATIVE COLITIS, UNSPECIFIED, WITHOUT COMPLICATIONS SNOMED Code(s): 94143849 (2) Melena Current Visit: Yes Status: Acute Code(s): K92.1 - MELENA SNOMED Code(s): 4288426 (3) Acute blood loss anemia Current Visit: No Status: Acute Priority: High Code(s): D62 - ACUTE POSTHEMORRHAGIC ANEMIA SNOMED Code(s): 692149808 (4) GI bleed Current Visit: No Status: Acute Code(s): K92.2 - GASTROINTESTINAL HEMORRHAGE, UNSPECIFIED SNOMED Code(s): 66498851 Plan: Supportive care Monitor CBC, CMP Patient is to be transitioned to prednisone 40 mg tomorrow, can send on a tapering dose upon discharge Diet advance to low fiber Rowasa enema added nightly Sulfasalazine 1 g twice a day added Extensive conversation with the patient will need follow-up with gastroenterology after discharge, with discussion regarding long-term treatment Thank you for allowing us to participate in the care of the patient we will continue to follow
[2020-02-13 20:00] LABS: Glucose,Whole Blood 126 mg/dL (75-99)
[2020-02-13 20:56] VITALS: RESP 16
[2020-02-14] MEDS: SODIUM CHLORIDE 0.9% 1,000 ML IV SCH ×4 (02:23→20:23)
[2020-02-14] MEDS: HYDROmorphone 0.5 MG/0.5 ML SYRINGE IVP PRN ×5 (03:00→21:21)
[2020-02-14 06:22] LABS: HCT 37.4 % (34.0-46.0); HGB 12.1 gm/dL (11.4-16.0); MCH 30.3 pg (25.0-35.0); MCHC 32.4 g/dL (31.0-37.0); MCV 93.3 fL (80.0-100.0); Mean Platelet Volume 6.9; Platelet Count 434 k/uL (150-450); RBC 4.01 m/uL (3.80-5.40); RDW 12.8 % (11.5-15.5); WBC 11.8 k/uL (3.8-10.6)
[2020-02-14 07:02] LABS: Glucose,Whole Blood 97 mg/dL (75-99)
[2020-02-14] MEDS: INSULIN ASPART (NovoLOG) 100 UNIT/ML VIAL SQ SCH ×4 (07:52→20:12)
[2020-02-14] MEDS: predniSONE 20 MG TAB PO SCH (07:54)
[2020-02-14] MEDS: TAMSULOSIN 0.4 MG CAP.ER.24H PO SCH (07:54)
[2020-02-14] MEDS: sulfaSALAzine 500 MG TAB PO SCH ×2 (07:54→20:32)
[2020-02-14 09:14] LABS: Erythrocyte Sedimentation Rate 8 mm/hr (0-20)
[2020-02-14 11:29] LABS: Glucose,Whole Blood 125 mg/dL (75-99)
--- NOTE | 2020-02-14 11:30 | P.PN ---
Subjective Progress Note Date: 02/14/20 CHIEF COMPLAINT: Colitis HISTORY OF PRESENT ILLNESS: Patient examined this morning the bedside. Patient denies abdominal pain. She is tolerating diet. Denies nausea or vomiting. Denies any rectal bleeding. PHYSICAL EXAM: VITAL SIGNS: Reviewed. GENERAL: Well-developed in no acute distress. HEENT: No sclera icterus. Extraocular movements grossly intact. Moist buccal mucosa. Head is atraumatic, normocephalic. ABDOMEN: Soft. Nondistended. Nontender. NEUROLOGIC: Alert and oriented. Cranial nerves II through XII grossly intact. ASSESSMENT: 1. Colitis PLAN: -Continue diet as tolerated -No surgical intervention recommended -Stable for discharge from a surgical standpoint. Patient encouraged to follow- up with GI on an outpatient basis Nurse practitioner note has been reviewed by physician. Signing provider agrees with the documented findings, assessment, and plan of care. Objective - Vital Signs Vital signs: Vital Signs Temp 98.5 F 02/14/20 05:00 Pulse 66 02/14/20 05:00 Resp 16 02/14/20 05:00 BP 107/69 02/14/20 05:00 Pulse Ox 94 L 02/14/20 05:00 Intake & Output 02/13/20 02/14/20 02/14/20 18:59 06:59 18:59 Intake Total 540 1780 Output Total 7 2 Balance 533 1778 Weight 76.2 kg Intake: Intake, IV Titration 600 Amount Sodium Chloride 0.9% 1, 600 000 ml @ 150 mls/hr IV . Q6H40M [facility] Rx#:[id number] Oral 540 1180 Output: Urine 1 Stool 6 2 Other: Voiding Method Toilet Toilet # Voids 3 3 # Bowel Movements 2 - Labs CBC & Chem 7: 02/14/20 05:38 02/11/20 06:48 Labs: Abnormal Lab Results - Last 24 Hours (Table) 02/13/20 02/13/20 02/13/20 Range/Units 11:46 17:10 19:59 WBC (3.8-10.6) k/uL POC Glucose (mg/dL) 119 H 126 H 126 H (75-99) mg/dL 02/14/20 Range/Units 05:38 WBC 11.8 H (3.8-10.6) k/uL POC Glucose (mg/dL) (75-99) mg/dL
--- NOTE | 2020-02-14 15:20 | PN ---
PROGRESS NOTE DATE OF SERVICE: 02/14/2020 Patient is a 29-year-old pleasant white female admitted to hospital with exacerbation of ulcerative colitis, was on IV steroids and was started on oral prednisone 40 mg daily today, she is feeling much better. Abdominal pain has resolved. She had 3 bowel movements yesterday with no blood in the stool. No nausea, vomiting. Overall feeling much better. PHYSICAL EXAMINATION: Appears comfortable, in no apparent distress. Vital signs are stable, blood pressure 106/62, pulse is 87, temperature 96.9. HEENT; Examination unremarkable. Conjunctivae are pink, sclerae nonicteric, oral cavity no lesions. NECK: No JVD or lymph node enlargement. CHEST: Clear to auscultation. HEART: Regular rate and rhythm. ABDOMEN: Soft. Bowel sounds are positive. No organomegaly. EXTREMITIES: No pedal edema. SKIN: No rashes. NEURO: She is alert and oriented x3. No focal deficits. LABS: From today, WBC 11.8, hemoglobin 12, platelets normal. Basic metabolic panel is within normal limits and sedimentation rate is 8. CRP has normalized to 8.1, at the time of admission was 91.4. IMPRESSION: 1. Exacerbation of ulcerative colitis. The patient was on IV steroids, was changed to oral prednisone 40 mg daily today and she is doing much better. 2. Mild anemia. RECOMMENDATION: 1. Continue with oral prednisone 40 mg daily. 2. Advance diet as tolerated. 3. Patient already remains bedtime. 4. Continue with the sulfasalazine 1 g twice daily. 5. The patient can be discharged home today or tomorrow with outpatient followup with Dr. Jasmine in 2 weeks. Thank you for this consultation. MMODL / IJN: [id number] /
[2020-02-14 17:17] LABS: Glucose,Whole Blood 139 mg/dL (75-99)
--- NOTE | 2020-02-14 17:24 | PN ---
PROGRESS NOTE DATE OF SERVICE: 02/13/2020 CHIEF COMPLAINT: Ulcerative colitis. HISTORY OF PRESENT ILLNESS: This lady is doing a bit better. The diarrhea has slowed. She is having less pain. She has had no fever, chills. PHYSICAL EXAMINATION: Color and hydration are much improved. Chest is clear. The cardiac exam is normal and the abdomen is still slightly distended and minimally tender in the lower aspect. It is improved. IMPRESSION: Ulcerative colitis. PLAN: Continue with current treatment until Gastroenterology feels she can be released. MMODL / IJN: [id number] /
--- NOTE | 2020-02-14 18:18 | PN ---
PROGRESS NOTE DATE OF SERVICE: 02/14/2020 CHIEF COMPLAINT: Ulcerative colitis and anemia. HISTORY OF PRESENT ILLNESS: This lady is doing much better. Everyday frequency of bloody bowel movements decreases as well as the pain. PHYSICAL EXAMINATION: She is pale. Chest is clear. Cardiac exam is normal. Abdomen is soft and nontender and less distended. IMPRESSION: 1. Ulcerative colitis. 2. Anemia. PLAN: Continue current treatment and discharge when cleared by Gastroenterology, which could be soon. MMODL / IJN: [id number] /
[2020-02-14 20:11] LABS: Glucose,Whole Blood 125 mg/dL (75-99)
[2020-02-14] MEDS: MESALAMINE 4 GM/60 ML ENEMA RECTAL SCH (20:32)
[2020-02-15] MEDS: HYDROmorphone 0.5 MG/0.5 ML SYRINGE IVP PRN ×2 (02:45→07:58)
[2020-02-15] MEDS: SODIUM CHLORIDE 0.9% 1,000 ML IV SCH ×2 (04:38→07:47)
[2020-02-15 06:53] LABS: Glucose,Whole Blood 89 mg/dL (75-99)
[2020-02-15] MEDS: INSULIN ASPART (NovoLOG) 100 UNIT/ML VIAL SQ SCH ×2 (07:03→12:00)
[2020-02-15] MEDS: sulfaSALAzine 500 MG TAB PO SCH (07:48)
[2020-02-15] MEDS: TAMSULOSIN 0.4 MG CAP.ER.24H PO SCH (07:54)
[2020-02-15] MEDS: predniSONE 20 MG TAB PO SCH (07:54)
[2020-02-15 11:04] LABS: Glucose,Whole Blood 135 mg/dL (75-99)
[2020-02-15 11:50] VITALS: BP 115/63; PULSE 112; TEMP 98.2
--- NOTE | 2020-02-15 14:13 | P.PN ---
Subjective Progress Note Date: 02/15/20 CHIEF COMPLAINT: Colitis HISTORY OF PRESENT ILLNESS: Patient examined this morning the bedside. Patient denies abdominal pain. She is tolerating diet. Denies nausea or vomiting. Denies any rectal bleeding. PHYSICAL EXAM: VITAL SIGNS: Reviewed. GENERAL: Well-developed in no acute distress. HEENT: No sclera icterus. Extraocular movements grossly intact. Moist buccal mucosa. Head is atraumatic, normocephalic. ABDOMEN: Soft. Nondistended. Nontender. NEUROLOGIC: Alert and oriented. Cranial nerves II through XII grossly intact. ASSESSMENT: 1. Colitis PLAN: -Continue diet as tolerated -No surgical intervention recommended -Stable for discharge from a surgical standpoint. Patient encouraged to follow- up with GI on an outpatient basis Nurse practitioner note has been reviewed by physician. Signing provider agrees with the documented findings, assessment, and plan of care. Objective - Vital Signs Vital signs: Vital Signs Temp 98.2 F 02/15/20 11:49 Pulse 112 H 02/15/20 11:49 Resp 16 02/15/20 11:49 BP 115/63 02/15/20 11:49 Pulse Ox 97 02/15/20 11:49 Intake & Output 02/14/20 02/15/20 02/15/20 18:59 06:59 18:59 Intake Total 400 1780 Balance 400 1780 Intake: Intake, IV Titration 400 600 Amount Sodium Chloride 0.9% 1, 400 600 000 ml @ 150 mls/hr IV . Q6H40M [facility] Rx#:[id number] Oral 1180 Other: Voiding Method Toilet # Voids 3 # Bowel Movements 2 - Labs CBC & Chem 7: 02/14/20 05:38 02/11/20 06:48 Labs: Abnormal Lab Results - Last 24 Hours (Table) 02/14/20 02/14/20 02/15/20 Range/Units 17:16 20:10 11:01 POC Glucose (mg/dL) 139 H 125 H 135 H (75-99) mg/dL
--- NOTE | 2020-02-15 15:33 | DS ---
DISCHARGE SUMMARY CHIEF COMPLAINT: Abdominal pain and bright red rectal bleeding. HISTORY OF PRESENT ILLNESS AND PHYSICAL EXAM: Details of this lady's history and physical can be found in the initial workup. LABORATORY STUDIES: While she was in a hospital she had laboratory studies, details of which can be found in the laboratory section of her chart. COURSE IN HOSPITAL: After admission, she was placed on bedrest, started on intravenous fluids and she was seen by Gastroenterology. She continued to have significant abdominal pain, distention, frequent painful bloody stools. She was placed on steroids and seemed to improve slightly, but further medications were added including sulfasalazine and enemas. Symptoms were improving and it was felt that she could go home on 02/14 and she will follow up with Gastroenterology as well as us in several days. FINAL DIAGNOSIS: 1. Acute exacerbation of ulcerative colitis. 2. Blood loss anemia. OPERATIONS: None. CONSULTATIONS: Gastroenterology. She is improved. MMODL / IJN: [id number] /
--- NOTE | 2020-02-15 17:00 | PN ---
PROGRESS NOTE DATE OF DICTATION: 02/15/2020 Patient is a 29-year-old pleasant white female admitted to hospital with acute exacerbation of ulcerative colitis, was treated with IV steroids for 2 days and was switched to oral prednisone 40 mg daily yesterday. She is feeling much better. No abdominal pain. No nausea, vomiting. The bleeding has completely subsided. She had 3 soft bowel movements today, on a regular diet tolerating well. PHYSICAL EXAMINATION: Appears comfortable, in no apparent distress. Vital signs are stable, blood pressure 115/63, pulse rate 112, temperature 98.2. HEENT: Examination unremarkable, conjunctivae are pink, sclerae nonicteric, oral cavity no lesions. NECK: No JVD of lymph node enlargement. CHEST: Clear to auscultation. HEART: Regular rate and rhythm. ABDOMEN: Soft. Bowel sounds are positive. No organomegaly. EXTREMITIES: No pedal edema. SKIN: No rashes. NEUROLOGIC: Alert and oriented x3. No focal deficits. LABS: From today, not done. IMPRESSION: 1. Exacerbation of ulcerative colitis, maintained on prednisone 40 mg daily and doing well on a regular diet, tolerating well. She is also at bedtime and is 1 g 4 times daily. RECOMMENDATION: 1. Continue prednisone 40 mg and she was advised to taper it by 5 mg every week. 2. Continue with 1 g 4 times daily. 3. once at bedtime. 4. Follow up with Dr. Mauricio in 2 weeks. Thank you for this consultation. MMODL / IJN: [id number] /
== END 2020-02-15 14:21 | disposition home or self-care (01) | DRG 386 ==
LOC: EC 15:28 → 3SCARD 18:09 → 5NMEDONC 02-11 18:57
PROVIDERS: ADMIT Family Medicine; ATTEND Family Medicine
DX: K51.911 Ulcerative colitis, unspecified with rectal bleeding (principal); D62 Acute posthemorrhagic anemia; N13.30 Unspecified hydronephrosis; E73.9 Lactose intolerance, unspecified; J45.909 Unspecified asthma, uncomplicated; Z11.59 Encounter for screening for other viral diseases; Z87.442 Personal history of urinary calculi; Z79.899 Other long term (current) drug therapy; Z87.01 Personal history of pneumonia (recurrent); Z88.1 Allergy status to other antibiotic agents; Z91.018 Allergy to other foods; Z88.7 Allergy status to serum and vaccine; Z83.79 Family history of other diseases of the digestive system
CPT/HCPCS: 36415; 74177; 80048; 80053; 81001; 82272; 84132; 84484; 84703; 85025; 85027; 85610; 85652; 85730; 86140; 87324; 87635; 93005; 96361; 96374; 96375; 96376; 99285